=== PATIENT | female | born 1945 | race Caucasian/White ===

== ENCOUNTER 2020-02-29 07:57 | Outpatient (CLI) | payer MEDICARE, MEDICAID, SELFPAY ==
--- NOTE | 2020-02-29 08:13 | US_ITS ---
NOTE: Report was unsigned for reason: Ordering provider was edited. Original Signature date and time was: 02/29/20 @ 0929 WS: [id number] ULTRASOUND ABDOMEN CLINICAL INFORMATION: pain COMPARISON: None. FINDINGS: Liver Size: Normal. Craniocaudal length: 14.3 cm. Echogenicity: Normal. Surface nodularity: None. Mass (size and location): None. Bile ducts Intrahepatic ducts: Normal. Common bile duct diameter: 0.8 cm. Gallbladder Gallstones Gallstones: Present Gallbladder sludge: Sludge balls Gallbladder wall thickening: None. Pericholecystic fluid: None. Sonographic Wong sign: Absent. Pancreas Normal as visualized. Spleen Splenomegaly: None. Craniocaudal length: 11.4 cm. Right kidney: Atrophic and hyperechoic Hydronephrosis: None. Size: 6.5 cm x 3.1 cm x 2.9 cm Left kidney: Normal. Hydronephrosis: None. Size: 12.1 cm x 5.1 cm x 5.5 cm. Abdominal aortic aneurysm measuring 4.4 x 4.0 cm AP by transverse. Peripheral mural thrombus and chronic calcified dissection flap. Ascites: None. [facility] US/US abdomen complete* 80802 IMPRESSION: 1. Normal liver. 2. Cholelithiasis and sludge balls. Fluid Distended gallbladder. No pericholec ystic fluid or gallbladder wall thickening. No evidence of acute cholecystitis. 3. Dilated common bile duct measuring 9.3 mm extending into the pancreatic hea d. This can be further evaluated with MRCP. 4. Atrophic right kidney. Normal left kidney. 5. Abdominal aortic aneurysm measuring 4.4 x 4.0 cm with peripheral mural thro mbus and chronic calcified dissection flap. This appears slightly increased in size since 2016. This could be followed up with CTA.
== END 2020-02-29 07:58 | disposition home or self-care (01) ==
PROVIDERS: Family Provider Nurse Practitioner Family; PCP Nurse Practitioner Family; Visit Provider Nurse Practitioner Family
DX: R10.9 Unspecified abdominal pain (principal); K80.20 Calculus of gallbladder without cholecystitis without obstruction; N26.1 Atrophy of kidney (terminal); I71.4 Abdominal aortic aneurysm, without rupture
CPT/HCPCS: 76700

== ENCOUNTER 2020-03-13 08:10 | Day surgery (SDC) | payer MEDICARE, MEDICAID, SELFPAY ==
[2020-03-10 15:25] VITALS: BMI 17.8
[2020-03-13 08:33] VITALS: BP 146/101; PULSE 116; RESP 20; TEMP 37; O2SAT 94
[2020-03-13] MEDS: sodium chloride 0.9% 1,000 ML 30 ML IV (08:47)
--- NOTE | 2020-03-13 08:52 | ANES.PREANE2 ---
Pre-Anesthetic Assessment Pre-Anesthetic Assessment: Height/Weight: Height 1.7 m Weight 51.71 kg Temp Pulse Resp BP Pulse Ox 98.6 F 116 H 20 H 146/101 94 03/13/20 08:33 03/13/20 08:33 03/13/20 08:33 03/13/20 08:33 03/13/20 08:33 Preop Diagnosis: e Proposed Procedure: Operation Date: 03/13/20 09:35 Proposed Procedures p EGD 27951 R10.11(Not Applicable) - Isidro Tellez MD s Colonoscopy G0121 Z12.11(Not Applicable) - Isidro Tellez MD Familial anesthetic complications: None Was Beta Roseanna taken within 24 hours: Yes Last intake: Intake Last Liquid Date 03/12/20 Last Liquid Time 22:00 Last Solid Date 04/08/20 Last Solid Time 18:00 Social: Social History: Tobacco and No alcohol Packs per day: 1 ppd Exam: Pre-Anes Outpt Exam: alert, oriented x 3, clear to auscultation bilaterally and regular rate & rhythm Airway: Cervical ROM: WNL MP: 4 Dentition: False Pulmonary: Pulmonary: COPD (2 L NC at night a couple times a week depending on humidity) CV/HEM: CV/HEM: CAD (stents 5 years ago), HTN and PVD Comments: s/p AAA repair? : : None reported Hepatic: Hepatic: None reported GI: GI: None reported Metabolic: Metabolic: None reported Musc/skel: Musc/skel: Lower Back Pain Neuropsych: Neuropsych: None reported Anesthetic Plan: ASA status: 3 Anesthesia: MAC Risk of > 500 ml blood loss (7ml/kg in children): No Meds/Allergies Current Medications: Current Medications Generic Name Dose Route Start Last Admin Trade Name Freq PRN Reason Stop Dose Admin Sodium Chloride 1,000 mls @ 30 ml s/hr 03/13/20 08:30 03/13/20 08:47 Sodium Chloride 0.9% IV 30 mls/hr .Q24H SATNAM Administration Data Anesthesia Cardiac Studies: No Data to Display
--- NOTE | 2020-03-13 08:54 | W.PM.OPSUD ---
Surgery/Procedure H&P Update DATE OF PROCEDURE: March 13, 2020 DATE H&P PERFORMED: 03/06/20 PREOP DIAGNOSIS: e PLANNED PROCEDURE: Operation Date: 03/13/20 09:35 Proposed Procedures p EGD 82704 R10.11(Not Applicable) - Isidro Tellez MD s Colonoscopy G0121 Z12.11(Not Applicable) - Isidro Tellez MD
--- NOTE | 2020-03-13 09:41 | ANE.PACU2 ---
 Inpatient post-anesthesia follow up: Airway intact: Yes Vital signs: Temperature 98.6 F Pulse Rate 116 Respiratory Rate 20 Blood Pressure 146/101 Pulse Oximetry 94 Oxygen Delivery Me thod Room Air Oxygen Flow Rate Fraction of Inspir ed Oxygen Hydration adequate: Yes Nausea and vomiting: No Pain level: 1 Mental status: Baseline
[2020-03-13 10:17] VITALS: PULSE 79; RESP 16; TEMP 36.3; O2SAT 94
--- NOTE | 2020-03-13 10:22 | ANE.PACU2 ---
 Inpatient post-anesthesia follow up: Airway intact: Yes Vital signs: Temperature 97.3 F Pulse Rate 79 Respiratory Rate 16 Blood Pressure 146/101 Pulse Oximetry 94 Oxygen Delivery Me thod Nasal Cannula Oxygen Flow Rate 2 Fraction of Inspir ed Oxygen Hydration adequate: Yes Nausea and vomiting: No Pain level: 1 Mental status: Baseline
[2020-03-13 10:29] VITALS: BP 163/103; PULSE 75; RESP 18; O2SAT 98
--- NOTE | 2020-03-13 10:52 | PC.NURSE ---
This nurse called Dr. Smallwood's office to set up an appointment on Friday03/17/20 at 1315 for a gall bladder removal consultation. This nurse notified the patient as well.
== END 2020-03-13 10:44 | disposition home or self-care (01) ==
PROVIDERS: Family Provider Nurse Practitioner Family; PCP Nurse Practitioner Family; Visit Provider Internal Medicine
PROC: 0DJ08ZZ Inspection of Upper Intestinal Tract, Via Natural or Artificial Opening Endoscopic (ICD-10-PCS; CPT 43235; principal; 2020-03-13 09:30)
PROC: 0DJD8ZZ Inspection of Lower Intestinal Tract, Via Natural or Artificial Opening Endoscopic (ICD-10-PCS; CPT 45378; 2020-03-13 09:30)
DX: Z12.11 Encounter for screening for malignant neoplasm of colon (principal); J44.9 Chronic obstructive pulmonary disease, unspecified; Z95.5 Presence of coronary angioplasty implant and graft; I10 Essential (primary) hypertension; I25.10 Atherosclerotic heart disease of native coronary artery without angina pectoris; Z82.49 Family history of ischemic heart disease and other diseases of the circulatory system
CPT/HCPCS: 12345; 43235; 45378; G0121; J7030

== ENCOUNTER 2020-03-28 08:47 | Outpatient (CLI) | payer MEDICARE, MEDICAID, SELFPAY ==
--- NOTE | 2020-03-28 08:45 | MR_ITS ---
WS: [id number] MRI/MRCP OF THE ABDOMEN WITHOUT GADOLINIUM ENHANCEMENT TECHNIQUE: Thin and thick slab MRCP, Axial T2, Coronal MRCP, Axial Dual Echo, and Axial 2-D Fiesta imaging was obtained. Coronal 2-D Fiesta imaging. CLINICAL INFORMATION: DILATED COMMON BILE DUCT COMPARISON: Ultrasound February 28, 2011 CT 8 ,016 FINDINGS: Liver is normal in appearance. Normal portal vein and splenic vein. Cholelithiasis better seen on the recent ultrasound. Fluid distended gallbladder. No pericholecystic fluid or significant gallbladder wall thickening. Again seen is dilatation common bile duct measuring 10 mm extending to the pancreati c head. No visualized choledocholithiasis. No pancreatic head mass. No intrahepatic biliary duct dila tation. No pancreatic ductal dilatation. Atrophic right kidney. No hydronephrosis in either kidney. Normal left kidney. Stable abdominal aorti c aneurysm measuring 4.4 x 4.0 cm with moderate atheromatous disease and peripheral mural thrombus. C hronic dissection flap. MR/MR MRCP 24155 Impression: 1. Dilatation of the common bile duct measuring up to 10 mm. No obstructing ca lculi or pancreatic head mass. No visualized choledocholithiasis. 2. Fluid distended gallbladder with cholelithiasis. No intrahepatic biliary du ctal dilatation. No pericholecystic fluid. 3. Pancreatic head is normal in appearance. No visualized pancreatic head mass . 4. Atrophic right kidney. No hydronephrosis in the left kidney. Tiny left tereza l cyst. 5. Stable abdominal aortic aneurysm with dissection flap and mural thrombus. A neurysm measures approximately 4.0 x 4.4 cm AP by transverse.
== END 2020-03-28 08:48 | disposition home or self-care (01) ==
LOC: RADSHAW 08:50
PROVIDERS: PCP Nurse Practitioner Family; Visit Provider Surgery
DX: Q44.5 Other congenital malformations of bile ducts (principal); K82.8 Other specified diseases of gallbladder; K80.20 Calculus of gallbladder without cholecystitis without obstruction; N26.1 Atrophy of kidney (terminal); N28.1 Cyst of kidney, acquired; I71.4 Abdominal aortic aneurysm, without rupture
CPT/HCPCS: 74181

== ENCOUNTER 2020-04-05 06:27 | Day surgery (SDC) | payer MEDICARE, MEDICAID, SELFPAY ==
[2020-04-04 11:21] VITALS: BMI 18.0
[2020-04-05] VITALS (16 sets, daily range): BP systolic 134–166; BP diastolic 78–98; PULSE 65–87; RESP 16–18; TEMP 36.2–37.3; O2SAT 90–97
--- NOTE | 2020-04-05 | SCC_ITS ---
Procedure Done: Laparoscopic cholecystectomy with intraoperative cholangiogram 7.7 seconds of fluoroscopic guidance, for a cumulative dose of 24.48 mGy, was provided to Dr. Smallwood by the radiology department. C-arm images of the abdomen were saved for the patient's permanent record. [facility]
--- NOTE | 2020-04-05 | XR_ITS ---
WS: [id number] C-ARM RADIOGRAPHS ABDOMEN; 11 IMAGES HISTORY: OR IMAGES COMPARISON: None available. Intraoperative imaging during laparoscopic cholecystectomy. Intraoperative cholangiogram is performed . There is a mild stricture the distal common bile duct. No filling defects. XR/XR KUB 10582 IMPRESSION: Stricture of the distal common bile duct. No filling defects.
[2020-04-05] MEDS: sodium chloride 0.9% 1,000 ML 30 ML IV (07:03)
--- NOTE | 2020-04-05 07:05 | W.PM.OPSUD ---
Surgery/Procedure H&P Update DATE OF PROCEDURE: April 05, 2020 DATE H&P PERFORMED: 03/17/20 H&P UPDATE INFORMATION: I have reviewed H&P completed within last 30 days, I have examined patient prior to procedure and No changes to prior documentation PREOP DIAGNOSIS: cholelithiasis PLANNED PROCEDURE: Operation Date: 04/05/20 08:00 Proposed Procedures p Laparoscopic Cholecystectomy 92881 R10.11(Not Applicable) - Con Smallwood MD
--- NOTE | 2020-04-05 07:26 | ANES.PREANE2 ---
Pre-Anesthetic Assessment Pre-Anesthetic Assessment: Height/Weight: Height 1.7 m Weight 52.163 kg Temp Pulse Resp BP Pulse Ox 99.2 F 87 18 134/80 94 04/05/20 06:49 04/05/20 06:49 04/05/20 06:49 04/05/20 06:49 04/05/20 06:49 Preop Diagnosis: cholelithiasis Proposed Procedure: Operation Date: 04/05/20 08:00 Proposed Procedures p Laparoscopic Cholecystectomy 36046 R10.11(Not Applicable) - Con Smallwood MD Last intake: Intake Last Liquid Date 04/04/20 Last Liquid Time 23:30 Last Solid Date 04/04/20 Last Solid Time 15:00 Social: Social History: Alcohol and Tobacco Exam: Pre-Anes Outpt Exam: alert, oriented x 3, clear to auscultation bilaterally and regular rate & rhythm Airway: Submandibular: WNL Cervical ROM: WNL MP: 1 Dentition: False (upper and lower) History/ROS: No significant history except as noted Pulmonary: Pulmonary: COPD and SORTO CV/HEM: CV/HEM: CAD and HTN Comments: AAA repair 2016 CAD stent : : None reported Hepatic: Hepatic: None reported GI: GI: GERD Metabolic: Metabolic: Hyperlipidemia Musc/skel: Musc/skel: Lower Back Pain and OA/DJD Neuropsych: Neuropsych: None reported Anesthetic Plan: ASA status: 3 Anesthesia: Anesthesia Evaluation and General Risk of > 500 ml blood loss (7ml/kg in children): No Meds/Allergies Current Medications: Current Medications Generic Name Dose Route Start Last Admin Trade Name Freq PRN Reason Stop Dose Admin Sodium Chloride 1,000 mls @ 30 ml s/hr 04/05/20 06:00 04/05/20 07:03 Sodium Chloride 0.9% IV 04/06/20 05:59 30 mls/hr .Q24H SATNAM Administration PFSH Anesthesia PFSH: Medical History Adjustment disorder with depressed mood CHF (congestive heart failure) Chronic pain disorder COPD (chronic obstructive pulmonary disease) Dissection of aorta HTN (hypertension), benign Idiopathic osteoarthritis Idiopathic scoliosis Opioid dependence Surgical History H/O esophagogastroduodenoscopy History of aortic aneurysm repair History of back surgery History of eye surgery History of hysterectomy Status post colonoscopy Family History Mother Hypertension Denies family history of Anesthesia complication Bleeding disorder Social History Smoking and tobacco status: current every day smoker Second hand smoke exposure: No Alcohol intake: never Adopted: No Caregiver/support person: Yes Lives independently: Yes Household members: none Housing: House Sexually active: No Current gender identity: Female Data Anesthesia Cardiac Studies: No Data to Display
[2020-04-05] MEDS: fentaNYL 50 mcg/mL INJ 2mL IVP ×2 (10:03→10:08)
[2020-04-05] MEDS: morphine 4 mg/mL SDV 1 mL 2 MG IVP ×2 (10:12→10:16)
--- NOTE | 2020-04-05 10:16 | P.OP_ITS ---
Operative Report Date of procedure: April 05, 2020 Pre-op Diagnosis: cholelithiasis, dilated CBD measuring 10 mm Post-op Diagnosis: Cholelithiasis CBD measuring 10 mm 2 cm distal CBD stricture, slightly dilated with glucagon, with drainage of contrast into duodenum - will refer to GI for possible ERCP as outpatient Procedure Done: Laparoscopic cholecystectomy with intraoperative cholangiogram Specimens removed/disposition: Gallbladder Surgeon: Con Smallwood Anesthesia: General Estimated blood loss (mL): 20 Condition: stable Disposition: PACU Brief History: This is 75-year-old female who is previously undergone a open as well as endovascular aortic aneurysm repair and has been dealing with right upper quadrant pain worse with eating. She had an ultrasound which showed 9 mm duct and cholelithiasis and a subsequent MRCP showed dilated duct but no choledocholithiasis or obstructing mass was identified. Procedure: The patient was taken to the operating room and was intubated under general anesthesia. After the antibiotic had been administered, the abdomen was prepped and draped in a sterile manner. Using a #15 blade, a 1 centimeter incision was made in the midclavicular line in the right upper quadrant 2 fingerbreadths below the costal margin and using an open Chyna technique the peritoneal cavity was entered. A 10 millimeter port was placed and 15 millimeters of pneumoperitoneum was created. A 10 millimeter, 30 degrees scope was then introduced. Three 5 millimeter ports were placed in the epigastric, and the anterior axillary line two fingerbreadths below the costal margin on the right side under the direct visualization. Another 5 mm port was placed in the midclavicular line on the right side at the level of the umbilicus. Ratcheted forceps were introduced into the lateral most port and was used to retract the fundus of the gallbladder cephalad and using forceps the infundibulum of the gallbladder was retracted laterally. Using L-hook cautery the peritoneum overlying the Calot's triangle was opened medially and laterally until the cystic duct and the cystic artery were skeletonized critical view of safety ob tained.. The cystic duct and cystic artery was isolated and Arrow cholangiogram catheter was introduced through sheath placed in the right upper quadrant under direct visualization. Using scissors a small opening was made in the cystic duct after a 5 mm clip was placed at the infundibulum of the gallbladder. The cystic duct was milked proximally and Arrow catheter was introduced through the sheath placed in the right upper quadrant and the balloon inflated with 1 cc of saline. 50: 50 Omnipaque mixed with saline was injected under fluoroscopic visualization, the cystic duct and the dilated common bile duct was identified. There was a 2 cm stricture noted in the distal CBD with drainage of contrast into the duodenum. The right and the left hepatic ducts were identified. 1 mg of glucagon was given and a repeat study showed slight dilation of the stricture with drainage of contrast into the duodenum. The balloon on the cholangiogram catheter was deflated and removed and 10mm clips were applied distal to the opening in the cystic duct. The rest of the gallbladder was dissected off the liver using L-hook cautery. There was no bleeding or bile leakage noted from the gallbladder fossa and the clips appeared to be in place. An EndoCatch bag was introduced to remove the gallbladder. All the ports were removed under direct visualization and there was no bleeding noted from the port sites. The fascia of the 10 mm port was closed using [id number] Vicryl sutures and the subcutaneous tissue was approximated using 3-0 Vicryl sutures. The skin at all four ports were closed using 4-0 Monocryl and Dermabond. A total of 10 millimeters of 0.5% Marcaine was infiltrated around the port sites. The patient was stable throughout the procedure.
[2020-04-05] MEDS: meperidine 50 mg/mL INJ 12.5 MG IVP (10:20)
[2020-04-05] MEDS: sodium chloride 0.9% 1,000 ML 100 ML IV (10:20)
--- NOTE | 2020-04-05 10:52 | SUR.PHASEI ---
1040 PT AWAKES TO VOICE EASILY PT REMAINS ON 3LNC SATS 100% PT STATES PAIN IS BETTER BUT STILL 10 FACE SCALE 2 PT BACK TO SLEEP ABD SOFT PT TO OPS PER CART PT AWAKES AND REQUESTS APPLE JUICE TO DRINK.
[2020-04-05] MEDS: HYDROcodone-acetaminophen 5-325 mg Tablet 1 TAB PO (11:15)
== END 2020-04-05 12:04 | disposition home or self-care (01) ==
PROVIDERS: PCP Nurse Practitioner Family; Visit Provider Surgery
PROC: 0FT44ZZ Resection of Gallbladder, Percutaneous Endoscopic Approach (ICD-10-PCS; CPT 47562; principal; 2020-04-05 08:00)
DX: K81.1 Chronic cholecystitis (principal); J44.9 Chronic obstructive pulmonary disease, unspecified; I25.10 Atherosclerotic heart disease of native coronary artery without angina pectoris; K21.9 Gastro-esophageal reflux disease without esophagitis; E78.5 Hyperlipidemia, unspecified; M19.90 Unspecified osteoarthritis, unspecified site; I11.0 Hypertensive heart disease with heart failure; I50.9 Heart failure, unspecified; F17.210 Nicotine dependence, cigarettes, uncomplicated
CPT/HCPCS: 47562; 12345; 74018; 76000; 88304; J0690; J1610; J2175; J2270; J2405; J2704; J2710; J3010; J3490; J7030

== ENCOUNTER 2020-08-18 08:46 | Outpatient (CLI) | payer MEDICARE, MEDICAID, SELFPAY ==
--- NOTE | 2020-08-18 08:57 | US_ITS ---
WS: [id number] Gallbladder and right upper quadrant ultrasound, 08/18/2020 Clinical Data: OBSTRUCTION OF BILE DUCT Comparison: Right upper quadrant ultrasound, 02/29/2020. Findings: The gallbladder is absent. The common bile duct is 1.3 cm and there are no intrahepatic ductal abnormalities. Liver shows no cysts, masses or dilated intrahepatic ducts. The pancreas is not obscured by overlying bowel gas and no cyst, pseudocyst, or evidence of pancreati tis is noted. Right kidney is atrophic and measures 6.1 cm. No cyst, masses or hydronephrosis can be seen. The roderick ex is 0.46 cm. There is an aortic stent graft present. The aortic graft measures 0.9 cm in greatest AP diameter. Adj acent to it is the [place] aorta which has thrombus throughout. US/US abdomen limited [id number] Impression: 1. Dilated common bile duct but no intraluminal filling defect is seen. 2. Aortic stent graft unchanged. 3. Cholecystectomy and atrophic right kidney.
== END 2020-08-18 08:47 | disposition home or self-care (01) ==
LOC: RAD 08:49
PROVIDERS: PCP Nurse Practitioner Family; Visit Provider Nurse Practitioner Family
DX: K83.1 Obstruction of bile duct (principal); N26.1 Atrophy of kidney (terminal); Z90.5 Acquired absence of kidney
CPT/HCPCS: 76705

== ENCOUNTER 2022-01-22 17:18 | Emergency (ER) | payer MEDICARE, MEDICAID, SELFPAY ==
[2022-01-22 17:20] VITALS: BP 145/114; PULSE 131; RESP 18; O2SAT 96; BMI 22.8
--- NOTE | 2022-01-22 17:25 | XRR_ITS ---
PROCEDURE INFORMATION: Exam: XR Chest Exam date and time: 01/22/2022 5:25 PM Age: 76 years old Clinical indication: Other: Upper abd pain starting today; Prior surgery; Surgery date: 6+ months; Surgery type: Aortic stent; Additional info: Upper L abd pain TECHNIQUE: Imaging protocol: XR of the chest. Views: 1 view. COMPARISON: CR Chest 1 [place] [id number] 07/05/2017 8:28 PM FINDINGS: Lungs: Hyperinflated lungs. No consolidation. Pleural spaces: Small volume left pleural effusion. No pneumothorax. Heart/Mediastinum: Aortic stent noted in the distal aortic arch and descending thoracic aorta. No cardiomegaly. Bones/joints: Visualized osseous structures are intact. XR/XR chest 1V portable [id number] IMPRESSION: Small volume left pleural effusion.
--- NOTE | 2022-01-22 17:25 | ECG_ITS ---
[facility] Test Date: 2022-01-22 Pat Name: Rylee Martinez Department: Room: Gender: Female Sleep Scientist: : 1945 Requested By: Jessica Alvarez Order Number: [id number] Allen MD: Scooter Galeas M.D. Measurements Intervals [place] Rate: 134 P: DE: QRS: -5 QRSD: 93 T: 94 QT: 219 QTc: 328 Interpretive Statements ATRIAL FIBRILLATION WITH RAPID VENTRICULAR RESPONSE NONSPECIFIC ST & T-WAVE ABNORMALITY Compared to ECG 07/05/2017 20:13:37 T-wave abnormality now present Sinus rhythm no longer present Myocardial infarct finding no longer present Electronically Signed On 01-22-2022 22:22:41 CDT by Scooter Galeas M.D. [id number]
--- NOTE | 2022-01-22 17:31 | ED_ITS ---
HPI - General Adult General: Chief complaint: Abdominal Pain Stated complaint: LEFT UPPER QUAD ABD PAIN Time Seen by Provider: 01/22/22 17:20 History of Present Illness: Patient is a 76-year-old female with history of thoracic dissection s/p aortic repair, atrial fibrillation on eliquis, CHF, COPD, hypertension who presents the emergency room for evaluation of left upper quadrant abdominal pain, nausea vomiting and diarrhea. Patient says that the symptoms started for the last 3 weeks and has been getting worse. Patient has had decreased p.o. intake due to the nausea and vomiting. Patient denies any melena hematochezia, or any prior abdominal surgery. Patient reports his dull achy pain that radiates from left upper abdomen to the chest. Patient denies any cough, runny nose, sore throat, chest pain or shortness of breath. Denies any exertional/pleuritic chest recurrence of chest pains rating towards back. On arrival, patient was noted to be in atrial fibrillation with RVR to the 140s. Onset:3 weeks ago Duration:ongoing Location:home Severity:moderate/severe Associated symptoms: Reports nausea and vomiting; Deny chest pain, dyspnea, rash or palpitations Review of Systems Const: Denies: fever(s) or chills Eyes: Denies: change in vision ENMT: Denies: mouth pain Card: Denies: chest pain or palpitations Resp: Denies: dyspnea or non-productive cough GI: Reports: abdominal pain, nausea, vomiting and diarrhea : Denies: dysuria Musc: Denies: extremity pain Skin/Breast: Denies: rash or new lesions Neuro: Denies: weakness in extremities Psych: Reports: other (Normal mood) Chris/Lymph: Denies: easy bruising PFSH ED PFSH: Medical History Adjustment disorder with depressed mood CHF (congestive heart failure) Chronic pain disorder COPD (chronic obstructive pulmonary disease) Dissection of aorta HTN (hypertension), benign Idiopathic osteoarthritis Idiopathic scoliosis Opioid dependence Surgical History H/O esophagogastroduodenoscopy History of aortic aneurysm repair History of back surgery History of eye surgery History of hysterectomy Status post colonoscopy Status post laparoscopic cholecystectomy (04/05/20) Family History Mother Hypertension Denies family history of Anesthesia complication Bleeding disorder Social History Smoking and tobacco status: current every day smoker Second hand smoke exposure: No Alcohol intake: never Adopted: No Caregiver/support person: Yes Lives independently: Yes Household members: none Housing: House Sexually active: No Current gender identity: Female Physical Exam Const: COMMON NORMALS: alert HENMT: COMMON NORMALS: atraumatic HEAD & SCALP: atraumatic MOUTH: moist mucous membranes abnormal Eye: COMMON NORMALS: EOMs intact bilaterally and conjunctivae normal CONJUNCTIVA: Yes conjunctivae normal Neck/C-Spine: COMMON NORMALS: full ROM and supple Resp: COMMON NORMALS: normal respiratory effort and clear to auscultation bilaterally AUSCULTATION: clear to auscultation bilaterally Cardio: RATE: tachycardic OTHER: +irregular irregular tachycardia GI: COMMON NORMALS: Soft to palpation PALPATION: Yes Soft to palpation OTHER: +moderate focal LUQ TTP. NO guarding rebound, guarding, rigidity. No CVA tenderness to percussion. Neg Wong/Neg McBurney's point tenderness, no suprabupic tenderness to palpation. Extremity: COMMON NORMALS: full ROM Neuro: SENSORIUM/ORIENTATION: Yes alert MOTOR EXAM: No Abnormal motor strength present and Other motor observations present (no focal motor deficits) Psych: COMMON NORMALS: speech normal SPEECH: Yes normal speech MOOD & AF FECT: Yes euthymic mood Course Vital Signs: Vital signs: Vital Signs Pulse Rate 96 01/22/22 21:37 Respiratory Rate 18 01/22/22 21:37 Blood Pressure 125/101 01/22/22 21:37 Pulse Oximetry 95 01/22/22 21:37 [facility] - General Adult Medical Decision Making 76-year-old female with a history of A. fib on Eliquis, prior aortic dissection status post hemiarch repair, hypertension with CHF, COPD who presents the emergency room in A. fib with RVR with concerns of left upper quadrant abdominal pain, nausea/vomiting, diarrhea and generalized weakness. On exam, patient is noted to have irregularly irregular tachycardia. Left upper quadrant moderate tenderness to palpation. No guarding or rebound tenderness. Patient received 5 mg metoprolol, 50 mg p.o. metoprolol, 1 mg Ativan, and 500cc of IVF with improvement heart rate to the low 90s. Patient on CT scan is noted to have a 4.6 cm abdominal aortic aneurysm in greatest diameter. This appears to be enlarged from the 4.4 cm maximal dimension from 02/2020. I discussed this finding with patient. The dissection flap flap appears to be chronic similar to before. Patient has had good 2+ DP pulses bilaterally. Do not suspect the dissection is worsening. At the present time, patient is given close follow-up with Dr. Zeng as well as her primary care provider for close evaluation of the aorta. CT abdomen pelvis did not show any other acute pathology at this time. I have given patient follow up with our dependency case manager to be seen by our PCP and Dr. Zeng for enlarging abdominal aortic aneurym. Patient aware of a call from our dependency case manager to schedule for appointment(s) and verbalizes understanding of the importance of following up. Patient has a copy of the CT report. Patient has troponin x2 within normal limit. EKG is nonischemic. Do not suspect ACS as a cause of the symptom given the fact the patient has diarrhea, abdominal complaints and no chest pain. Patient tolerated p.o. without any difficulty in the emergency room. I have given patient close follow-up with primary care provider for further evaluation of the symptoms today. Patient is given strict return precaution any worsening pain, uncontrolled heart rate, or any new concerning complaints. Patient to followup with cardiology for management of afib. Rx tylenol PRN abd pain, maalox/pepcid PRN dyspepsia, and zofran PRN nausea/vomiting Disposition: Discharge. Patient counseled regarding diagnostic impression, treatment plan. Patient given ED strict return precautions to return for continuation, worsening, or development of new symptoms. Instructed to f/u w/ PCP regarding symptoms today. Patient verbalized understanding. Lab Data : 01/22/22 17:30 01/22/22 17:30 Radiology Impressions Chest X-Ray 01/22/22 17:25 IMPRESSION: Small volume left pleural effusion. Chest/Abdomen/Pelvis CT 01/22/22 18:16 IMPRESSION: 1. No evidence of pulmonary embolism. 2. Thoracic aortic aneurysm status post stent graft repair. Please compare with prior studies. IMPRESSION: 1. Abdominal aortic aneurysm and dissection. The aneurysm is larger than on the prior noncontrast examination from 2016. There is no evidence of leakage or extravasation or rupture. 2. Cholecystectomy and hysterectomy. 3. No acute intra-abdominal finding 4. Moderate hiatus hernia COMMENTS: THIS REPORT CONTAINS FINDINGS THAT MAY BE CRITICAL TO PATIENT CARE. The findings were verbally communicated via telephone conference with JESSICA ALVAREZ at 7:48 PM CDT on 01/22/2022. The findings were acknowledged and understood. Laboratory Results WBC 4.8 10^3/uL (4.0-10.0) 01/22/22 17:30 RBC 5.02 10^6/uL (4.1-5.3) 01/22/22 17: Hgb 12.8 g/dL (11.5-15.3) 01/22/22 17: Hct 42.0 % (37.0-47.0) 01/22/22 17:30 MCV 83.7 fl (81-99) 01/22/22 17: MCH 25.5 pg (28.0-34.0) L 01/22/22 17: MCHC 30.5 g/dL (30.0-36.0) 01/22/22 17: RDW 17.7 % (12.1-15.1) H 01/22/22 17: Plt Count 236 10^3/cmm (130-400) 01/22/22 17:30 MPV 10.0 fL (7.4-10.4) 01/22/22 17:30 Neut % (Auto) 63.3 % 01/22/22 17:30 Lymph % (Auto) 24.3 % 01/22/22 17:30 [place] % (Auto) 10.8 % 01/22/22 17:30 Eos % (Auto) 1.0 % 01/22/22 17: Baso % (Auto) 0.4 % 01/22/22 17:30 Neut # (Auto) 3.05 10^3/uL (1.8-7.7) 01/22/22 17:30 Lymph # (Auto) 1.2 10^3/uL (0.8-4.8) 01/22/22 17:30 [place] # (Auto) 0.5 10^3/uL (0.2-0.9) 01/22/22 17:30 Eos # (Auto) 0.1 10^3/uL (0.0-0.8) 01/22/22 17:30 Baso # (Auto) 0.0 10^3/uL (0.0-0.1) 01/22/22 17:30 Nucleated RBC % (auto) 0 % 01/22/22 17:30 Nucleated RBCs # 0.0 /100WBC 01/22/22 17:30 D-Dimer 1.94 ug/mIFEU (0-0.59) H 01/22/22 17:30 Sodium 139 mmol/L (136-145) 01/22/22 17:30 Potassium 3.5 mmol/L (3.5-5.1) 01/22/22 17:30 Chloride 103 mmol/L (98-107) 01/22/22 17:30 Carbon Dioxide 20 mmol/L (22-29) L 01/22/22 17:30 Anion Gap 19.5 (5-19) H 01/22/22 17:30 BUN 15 mg/dL (8-23) 01/22/22 17:30 Creatinine 0.5 mg/dL (0.5-0.9) 01/22/22 17:30 GFR Calculation Not Reportable 01/22/22 17:30 Glucose 120 mg/dL (65-115) H 01/22/22 17:30 Calculated Osmolality 290 mOsm/kg (285-295) 01/22/22 17:30 Lactate 0.9 mmol/L (0.5-2.2) 01/22/22 17:48 Calcium 9.9 mg/dL (8.5-10.5) 01/22/22 17:30 Total Bilirubin 0.2 mg/dL (0.15-1.2) 01/22/22 17:30 AST 18 U/L (0-32) 01/22/22 17:30 ALT 8 U/L (0-33) 01/22/22 17:30 Alkaline Phosphatase 179 IU/L (35-105) H 01/22/22 17:30 Troponin T Baseline 12 ng/L (0-10) H 01/22/22 17:30 Troponin T 120 Minute 10.68 ng/L (0-10) H 01/22/22 19:43 Delta Troponin T -1.32 ABS# (0-10) L 01/22/22 19:43 Total Protein 7.2 g/dL (6.6-8.7) 01/22/22 17:30 Albumin 4.3 g/dL (3.5-5.2) 01/22/22 17:30 Globulin 2.9 g/dL (1.3-4.6) 01/22/22 17:30 Lipase 23 U/L (13-60) 01/22/22 17:30 Urine Color Yellow (Yellow) 01/22/22 18:40 Urine Appearance Clear (CLEAR) 01/22/22 18:40 Urine pH 5 (5-7) 01/22/22 18:40 Ur Specific [place] 1.010 (1.005-1.030) 01/22/22 18:40 Urine Protein Neg (Negative) 01/22/22 18:40 Urine Glucose (UA) Norm (Normal) 01/22/22 18:40 Urine Ketones Negative (Negative) 01/22/22 18:40 Urine Blood Neg (Negative) 01/22/22 18:40 Urine Nitrate Positive (Negative) H 01/22/22 18:40 Urine Bilirubin Neg (Negative) 01/22/22 18:40 Urine Urobilinogen Neg mg/dL (Negative) 01/22/22 18:40 Ur Leukocyte Esterase Negative (Negative) 01/22/22 18:40 Urine RBC Rare /hpf (0-2) 01/22/22 18:40 Urine WBC Rare /hpf (0-5) 01/22/22 18:40 Ur Squamous Epith Cells Rare /hpf (0-5) 01/22/22 18:40 Amorphous Sediment Not Reportable 01/22/22 18:40 Urine Bacteria 3+ /hpf (NONE) H 01/22/22 18:40 Imaging Data Other Imaging: Radiologist's impression: [address] [address] [address] Scan Report Signed Patient: Rylee Martinez Unit #: [id number] : 1945 Age/Sex: 76 / F ADM Date: 01/22/22 Loc: ER Room/Bed: Attending Dr: Ordering Provider/Ordering MD: Jessica Alvarez MD Date of Service: 01/22/22 Procedure(s): CT angio chest w abd pel w con Accession Number(s): [id number] Report Number: [id number] PROCEDURE INFORMATION: Exam: CTA Chest With Contrast Exam date and time: 01/22/2022 6:16 PM Age: 76 years old Clinical indication: Abdominal pain; Epigastric; Other: Luq pain; Prior surgery; Surgery date: 6+ months; Surgery type: Aortic; Additional info: Eval for pe TECHNIQUE: Imaging protocol: Computed tomographic angiography of the chest with contrast. 3D rendering (Not supervised by radiologist): MIP and/or 3D reconstructed images were created by the technologist. Radiation optimization: All CT scans at this facility use at least one of these dose optimization techniques: automated exposure control; mA and/or kV adjustment per patient size (includes targeted exams where dose is matched to clinical indication); or iterative reconstruction. Contrast material: OMNI 350; Contrast volume: 95 ml; Contrast route: INTRAVENOUS (IV);? COMPARISON: CR XR chest 1V portable [id number] 01/22/2022 4:31 PM RADIATION DOSE METRICS: Total DLP (mGy-cm): 1028.49 FINDINGS: Pulmonary arteries: There is no evidence of filling defects within the pulmonary arterial circulation to suggest pulmonary embolism. Aorta: There is aneurysm of the descending thoracic aorta post stent graft repair with maximum diameter of 3.8 cm. Comparison with prior exams suggested if available. There is mild ectasia of the ascending thoracic aorta which measures 4 cm in diameter. Lungs: There is severe centrilobular emphysema throughout both lungs. Pleural spaces: Unremarkable. No pneumothorax. No pleural effusion. Heart: Unremarkable. No cardiomegaly. No pericardial effusion. Lymph nodes: There is no evidence of lymphadenopathy. Diaphragm: A large hiatal hernia is present. Bones/joints: Unremarkable. No acute fracture. Soft tissues: Unremarkable. PROCEDURE INFORMATION: Exam: CT Abdomen And Pelvis With Contrast Exam date and time: 01/22/2022 6:16 PM Age: 76 years old Clinical indication: Abdominal pain; Epigastric; Other: Luq pain; Prior surgery; Surgery date: 6+ months; Surgery type: Aortic; Additional info: Eval for pe TECHNIQUE: Imaging protocol: Computed tomography of the abdomen and pelvis with contrast. Radiation optimization: All CT scans at this facility use at least one of these dose optimization techniques: automated exposure control; mA and/or kV adjustment per patient size (includes targeted exams where dose is matched to clinical indication); or iterative reconstruction. Contrast material: OMNI 350; Contrast volume: 95 ml; Contrast route: INTRAVENOUS (IV);? COMPARISON: 1. CR XR chest 1V portable [id number] 01/22/2022 4:[address] abdomen pelvis wo con [id number] 07/05/2016 9:19 PM RADIATION DOSE METRICS: Total DLP (mGy-cm): 1028.49 FINDINGS: Diaphragm: A moderate hiatal hernia is present. Liver: There is a diffuse decrease in hepatic parenchymal density, consistent with moderate fatty infiltration. Gallbladder and bile ducts: There has been a cholecystectomy. There is mild intrahepatic biliary tract dilatation. Common bile duct measures approximately 9 mm. Pancreas: The pancreas is normal. Spleen: The spleen is normal. Adrenal glands: The adrenal glands are normal. Kidneys and ureters: There is severe atrophy of the right kidney. The left kidney is normal. There is no evidence of hydronephrosis. There is no evidence of renal or ureteral calcifications. Stomach and bowel: There is no evidence of colitis/diverticulitis. Appendix: Not identified Intraperitoneal space: There is no evidence of free intraperitoneal fluid. Vasculature: There is dissecting aneurysm of the abdominal aorta beginning just below the diaphragmatic hiatus and extending into the iliac arteries more on the left than on the right. Aortic diameter is larger than on 07/05/2016. Maximum transverse diameter in the mid abdominal aorta is approximately 4.7 cm compared with 3.5 previously. Dissection extends into the left common iliac and external iliac arteries but not into the femoral artery. Celiac and SMA arteries are grossly patent. There is no evidence of leakage or extravasation. Lymph nodes: There is no evidence of lymphadenopathy. Urinary bladder: Unremarkable as visualized. Reproductive: There has been a hysterectomy. Bones/joints: The lumbar spine demonstrates marked degenerative changes at multiple levels. Soft tissues: Unremarkable. CT/CT angio chest w abd pel w con IMPRESSION: 1. No evidence of pulmonary embolism. 2. Thoracic aortic aneurysm status post stent graft repair. Please compare with prior studies. ? ? IMPRESSION: 1. Abdominal aortic aneurysm and dissection. The aneurysm is larger than on the prior noncontrast examination from 2016. There is no evidence of leakage or extravasation or rupture. 2. Cholecystectomy and hysterectomy. 3. No acute intra-abdominal finding 4. Moderate hiatus hernia ? COMMENTS: THIS REPORT CONTAINS FINDINGS THAT MAY BE CRITICAL TO PATIENT CARE. The findings were verbally communicated via telephone conference with JESSICA ALVAREZ at 7:48 PM CDT on 01/22/2022. The findings were acknowledged and understood. ? Dictated By: Eric Uriostegui Signed By: Eric Uriostegui Signed Date/Time: 01/22/221954 DD/ 15 Discharge Plan Discharge Patient Disposition: Home Clinical Impression: Nausea & vomiting, Diarrhea, Atrial fibrillation, Abdominal pain Condition: Stable Prescriptions: New Zofran 4 mg tablet 4 mg PO TID PRN (Reason: nausea and vomiting) 4 Days Qty: 12 0RF acetaminophen 500 mg tablet 500 mg PO Q6H PRN (Reason: pain) 5 Days Qty: 20 0RF Maalox Advanced 1,000-60 mg tablet,chewable 1 tab PO TID PRN (Reason: abdominal pain) 7 Days Qty: 21 0RF No Action amlodipine 10 mg tablet 10 mg PO DAILY 0RF CalMag Thins 200 mg calcium- 50 mg tablet 1 tab PO DAILY 0RF Combivent Respimat 20-100 mcg/actuation mist 1 puff INHALATION QID 0RF Flovent HFA 110 mcg/actuation HFA aerosol inhaler 1 puff INHALATION Q12H 0RF lisinopril-hydrochlorothiazide 20-12.5 mg tablet 1 tab PO DAILY 0RF sertraline 50 mg tablet 50 mg PO DAILY 0RF omeprazole 20 mg tablet,delayed release (DR/EC) 40 mg PO DAILY 0RF furosemide 20 mg tablet 20 mg PO DAILY 0RF mirtazapine 7.5 mg tablet 7.5 mg PO DAILY 0RF potassium chloride 10 mEq capsule, extended release 10 meq PO DAILY 0RF metoprolol tartrate 50 mg tablet 50 mg PO BID Qty: 180 3RF meloxicam 15 mg Tablet 15 mg PO DAILY PRN (Reason: Pain) 0RF Vitamin B-12 50 mcg Lozenge 50 mcg PO DAILY 0RF Echinacea and Goldenseal 450 mg Capsule 900 mg PO DAILY 0RF Eliquis 5 mg tablet 5 mg PO BID 0RF Discharge Orders: Discharge ED (Routine); Ordered 01/22/22 Ordered By: Jessica Alvarez Referrals: Kimberley Dumont FNP [Primary Care Provider] - Discharge Diet: Advance as tolerated Discharge Activity: Increase activity as tolerated Activity Restrictions/Additional Instructions: Please come back if you have any worsening abdominal pain, fever or chills, nausea or vomiting, diarrhea, blood in the stool, inability hold down liquid or solids, or any new concerning complaints. Our dependency case manager will have you follow-up with a primary care provider and Dr. Zeng in the next few days for your abdominal aortic aneurym that is enlarging. You would be expected to have a phone call with our dependency case manager who will put you on the schedule. You can expect a call from us in the next 2-3 days. If you don't hear from us, call us back in the emergency room at [phone]. Here's your CT report: [facility] [address] [address] Scan Report Signed Patient: Rylee Martinez Unit #: [id number] : 1945 Age/Sex: 76 / F ADM Date: 01/22/22 Loc: ER Room/Bed: Attending Dr: Ordering Provider/Ordering MD: Jessica Alvarez MD Date of Service: 01/22/22 Procedure(s): CT angio chest w abd pel w con Accession Number(s): [id number] Report Number: [id number] PROCEDURE INFORMATION: Exam: CTA Chest With Contrast Exam date and time: 01/22/2022 6:16 PM Age: 76 years old Clinical indication: Abdominal pain; Epigastric; Other: Luq pain; Prior surgery; Surgery date: 6+ months; Surgery type: Aortic; Additional info: Eval for pe TECHNIQUE: Imaging protocol: Computed tomographic angiography of the chest with contrast. 3D rendering (Not supervised by radiologist): MIP and/or 3D reconstructed images were created by the technologist. Radiation optimization: All CT scans at this facility use at least one of these dose optimization techniques: automated exposure control; mA and/or kV adjustment per patient size (includes targeted exams where dose is matched to clinical indication); or iterative reconstruction. Contrast material: OMNI 350; Contrast volume: 95 ml; Contrast route: INTRAVENOUS (IV);? COMPARISON: CR XR chest 1V portable [id number] 01/22/2022 4:31 PM RADIATION DOSE METRICS: Total DLP (mGy-cm): 1028.49 FINDINGS: Pulmonary arteries: There is no evidence of filling defects within the pulmonary arterial circulation to suggest pulmonary embolism. Aorta: There is aneurysm of the descending thoracic aorta post stent graft repair with maximum diameter of 3.8 cm. Comparison with prior exams suggested if available. There is mild ectasia of the ascending thoracic aorta which measures 4 cm in diameter. Lungs: There is severe centrilobular emphysema throughout both lungs. Pleural spaces: Unremarkable. No pneumothorax. No pleural effusion. Heart: Unremarkable. No cardiomegaly. No pericardial effusion. Lymph nodes: There is no evidence of lymphadenopathy. Diaphragm: A large hiatal hernia is present. Bones/joints: Unremarkable. No acute fracture. Soft tissues: Unremarkable. PROCEDURE INFORMATION: Exam: CT Abdomen And Pelvis With Contrast Exam date and time: 01/22/2022 6:16 PM Age: 76 years old Clinical indication: Abdominal pain; Epigastric; Other: Luq pain; Prior surgery; Surgery date: 6+ months; Surgery type: Aortic; Additional info: Eval for pe TECHNIQUE: Imaging protocol: Computed tomography of the abdomen and pelvis with contrast. Radiation optimization: All CT scans at this facility use at least one of these dose optimization techniques: automated exposure control; mA and/or kV adjustment per patient size (includes targeted exams where dose is matched to clinical indication); or iterative reconstruction. Contrast material: OMNI 350; Contrast volume: 95 ml; Contrast route: INTRAVENOUS (IV);? COMPARISON: 1. CR XR chest 1V portable [id number] 01/22/2022 4:[address] abdomen pelvis con [id number] 07/05/2016 9:19 PM RADIATION DOSE METRICS: Total DLP (mGy-cm): 1028.49 FINDINGS: Diaphragm: A moderate hiatal hernia is present. Liver: There is a diffuse decrease in hepatic parenchymal density, consistent with moderate fatty infiltration. Gallbladder and bile ducts: There has been a cholecystectomy. There is mild intrahepatic biliary tract dilatation. Common bile duct measures approximately 9 mm. Pancreas: The pancreas is normal. Spleen: The spleen is normal. Adrenal glands: The adrenal glands are normal. Kidneys and ureters: There is severe atrophy of the right kidney. The left kidney is normal. There is no evidence of hydronephrosis. There is no evidence of renal or ureteral calcifications. Stomach and bowel: There is no evidence of colitis/diverticulitis. Appendix: Not identified Intraperitoneal space: There is no evidence of free intraperitoneal fluid. Vasculature: There is dissecting aneurysm of the abdominal aorta beginning just below the diaphragmatic hiatus and extending into the iliac arteries more on the left than on the right. Aortic diameter is larger than on 07/05/2016. Maximum transverse diameter in the mid abdominal aorta is approximately 4.7 cm compared with 3.5 previously. Dissection extends into the left common iliac and external iliac arteries but not into the femoral artery. Celiac and SMA arteries are grossly patent. There is no evidence of leakage or extravasation. Lymph nodes: There is no evidence of lymphadenopathy. Urinary bladder: Unremarkable as visualized. Reproductive: There has been a hysterectomy. Bones/joints: The lumbar spine demonstrates marked degenerative changes at multiple levels. Soft tissues: Unremarkable. CT/CT angio chest w abd pel w con IMPRESSION: 1. No evidence of pulmonary embolism. 2. Thoracic aortic aneurysm status post stent graft repair. Please compare with prior studies. ? ? IMPRESSION: 1. Abdominal aortic aneurysm and dissection. The aneurysm is larger than on the prior noncontrast examination from 2015. There is no evidence of leakage or extravasation or rupture. 2. Cholecystectomy and hysterectomy. 3. No acute intra-abdominal finding 4. Moderate hiatus hernia ? COMMENTS: THIS REPORT CONTAINS FINDINGS THAT MAY BE CRITICAL TO PATIENT CARE. The findings were verbally communicated via telephone conference with JESSICA ALVAREZ at 7:48 PM CDT on 01/22/2022. The findings were acknowledged and understood. ? Dictated By: Eric Uriostegui Signed By: Eric Uriostegui Signed Date/Time: 01/22/221954 DD/ 15 Coding Level of Care Code ED Nuclear Spectroscopist for g Fwd Exam Comprehensive
[2022-01-22 17:41] VITALS: BP 152/120; PULSE 144; RESP 14; O2SAT 95
[2022-01-22 17:49] LABS: Basophils % 0.4 %; Eosinophils # 0.1 10^3/uL (0.0-0.8); Hemoglobin 12.8 g/dL (11.5-15.3); Lymphocytes # 1.2 10^3/uL (0.8-4.8); Lymphocytes % 24.3 %; Mean Corpuscular HGB Conc 30.5 g/dL (30.0-36.0); Mean Corpuscular Hemoglobin 25.5 pg (28.0-34.0); Mean Corpuscular Volume 83.7 fl (81-99); Monocytes # 0.5 10^3/uL (0.2-0.9); Monocytes % 10.8 %; Neutrophils # 3.05 10^3/uL (1.8-7.7); Neutrophils % 63.3 %; Nucleated Red Blood Cells % 0 %; Platelet Count 236 10^3/cmm (130-400); Red Blood Count 5.02 10^6/uL (4.1-5.3); Red Cell Distribution Width 17.7 % (12.1-15.1); White Blood Count 4.8 10^3/uL (4.0-10.0)
[2022-01-22 18:05] LABS: D Dimer 1.94 ug/mIFEU (0-0.59)
--- NOTE | 2022-01-22 18:15 | PC.NURSE ---
Nurse was unable to pull patient up on Pyxis, Pharmacy was called several times and they said they called Pyxis hotline and was waiting on a call back. Pharmacy was called again and told these med. was urgent, Pharmacy stated they would walk the medication to the ER.
--- NOTE | 2022-01-22 18:16 | CTR_ITS ---
PROCEDURE INFORMATION: Exam: CTA Chest With Contrast Exam date and time: 01/22/2022 6:16 PM Age: 76 years old Clinical indication: Abdominal pain; Epigastric; Other: Luq pain; Prior surgery; Surgery date: 6+ months; Surgery type: Aortic; Additional info: Eval for pe TECHNIQUE: Imaging protocol: Computed tomographic angiography of the chest with contrast. 3D rendering (Not supervised by radiologist): MIP and/or 3D reconstructed images were created by the technologist. Radiation optimization: All CT scans at this facility use at least one of these dose optimization techniques: automated exposure control; mA and/or kV adjustment per patient size (includes targeted exams where dose is matched to clinical indication); or iterative reconstruction. Contrast material: OMNI 350; Contrast volume: 95 ml; Contrast route: INTRAVENOUS (IV); COMPARISON: CR XR chest 1V portable [id number] 01/22/2022 4:31 PM RADIATION DOSE METRICS: Total DLP (mGy-cm): 1028.49 FINDINGS: Pulmonary arteries: There is no evidence of filling defects within the pulmonary arterial circulation to suggest pulmonary embolism. Aorta: There is aneurysm of the descending thoracic aorta post stent graft repair with maximum diameter of 3.8 cm. Comparison with prior exams suggested if available. There is mild ectasia of the ascending thoracic aorta which measures 4 cm in diameter. Lungs: There is severe centrilobular emphysema throughout both lungs. Pleural spaces: Unremarkable. No pneumothorax. No pleural effusion. Heart: Unremarkable. No cardiomegaly. No pericardial effusion. Lymph nodes: There is no evidence of lymphadenopathy. Diaphragm: A large hiatal hernia is present. Bones/joints: Unremarkable. No acute fracture. Soft tissues: Unremarkable. PROCEDURE INFORMATION: Exam: CT Abdomen And Pelvis With Contrast Exam date and time: 01/22/2022 6:16 PM Age: 76 years old Clinical indication: Abdominal pain; Epigastric; Other: Luq pain; Prior surgery; Surgery date: 6+ months; Surgery type: Aortic; Additional info: Eval for pe TECHNIQUE: Imaging protocol: Computed tomography of the abdomen and pelvis with contrast. Radiation optimization: All CT scans at this facility use at least one of these dose optimization techniques: automated exposure control; mA and/or kV adjustment per patient size (includes targeted exams where dose is matched to clinical indication); or iterative reconstruction. Contrast material: OMNI 350; Contrast volume: 95 ml; Contrast route: INTRAVENOUS (IV); COMPARISON: 1. CR XR chest 1V portable [id number] 01/22/2022 4:[address] abdomen pelvis wo con [id number] 07/05/2016 9:19 PM RADIATION DOSE METRICS: Total DLP (mGy-cm): 1028.49 FINDINGS: Diaphragm: A moderate hiatal hernia is present. Liver: There is a diffuse decrease in hepatic parenchymal density, consistent with moderate fatty infiltration. Gallbladder and bile ducts: There has been a cholecystectomy. There is mild intrahepatic biliary tract dilatation. Common bile duct measures approximately 9 mm. Pancreas: The pancreas is normal. Spleen: The spleen is normal. Adrenal glands: The adrenal glands are normal. Kidneys and ureters: There is severe atrophy of the right kidney. The left kidney is normal. There is no evidence of hydronephrosis. There is no evidence of renal or ureteral calcifications. Stomach and bowel: There is no evidence of colitis/diverticulitis. Appendix: Not identified Intraperitoneal space: There is no evidence of free intraperitoneal fluid. Vasculature: There is dissecting aneurysm of the abdominal aorta beginning just below the diaphragmatic hiatus and extending into the iliac arteries more on the left than on the right. Aortic diameter is larger than on 07/05/2016. Maximum transverse diameter in the mid abdominal aorta is approximately 4.7 cm compared with 3.5 previously. Dissection extends into the left common iliac and external iliac arteries but not into the femoral artery. Celiac and SMA arteries are grossly patent. There is no evidence of leakage or extravasation. Lymph nodes: There is no evidence of lymphadenopathy. Urinary bladder: Unremarkable as visualized. Reproductive: There has been a hysterectomy. Bones/joints: The lumbar spine demonstrates marked degenerative changes at multiple levels. Soft tissues: Unremarkable. CT/CT angio chest w abd pel w con IMPRESSION: 1. No evidence of pulmonary embolism. 2. Thoracic aortic aneurysm status post stent graft repair. Please compare with prior studies. IMPRESSION: 1. Abdominal aortic aneurysm and dissection. The aneurysm is larger than on the prior noncontrast examination from 2016. There is no evidence of leakage or extravasation or rupture. 2. Cholecystectomy and hysterectomy. 3. No acute intra-abdominal finding 4. Moderate hiatus hernia COMMENTS: THIS REPORT CONTAINS FINDINGS THAT MAY BE CRITICAL TO PATIENT CARE. The findings were verbally communicated via telephone conference with WINSTON ALEXANDER at 7:48 PM CDT on 01/22/2022. The findings were acknowledged and understood.
[2022-01-22] MEDS: metoprolol succinate ER (24 HR) 50 mg Tablet PO (18:21)
[2022-01-22] MEDS: metoprolol tartrate 1 mg/1 mL SDV 5 mL 5 MG IVP (18:21)
[2022-01-22] MEDS: LORazepam 1 mg Tablet PO (18:21)
[2022-01-22] MEDS: sodium chloride 0.9% 500 ML IV (18:22)
[2022-01-22 18:30] LABS: Alanine Aminotransferase 8 U/L (0-33); Albumin Level 4.3 g/dL (3.5-5.2); Alkaline Phosphatase 179 IU/L (35-105); Aspartate Amino Transferase 18 U/L (0-32); Blood Urea Nitrogen 15 mg/dL (8-23); Calcium 9.9 mg/dL (8.5-10.5); Carbon Dioxide 20 mmol/L (22-29); Chloride 103 mmol/L (98-107); Globulin 2.9 g/dL (1.3-4.6); Glucose 120 mg/dL (65-115); Lipase 23 U/L (13-60); Osmolality Calculated 290 mOsm/kg (285-295); Sodium 139 mmol/L (136-145); Total Bilirubin 0.2 mg/dL (0.15-1.2); Total Protein 7.2 g/dL (6.6-8.7)
[2022-01-22 18:31] LABS: Lactate (Lactic Acid level) 0.9 mmol/L (0.5-2.2)
[2022-01-22 18:33] LABS: Anion Gap 19.5 (5-19); Potassium 3.5 mmol/L (3.5-5.1)
[2022-01-22 18:37] LABS: Troponin(5th) Baseline 12 ng/L (0-10)
[2022-01-22] MEDS: iohexol 350 mg/mL 100 mL Btl IV (18:47)
[2022-01-22 19:12] VITALS: BP 142/107; PULSE 92; RESP 20; O2SAT 96
[2022-01-22 19:33] LABS: Add Urine Culture? Yes; Add Urine Microscopic? YES; Bacteria Urine 3+ /hpf; Bilirubin Urine Neg (Negative); Blood Urine Neg (Negative); Glucose Urine UA Norm (Normal); Ketones Urine Negative (Negative); Leukocyte Esterase Urine Negative (Negative); Nitrate Urine Positive (Negative); Protein Urine Neg (Negative); RBC Urine RARE /hpf (0-2); Squamous Epithelial Cell Urine RARE /hpf (0-5); Urine Appearance Clear (CLEAR); Urine Color Yellow (Yellow); Urobilinogen Urine Neg (Negative); WBC Urine RARE /hpf (0-5); pH Urine 5 (5-7)
[2022-01-22 20:14] LABS: Troponin 5 2HR 10.68 ng/L (0-10)
[2022-01-22 20:25] VITALS: BP 122/83; PULSE 82; RESP 19; O2SAT 97
[2022-01-22 20:31] LABS: Troponin 5 2HR Delta -1.32 ABS# (0-10)
[2022-01-22] MEDS: metoprolol tartrate 50 mg Tablet PO (20:56)
[2022-01-22 21:37] VITALS: BP 125/101; PULSE 96; RESP 18; O2SAT 95
--- NOTE | 2022-01-24 17:16 | DCPLANNER ---
Addendum entered by Violet Orozco 03/13/22 21:38: Patient had a follow up appointment scheduled with [facility] - patient did not attend appointment. Addendum entered by Violet Orozco 01/28/22 08:12: Patient has a follow up appointment scheduled for Friday, March 06, 2022 at 3:[address] Phan. market manager called patient and gave patient the appointment information. Original Note: market manager had message to schedule a follow up appointment for patient with heart care. market manager emailed patients information to both Kasey Lopez and Kasey Pierre at [facility]. Patients information will be printed and reviewed. Clinic will call patient with appointment information.
== END 2022-01-22 22:33 | disposition home or self-care (01) ==
PROVIDERS: Emergency Provider Emergency Medicine; PCP Nurse Practitioner Family
DX: R10.9 Unspecified abdominal pain (principal); R11.2 Nausea with vomiting, unspecified; R19.7 Diarrhea, unspecified; I48.91 Unspecified atrial fibrillation; Z79.01 Long term (current) use of anticoagulants; I11.0 Hypertensive heart disease with heart failure; I50.9 Heart failure, unspecified; J44.9 Chronic obstructive pulmonary disease, unspecified; F17.210 Nicotine dependence, cigarettes, uncomplicated
CPT/HCPCS: 71045; 71275; 74177; 80053; 81001; 83605; 83690; 84484; 85025; 85378; 87077; 87086; 87186; 93005; 96361; 96374; 99284; J3490; J7040; Q9967

== ENCOUNTER 2022-06-07 10:26 | Inpatient (IN) | payer MEDICARE, MEDICAID, SELFPAY ==
[2022-06-07] VITALS (18 sets, daily range): BP systolic 84–124; BP diastolic 50–76; PULSE 67–142; RESP 12–20; TEMP 36.6–36.8; O2SAT 92–98; BMI 21.2
--- NOTE | 2022-06-07 10:30 | XR_ITS ---
WS: [id number] Exam: XR chest 1V portable [id number] Date/Time of Exam: 06/07/2022 10:32 AM Reason For Exam: cp Comparison 01/22/2022. Diffuse bilateral interstitial infiltrates are noted most prominent on the left. Trace left basal ple ural effusion noted. Superimposed emphysematous changes and honeycombing throughout both lungs. Heart size is normal. A stent is noted in the descending thoracic aorta. The mediastinum is normal in cont our. Signs of left-sided thoracotomy. Bony structures are otherwise intact. XR/XR chest 1V portable [id number] IMPRESSION: 1. Diffuse bilateral pulmonary interstitial infiltrates most marked in the left basal region. This would suggest interstitial pneumonia or pulmonary edema. Th ere are superimposed changes of emphysema and honeycombing throughout both lung s. 2. Trace left basal pleural effusion. 3. A stent is noted in the descending thoracic aorta.
--- NOTE | 2022-06-07 10:33 | ECG_ITS ---
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 Measurements Intervals [place] Rate: 76 P: 21 WI: 169 QRS: -14 QRSD: 104 T: 21 QT: 296 QTc: 333 Interpretive Statements SINUS RHYTHM WITH OCCASIONAL SUPRAVENTRICULAR PREMATURE COMPLEXES POSSIBLE LEFT ATRIAL ENLARGEMENT [-0.1mV P WAVE IN V1/V2] NONSPECIFIC ST & T-WAVE ABNORMALITY Compared to ECG 01/22/2022 17:42:58 Atrial fibrillation no longer present T-wave abnormality still present Electronically Signed On 06-07-2022 10:37:59 CDT by Marian Lemus M.D. [id number]
--- NOTE | 2022-06-07 10:36 | ED_ITS ---
HPI - Chest Pain General: Chief Complaint: Shortness of Breath/Dyspnea Stated Complaint: MID BACK PRESSURE, HYPOTENSION, SOB Time Seen by Provider: 06/07/22 10:31 History of Present Illness: Ms. Martinez is a 77-year-old lady with complex past medical history including hypertension, hyperlipidemia, heart failure, history of known AAA (not repaired) and TAA (s/p repair) who presents to the emergency department due to back pain, low blood pressure, generalized illness. She reports first noticing shortness of breath approximately 4 days ago. She has not had associated cough but feels generally unwell. This is progressed despite attempted home treatments and subsequently she developed back pain in middle of her back which is similar to prior issues with her aneurysm. She pre sented to the heart center and was found to be hypotensive with EKG changes as well as new oxygen requirement and subsequently brought to the emergency department. Patient does not have a history of lung disease and is now requiring supplemental oxygen which is new for her. Intensity symptoms is m oderate to severe. Course has persisted. No other specific changes in health, exacerbating, or alleviating factors identified. Onset (ago): day(s) Timing of current episode: constant Pain radiation: back Severity: moderate Associated symptoms: Reports dyspnea Review of Systems General: Reports: 10 or more systems reviewed and unremarkable except in HPI and below Resp: Reports: dyspnea PFSH ED PFSH: Medical History (Updated 06/13/22 @ 00:01 by ) Acute exacerbation of chronic obstructive airways disease Acute respiratory failure with hypoxia Acute UTI Adjustment disorder with depressed mood Atrial fibrillation CHF (congestive heart failure) Chronic pain disorder COPD (chronic obstructive pulmonary disease) Dissection of aorta HTN (hypertension), benign Idiopathic osteoarthritis Idiopathic scoliosis Opioid dependence Surgical History H/O esophagogastroduodenoscopy History of aortic aneurysm repair History of back surgery History of eye surgery History of hysterectomy Status post colonoscopy Status post laparoscopic cholecystectomy (04/05/20) Family History Mother Hypertension Denies family history of Anesthesia complication Bleeding disorder Social History Smoking and tobacco status: current every day smoker Second hand smoke exposure: No Alcohol intake: never Adopted: No Caregiver/support person: Yes Lives independently: Yes Household members: none Housing: House Sexually active: No Current gender identity: Female Physical Exam Const: COMMON NORMALS: alert GENERAL APPEARANCE: cooperative, well developed and ill appearing HENMT: COMMON NORMALS: normocephalic and atraumatic HEAD & SCALP: normocephalic and atraumatic Eye: COMMON NORMALS: conjunctivae normal CONJUNCTIVA: Yes conjunctivae normal SCLERA: sclerae normal Neck/C-Spine: COMMON NORMALS: supple GENERAL: Yes trachea midline Resp: EFFORT & INSPECTION: Yes able to speak in complete sentences AUSCULTATION: rhonchi right lower Cardio: COMMON NORMALS: regular rate and regular rhythm RATE: regular rate RHYTHM: regular rhythm GI: COMMON NORMALS: Soft to palpation PALPATION: Yes Soft to palpation and No Tenderness to palpation present (GI) PERCUSSION: normal to percussion Extremity: GENERAL: Yes normal exam except as noted and Yes edema (1+ bilaterally) Neuro: COMMON NORMALS: moves all extremities SENSORIUM/ORIENTATION: Yes alert and No Orientation impaired Psych: COMMON NORMALS: mental status grossly normal and Normal thought process present THOUGHT PROCESS: Normal thought process present Course ED course: - Patient was seen and evaluated by me at bedside - Patient placed on cardiac monitors, IV access obtained - Initial evaluation notable for exam as above. - Labs and xrays personally interpreted by me. EKG notable for sinus rhythm, occasional PVC, no STEMI. - RT treatment, steroids, fluids ordered. Doxycycline ordered. Rocephin subsequently added for UTI coverage - Labs notable for no leukocytosis, normocytic anemia. Metabolic panel with mild hypokalemia, replenishment ordered. ABG with hypoxemia. Delta troponin is elevated at 2 hours. CRP elevated. Urinalysis concerning for urinary tract infection. PCR viral panel pending. - Imaging notable for bilateral pulmonary infiltrates, no pneumothorax. Given severity of multifactorial symptoms CT imaging felt to be warranted. No pulmonary embolism, patient has severe emphysema. Stable abdominal aortic dissection which has not changed. - Upon serial reexamination after treatment the patient was mildly improved though still requiring supplemental oxygen - Based on patient history, evaluation, and testing as interpreted the most likely cause of the patient's condition is COPD exacerbation with acute hypoxe yuki. - The results of ED evaluation were discussed with the patient including plan for admission due to requirement for level of care not available if discharged to prevent significant worsening/deterioration. - Admitting service was contacted and Dr Mathis with the hospitalist service agreed to admit the patient - Patient was admitted without further deterioration or significant events. Note: Click bubbles or prepopulated adame in note writing are used for assistance with data collection and billing and are inherently more limited than narrative and other text portions of this note. Please use narrative for additional clinical history and defer to narrative/free test for any case of contradictory information. If information appears in only free text or click bubble it should be considered present or absent as reported. Please contact note engineering technical writer for clarifications of clinical information or contradictory information. MDM is a brief summary, contradictory or erroneous seeming information should be clarified and full note should be reviewed. Vital Signs: Vital signs: Vital Signs Temperature 97.9 F 06/12/22 12:00 Pulse Rate 63 06/12/22 18:43 Respiratory Rate 16 06/12/22 12:00 Blood Pressure 143/89 06/12/22 18:43 Pulse Oximetry 93 06/12/22 12:24 Oxygen Delivery Me thod 06/12/22 08:52 Oxygen Flow Rate 2 06/12/22 02:31 Fraction of Inspir ed Oxygen 40 06/08/22 20:00 MDM - Chest Pain Medical Decision Making 77-year-old lady presenting with respiratory symptoms. Patient likely has acute exacerbation of COPD which despite treatment in the emergency department persists including oxygen requirement. Patient admitted for further management. Medical Records I reviewed the patient's medical records. Lab Data I reviewed the patient's lab results. : 06/12/22 06:30 06/12/22 06:30 Radiology Impressions Chest X-Ray 06/07/22 10:30 IMPRESSION: 1. Diffuse bilateral pulmonary interstitial infiltrates most marked in the left basal region. This would suggest interstitial pneumonia or pulmonary edema. There are superimposed changes of emphysema and honeycombing throughout both lungs. 2. Trace left basal pleural effusion. 3. A stent is noted in the descending thoracic aorta. Chest/Abdomen/Pelvis CT 06/07/22 10:58 IMPRESSION: 1. No pulmonary embolism is identified. 2. Severe centrilobular emphysema. Similar to the prior studies. 3. Stable diameter thoracic aorta stent graft since 01/22/2022. No enlargement or periaortic hematoma 4. Patient has a known stable abdominal aortic dissection which begins just below the level of the SMA and extends into the LEFT common and external iliac artery. No increase in size of the dissection. 5. Chronic atrophy RIGHT kidney. 6. No free fluid or mesenteric hematoma. Laboratory Results WBC 8.1 10^3/uL (4.0-10.0) 06/07/22 10:43 RBC 4.36 10^6/uL (4.1-5.3) 06/07/22 10:43 Hgb 11.3 g/dL (11.5-15.3) L 06/07/22 10:43 Hct 36.6 % (37.0-47.0) L 06/07/22 10:43 MCV 83.9 fl (81-99) 06/07/22 10:43 MCH 25.9 pg (28.0-34.0) L 06/07/22 10:43 MCHC 30.9 g/dL (30.0-36.0) 06/07/22 10:43 RDW 15.8 % (12.1-15.1) H 06/07/22 10:43 Plt Count 275 10^3/cmm (130-400) 06/07/22 10:43 MPV 10.1 fL (7.4-10.4) 06/07/22 10:43 Neut % (Auto) 67.0 % 06/07/22 10:43 Lymph % (Auto) 15.6 % 06/07/22 10:43 Maury % (Auto) 11.8 % 06/07/22 10:43 Eos % (Auto) 4.5 % 06/07/22 10:43 Baso % (Auto) 0.5 % 06/07/22 10:43 Neut # (Auto) 5.45 10^3/uL (1.8-7.7) 06/07/22 10:43 Lymph # (Auto) 1.3 10^3/uL (0.8-4.8) 06/07/22 10:43 Maury # (Auto) 1.0 10^3/uL (0.2-0.9) H 06/07/22 10:43 Eos # (Auto) 0.4 10^3/uL (0.0-0.8) 06/07/22 10:43 Baso # (Auto) 0.0 10^3/uL (0.0-0.1) 06/07/22 10:43 Nucleated RBC % (auto) 0 % 06/07/22 10:43 Nucleated RBCs # 0.0 /100WBC 06/07/22 10:43 PT 19.70 SECONDS (12.1-14.9) H 06/07/22 10:43 INR 1.63 (0.8-1.2) H 06/07/22 10:43 APTT 33.1 SECONDS (23.9-36.7) 06/07/22 10:43 Specimen Type Arterial 06/07/22 11:18 Sample Site Radial, left 06/07/22 11:18 ABG pH 7.38 (7.35-7.45) 06/07/22 11:18 ABG pCO2 37.0 mmHg (35-45) 06/07/22 11:18 ABG pO2 65.3 mmHg (80.0-100.0) L 06/07/22 11:18 ABG HCO3 21.7 mmol/L (22-26) L 06/07/22 11:18 ABG Base Excess -3.1 mmol/L (-2.0-2.0) L 06/07/22 11:18 Hung Test Pos 06/07/22 11:18 Hematocrit 33.3 % (37-47) L 06/07/22 11:18 O2 Delivery Device Nc 06/07/22 11:18 O2 Liters/Min 6.0 % 06/07/22 11:18 FiO2 44.0 % 06/07/22 11:18 Program Evaluator ID Ed 06/07/22 11:18 Sodium 142 mmol/L (136-145) 06/07/22 10:43 Potassium 3.2 mmol/L (3.5-5.1) L 06/07/22 10:43 Chloride 105 mmol/L (98-107) 06/07/22 10:43 Carbon Dioxide 24 mmol/L (22-29) 06/07/22 10:43 Anion Gap 16.2 (5-19) 06/07/22 10:43 BUN 25 mg/dL (8-23) H 06/07/22 10:43 Creatinine 1.0 mg/dL (0.5-0.9) H 06/07/22 10:43 GFR Calculation Not Reportable 06/07/22 10:43 Glucose 115 mg/dL (65-115) 06/07/22 10:43 Calculated Osmolality 299 mOsm/kg (285-295) H 06/07/22 10:43 Calcium 9.3 mg/dL (8.5-10.5) 06/07/22 10:43 Magnesium 1.6 mg/dL (1.7-2.3) L 06/07/22 10:43 Iron 14 ug/dL (37-145) L 06/07/22 10:43 TIBC 341 mcg/dl 06/07/22 10:43 % Saturation 4.1 % (20-50) L 06/07/22 10:43 Unsat Iron Binding 327 ug/dL (112-347) 06/07/22 10:43 Total Bilirubin 0.2 mg/dL (0.15-1.2) 06/07/22 10:43 AST 15 U/L (0-32) 06/07/22 10:43 ALT 7 U/L (0-33) 06/07/22 10:43 Alkaline Phosphatase 157 IU/L (35-105) H 06/07/22 10:43 Troponin T Baseline 15 ng/L (0-10) H 06/07/22 10:43 Troponin T 120 Minute 12.00 ng/L (0-10) H 06/07/22 13:32 Delta Troponin T -3.00 ABS# (0-10) L 06/07/22 13:32 C-Reactive Protein 67.0 mg/L (0.0-4.9) H 06/07/22 13:32 NT-Pro-B Natriuret Pep 934 pg/mL (0-450) H 06/07/22 10:43 NT-Pro-B Natriuret Pep 946 pg/mL (0-450) H 06/07/22 10:43 Total Protein 6.1 g/dL (6.6-8.7) L 06/07/22 10:43 Albumin 3.3 g/dL (3.5-5.2) L 06/07/22 10:43 Globulin 2.8 g/dL (1.3-4.6) 06/07/22 10:43 Vitamin B12 697 pg/mL (232-1245) 06/07/22 10:43 Folate 14.1 ng/mL (4.8-37.3) 06/07/22 10:43 Procalcitonin 0.15 ng/mL (0-0.5) 06/07/22 10:43 TSH 1.10 uIU/mL (0.27-4.20) 06/07/22 10:43 Urine Color Yellow (Yellow) 06/07/22 10:43 Urine Appearance Cloudy (CLEAR) A 06/07/22 10:43 Urine pH 5 (5-7) 06/07/22 10:43 Ur Specific [place] 1.015 (1.005-1.030) 06/07/22 10:43 Urine Protein Neg (Negative) 06/07/22 10:43 Urine Glucose (UA) Norm (Normal) 06/07/22 10:43 Urine Ketones Negative (Negative) 06/07/22 10:43 Urine Blood Trace (Negative) H 06/07/22 10:43 Urine Nitrate Positive (Negative) H 06/07/22 10:43 Urine Bilirubin Neg (Negative) 06/07/22 10:43 Urine Urobilinogen Norm mg/dL (Negative) 06/07/22 10:43 Ur Leukocyte Esterase 2+ (Negative) H 06/07/22 10:43 Urine RBC 5-10 /hpf (0-2) H 06/07/22 10:43 Urine WBC Too numerous to cnt /hpf (0-5) H 06/07/22 10:43 Ur Squamous Epith Cells 0-4 /hpf (0-5) H 06/07/22 10:43 Amorphous Sediment Not Reportable 06/07/22 10:43 Urine Bacteria 3+ /hpf (NONE) H 06/07/22 10:43 Influenza Type A Ag Negative (Negative) 06/07/22 10:43 Influenza Type B Ag Negative (Negative) 06/07/22 10:43 SARS-CoV-2 Ag (Rapid) Negative (Negative) 06/07/22 10:43 Discharge Plan Discharge Patient Disposition: Admitted As Inpatient Admit Provider: Andre Mathis Clinical Impression: Acute exacerbation of chronic obstructive airways disease, Acute respiratory failure with hypoxia, Acute UTI Condition: Stable Discharge Diet: Cardiac Discharge Activity: Resume usual activity Coding Level of Care Code 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
[2022-06-07 10:50] LABS: Basophils % 0.5 %; Eosinophils # 0.4 10^3/uL (0.0-0.8); Eosinophils % 4.5 %; Hematocrit 36.6 % (37.0-47.0); Hemoglobin 11.3 g/dL (11.5-15.3); Lymphocytes # 1.3 10^3/uL (0.8-4.8); Lymphocytes % 15.6 %; Mean Corpuscular HGB Conc 30.9 g/dL (30.0-36.0); Mean Corpuscular Hemoglobin 25.9 pg (28.0-34.0); Mean Corpuscular Volume 83.9 fl (81-99); Mean Platelet Volume 10.1 fL (7.4-10.4); Monocytes % 11.8 %; Neutrophils # 5.45 10^3/uL (1.8-7.7); Nucleated Red Blood Cells % 0 %; Platelet Count 275 10^3/cmm (130-400); Red Blood Count 4.36 10^6/uL (4.1-5.3); Red Cell Distribution Width 15.8 % (12.1-15.1); White Blood Count 8.1 10^3/uL (4.0-10.0)
--- NOTE | 2022-06-07 10:58 | CT_ITS ---
WS: [id number] CTA CHEST WITH CT ABDOMEN AND PELVIS. HISTORY: Mid back pressure. Hypertension. Short of breath. Technologist confirm this study is for pul monary embolism. TECHNIQUE: CT angiogram is performed through the chest for pulmonary embolism. Additional imaging is performed through the abdomen and pelvis with IV contrast. Sagittal and coronal reformats have been s ubmitted. MIP imaging also reviewed. All CT scans at [facility] use at least one of these dos e optimization techniques: automated exposure control; mA and/or kV adjustment per patient size (incl udes targeted exams where dose is matched to clinical indication); or iterative reconstruction. Contrast: Omnipaque 350; 95 cc IV. DLP: 596.16 mGy.cm COMPARISON: 01/22/2022 Chest CTA: No filling defects within the central pulmonary emboli. There is no complete occlusion thr ough the lobar and proximal segmental branches. Patient is status post long stem through the thoracic aorta. This study was protocoled to evaluate the pulmonary total system and not the thoracic aorta. There is no adjacent hematoma associated with the thoracic aortic stent. Severe pulmonary fibrotic ch anges. Focal areas of conglomeration, centrilobular emphysema with bronchiectasis and groundglass att enuation bilaterally. Mildly prominent mediastinal and hilar lymph nodes similar to the prior study p robably reactive adenopathy. Heart is moderately enlarged. Large hiatal hernia. Maximum diameter ascending aorta is 3.8 cm. Descending thoracic aorta is 3.8 cm also with no adjacent hematoma. No expansion of the aorta. Abdomen CT: Large hiatal hernia. Mild intrahepatic duct dilatation similar to the prior study. Status post cholecystectomy. Common bile duct at the pancreatic head measures 7 mm. Atrophy of the pancreas . Normal size spleen. No adrenal mass. Severe atrophy RIGHT kidney. There are a few small hypodensiti es scattered throughout the LEFT kidney. No obstruction or solid mass. Patient has a known dissection involving the aorta. Aortic dissection begins just below the level of the SMA and extends into the LEFT common iliac artery into the external iliac artery. LEFT iliac edwar hayley dilated but stable. There may be very slight involvement of the proximal RIGHT common iliac edwar ry. Both the false and true lumens are patent. There is a small amount of calcification within the th rombus. This is similar to the prior study. No increase in size of the dissection or extent of the di ssection. No adenopathy or free fluid. No GI tract obstruction. Pelvic CT: No free fluid in the pelvis. There are a few scattered diverticula. No ischemic changes in the GI tract. CT/CT angio chest w abd pel w con IMPRESSION: 1. No pulmonary embolism is identified. 2. Severe centrilobular emphysema. Similar to the prior studies. 3. Stable diameter thoracic aorta stent graft since 01/22/2022. No enlargement or periaortic hematoma 4. Patient has a known stable abdominal aortic dissection which begins just be low the level of the SMA and extends into the LEFT common and external iliac ar mini. No increase in size of the dissection. 5. Chronic atrophy RIGHT kidney. 6. No free fluid or mesenteric hematoma.
[2022-06-07 11:16] LABS: Troponin(5th) Baseline 15 ng/L (0-10)
[2022-06-07 11:24] LABS: INR 1.63 (0.8-1.2)
[2022-06-07 11:25] LABS: Alanine Aminotransferase 7 U/L (0-33); Albumin Level 3.3 g/dL (3.5-5.2); Alkaline Phosphatase 157 IU/L (35-105); Anion Gap 16.2 (5-19); Aspartate Amino Transferase 15 U/L (0-32); Blood Urea Nitrogen 25 mg/dL (8-23); Calcium 9.3 mg/dL (8.5-10.5); Carbon Dioxide 24 mmol/L (22-29); Chloride 105 mmol/L (98-107); Globulin 2.8 g/dL (1.3-4.6); Glucose 115 mg/dL (65-115); Magnesium 1.6 mg/dL (1.7-2.3); NT Pro B Type Natriuretic Pept 934 pg/mL (0-450); Osmolality Calculated 299 mOsm/kg (285-295); Potassium 3.2 mmol/L (3.5-5.1); Sodium 142 mmol/L (136-145); Total Bilirubin 0.2 mg/dL (0.15-1.2); Total Protein 6.1 g/dL (6.6-8.7)
[2022-06-07 11:26] LABS: Partial Thromboplastin Time 33.1 SECONDS (23.9-36.7)
[2022-06-07 11:28] LABS: ABG PH Result 7.38 (7.35-7.45); Arterial Blood Gas Hematocrit 33.3 % (37-47); Base Excess ABG -3.1 mmol/L (-2.0-2.0); Blood Gas Allen Test Pos; Blood Gas Sample Type Arterial; HCO3 ABG 21.7 mmol/L (22-26); PO2 ABG 65.3 mmHg (80.0-100.0)
[2022-06-07 11:29] LABS: Blood Gas Operator Identificat ED; Blood Gas Sample Site Radial, left; Oxygen Device NC
[2022-06-07 11:34] LABS: Blood Urine Trace (Negative); Glucose Urine UA Norm (Normal); Ketones Urine Negative (Negative); Protein Urine Neg (Negative); Specific Gravity, Urine 1.015 (1.005-1.030); Urine Appearance Cloudy (CLEAR); Urine Color Yellow (Yellow); pH Urine 5 (5-7)
[2022-06-07 11:35] LABS: Add Urine Culture? Yes; Add Urine Microscopic? YES; Bacteria Urine 3+ /hpf; Bilirubin Urine Neg (Negative); Leukocyte Esterase Urine 2+ (Negative); Nitrate Urine Positive (Negative); Squamous Epithelial Cell Urine 0-4 /hpf (0-5); Urobilinogen Urine Norm (Negative); WBC Urine TOO NUMEROUS TO CNT /hpf (0-5)
[2022-06-07 11:38] LABS: Influenza A by IFA Negative (Negative); Influenza B by IFA Negative (Negative); SARS Covid-2 Antigen Negative (Negative)
[2022-06-07] MEDS: doxycycline 100 MG in sodium chloride 0.9% (plus) 100 ML IV (12:06)
[2022-06-07] MEDS: cefTRIAXone 1,000 MG in sodium chloride 0.9% (plus) 50 ML 100 MG IV ×2 (12:06→16:26)
[2022-06-07] MEDS: potassium chloride ER 20 mEq Tablet 40 MEQ PO ×3 (12:07→18:21)
[2022-06-07] MEDS: iohexol 350 mg/mL 100 mL Btl IV (12:13)
[2022-06-07] MEDS: magnesium sulfate premix 2 GM/50 ML PIGGYBACK IV (12:59)
--- NOTE | 2022-06-07 13:04 | ECG_ITS ---
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 Measurements Intervals [place] Rate: 79 P: 43 MA: 176 QRS: -19 QRSD: 95 T: -1 QT: 291 QTc: 335 Interpretive Statements SINUS RHYTHM WITH OCCASIONAL SUPRAVENTRICULAR PREMATURE COMPLEXES POSSIBLE ANTERIOR MYOCARDIAL INFARCTION , PROBABLY OLD [30 ms Q WAVE IN V3/V4, OR R < 0.2 mV IN V4] Compared to ECG 06/07/2022 10:33:45 Myocardial infarct finding now present T-wave abnormality no longer present Electronically Signed On 06-07-2022 17:47:58 CDT by Marian Lemus M.D. [id number]
--- NOTE | 2022-06-07 15:39 | USCV_ITS ---
Rylee Martinez Age: 77 Gender: F : 1945 Exam Date: 06/07/2022 17:00 Ordering Phys: Andre Mathis MD Technologist: Mami Kraus Exam Location: [facility] [place] Indication: afib hf BP: 118 / 76 HR: 112 Rhythm: Atrial fibrillation Technical Quality: Suboptimal MEASUREMENTS (Male / Female) Normal Values 2D ECHO LV Diastolic Diameter PLAX 3.6 cm 4.2 - 5.9 / 3.9 - 5.3 cm LV Systolic Diameter PLAX 2.1 cm LV Chamber Size 2.0 cm IVS Diastolic Thickness 1.0 cm 0.6 - 1.0 / 0.6 - 0.9 cm IVS Systolic Thickness 0.9 cm LVPW Diastolic Thickness 1.3 cm 0.6 - 1.0 / 0.6 - 0.9 cm LVPW Systolic Thickness 2.2 cm RV Chamber Size 4.2 cm LVOT Diameter 2.0 cm LV Ejection Fraction 2D Teich 59.6 % LV Ejection Fraction MOD 2C 7.8 % LV Ejection Fraction 2C AL 8.5 % LA Diameter 3.0 cm LA Width 2.5 cm LA Height 3.3 cm RA Width 3.8 cm RA Height 2.4 cm Aorta at Sinotubular Diameter 3.0 cm IVC Diameter 1.2 cm M-MODE Aortic Annulus Diameter 3.8 cm LA Ao Ratio MM 0.9 MV E Point Septal Separation 0.6 cm DOPPLER AV Peak Velocity 247.0 cm/s LVOT Peak Velocity 122.0 cm/s AV Area Cont Eq vti 2.3 cm squared AV Area Cont Eq pk 1.6 cm squared MV Area PHT 3.6 cm squared MV E' Velocity 65.5 cm/s Mitral E to MV E' Ratio 6.0 Mitral E to LV E' Lateral Ratio 6.7 Mitral E to LV E' Septal Ratio 5.5 TR Peak Velocity 280.9 cm/s TR Peak Gradient 31.6 mmHg TR Mean Velocity 199.6 cm/s TR Mean Gradient 18.6 mmHg TR Velocity Time Integral 56.8 cm TV Peak E Velocity 74.0 cm/s Right Atrial Pressure 3.0 mmHg Pulmonary Artery Systolic Pressu 34.6 mmHg PV Peak Velocity 80.0 cm/s RV Acceleration Time 0.1 s RV Ejection Time 0.2 s RV AcT/ET 0.5 FINDINGS Left Ventricle The rhythm is rapid atrial fibrillation which decreases the sensitivity of the examination. Normal left ventricular size, systolic function and wall thickness, with no regional wall motion abnormalities. Rhythm precludes evaluation of diastolic function. Left ventricular ejection fraction is estimated at 65 %. Right Ventricle Normal right ventricular size and systolic function. Normal right ventricular systolic pressure. Right Atrium The right atrium is normal in size. Left Atrium The left atrium is normal in size. Mitral Valve Structurally normal mitral valve. Trace mitral valve regurgitation. Aortic Valve Structurally normal aortic valve without significant sclerosis or stenosis. There is no aortic regurgitation. Tricuspid Valve Structurally normal tricuspid valve. Trace tricuspid valve regurgitation. Pulmonic Valve Pulmonic valve not well visualized. Pericardium Normal pericardium without effusion. Aorta Normal ascending aorta dimension. IVC Inferior vena cava not visualized. CONCLUSIONS The rhythm is rapid atrial fibrillation which decreases the sensitivity of the examination. Normal left ventricular size, systolic function and wall thickness, with no regional wall motion abnormalities. Rhythm precludes evaluation of diastolic function. Left ventricular ejection fraction is estimated at 65 %. Structurally normal mitral valve. Trace mitral valve regurgitation. Dr. Neil Arriaza MD (Electronically Signed) Final Date: 08 June 2022 09:05 S
[2022-06-07] MEDS: ipratropium-albuterol 3 mL Neb INHALATION (15:44)
[2022-06-07 16:03] LABS: Lactic Sepsis W/Reflex 0.8 mmol/L (0.5-2.2)
--- NOTE | 2022-06-07 16:18 | PM.HP ---
Providers/Chief Complaint Primary Care Provider: Joy Nieto-C Chief Complaint: MID BACK PRESSURE, HYPOTENSION, SOB History of Present Illness Rylee Martinez is a 77 year old female with past medical history of hypertension, congestive heart failure, atrial fibrillation on anticoagulation with Eliquis, thoracic aortic aneurysm repair who presents to the ER today with her caregiver. As per the patient she has been having more attacks of atrial fibrillation for last 2 weeks more so since Friday. Today is Friday. As per her she takes metoprolol for atrial fibrillation and does not seem to be helping her currently. Since Friday she started complaining of difficulty in breathing getting exacerbated on minimal ambulation. Today she started having back pain which is similar to the pain she had when she had thoracic aortic aneurysm so she got worried and presented to the heart services office. From there she was sent to the ER. In the ER she was found to be hypoxic down to low 70s hence he was placed on heated high flow. Currently she is on 40 L 60% saturating 94%. Patient denies any nausea, vomiting, diarrhea. Denies any sick contact, fever. Does complain of cough without expectoration. Has not been vaccinated for COVID-19. Review of Systems General: Reports: 10 or more systems reviewed and unremarkable except in HPI and below Const: Denies: fever(s), chills, body aches, change in appetite, change in weight, malaise, night sweats, diaphoresis, change in sleep pattern, daytime sleepiness or snoring Eyes: Denies: change in vision, blurry vision, photophobia, eye discomfort or eye discharge ENMT: Denies: throat pain, enlarged tonsils, hoarseness, mouth pain, oral sores, dry mouth, tinnitus, nasal congestion or post nasal drip Card: Denies: chest pain, palpitations, irregular heart rhythm, edema, swelling of feet/ankles, lightheadedness, syncope, pre-syncope, dyspnea on exertion, orthopnea, leg pain with exertion or acrocyanosis Resp: Denies: dyspnea, productive cough, non-productive cough, wheezing, stridor, pain on inspiration, change in phlegm color, hemoptysis or chest congestion GI: Denies: abdominal pain, nausea, vomiting, hematemesis, coffee ground emesis, dysphagia, heartburn, diarrhea, constipation, bloating, GI cramping, change in bowel habits, pain on defecation, hematochezia or melena : Denies: flank pain, dysuria, urinary frequency, urinary urgency, urinary hesitancy, nocturia or hematuria Musc: Denies: neck pain, back pain, extremity pain, joint pain, joint swelling, joint redness, joint stiffness or limited range of motion Neuro: Denies: headache(s), numbness in extremities, weakness in extremities, sensory changes, lack of coordination, difficulty walking, frequent falls, dizziness, vertigo, confusion, Slurred speech present, difficulty communicating thoughts or seizure-like activity Psych: Denies: anxiety, depression, mood swings, panic attacks, hopelessness or irritability Endo: Denies: polyuria, polydipsia, tired all the time, cold intolerance, excessive sweating, flushing or heat intolerance Chris/Lymph: Denies: easy bruising or easy bleeding All/Imm: Denies: tongue swelling, facial swelling or acute wheezing Medications/Allergies Home Medications Medication Instructions Recorded Confirmed Last Taken Type amlodipine 10 mg tablet 10 mg PO DAILY 03/02/20 06/07/22 06/07/22 History calcium 1 tab PO DAILY 03/02/20 06/07/22 06/07/22 History carbonate,citrate-magnesium oxide 200 mg calcium-50 mg tablet (CalMag Thins) fluticasone propionate 110 1 puff inhalation Q12H 03/02/20 06/07/22 06/07/22 History mcg/actuation HFA aerosol inhaler (Flovent HFA) lisinopril 20 1 tab PO DAILY 03/02/20 06/07/22 06/07/22 History mg-hydrochlorothiazide 12.5 mg tablet sertraline 50 mg tablet 50 mg PO DAILY 03/02/20 06/07/22 06/07/22 History furosemide 20 mg tablet 20 mg PO DAILY 06/04/21 06/07/22 06/07/22 History metoprolol tartrate 50 mg tablet 50 mg PO BID #180 tabs 06/04/21 06/07/22 06/07/22 Rx mirtazapine 7.5 mg tablet 7.5 mg PO DAILY 06/04/21 06/07/22 06/07/22 History potassium chloride 10 mEq 10 meq PO DAILY 06/04/21 06/07/22 06/07/22 History capsule,extended release apixaban 5 mg tablet (Eliquis) 5 mg PO BID 01/22/22 06/07/22 06/07/22 History cyanocobalamin (vitamin B-12) 50 50 mcg PO DAILY 01/22/22 06/07/22 06/07/22 History mcg lozenges (Vitamin B-12) albuterol sulfate 90 mcg/actuation 2 puff inhalation QID PRN 06/07/22 06/07/22 06/07/22 History aerosol inhaler Shortness Of Breath aspirin 81 mg tablet,delayed 81 mg PO DAILY 06/07/22 06/07/22 06/07/22 History release atorvastatin 20 mg tablet 20 mg PO DAILY 06/07/22 06/07/22 06/07/22 History buprenorphine 2 mg-naloxone 0.5 mg 1 film buccal BID 06/07/22 06/07/22 06/07/22 History sublingual film (Suboxone) herbal complex no.174 450 mg 450 mg PO DAILY 06/07/22 06/07/22 06/07/22 History capsule omeprazole 40 mg capsule,delayed 40 mg PO DAILY 06/07/22 06/07/22 06/07/22 History release sertraline 25 mg tablet 25 mg PO DAILY 06/07/22 06/07/22 06/07/22 History Allergies Allergy/AdvReac Type Severity Reaction Status Date / Time No Known Allergies Allergy Verified 06/07/22 08:32 PFSH Acute PFSH: Medical History (Updated 06/07/22 @ 16:22 by Andre Mathis MD) Adjustment disorder with depressed mood Atrial fibrillation CHF (congestive heart failure) Chronic pain disorder COPD (chronic obstructive pulmonary disease) Dissection of aorta HTN (hypertension), benign Idiopathic osteoarthritis Idiopathic scoliosis Opioid dependence Surgical History H/O esophagogastroduodenoscopy History of aortic aneurysm repair History of back surgery History of eye surgery History of hysterectomy Status post colonoscopy Status post laparoscopic cholecystectomy (04/05/20) Family History Mother Hypertension Denies family history of Anesthesia complication Bleeding disorder Social History Smoking and tobacco status: current every day smoker Second hand smoke exposure: No Alcohol intake: never Adopted: No Caregiver/support person: Yes Lives independently: Yes Household members: none Housing: House Sexually active: No Current gender identity: Female Vitals/I&O/Wt Last Vital Signs Temp 97.8 F 06/07/22 10:42 Pulse 91 06/07/22 15:47 Resp 16 06/07/22 15:47 BP 124/73 06/07/22 15:45 Pulse Ox 94 06/07/22 15:47 O2 Del Method 06/07/22 15:45 O2 Flow Rate 30 06/07/22 15:47 FiO2 60 06/07/22 15:47 Weight last 48 hrs Weight 61.689 kg Physical Exam Narrative: EXAM NARRATIVE: General: No acute distress, AO x3, on heated high flow, chronically sick appearing, bitemporal wasting HEENT: PERRLA, pupils bilaterally equal and reactive Chest:Bronchial breath sounds b/l , bilateral rhonchi present all over the lung adame, equal good air entry bilaterally, no more fine basal crackles CVS: S1-S2 irregularly irregular, no murmurs, no tachycardia, no gallops, no rubs Abdomen: Soft, nontender, no organomegaly, bowel sounds present, morbidly obese Neuro: No focal deficits, no facial deformity, AO x3, power 5/5 in all limbs Data : 06/07/22 10:43 06/07/22 10:43 Other Labs: Radiology Impressions Chest X-Ray 06/07/22 10:30 IMPRESSION: 1. Diffuse bilateral pulmonary interstitial infiltrates most marked in the left basal region. This would suggest interstitial pneumonia or pulmonary edema. There are superimposed changes of emphysema and honeycombing throughout both lungs. 2. Trace left basal pleural effusion. 3. A stent is noted in the descending thoracic aorta. Chest/Abdomen/Pelvis CT 06/07/22 10:58 IMPRESSION: 1. No pulmonary embolism is identified. 2. Severe centrilobular emphysema. Similar to the prior studies. 3. Stable diameter thoracic aorta stent graft since 01/22/2022. No enlargement or periaortic hematoma 4. Patient has a known stable abdominal aortic dissection which begins just below the level of the SMA and extends into the LEFT common and external iliac artery. No increase in size of the dissection. 5. Chronic atrophy RIGHT kidney. 6. No free fluid or mesenteric hematoma. Laboratory Results WBC 8.1 10^3/uL (4.0-10.0) 06/07/22 10:43 RBC 4.36 10^6/uL (4.1-5.3) 06/07/22 10:43 Hgb 11.3 g/dL (11.5-15.3) L 06/07/22 10:43 Hct 36.6 % (37.0-47.0) L 06/07/22 10:43 MCV 83.9 fl (81-99) 06/07/22 10:43 MCH 25.9 pg (28.0-34.0) L 06/07/22 10:43 MCHC 30.9 g/dL (30.0-36.0) 06/07/22 10:43 RDW 15.8 % (12.1-15.1) H 06/07/22 10:43 Plt Count 275 10^3/cmm (130-400) 06/07/22 10:43 MPV 10.1 fL (7.4-10.4) 06/07/22 10:43 Neut % (Auto) 67.0 % 06/07/22 10:43 Lymph % (Auto) 15.6 % 06/07/22 10:43 Hanson % (Auto) 11.8 % 06/07/22 10:43 Eos % (Auto) 4.5 % 06/07/22 10:43 Baso % (Auto) 0.5 % 06/07/22 10:43 Neut # (Auto) 5.45 10^3/uL (1.8-7.7) 06/07/22 10:43 Lymph # (Auto) 1.3 10^3/uL (0.8-4.8) 06/07/22 10:43 Hanson # (Auto) 1.0 10^3/uL (0.2-0.9) H 06/07/22 10:43 Eos # (Auto) 0.4 10^3/uL (0.0-0.8) 06/07/22 10:43 Baso # (Auto) 0.0 10^3/uL (0.0-0.1) 06/07/22 10:43 Nucleated RBC % (auto) 0 % 06/07/22 10:43 Nucleated RBCs # 0.0 /100WBC 06/07/22 10:43 PT 19.70 SECONDS (12.1-14.9) H 06/07/22 10:43 INR 1.63 (0.8-1.2) H 06/07/22 10:43 APTT 33.1 SECONDS (23.9-36.7) 06/07/22 10:43 Specimen Type Arterial 06/07/22 11:18 Sample Site Radial, left 06/07/22 11:18 ABG pH 7.38 (7.35-7.45) 06/07/22 11:18 ABG pCO2 37.0 mmHg (35-45) 06/07/22 11:18 ABG pO2 65.3 mmHg (80.0-100.0) L 06/07/22 11:18 ABG HCO3 21.7 mmol/L (22-26) L 06/07/22 11:18 ABG Base Excess -3.1 mmol/L (-2.0-2.0) L 06/07/22 11:18 Hung Test Pos 06/07/22 11:18 Hematocrit 33.3 % (37-47) L 06/07/22 11:18 O2 Delivery Device Nc 06/07/22 11:18 O2 Liters/Min 6.0 % 06/07/22 11:18 FiO2 44.0 % 06/07/22 11:18 Inside Sales Supervisor ID Ed 06/07/22 11:18 Sodium 142 mmol/L (136-145) 06/07/22 10:43 Potassium 3.2 mmol/L (3.5-5.1) L 06/07/22 10:43 Chloride 105 mmol/L (98-107) 06/07/22 10:43 Carbon Dioxide 24 mmol/L (22-29) 06/07/22 10:43 Anion Gap 16.2 (5-19) 06/07/22 10:43 BUN 25 mg/dL (8-23) H 06/07/22 10:43 Creatinine 1.0 mg/dL (0.5-0.9) H 06/07/22 10:43 GFR Calculation Not Reportable 06/07/22 10:43 Glucose 115 mg/dL (65-115) 06/07/22 10:43 Calculated Osmolality 299 mOsm/kg (285-295) H 06/07/22 10:43 Lactic Acid 0.8 mmol/L (0.5-2.2) 06/07/22 15:15 Calcium 9.3 mg/dL (8.5-10.5) 06/07/22 10:43 Magnesium 1.6 mg/dL (1.7-2.3) L 06/07/22 10:43 Total Bilirubin 0.2 mg/dL (0.15-1.2) 06/07/22 10:43 AST 15 U/L (0-32) 06/07/22 10:43 ALT 7 U/L (0-33) 06/07/22 10:43 Alkaline Phosphatase 157 IU/L (35-105) H 06/07/22 10:43 Troponin T Baseline 15 ng/L (0-10) H 06/07/22 10:43 Troponin T 120 Minute 12.00 ng/L (0-10) H 06/07/22 13:32 Delta Troponin T -3.00 ABS# (0-10) L 06/07/22 13:32 C-Reactive Protein 67.0 mg/L (0.0-4.9) H 06/07/22 13:32 NT-Pro-B Natriuret Pep 934 pg/mL (0-450) H 06/07/22 10:43 Total Protein 6.1 g/dL (6.6-8.7) L 06/07/22 10:43 Albumin 3.3 g/dL (3.5-5.2) L 06/07/22 10:43 Globulin 2.8 g/dL (1.3-4.6) 06/07/22 10:43 TSH 1.10 uIU/mL (0.27-4.20) 06/07/22 10:43 Urine Color Yellow (Yellow) 06/07/22 10:43 Urine Appearance Cloudy (CLEAR) A 06/07/22 10:43 Urine pH 5 (5-7) 06/07/22 10:43 Ur Specific [place] 1.015 (1.005-1.030) 06/07/22 10:43 Urine Protein Neg (Negative) 06/07/22 10:43 Urine Glucose (UA) Norm (Normal) 06/07/22 10:43 Urine Ketones Negative (Negative) 06/07/22 10:43 Urine Blood Trace (Negative) H 06/07/22 10:43 Urine Nitrate Positive (Negative) H 06/07/22 10:43 Urine Bilirubin Neg (Negative) 06/07/22 10:43 Urine Urobilinogen Norm mg/dL (Negative) 06/07/22 10:43 Ur Leukocyte Esterase 2+ (Negative) H 06/07/22 10:43 Urine RBC 5-10 /hpf (0-2) H 06/07/22 10:43 Urine WBC Too numerous to cnt /hpf (0-5) H 06/07/22 10:43 Ur Squamous Epith Cells 0-4 /hpf (0-5) H 06/07/22 10:43 Amorphous Sediment Not Reportable 06/07/22 10:43 Urine Bacteria 3+ /hpf (NONE) H 06/07/22 10:43 Influenza Type A Ag Negative (Negative) 06/07/22 10:43 Influenza Type B Ag Negative (Negative) 06/07/22 10:43 SARS-CoV-2 Ag (Rapid) Negative (Negative) 06/07/22 10:43 Micro: Microbiology 06/07/22 15:20 Blood Culture - Preliminary Blood SPECIMEN COLLECTED 06/07/22 15:15 Blood Culture - Preliminary Blood SPECIMEN COLLECTED A&P Assessment and plan (1) Acute respiratory failure with hypoxia: Status: Acute (2) Acute exacerbation of chronic obstructive airways disease: Status: Acute (3) Acute UTI: Status: Acute (4) CHF (congestive heart failure): Status: Acute (5) HTN (hypertension), benign: Status: Acute (6) Atrial fibrillation: Status: Acute Plan Acute hypoxic respiratory failure: Most likely secondary to a combination of COPD exacerbation from viral bronchitis along with congestive heart failure secondary to atrial fibrillation with rapid ventricular response. Wean off oxygen supplementation keeping saturation over 88%. CTA results appreciated. Consistent with emphysema. Negative for consolidation. Ipratropium, Xopenex every 6 hour, budesonide twice daily. Solu-Medrol 40 mg every 6 hourly. Check COVID-19 PCR, CRP, procalcitonin, sputum culture, proBNP, urine Legionella, bacterial antigen. As patient is critically sick for now start patient on IV ceftriaxone and azithromycin though concern for pneumonia low currently. Fluid restriction up to 1500 cc. Echocardiogram. For Esquivel catheterization. IV Lasix 40 mg once. Acute UTI: Patient not complaining of any dysuria. UA concerning for UTI. Follow-up urine culture. Ceftriaxone will cover for UTI as well. Atrial fibrillation with rapid ventricular response: Currently rate controlled. Patient gives history at home of feeling palpitations. For now continue with home dose of metoprolol 50 mg twice daily. Continue home dose of Eliquis. Hypertension: Goal blood pressure less than 140/90 mmHg. Continue with home dose of metoprolol, amlodipine. Hold off on starting lisinopril and hydrochlorothiazide for now. Will monitor and add if needed. Continue other chronic home medications including aspirin, statin, Suboxone, mirtazapine, sertraline. Analgesia: Tylenol as needed every 6 hour, home dose of Suboxone Glycemic control: Not needed Nutrition: Regular diet CODE STATUS: Discussed in detail with patient. Full code. PUD prophylaxis: Protonix DVT prophylaxis: Eliquis will suffice for DVT prophylaxis Discharge planning: Plan to discharge to home with caregiver once medically stable Admit to CSU. 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
[2022-06-07] MEDS: azithromycin 250 mg Tablet 500 MG PO (16:27)
[2022-06-07] MEDS: sodium chloride 0.9% 1,000 ML 999 ML IV (16:27)
[2022-06-07] MEDS: FUROsemide 10 mg/mL SDV 4mL 40 MG IVP (16:28)
--- NOTE | 2022-06-07 16:30 | ECG_ITS ---
[facility] Test Date: 2022-06-07 Pat Name: Rylee Martinez Department: Room: 277 Gender: Female Filenet Developer: : 1945 Requested By: Aren Barron Order Number: [id number] Allen MD: Marian Lemus M.D. Measurements Intervals Maxwell Rate: 140 P: [place]: QRS: -9 QRSD: 97 T: 0 QT: 230 QTc: 351 Interpretive Statements ATRIAL FIBRILLATION WITH RAPID VENTRICULAR RESPONSE NONSPECIFIC ST & T-WAVE ABNORMALITY ABNORMAL RHYTHM ECG Compared to ECG 06/07/2022 13:04:03 T-wave abnormality now present Sinus rhythm no longer present Myocardial infarct finding no longer present Electronically Signed On 06-07-2022 17:38:26 CDT by Marian Lemus M.D. [id number]
[2022-06-07 16:34] LABS: NT Pro B Type Natriuretic Pept 946 pg/mL (0-450); Procalcitonin 0.15 ng/mL (0-0.5); Vitamin B12 697 pg/mL (232-1245)
[2022-06-07 16:35] LABS: Folate Level 14.1 ng/mL (4.8-37.3)
[2022-06-07 16:52] LABS: Iron 14 ug/dL (37-145); Percent Saturation 4.1 % (20-50); Total Iron Binding Capacity 341 mcg/dl; Unsaturated Iron Binding 327 ug/dL (112-347)
[2022-06-07] MEDS: dilTIAZem 5 mg/mL SDV 5 mL 10 MG IVP (17:33)
[2022-06-07 17:55] LABS: Troponin 5 6HR 12.43 ng/L (0-10)
[2022-06-07 18:03] LABS: Troponin 5 6HR Delta -2.57 ng/L (0-12)
[2022-06-07 18:19] LABS: Adenovirus Not Detected (NOT DETECT); Chlamydia Pneumoniae Not Detected (NOT DETECT); Coronavirus 229E,HKU1,NL63,OC4 Not Detected (NOT DETECT); Human Metapneumovirus Not Detected (NOT DETECT); Human Rhinovirus/Enterovirus Not Detected (NOT DETECT); Influenza A Not Detected (NOT DETECT); Influenza A H1 Not Detected (NOT DETECT); Influenza A H1-2009 Not Detected (NOT DETECT); Influenza A H3 Not Detected (NOT DETECT); Influenza B Not Detected (NOT DETECT); Mycoplasma Pneumoniae Not Detected (NOT DETECT); Parainfluenza Virus Type 1 Not Detected (NOT DETECT); Parainfluenza Virus Type 2 Not Detected (NOT DETECT); Parainfluenza Virus Type 3 Not Detected (NOT DETECT); Parainfluenza Virus Type 4 Not Detected (NOT DETECT); Respiratory Syncytial Virus A Not Detected (NOT DETECT); Respiratory Syncytial Virus B Not Detected (NOT DETECT); SARS-COV-2 Not Detected (NOT DETECT)
[2022-06-07] MEDS: metoprolol tartrate 50 mg Tablet PO (18:21)
[2022-06-07] MEDS: ferrous gluconate 324 mg Tablet PO (18:21)
[2022-06-07] MEDS: apixaban 5 mg Tablet PO (18:22)
[2022-06-07] MEDS: dilTIAZem 30 mg Tablet PO ×2 (18:45→23:57)
--- NOTE | 2022-06-07 18:50 | PC.NURSE ---
Call placed to Dr. Mathis about heart rate. He ordered to stay the course and add PO Cardizem 30 mg q 6 hr.
[2022-06-07] MEDS: docusate sodium 100 mg Capsule PO (21:45)
[2022-06-07] MEDS: ipratropium 0.5 mg/2.5 mL Neb INHALATION (21:57)
[2022-06-07] MEDS: levalbuterol 0.63 mg/3 mL Neb INHALATION (21:58)
[2022-06-07] MEDS: budesonide 0.5 mg/2 mL Neb INHALATION (21:58)
[2022-06-08] VITALS (22 sets, daily range): BP systolic 85–123; BP diastolic 48–75; PULSE 66–88; RESP 14–20; TEMP 36.7–37.2; O2SAT 87–96
[2022-06-08 01:33] LABS: Basophils % 0.2 %; Hematocrit 34.2 % (37.0-47.0); Hemoglobin 10.2 g/dL (11.5-15.3); Lymphocytes # 0.5 10^3/uL (0.8-4.8); Lymphocytes % 10.6 %; Mean Corpuscular HGB Conc 29.8 g/dL (30.0-36.0); Mean Corpuscular Hemoglobin 25.6 pg (28.0-34.0); Mean Corpuscular Volume 85.7 fl (81-99); Monocytes # 0.1 10^3/uL (0.2-0.9); Monocytes % 1.6 %; Neutrophils # 3.86 10^3/uL (1.8-7.7); Neutrophils % 86.9 %; Nucleated Red Blood Cells % 0 %; Platelet Count 238 10^3/cmm (130-400); Red Blood Count 3.99 10^6/uL (4.1-5.3); Red Cell Distribution Width 15.9 % (12.1-15.1); White Blood Count 4.4 10^3/uL (4.0-10.0)
[2022-06-08 01:54] LABS: Alanine Aminotransferase 6 U/L (0-33); Alkaline Phosphatase 133 IU/L (35-105); Anion Gap 15.2 (5-19); Aspartate Amino Transferase 13 U/L (0-32); Blood Urea Nitrogen 19 mg/dL (8-23); Calcium 9.2 mg/dL (8.5-10.5); Carbon Dioxide 23 mmol/L (22-29); Chloride 108 mmol/L (98-107); Chol HDL Ratio 2.27 mg/dL (0.0-4.40); Cholesterol 84 mg/dL (0-200); Glucose 208 mg/dL (65-115); HDL Cholesterol 37 mg/dL (60-100); LDL Cholesterol Calculated 37 mg/dL (50-129); Osmolality Calculated 302 mOsm/kg (285-295); Phosphorus 2.5 mg/dL (2.5-4.5); Potassium 4.2 mmol/L (3.5-5.1); Sodium 142 mmol/L (136-145); Total Bilirubin 0.2 mg/dL (0.15-1.2); Triglycerides 52 mg/dL (0-150); VLDL Cholestrol Calculation 10 mg/dL (0-30)
[2022-06-08 02:01] LABS: Estmated Average Glucose 114; Hemoglobin A1C 5.6 % (4.0-6.0)
[2022-06-08] MEDS: ipratropium 0.5 mg/2.5 mL Neb INHALATION ×4 (03:59→22:29)
[2022-06-08] MEDS: levalbuterol 0.63 mg/3 mL Neb INHALATION ×4 (03:59→22:29)
[2022-06-08] MEDS: dilTIAZem 30 mg Tablet PO ×2 (05:54→13:48)
[2022-06-08] MEDS: acetaminophen 325 mg Tablet 650 MG PO (05:59)
[2022-06-08] MEDS: budesonide 0.5 mg/2 mL Neb INHALATION ×2 (08:40→22:29)
[2022-06-08] MEDS: atorvastatin 40 mg Tablet 20 MG PO (09:58)
[2022-06-08] MEDS: mirtazapine 15 mg Tablet 7.5 MG PO (09:59)
[2022-06-08] MEDS: pantoprazole DR 40 mg Tablet PO (10:00)
[2022-06-08] MEDS: aspirin 81 mg EC Tablet PO (10:00)
[2022-06-08] MEDS: ferrous gluconate 324 mg Tablet PO ×2 (10:00→17:24)
[2022-06-08] MEDS: docusate sodium 100 mg Capsule PO ×2 (10:00→17:24)
[2022-06-08] MEDS: metoprolol tartrate 50 mg Tablet PO ×2 (10:00→22:13)
[2022-06-08] MEDS: sertraline 50 mg Tablet PO (10:00)
[2022-06-08] MEDS: potassium chloride ER 10 mEq Tablet PO (10:00)
[2022-06-08] MEDS: apixaban 5 mg Tablet PO ×2 (10:07→17:24)
[2022-06-08] MEDS: azithromycin 250 mg Tablet 500 MG PO (10:07)
--- NOTE | 2022-06-08 15:13 | P.PN_ITS ---
Subjective Subjective: After admission early in the evening yesterday patient went into A. fib with RVR. She was started on Cardizem drip which was later weaned off in the evening. Currently remains in normal sinus rhythm. Blood pressure well controlled. Have been transition from heated high flow to high flow nasal cannula 5 L. Vitals/I&O/Wt Last Vital Signs Temp 98.9 F 06/08/22 12:00 Pulse 71 06/08/22 15:03 Resp 14 06/08/22 15:03 BP 123/75 06/08/22 12:00 Pulse Ox 91 06/08/22 15:03 O2 Del Method 06/08/22 15:03 O2 Flow Rate 5 06/08/22 15:03 FiO2 45 06/08/22 10:57 06/08/22 06/08/22 06/08/22 06:59 14:59 22:59 Intake Total 720 / 720 Output Total 175 / 825 Balance -175 / 475.000 720 / 720 Weight last 48 hrs Weight 61.915 kg Weight 61.689 kg Physical Exam Narrative: EXAM NARRATIVE: General: No acute distress, AO x3, on high flow, chronically sick appearing, bitemporal wasting HEENT: PERRLA, pupils bilaterally equal and reactive Chest:Bronchial breath sounds b/l , bilateral rhonchi present all over the lung adame, equal good air entry bilaterally, no more fine basal crackles CVS: S1-S2 regular, no murmurs, no tachycardia, no gallops, no rubs Abdomen: Soft, nontender, no organomegaly, bowel sounds present, morbidly obese Neuro: No focal deficits, no facial deformity, AO x3, power 5/5 in all limbs Urinary Catheter Management: Esquivel: Cath Placed During This Visit: yes Reason for Continuing Indwelling Catheter: Accurate Measurement of Urinary Output in Critically Ill Patients Urinary Catheter Date of Insertion: 06/07/22 Data : 06/08/22 01:25 06/08/22 01:25 Micro: Microbiology 06/07/22 12:00 Bacterial Antigens - Final Urine Kidney 06/07/22 10:43 Urine Culture - Preliminary Urine,Clean Catch Gram Negative Rods 06/07/22 12:00 Legionella Urinary Antigen - Final Unknown Source 06/07/22 15:20 Blood Culture - Preliminary Blood SPECIMEN COLLECTED 06/07/22 15:15 Blood Culture - Preliminary Blood SPECIMEN COLLECTED A&P Assessment and plan (1) Acute respiratory failure with hypoxia: Status: Acute (2) Acute exacerbation of chronic obstructive airways disease: Status: Acute (3) Acute UTI: Status: Acute (4) CHF (congestive heart failure): Status: Acute (5) HTN (hypertension), benign: Status: Acute (6) Atrial fibrillation: Status: Acute Plan Acute hypoxic respiratory failure: Most likely secondary to a combination of COPD exacerbation from viral bronchitis along with congestive heart failure secondary to atrial fibrillation with rapid ventricular response. Wean off oxygen supplementation keeping saturation over 88%. CTA results appreciated. Consistent with emphysema. Negative for consolidation. Ipratropium, Xopenex every 6 hour, budesonide twice daily. Wean Solu-Medrol 40 mg every 12 hourly. COVID PCR, procalcitonin, urine Legionella, bacterial antigen negative. proBNP elevated. Sputum culture awaited. For now continue with IV ceftriaxone and azithromycin though concern for pneumonia low currently. We will continue antibiotics for now given acute UTI Fluid restriction up to 1500 cc. Echocardiogram results appreciated. Poor quality study. EF 60%. Diastolic could not be determined. For Esquivel catheterization. Oral Lasix 40 mg 1 time. Strict input output charting. Acute UTI: Patient not complaining of any dysuria. Follow-up urine culture. Ceftriaxone will cover for UTI as well. Atrial fibrillation with rapid ventricular response: Back in normal sinus rhythm. Went into RVR yesterday evening. Started on Cardizem drip which is being henceforth weaned off. Stop oral Cardizem. Increase oral home dose of metoprolol to 75 mg twice daily. Continue home dose of Eliquis. Hypertension: Goal blood pressure less than 140/90 mmHg. Hold off on amlodipine. Increase metoprolol to 75 mg twice daily. Hold off on starting lisinopril and hydrochlorothiazide for now. Will monitor and add if needed. Continue other chronic home medications including aspirin, statin, Suboxone, mirtazapine, sertraline. Analgesia: Tylenol as needed every 6 hour, home dose of Suboxone Glycemic control: Not needed Nutrition: Regular diet CODE STATUS: Discussed in detail with patient. Full code. PUD prophylaxis: Protonix DVT prophylaxis: Eliquis will suffice for DVT prophylaxis Discharge planning: Plan to discharge to home with caregiver once medically stable Continue care at [facility] Attestations Medical Necessity Statement*: Requires further hospitalization for management of acute hypoxic respiratory failure secondary to COPD exacerbation, congestive heart failure in setting of paroxysmal atrial fibrillation with rapid ventricular response Time Spent in Patient Care: Greater than 35 minutes Coding Level of Care Code Acute [employer] Records Analyst for [facility] Fwd Diagnoses Acute respiratory failure with hypoxia J96.01 Acute exacerbation of chronic obstructive airways disease J44.1 Acute UTI N39.0 CHF (congestive heart failure) I50.9 HTN (hypertension), benign I10 Atrial fibrillation I48.91
[2022-06-08] MEDS: cefTRIAXone 1,000 MG in sodium chloride 0.9% (plus) 50 ML 100 MG IV (16:40)
[2022-06-09] VITALS (14 sets, daily range): BP systolic 97–123; BP diastolic 57–85; PULSE 68–84; RESP 15–20; TEMP 36.4–37; O2SAT 90–97
--- NOTE | 2022-06-09 02:31 | PC.NURSE ---
late entry, notified Dr Murary of soft bp, order to give 50 mg of metoprolol instead of 75 mg
[2022-06-09] MEDS: ipratropium 0.5 mg/2.5 mL Neb INHALATION ×4 (03:34→21:08)
[2022-06-09] MEDS: levalbuterol 0.63 mg/3 mL Neb INHALATION ×4 (03:34→21:08)
[2022-06-09 04:56] LABS: Hematocrit 31.6 % (37.0-47.0); Lymphocytes # 0.7 10^3/uL (0.8-4.8); Mean Corpuscular HGB Conc 31.6 g/dL (30.0-36.0); Mean Corpuscular Hemoglobin 25.5 pg (28.0-34.0); Mean Corpuscular Volume 80.6 fl (81-99); Mean Platelet Volume 9.8 fL (7.4-10.4); Monocytes # 0.6 10^3/uL (0.2-0.9); Monocytes % 4.6 %; Neutrophils # 10.97 10^3/uL (1.8-7.7); Neutrophils % 88.8 %; Nucleated Red Blood Cells % 0 %; Platelet Count 281 10^3/cmm (130-400); Red Blood Count 3.92 10^6/uL (4.1-5.3); Red Cell Distribution Width 15.9 % (12.1-15.1); White Blood Count 12.4 10^3/uL (4.0-10.0)
[2022-06-09 05:23] LABS: Alanine Aminotransferase 7 U/L (0-33); Alkaline Phosphatase 115 IU/L (35-105); Anion Gap 11.6 (5-19); Aspartate Amino Transferase 13 U/L (0-32); Blood Urea Nitrogen 23 mg/dL (8-23); Calcium 9.6 mg/dL (8.5-10.5); Carbon Dioxide 26 mmol/L (22-29); Chloride 110 mmol/L (98-107); Globulin 2.8 g/dL (1.3-4.6); Glucose 171 mg/dL (65-115); Osmolality Calculated 304 mOsm/kg (285-295); Potassium 4.6 mmol/L (3.5-5.1); Sodium 143 mmol/L (136-145); Total Bilirubin 0.2 mg/dL (0.15-1.2); Total Protein 5.8 g/dL (6.6-8.7)
[2022-06-09] MEDS: acetaminophen 325 mg Tablet 650 MG PO ×2 (06:10→17:16)
[2022-06-09] MEDS: sertraline 50 mg Tablet PO (08:41)
[2022-06-09] MEDS: mirtazapine 15 mg Tablet 7.5 MG PO (08:41)
[2022-06-09] MEDS: atorvastatin 40 mg Tablet 20 MG PO (08:42)
[2022-06-09] MEDS: pantoprazole DR 40 mg Tablet PO (08:43)
[2022-06-09] MEDS: aspirin 81 mg EC Tablet PO (08:43)
[2022-06-09] MEDS: apixaban 5 mg Tablet PO ×2 (08:43→17:13)
[2022-06-09] MEDS: potassium chloride ER 10 mEq Tablet PO (08:43)
[2022-06-09] MEDS: ferrous gluconate 324 mg Tablet PO ×2 (08:43→17:13)
[2022-06-09] MEDS: metoprolol tartrate 50 mg Tablet 75 MG PO (08:44)
[2022-06-09] MEDS: azithromycin 250 mg Tablet 500 MG PO (08:46)
[2022-06-09] MEDS: docusate sodium 100 mg Capsule PO (08:48)
[2022-06-09] MEDS: budesonide 0.5 mg/2 mL Neb INHALATION ×2 (09:46→21:08)
--- NOTE | 2022-06-09 13:42 | PM.PN ---
Subjective Subjective: No acute events overnight. Patient denies any nausea, vomiting, headache. Remains in normal sinus rhythm with heart rate running in 70s. Today morning turned down to 3 L nasal cannula saturating 90%. States feeling little better. Vitals/I&O/Wt Last Vital Signs Temp 97.9 F 06/09/22 08:00 Pulse 78 06/09/22 09:45 Resp 16 06/09/22 09:45 BP 115/72 06/09/22 08:00 Pulse Ox 90 06/09/22 09:45 O2 Del Method 06/09/22 09:45 O2 Flow Rate 3 06/09/22 09:45 FiO2 40 06/08/22 20:00 06/08/22 06/09/22 06/09/22 22:59 06:59 14:59 Intake Total 650 / 1370 240 / 240 Output Total 450 / 450 425 / 875 Balance 200 / 920 -425 / 495 240 / 240 Weight last 48 hrs Weight 65.635 kg Weight 61.915 kg Physical Exam Narrative: EXAM NARRATIVE: General: No acute distress, AO x3, on high flow, chronically sick appearing, bitemporal wasting HEENT: PERRLA, pupils bilaterally equal and reactive Chest:Bronchial breath sounds b/l , bilateral rhonchi present all over the lung adame, equal good air entry bilaterally, no more fine basal crackles CVS: S1-S2 regular, no murmurs, no tachycardia, no gallops, no rubs Abdomen: Soft, nontender, no organomegaly, bowel sounds present, morbidly obese Neuro: No focal deficits, no facial deformity, AO x3, power 5/5 in all limbs Urinary Catheter Management: Esquivel: Cath Placed During This Visit: yes Reason for Continuing Indwelling Catheter: Other Urinary Catheter Date of Insertion: 06/07/22 Data : 06/09/22 04:40 06/09/22 04:40 Micro: Microbiology 06/07/22 10:43 Urine Culture - Final Urine,Clean Catch Klebsiella pneumoniae 06/07/22 15:56 MRSA Culture - Final Nose 06/07/22 15:20 Blood Culture - Preliminary Blood NEGATIVE TO DATE 06/07/22 15:15 Blood Culture - Preliminary Blood NEGATIVE TO DATE 06/07/22 12:00 Bacterial Antigens - Final Urine Kidney A&P Assessment and plan (1) Acute respiratory failure with hypoxia: Status: Acute (2) Acute exacerbation of chronic obstructive airways disease: Status: Acute (3) Acute UTI: Status: Acute (4) CHF (congestive heart failure): Status: Acute (5) HTN (hypertension), benign: Status: Acute (6) Atrial fibrillation: Status: Acute Plan Acute hypoxic respiratory failure: Most likely secondary to a combination of COPD exacerbation from viral bronchitis along with congestive heart failure secondary to paroxysmal atrial fibrillation with rapid ventricular response. Wean off oxygen supplementation keeping saturation over 88%. CTA results appreciated. Consistent with emphysema. Negative for consolidation. Ipratropium, Xopenex every 6 hour, budesonide twice daily. Wean Solu-Medrol 40 mg daily. COVID PCR, procalcitonin, urine Legionella, bacterial antigen negative. proBNP elevated. Sputum culture awaited. Stop azithromycin. Continue with ceftriaxone which will cover both for possible pneumonia and a UTI. Fluid restriction up to 1500 cc. Echocardiogram results appreciated. Poor quality study. EF 60%. Diastolic could not be determined. For Esquivel catheterization. Hold off any further Lasix or IV fluids. Strict input output charting. Acute UTI: Patient not complaining of any dysuria. Urine cultures consistent with Klebsiella. Sensitivities appreciated. Continue with ceftriaxone. Atrial fibrillation with rapid ventricular response: Back in normal sinus rhythm. Borderline blood pressures. Continue with metoprolol 50 mg twice daily. Will start on 25 mg metoprolol daily as needed basis for heart rate of more than 100 to be withheld if systolic blood pressure less than 90 mmHg. Continue home dose of Eliquis. Hypertension: Goal blood pressure less than 140/90 mmHg. Hold off on amlodipine, home dose of lisinopril and hydrochlorothiazide. Continue with metoprolol as above. Continue other chronic home medications including aspirin, statin, Suboxone, mirtazapine, sertraline. Analgesia: Tylenol as needed every 6 hour, home dose of Suboxone Glycemic control: Not needed Nutrition: Regular diet CODE STATUS: Discussed in detail with patient. Full code. PUD prophylaxis: Protonix DVT prophylaxis: Eliquis will suffice for DVT prophylaxis Discharge planning: Plan to discharge to home with caregiver once medically stable Continue care at [facility] Attestations Medical Necessity Statement*: Requires further hospitalization for management of hypoxia secondary to COPD exacerbation, acute UTI, congestive heart failure in setting of paroxysmal A. fib Time Spent in Patient Care: Greater than 35 minutes Coding Level of Care Code Acute Product Safety Technician for Chg Fwd Diagnoses Acute respiratory failure with hypoxia J96.01 Acute exacerbation of chronic obstructive airways disease J44.1 Acute UTI N39.0 CHF (congestive heart failure) I50.9 HTN (hypertension), benign I10 Atrial fibrillation I48.91
[2022-06-09] MEDS: cefTRIAXone 1,000 MG in sodium chloride 0.9% (plus) 50 ML 100 MG IV (15:42)
[2022-06-09] MEDS: metoprolol tartrate 50 mg Tablet PO (17:13)
[2022-06-09] MEDS: ketorolac 30 mg/mL INJ 15 MG IVP (23:01)
[2022-06-10] VITALS (17 sets, daily range): BP systolic 115–153; BP diastolic 67–98; PULSE 52–109; RESP 13–26; TEMP 36.4–36.7; O2SAT 83–97
[2022-06-10 04:47] LABS: Hematocrit 35.9 % (37.0-47.0); Hemoglobin 10.7 g/dL (11.5-15.3); Lymphocytes # 1.4 10^3/uL (0.8-4.8); Lymphocytes % 12.2 %; Mean Corpuscular HGB Conc 29.8 g/dL (30.0-36.0); Mean Corpuscular Hemoglobin 25.1 pg (28.0-34.0); Mean Corpuscular Volume 84.3 fl (81-99); Mean Platelet Volume 9.7 fL (7.4-10.4); Monocytes # 0.7 10^3/uL (0.2-0.9); Monocytes % 6.5 %; Neutrophils # 9.13 10^3/uL (1.8-7.7); Neutrophils % 80.5 %; Nucleated Red Blood Cells % 0 %; Platelet Count 286 10^3/cmm (130-400); Red Blood Count 4.26 10^6/uL (4.1-5.3); Red Cell Distribution Width 15.9 % (12.1-15.1); White Blood Count 11.4 10^3/uL (4.0-10.0)
[2022-06-10 05:10] LABS: Alanine Aminotransferase 6 U/L (0-33); Alkaline Phosphatase 116 IU/L (35-105); Anion Gap 12.1 (5-19); Aspartate Amino Transferase 12 U/L (0-32); Blood Urea Nitrogen 26 mg/dL (8-23); Calcium 9.6 mg/dL (8.5-10.5); Carbon Dioxide 27 mmol/L (22-29); Chloride 108 mmol/L (98-107); Globulin 2.6 g/dL (1.3-4.6); Glucose 101 mg/dL (65-115); Osmolality Calculated 301 mOsm/kg (285-295); Potassium 4.1 mmol/L (3.5-5.1); Sodium 143 mmol/L (136-145); Total Bilirubin 0.2 mg/dL (0.15-1.2); Total Protein 5.6 g/dL (6.6-8.7)
[2022-06-10] MEDS: sertraline 50 mg Tablet PO (08:45)
[2022-06-10] MEDS: mirtazapine 15 mg Tablet 7.5 MG PO (08:45)
[2022-06-10] MEDS: ferrous gluconate 324 mg Tablet PO ×2 (08:45→17:29)
[2022-06-10] MEDS: atorvastatin 40 mg Tablet 20 MG PO (08:45)
[2022-06-10] MEDS: apixaban 5 mg Tablet PO ×2 (08:45→17:29)
[2022-06-10] MEDS: pantoprazole DR 40 mg Tablet PO (08:45)
[2022-06-10] MEDS: potassium chloride ER 10 mEq Tablet PO (08:45)
[2022-06-10] MEDS: metoprolol tartrate 50 mg Tablet PO ×2 (08:46→17:29)
[2022-06-10] MEDS: aspirin 81 mg EC Tablet PO (08:46)
[2022-06-10] MEDS: budesonide 0.5 mg/2 mL Neb INHALATION ×2 (08:55→20:03)
[2022-06-10] MEDS: levalbuterol 0.63 mg/3 mL Neb INHALATION ×3 (08:55→20:03)
[2022-06-10] MEDS: ipratropium 0.5 mg/2.5 mL Neb INHALATION ×3 (08:55→20:03)
--- NOTE | 2022-06-10 09:38 | PC.SOCIAL ---
IMM update IMM updated with patient. Verbalized an understanding. Copy Pg 2 provided. Initialled, dated, timed, and placed in chart.
[2022-06-10] MEDS: cefTRIAXone 1,000 MG in sodium chloride 0.9% (plus) 50 ML 100 MG IV (16:19)
--- NOTE | 2022-06-10 16:39 | P.PN_ITS ---
Subjective Subjective: Patient was seen and examined this morning continued to be extremely short of breath with ambulation Requiring close to 8 L of oxygen with exertion. Medications: Medication Review Details: Generic Name Dose Route Start Last Admin Trade Name Adrian PRN Reason Stop Dose Admin Acetaminophen 650 mg 06/07/22 20:26 06/09/22 17:16 Acetaminophen 32 5 Mg Tablet PO 650 mg Q6H PRN Administration Mild/Mod Pain Or Temp >/= 101 Apixaban 5 mg 06/07/22 18:00 06/10/22 08:45 Apixaban 5 Mg Ta blet PO 5 mg BID SATNAM Administration Aspirin 81 mg 06/08/22 09:00 06/10/22 08:46 Aspirin 81 Mg Ec Tablet PO 81 mg DAILY SATNAM Administration Atorvastatin Calci um 20 mg 06/08/22 09:00 06/10/22 08:45 Atorvastatin 40 Mg Tablet PO 20 mg DAILY SATNAM Administration Budesonide 0.5 mg 06/07/22 18:00 06/10/22 08:55 Budesonide 0.5 M g/2 Ml Neb INHALATION 0.5 mg BID.RESPIRATORY S CH Administration Ferrous Gluconate 324 mg 06/07/22 18:00 06/10/22 08:45 Ferrous Gluconat e 324 Mg Tablet PO 324 mg BIDWM SATNAM Administration Ceftriaxone Sodium 1,000 mg/ 50 mls @ 100 mls/ hr 06/07/22 15:45 06/10/22 16:19 Sodium Chloride IV 100 mls/hr Q24H SATNAM Administration Protocol Ipratropium Bromid e 0.5 mg 06/07/22 15:45 06/10/22 15:22 Ipratropium 0.5 Mg/2.5 Ml Neb INHALATION 0.5 mg Q6H.RESP SATNAM Administration Levalbuterol HCl 0.63 mg 06/07/22 20:00 06/10/22 15:22 Levalbuterol 0.6 3 Mg/3 Ml Neb INHALATION 0.63 mg Q6H.RESP SATNAM Administration Methylprednisolone Sodium Succinate 40 mg 06/10/22 09:00 06/10/22 08:01 Methylprednisolo ne Sod Succ 40 Mg/ Ml Inj IVP 40 mg DAILY SATNAM Administration Metoprolol Tartrat e 50 mg 06/09/22 18:00 06/10/22 08:46 Metoprolol Tartr ate 50 Mg Tablet PO 50 mg BID SATNAM Administration Mirtazapine 7.5 mg 06/08/22 09:00 06/10/22 08:45 Mirtazapine 15 M g Tablet PO 7.5 mg DAILY SATNAM Administration Non-Formulary 1 each 06/08/22 06:00 06/10/22 12:12 Medication SUBLINGUAL 1 each Suboxone 8-2 Mg 0600,1200 SATNAM Administration Non-Formulary 0.5 each 06/08/22 21:00 06/09/22 22:05 Medication SUBLINGUAL Not Given Suboxone 8-2 Mg BEDTIME SATNAM Pantoprazole Sodiu m 40 mg 06/08/22 09:00 06/10/22 08:[address] 40 Mg Tablet PO 40 mg DAILY SATNAM Administration Potassium Chloride 10 meq 06/08/22 09:00 06/10/22 08:45 Potassium Chlori de Er 10 Meq Table t PO 10 meq DAILY SATNAM Administration Sertraline HCl 50 mg 06/08/22 09:00 06/10/22 08:45 Sertraline 50 Mg Tablet PO 50 mg DAILY SATNAM Administration Vitals/I&O/Wt Last Vital Signs Temp 97.6 F 06/10/22 08:00 Pulse 57 L 06/10/22 15:30 Resp 17 06/10/22 15:22 BP 115/69 06/10/22 12:00 Pulse Ox 92 06/10/22 15:22 O2 Del Method 06/10/22 15:22 O2 Flow Rate 4 06/10/22 15:22 FiO2 40 06/08/22 20:00 06/10/22 06/10/22 06/10/22 06:59 14:59 22:59 Output Total 300 / 800 Balance -300 / 90 Weight last 48 hrs Weight 64.592 kg Weight 65.635 kg Physical Exam Const: COMMON NORMALS: patient oriented x3 HENMT: COMMON NORMALS: normocephalic and atraumatic HEAD & SCALP: normocephalic and atraumatic Resp: OTHER: Clear to auscultation bilaterally, Cardio: COMMON NORMALS: regular rate, regular rhythm, S1 normal heart sound present, S2 normal heart sound present, No gallops present (Cardio), No murmurs present (Cardio), No rub (Cardio) and Peripheral pulses 2+ throughout RATE: regular rate RHYTHM: regular rhythm HEART SOUNDS: S1 normal heart sound present and S2 normal heart sound present PERIPHERAL PULSES: Peripheral pulses 2+ throughout GI: COMMON NORMALS: Normal to inspection, nondistended, normoactive bowel sounds present, Soft to palpation, non-tender, No hepatosplenomegaly present and no masses AUSCULTATION: Yes normoactive bowel sounds PALPATION: Yes Soft to palpation and Yes No hepatosplenomegaly present RECTAL EXAM: deferred Extremity: COMMON NORMALS: no clubbing, cyanosis or edema and no pedal edema Neuro: COMMON NORMALS: patient oriented x3 Urinary Catheter Management: Esquivel: Cath Placed During This Visit: yes Reason for Continuing Indwelling Catheter: Other Urinary Catheter Date of Insertion: 06/07/22 Data : 06/10/22 04:15 06/10/22 04:15 A&P Assessment and plan (1) Acute respiratory failure with hypoxia: Status: Acute (2) Acute exacerbation of chronic obstructive airways disease: Status: Acute (3) Acute UTI: Status: Acute (4) CHF (congestive heart failure): Status: Acute (5) HTN (hypertension), benign: Status: Acute (6) Atrial fibrillation: Status: Acute Plan Acute hypoxic respiratory failure: Most likely secondary to a combination of COPD exacerbation from viral bronchitis along with congestive heart failure seco ndary to paroxysmal atrial fibrillation with rapid ventricular response. Wean off oxygen supplementation keeping saturation over 88%. CTA results appreciated. Consistent with emphysema. Negative for consolidation. Ipratropium, Xopenex every 6 hour, budesonide twice daily. Continue Solu-Medrol 40 IV twice daily COVID PCR, procalcitonin, urine Legionella, bacterial antigen negative. proBNP elevated. Sputum culture awaited. Stop azithromycin. Continue with ceftriaxone which will cover both for possible pneumonia and a UTI. Fluid restriction up to 1500 cc. Echocardiogram results appreciated. Poor quality study. EF 60%. Diastolic could not be determined. For Esquivel catheterization. Continue Lasix 20 IV daily Acute UTI: Patient not complaining of any dysuria. Urine cultures consistent with Klebsiella. Sensitivities appreciated. Continue with ceftriaxone. Atrial fibrillation with rapid ventricular response: Back in normal sinus rhythm. Borderline blood pressures. Continue with metoprolol 50 mg twice daily. Will start on 25 mg metoprolol daily as needed basis for heart rate of more than 100 to be withheld if systolic blood pressure less than 90 mmHg. Continue home dose of Eliquis. Hypertension: Goal blood pressure less than 140/90 mmHg. Hold off on amlodipine, home dose of lisinopril and hydrochlorothiazide. Continue with metoprolol as above. Continue other chronic home medications including aspirin, statin, Suboxone, mirtazapine, sertraline. Analgesia: Tylenol as needed every 6 hour, home dose of Suboxone Glycemic control: Not needed Nutrition: Regular diet CODE STATUS: Discussed in detail with patient. Full code. PUD prophylaxis: Protonix DVT prophylaxis: Eliquis will suffice for DVT prophylaxis Discharge planning: Plan to discharge to home with caregiver once medically stable Continue care at [facility] Attestations Medical Necessity Statement*: In hospital for management of respiratory failure. Coding Level of Care Code Acute Production Assembler for Lara Martin Diagnoses Acute respiratory failure with hypoxia J96.01 Acute exacerbation of chronic obstructive airways disease J44.1 Acute UTI N39.0 CHF (congestive heart failure) I50.9 HTN (hypertension), benign I10 Atrial fibrillation I48.91
[2022-06-10] MEDS: FUROsemide 10 mg/mL SDV 2mL 20 MG IVP (17:28)
[2022-06-10] MEDS: acetaminophen 325 mg Tablet 650 MG PO (20:49)
[2022-06-11] VITALS (18 sets, daily range): BP systolic 109–130; BP diastolic 66–80; PULSE 59–85; RESP 16–21; TEMP 36.4–36.9; O2SAT 92–100
[2022-06-11] MEDS: ketorolac 30 mg/mL INJ 15 MG IVP ×2 (01:34→21:59)
[2022-06-11] MEDS: levalbuterol 0.63 mg/3 mL Neb INHALATION ×3 (03:06→15:00)
[2022-06-11] MEDS: ipratropium 0.5 mg/2.5 mL Neb INHALATION ×4 (03:06→21:07)
[2022-06-11] MEDS: budesonide 0.5 mg/2 mL Neb INHALATION ×2 (08:50→21:07)
[2022-06-11] MEDS: mirtazapine 15 mg Tablet 7.5 MG PO (09:39)
[2022-06-11] MEDS: ferrous gluconate 324 mg Tablet PO ×2 (09:39→17:27)
[2022-06-11] MEDS: aspirin 81 mg EC Tablet PO (09:40)
[2022-06-11] MEDS: apixaban 5 mg Tablet PO ×2 (09:40→17:28)
[2022-06-11] MEDS: potassium chloride ER 10 mEq Tablet PO (09:40)
[2022-06-11] MEDS: sertraline 50 mg Tablet PO (09:40)
[2022-06-11] MEDS: metoprolol tartrate 50 mg Tablet PO ×2 (09:40→17:27)
[2022-06-11] MEDS: atorvastatin 40 mg Tablet 20 MG PO (09:40)
[2022-06-11] MEDS: pantoprazole DR 40 mg Tablet PO (09:41)
[2022-06-11] MEDS: FUROsemide 10 mg/mL SDV 2mL 20 MG IVP (11:13)
[2022-06-11] MEDS: cefTRIAXone 1,000 MG in sodium chloride 0.9% (plus) 50 ML 100 MG IV (15:45)
--- NOTE | 2022-06-11 16:18 | PM.PN ---
Subjective Subjective: Patient was seen and examined this morning shortness of breath is slightly improved, currently she is requiring 6 L of oxygen through nasal cannula with ambulation, at home she was not using oxygen regularly. Robust urine output with Lasix. Currently in sinus rhythm Medications: Medication Review Details: Generic Name Dose Route Start Last Admin Trade Name Freq PRN Reason Stop Dose Admin Acetaminophen 650 mg 06/07/22 20:26 06/09/22 17:16 Acetaminophen 32 5 Mg Tablet PO 650 mg Q6H PRN Administration Mild/Mod Pain Or Temp >/= 101 Apixaban 5 mg 06/07/22 18:00 06/10/22 08:45 Apixaban 5 Mg Ta blet PO 5 mg BID SATNAM Administration Aspirin 81 mg 06/08/22 09:00 06/10/22 08:46 Aspirin 81 Mg Ec Tablet PO 81 mg DAILY SATNAM Administration Atorvastatin Calci um 20 mg 06/08/22 09:00 06/10/22 08:45 Atorvastatin 40 Mg Tablet PO 20 mg DAILY SATNAM Administration Budesonide 0.5 mg 06/07/22 18:00 06/10/22 08:55 Budesonide 0.5 M g/2 Ml Neb INHALATION 0.5 mg BID.RESPIRATORY S CH Administration Ferrous Gluconate 324 mg 06/07/22 18:00 06/10/22 08:45 Ferrous Gluconat e 324 Mg Tablet PO 324 mg BIDWM SATNAM Administration Ceftriaxone Sodium 1,000 mg/ 50 mls @ 100 mls/ hr 06/07/22 15:45 06/10/22 16:19 Sodium Chloride IV 100 mls/hr Q24H SATNAM Administration Protocol Ipratropium Bromid e 0.5 mg 06/07/22 15:45 06/10/22 15:22 Ipratropium 0.5 Mg/2.5 Ml Neb INHALATION 0.5 mg Q6H.RESP SATNAM Administration Levalbuterol HCl 0.63 mg 06/07/22 20:00 06/10/22 15:22 Levalbuterol 0.6 3 Mg/3 Ml Neb INHALATION 0.63 mg Q6H.RESP SATNAM Administration Methylprednisolone Sodium Succinate 40 mg 06/10/22 09:00 06/10/22 08:01 Methylprednisolo ne Sod Succ 40 Mg/ Ml Inj IVP 40 mg DAILY SATNAM Administration Metoprolol Tartrat e 50 mg 06/09/22 18:00 06/10/22 08:46 Metoprolol Tartr ate 50 Mg Tablet PO 50 mg BID SATNAM Administration Mirtazapine 7.5 mg 06/08/22 09:00 06/10/22 08:45 Mirtazapine 15 M g Tablet PO 7.5 mg DAILY SATNAM Administration Non-Formulary 1 each 06/08/22 06:00 06/10/22 12:12 Medication SUBLINGUAL 1 each Suboxone 8-2 Mg 0600,1200 SATNAM Administration Non-Formulary 0.5 each 06/08/22 21:00 06/09/22 22:05 Medication SUBLINGUAL Not Given Suboxone 8-2 Mg BEDTIME SATNAM Pantoprazole Sodiu m 40 mg 06/08/22 09:00 06/10/22 08:[address] 40 Mg Tablet PO 40 mg DAILY SATNAM Administration Potassium Chloride 10 meq 06/08/22 09:00 06/10/22 08:45 Potassium Chlori de Er 10 Meq Table t PO 10 meq DAILY SATNAM Administration Sertraline HCl 50 mg 06/08/22 09:00 06/10/22 08:45 Sertraline 50 Mg Tablet PO 50 mg DAILY SATNAM Administration Vitals/I&O/Wt Last Vital Signs Temp 98.5 F 06/11/22 15:28 Pulse 64 06/11/22 15:28 Resp 20 H 06/11/22 15:28 BP 109/74 06/11/22 15:28 Pulse Ox 93 06/11/22 15:28 O2 Del Method 06/11/22 15:00 O2 Flow Rate 3 06/11/22 15:00 FiO2 40 06/08/22 20:00 06/11/22 06/11/22 06/11/22 06:59 14:59 22:59 Intake Total 120 / 528 600 / 600 Output Total 525 / 1925 Balance -405 / -1397 600 / 600 Weight last 48 hrs Weight 64.047 kg Weight 64.592 kg Physical Exam Const: COMMON NORMALS: patient oriented x3 HENMT: COMMON NORMALS: normocephalic and atraumatic HEAD & SCALP: normocephalic and atraumatic Resp: OTHER: Clear to auscultation bilaterally, Cardio: COMMON NORMALS: regular rate, regular rhythm, S1 normal heart sound present, S2 normal heart sound present, No gallops present (Cardio), No murmurs present (Cardio), No rub (Cardio) and Peripheral pulses 2+ throughout RATE: regular rate RHYTHM: regular rhythm HEART SOUNDS: S1 normal heart sound present and S2 normal heart sound present PERIPHERAL PULSES: Peripheral pulses 2+ throughout GI: COMMON NORMALS: Normal to inspection, nondistended, normoactive bowel sounds present, Soft to palpation, non-tender, No hepatosplenomegaly present and no masses AUSCULTATION: Yes normoactive bowel sounds PALPATION: Yes Soft to palpation and Yes No hepatosplenomegaly present RECTAL EXAM: deferred Extremity: COMMON NORMALS: no clubbing, cyanosis or edema and no pedal edema Neuro: COMMON NORMALS: patient oriented x3 Urinary Catheter Management: Esquivel: Cath Placed During This Visit: yes Reason for Continuing Indwelling Catheter: Other Urinary Catheter Date of Insertion: 06/07/22 Data : 06/10/22 04:15 06/10/22 04:15 A&P Assessment and plan (1) Acute respiratory failure with hypoxia: Status: Acute (2) Acute exacerbation of chronic obstructive airways disease: Status: Acute (3) Acute UTI: Status: Acute (4) CHF (congestive heart failure): Status: Acute (5) HTN (hypertension), benign: Status: Acute (6) Atrial fibrillation: Status: Acute Plan Acute hypoxic respiratory failure: Most likely secondary to a combination of COPD exacerbation from viral bronchitis along with congestive heart failure secondary to paroxysmal atrial fibrillation with rapid ventricular response. Wean off oxygen supplementation keeping saturation over 88%. CTA results appreciated. Consistent with emphysema. Negative for consolidation. Ipratropium, Xopenex every 6 hour, budesonide twice daily. Continue Solu-Medrol 40 IV twice daily COVID PCR, procalcitonin, urine Legionella, bacterial antigen negative. proBNP elevated. Sputum culture awaited. Stop azithromycin. Continue with ceftriaxone which will cover both for possible pneumonia and a UTI. Fluid restriction up to 1500 cc. Echocardiogram results appreciated. Poor quality study. EF 60%. Diastolic could not be determined. For Esquivel catheterization. Continue Lasix 20 IV daily Acute UTI: Patient not complaining of any dysuria. Urine cultures consistent with Klebsiella. Sensitivities appreciated. Continue with ceftriaxone. Atrial fibrillation with rapid ventricular response: Back in normal sinus rhythm. Borderline blood pressures. Continue with metoprolol 50 mg twice daily. Will start on 25 mg metoprolol daily as needed basis for heart rate of more than 100 to be withheld if systolic blood pressure less than 90 mmHg. Continue home dose of Eliquis. Hypertension: Goal blood pressure less than 140/90 mmHg. Hold off on amlodipine, home dose of lisinopril and hydrochlorothiazide. Continue with metoprolol as above. Continue other chronic home medications including aspirin, statin, Suboxone, mirtazapine, sertraline. Analgesia: Tylenol as needed every 6 hour, home dose of Suboxone Glycemic control: Not needed Nutrition: Regular diet CODE STATUS: Discussed in detail with patient. Full code. PUD prophylaxis: Protonix DVT prophylaxis: Eliquis will suffice for DVT prophylaxis Discharge planning: Plan to discharge to home with caregiver once medically stable Continue care at [facility] Attestations Medical Necessity Statement*: Patient is still in hospital for management of hypoxic respiratory failure, for IV diuresis. Time Spent in Patient Care: Greater than 35 minutes (>than 50% of time spent in counselling and/or direct pt care on unit). Coding Level of Care Code Acute Terminal Supervisor for Florg Fwd Diagnoses Acute respiratory failure with hypoxia J96.01 Acute exacerbation of chronic obstructive airways disease J44.1 Acute UTI N39.0 CHF (congestive heart failure) I50.9 HTN (hypertension), benign I10 Atrial fibrillation I48.91
[2022-06-11] MEDS: acetaminophen 325 mg Tablet 650 MG PO (19:08)
[2022-06-12] VITALS (11 sets, daily range): BP systolic 130–153; BP diastolic 72–98; PULSE 53–74; RESP 15–20; TEMP 36.4–36.6; O2SAT 91–96
[2022-06-12] MEDS: levalbuterol 0.63 mg/3 mL Neb INHALATION ×2 (02:31→08:51)
[2022-06-12] MEDS: ipratropium 0.5 mg/2.5 mL Neb INHALATION ×2 (02:31→08:51)
[2022-06-12 06:39] LABS: Hematocrit 39.6 % (37.0-47.0); Hemoglobin 12.2 g/dL (11.5-15.3); Lymphocytes # 1.1 10^3/uL (0.8-4.8); Lymphocytes % 11.4 %; Mean Corpuscular HGB Conc 30.8 g/dL (30.0-36.0); Mean Corpuscular Hemoglobin 25.6 pg (28.0-34.0); Mean Platelet Volume 9.6 fL (7.4-10.4); Monocytes # 0.6 10^3/uL (0.2-0.9); Neutrophils # 7.76 10^3/uL (1.8-7.7); Nucleated Red Blood Cells % 0 %; Platelet Count 336 10^3/cmm (130-400); Red Blood Count 4.77 10^6/uL (4.1-5.3); Red Cell Distribution Width 15.2 % (12.1-15.1); White Blood Count 9.5 10^3/uL (4.0-10.0)
[2022-06-12 07:05] LABS: Anion Gap 13.9 (5-19); Blood Urea Nitrogen 24 mg/dL (8-23); Calcium 9.8 mg/dL (8.5-10.5); Carbon Dioxide 30 mmol/L (22-29); Chloride 101 mmol/L (98-107); Glucose 110 mg/dL (65-115); Osmolality Calculated 295 mOsm/kg (285-295); Potassium 4.9 mmol/L (3.5-5.1); Sodium 140 mmol/L (136-145)
[2022-06-12] MEDS: mirtazapine 15 mg Tablet 7.5 MG PO (08:08)
[2022-06-12] MEDS: ferrous gluconate 324 mg Tablet PO ×2 (08:08→17:41)
[2022-06-12] MEDS: atorvastatin 40 mg Tablet 20 MG PO (08:08)
[2022-06-12] MEDS: metoprolol tartrate 50 mg Tablet PO ×2 (08:08→17:41)
[2022-06-12] MEDS: sertraline 50 mg Tablet PO (08:09)
[2022-06-12] MEDS: pantoprazole DR 40 mg Tablet PO (08:09)
[2022-06-12] MEDS: apixaban 5 mg Tablet PO ×2 (08:09→17:41)
[2022-06-12] MEDS: aspirin 81 mg EC Tablet PO (08:09)
[2022-06-12] MEDS: potassium chloride ER 10 mEq Tablet PO (08:09)
[2022-06-12] MEDS: budesonide 0.5 mg/2 mL Neb INHALATION (08:51)
--- NOTE | 2022-06-12 09:06 | PC.SOCIAL ---
IMM update IMM updated with patient. Verbalized an understanding. Copy Pg 2 provided. Initialled, dated, timed, and placed in chart.
--- NOTE | 2022-06-12 12:52 | P.DS_ITS ---
Discharge Providers Date of Admission: 06/07/22 14:57 Date of Discharge: June 12, 2022 Attending Provider at Admission: Andre Mathis MD Attending Provider at Discharge: Tito Eduardo MD Primary Care Provider: Joy Nieto-Zina Diagnoses at Discharge Discharge Diagnosis (1) Acute respiratory failure with hypoxia: Status: Inactive (2) Acute exacerbation of chronic obstructive airways disease: Status: Inactive (3) Acute UTI: Status: Inactive (4) CHF (congestive heart failure): Status: Inactive (5) HTN (hypertension), benign: Status: Inactive (6) Atrial fibrillation: Status: Inactive Reason for Visit Reason for Visit: MID BACK PRESSURE, HYPOTENSION, SOB Hospital Course Hospital Course HPI: Andre Mathis MD 77 year old female with past medical history of hypertension, congestive heart failure, atrial fibrillation on anticoagulation with Eliquis, thoracic aortic aneurysm repair who presents to the ER today with her caregiver.? As per the patient she has been having more attacks of atrial fibrillation for last 2 weeks more so since Friday.? Today is Friday.? As per her she takes metoprolol for atrial fibrillation and does not seem to be helping her currently.? Since Friday she started complaining of difficulty in breathing getting exacerbated on minimal ambulation.? Today she started having back pain which is similar to the pain she had when she had thoracic aortic aneurysm so she got worried and presented to the heart services office.? From there she was sent to the ER.? In the ER she was found to be hypoxic down to low 70s hence he was placed on heated high flow.? Currently she is on 40 L 60% saturating 94%.? Patient denies any nausea, vomiting, diarrhea.? Denies any sick contact, fever.? Does complain of cough without expectoration.? Has not been vaccinated for COVID-19. Hospital course: Patient was admitted for the management of acute hypoxic respiratory failure: Multifactorial: Secondary to COPD exacerbation, heart failure with preserved ejection fraction, atrial fibrillation with RVR, She was kept on DuoNeb steroids antibiotics, IV diuresis, supplemental oxygen as needed. For further atrial fibrillation she was was continued on metoprolol and Eliquis,she converted to normal sinus rhythm prior to discharge.She was discharged on metoprolol 50 p.o. twice daily, Eliquis was continued on discharge. she responded well to the above medical management at the time of discharge she did not qualified for home oxygen, she was discharged in stable condition to home, she will continue to follow primary care physician as an outpatient. Physical Exam Const: COMMON NORMALS: patient oriented x3 Resp: COMMON NORMALS: normal respiratory effort, No retractions, No use of accessory muscles and clear to auscultation bilaterally EFFORT & INSPECTION: Yes symmetric chest movement AUSCULTATION: clear to auscultation bilaterally Cardio: COMMON NORMALS: regular rate, regular rhythm, S1 normal heart sound present, S2 normal heart sound present, No gallops present (Cardio), No murmurs present (Cardio), No rub (Cardio) and Peripheral pulses 2+ throughout RATE: regular rate RHYTHM: regular rhythm HEART SOUNDS: S1 normal heart sound present and S2 normal heart sound present PERIPHERAL PULSES: Peripheral pulses 2+ throughout GI: COMMON NORMALS: Normal to inspection, nondistended, normoactive bowel sounds present, Soft to palpation, non-tender, No hepatosplenomegaly present and no masses AUSCULTATION: Yes normoactive bowel sounds PALPATION: Yes Soft to palpation and Yes No hepatosplenomegaly present RECTAL EXAM: deferred Extremity: COMMON NORMALS: no clubbing, cyanosis or edema and no pedal edema Neuro: COMMON NORMALS: patient oriented x3 Urinary Catheter Management: Esquivel: Cath Placed During This Visit: yes, but has since been removed by the nurse Reason for Continuing Indwelling Catheter: Decision to DC Catheter Urinary Catheter Date of Insertion: 06/07/22 Date Urinary Catheter Removed: 06/11/22 Time Urinary Catheter Discontinued: 10:00 Discharge Data Studies Completed and Pending Completed Studies During Hospitalization Category Date Time Status CTA chest CT abdomen pelvis [CT angio chest w abd pel w Cat Scan 06/07/22 10:58 Completed con] Stat XR chest 1V portable [id number] Stat Exams 06/07/22 10:30 Completed CV. echo complete* [id number] Routine Ultrasound 06/07/22 15:39 Completed Pending at discharge Category Date Time Status Blood Culture Stat Lab 06/07/22 15:20 Results Sputum Culture and Gram Stain Stat Lab 06/07/22 15:39 Uncollected Radiology Impressions Chest X-Ray 06/07/22 10:30 IMPRESSION: 1. Diffuse bilateral pulmonary interstitial infiltrates most marked in the left basal region. This would suggest interstitial pneumonia or pulmonary edema. There are superimposed changes of emphysema and honeycombing throughout both lungs. 2. Trace left basal pleural effusion. 3. A stent is noted in the descending thoracic aorta. Chest/Abdomen/Pelvis CT 06/07/22 10:58 IMPRESSION: 1. No pulmonary embolism is identified. 2. Severe centrilobular emphysema. Similar to the prior studies. 3. Stable diameter thoracic aorta stent graft since 01/22/2022. No enlargement or periaortic hematoma 4. Patient has a known stable abdominal aortic dissection which begins just below the level of the SMA and extends into the LEFT common and external iliac artery. No increase in size of the dissection. 5. Chronic atrophy RIGHT kidney. 6. No free fluid or mesenteric hematoma. Laboratory Results WBC 9.5 10^3/uL (4.0-10.0) 06/12/22 06:30 RBC 4.77 10^6/uL (4.1-5.3) 06/12/22 06:30 Hgb 12.2 g/dL (11.5-15.3) 06/12/22 06:30 Hct 39.6 % (37.0-47.0) 06/12/22 06:30 MCV 83.0 fl (81-99) 06/12/22 06:30 MCH 25.6 pg (28.0-34.0) L 06/12/22 06:30 MCHC 30.8 g/dL (30.0-36.0) 06/12/22 06:30 RDW 15.2 % (12.1-15.1) H 06/12/22 06:30 Plt Count 336 10^3/cmm (130-400) 06/12/22 06:30 MPV 9.6 fL (7.4-10.4) 06/12/22 06:30 Neut % (Auto) 82.0 % 06/12/22 06:30 Lymph % (Auto) 11.4 % 06/12/22 06:30 [place] % (Auto) 6.0 % 06/12/22 06:30 Eos % (Auto) 0.0 % 06/12/22 06:30 Baso % (Auto) 0.0 % 06/12/22 06:30 Neut # (Auto) 7.76 10^3/uL (1.8-7.7) H 06/12/22 06:30 Lymph # (Auto) 1.1 10^3/uL (0.8-4.8) 06/12/22 06:30 [place] # (Auto) 0.6 10^3/uL (0.2-0.9) 06/12/22 06:30 Eos # (Auto) 0.0 10^3/uL (0.0-0.8) 06/12/22 06:30 Baso # (Auto) 0.0 10^3/uL (0.0-0.1) 06/12/22 06:30 Nucleated RBC % (auto) 0 % 06/12/22 06:30 Nucleated RBCs # 0.0 /100WBC 06/12/22 06:30 PT 19.70 SECONDS (12.1-14.9) H 06/07/22 10:43 INR 1.63 (0.8-1.2) H 06/07/22 10:43 APTT 33.1 SECONDS (23.9-36.7) 06/07/22 10:43 Specimen Type Arterial 06/07/22 11:18 Sample Site Radial, left 06/07/22 11:18 ABG pH 7.38 (7.35-7.45) 06/07/22 11:18 ABG pCO2 37.0 mmHg (35-45) 06/07/22 11:18 ABG pO2 65.3 mmHg (80.0-100.0) L 06/07/22 11:18 ABG HCO3 21.7 mmol/L (22-26) L 06/07/22 11:18 ABG Base Excess -3.1 mmol/L (-2.0-2.0) L 06/07/22 11:18 Hung Test Pos 06/07/22 11:18 Hematocrit 33.3 % (37-47) L 06/07/22 11:18 O2 Delivery Device Nc 06/07/22 11:18 O2 Liters/Min 6.0 % 06/07/22 11:18 FiO2 44.0 % 06/07/22 11:18 Ems Instructor ID Ed 06/07/22 11:18 Sodium 140 mmol/L (136-145) 06/12/22 06:30 Potassium 4.9 mmol/L (3.5-5.1) 06/12/22 06:30 Chloride 101 mmol/L (98-107) 06/12/22 06:30 Carbon Dioxide 30 mmol/L (22-29) H 06/12/22 06:30 Anion Gap 13.9 (5-19) 06/12/22 06:30 BUN 24 mg/dL (8-23) H 06/12/22 06:30 Creatinine 0.7 mg/dL (0.5-0.9) 06/12/22 06:30 GFR Calculation Not Reportable 06/12/22 06:30 Glucose 110 mg/dL (65-115) 06/12/22 06:30 Estimat Average Glucose 114 06/08/22 01:25 Hemoglobin A1c 5.6 % (4.0-6.0) 06/08/22 01:25 Calculated Osmolality 295 mOsm/kg (285-295) 06/12/22 06:30 Lactic Acid 0.8 mmol/L (0.5-2.2) 06/07/22 15:15 Calcium 9.8 mg/dL (8.5-10.5) 06/12/22 06:30 Phosphorus 2.5 mg/dL (2.5-4.5) 06/08/22 01:25 Magnesium 2.0 mg/dL (1.7-2.3) 06/08/22 01:25 Iron 14 ug/dL (37-145) L 06/07/22 10:43 TIBC 341 mcg/dl 06/07/22 10:43 % Saturation 4.1 % (20-50) L 06/07/22 10:43 Unsat Iron Binding 327 ug/dL (112-347) 06/07/22 10:43 Total Bilirubin 0.2 mg/dL (0.15-1.2) 06/10/22 04:15 AST 12 U/L (0-32) 06/10/22 04:15 ALT 6 U/L (0-33) 06/10/22 04:15 Alkaline Phosphatase 116 IU/L (35-105) H 06/10/22 04:15 Troponin T Baseline 15 ng/L (0-10) H 06/07/22 10:43 Troponin T 120 Minute 12.00 ng/L (0-10) H 06/07/22 13:32 Delta Troponin T -3.00 ABS# (0-10) L 06/07/22 13:32 Troponin T Hi Sens 6Hr 12.43 ng/L (0-10) H 06/07/22 16:25 Troponin T Hi Sens 6Hr Delta -2.57 ng/L (0-12) L 06/07/22 16:25 C-Reactive Protein 67.0 mg/L (0.0-4.9) H 06/07/22 13:32 NT-Pro-B Natriuret Pep 934 pg/mL (0-450) H 06/07/22 10:43 NT-Pro-B Natriuret Pep 946 pg/mL (0-450) H 06/07/22 10:43 Total Protein 5.6 g/dL (6.6-8.7) L 06/10/22 04:15 Albumin 3.0 g/dL (3.5-5.2) L 06/10/22 04:15 Globulin 2.6 g/dL (1.3-4.6) 06/10/22 04:15 Triglycerides 52 mg/dL (0-150) 06/08/22 01:25 Cholesterol 84 mg/dL (0-200) 06/08/22 01:25 LDL Cholesterol, Calc 37 mg/dL (50-129) L 06/08/22 01:25 Total VLDL Cholesterol 10 mg/dL (0-30) 06/08/22 01:25 HDL Cholesterol 37 mg/dL (60-100) L 06/08/22 01:25 Cholesterol/HDL Ratio 2.27 mg/dL (0.0-4.40) 06/08/22 01:25 Vitamin B12 697 pg/mL (232-1245) 06/07/22 10:43 Folate 14.1 ng/mL (4.8-37.3) 06/07/22 10:43 Procalcitonin 0.15 ng/mL (0-0.5) 06/07/22 10:43 TSH 1.10 uIU/mL (0.27-4.20) 06/07/22 10:43 Urine Color Yellow (Yellow) 06/07/22 10:43 Urine Appearance Cloudy (CLEAR) A 06/07/22 10:43 Urine pH 5 (5-7) 06/07/22 10:43 Ur Specific [place] 1.015 (1.005-1.030) 06/07/22 10:43 Urine Protein Neg (Negative) 06/07/22 10:43 Urine Glucose (UA) Norm (Normal) 06/07/22 10:43 Urine Ketones Negative (Negative) 06/07/22 10:43 Urine Blood Trace (Negative) H 06/07/22 10:43 Urine Nitrate Positive (Negative) H 06/07/22 10:43 Urine Bilirubin Neg (Negative) 06/07/22 10:43 Urine Urobilinogen Norm mg/dL (Negative) 06/07/22 10:43 Ur Leukocyte Esterase 2+ (Negative) H 06/07/22 10:43 Urine RBC 5-10 /hpf (0-2) H 06/07/22 10:43 Urine WBC Too numerous to cnt /hpf (0-5) H 06/07/22 10:43 Ur Squamous Epith Cells 0-4 /hpf (0-5) H 06/07/22 10:43 Amorphous Sediment Not Reportable 06/07/22 10:43 Urine Bacteria 3+ /hpf (NONE) H 06/07/22 10:43 Nasal Influ A H1 2009 PCR Not detected (NOT DETECT) 06/07/22 18:18 RSV Nasal Swab Cancelled 06/07/22 18:16 RSV Nasal Swab Int Cntl Cancelled 06/07/22 18:16 Adenovirus (PCR) Not detected (NOT DETECT) 06/07/22 18:18 C. pneumoniae DNA (PCR) Not detected (NOT DETECT) 06/07/22 18:18 Coronavirus 229E (PCR) Not detected (NOT DETECT) 06/07/22 18:18 Human Metapneumovir PCR Not detected (NOT DETECT) 06/07/22 18:18 Influenza A (RT-PCR) Cancelled 06/07/22 18:16 Influenza A (H1) PCR Not detected (NOT DETECT) 06/07/22 18:18 Influenza A (H3) PCR Not detected (NOT DETECT) 06/07/22 18:18 Influenza Type A Ag Negative (Negative) 06/07/22 10:43 Influenza Type A (PCR) Not detected (NOT DETECT) 06/07/22 18:18 Influenza Type B Ag Negative (Negative) 06/07/22 10:43 Influenza B (RT-PCR) Cancelled 06/07/22 18:16 Influenza Type B (PCR) Not detected (NOT DETECT) 06/07/22 18:18 M. pneumoniae (PCR) Not detected (NOT DETECT) 06/07/22 18:18 Parainfluenzae Type 1 Cancelled 06/07/22 18:16 Parainfluenza 1 (PCR) Not detected (NOT DETECT) 06/07/22 18:18 Parainfluenzae Type 2 Cancelled 06/07/22 18:16 Parainfluenza 2 (PCR) Not detected (NOT DETECT) 06/07/22 18:18 Parainfluenzae Type 3 Cancelled 06/07/22 18:16 Parainfluenza 3 (PCR) Not detected (NOT DETECT) 06/07/22 18:18 Parainfluenza 4 (PCR) Not detected (NOT DETECT) 06/07/22 18:18 RSV Ab Comment Cancelled 06/07/22 18:16 RSV Type A (PCR) Not detected (NOT DETECT) 06/07/22 18:18 RSV Type B (PCR) Not detected (NOT DETECT) 06/07/22 18:18 Rhinovirus (PCR) Cancelled 06/07/22 18:16 Entero/Rhino (PCR) Not detected (NOT DETECT) 06/07/22 18:18 SARS-CoV-2 (PCR) Not detected (NOT DETECT) 06/07/22 18:18 SARS-CoV-2 Ag (Rapid) Negative (Negative) 06/07/22 10:43 Vitals Last Vital Signs Temp 97.9 F 06/12/22 12:00 Pulse 68 06/12/22 12:00 Resp 16 06/12/22 12:00 BP 130/72 06/12/22 12:00 Pulse Ox 93 06/12/22 12:24 O2 Del Method 06/12/22 08:52 O2 Flow Rate 2 06/12/22 02:31 FiO2 40 06/08/22 20:00 Discharge Plan Discharge Patient Disposition: Home Condition: Stable Prescriptions: New prednisone 20 mg tablet 20 mg PO DAILY 5 Days Qty: 5 0RF Continued amlodipine 10 mg tablet 10 mg PO DAILY CalMag Thins 200 mg calcium- 50 mg tablet 1 tab PO DAILY Flovent HFA 110 mcg/actuation HFA aerosol inhaler 1 puff INHALATION Q12H lisinopril-hydrochlorothiazide 20-12.5 mg tablet 1 tab PO DAILY sertraline 50 mg tablet 50 mg PO DAILY Rx Instructions: TAKE WITH 25MG TAB TO EQUAL 75MG DAILY furosemide 20 mg tablet 20 mg PO DAILY mirtazapine 7.5 mg tablet 7.5 mg PO DAILY potassium chloride 10 mEq capsule, extended release 10 meq PO DAILY metoprolol tartrate 50 mg tablet 50 mg PO BID Qty: 180 3RF buprenorphine-naloxone [Suboxone] 2-0.5 mg film 1 film buccal BID Rx Instructions: place 1 strip/tab under (each) side of tongue Vitamin B-12 50 mcg Lozenge 50 mcg PO DAILY Eliquis 5 mg tablet 5 mg PO BID atorvastatin 20 mg Tablet 20 mg PO DAILY omeprazole 40 mg capsule,delayed release(DR/EC) 40 mg PO DAILY sertraline 25 mg tablet 25 mg PO DAILY albuterol sulfate 90 mcg/actuation Hfa Aerosol Inhaler 2 puff INHALATION QID PRN (Reason: Shortness Of Breath) herbal complex no.174 450 mg Capsule 450 mg PO DAILY aspirin 81 mg Tablet,Delayed Release (Dr/Ec) 81 mg PO DAILY Discharge Orders: Discharge Order (Routine); Ordered 06/12/22 Ordered By: Tito Eduardo Referrals: Scooter Galeas M.D [Physician] - 07/04/22 3:45 pm Joy Nieto FNP-C [Primary Care Provider] - 06/20/22 9:45 am Discharge Diet: Cardiac Discharge Activity: Resume usual activity Patient Instructions: Prednisone (By mouth), COPD (Chronic Obstructive Pulmonary Disease) (GEN), Hypoxia (GEN), Opioid Safety Discharge Attestations Time Spent in Discharge Care*: less than 30 min Quality Metrics Clinical Quality Measures [ No reported AMI, CVA or VTE this stay] Coding Level of Care Code Acute Chg FW DC note Diagnoses Acute respiratory failure with hypoxia J96.01 Acute exacerbation of chronic obstructive airways disease J44.1 Acute UTI N39.0 CHF (congestive heart failure) I50.9 HTN (hypertension), benign I10 Atrial fibrillation I48.91
[2022-06-12] MEDS: acetaminophen 325 mg Tablet 650 MG PO (17:43)
--- NOTE | 2022-06-12 18:44 | PC.NURSE ---
Discharge Note Patient discharged to home via wheelchair accompanied by caregiver. Discharge instructions reviewed with patient and/or outbound call center representative. Mobile pharmacy medications and/or prescriptions provided. Belongings/home medications returned.
== END 2022-06-12 17:00 | disposition home or self-care (01) | DRG 189 ==
LOC: ER 14:56 → MEDSURG 16:32
PROVIDERS: Admitting Provider Student in an Organized Health Care Education/Training Program; Emergency Provider Emergency Medicine; PCP Nurse Practitioner Family; Visit Provider Internal Medicine
DX: J96.01 Acute respiratory failure with hypoxia (principal); I50.33 Acute on chronic diastolic (congestive) heart failure; N39.0 Urinary tract infection, site not specified; I11.0 Hypertensive heart disease with heart failure; I48.0 Paroxysmal atrial fibrillation; Z79.01 Long term (current) use of anticoagulants; I71.2 Thoracic aortic aneurysm, without rupture; F43.21 Adjustment disorder with depressed mood; G89.29 Other chronic pain; J43.9 Emphysema, unspecified; J20.8 Acute bronchitis due to other specified organisms; Z79.891 Long term (current) use of opiate analgesic; F17.200 Nicotine dependence, unspecified, uncomplicated; B96.1 Klebsiella pneumoniae [K. pneumoniae] as the cause of diseases classified elsewhere; Z79.82 Long term (current) use of aspirin; Z79.51 Long term (current) use of inhaled steroids; Z28.310 Unvaccinated for COVID-19
CPT/HCPCS: 36415; 36600; 51702; 71045; 71275; 74177; 80048; 80053; 80061; 81001; 82607; 82746; 82803; 83036; 83540; 83550; 83605; 83735; 83880; 84100; 84145; 84443; 84484; 85025; 85610; 85730; 86140; 86403; 87040; 87077; 87086; 87186; 87426; 87449; 87486; 87581; 87633; 87641; 87804; 93005; 93306; 94640; 94664; 94760; 96365; 96367; 96375; 97110; 97116; 97161; 97530; 99214; 99291; J0696; J1885; J1940; J2920; J2930; J3475; J3490; J7030; J7614; J7626; J7644; Q0144; Q9967

== ENCOUNTER → 2022-07-04 15:12 | Outpatient (BNVA) | payer MEDICARE, MEDICAID, SELFPAY | PROVIDERS: PCP Nurse Practitioner Family; Visit Provider Internal Medicine | DX: I48.91 Unspecified atrial fibrillation (principal); I11.0 Hypertensive heart disease with heart failure; I50.9 Heart failure, unspecified; Z87.891 Personal history of nicotine dependence | CPT/HCPCS: 93225; 99214 ==

== ENCOUNTER → 2022-09-11 09:26 | Outpatient (BNVA) | payer MEDICARE, MEDICAID, SELFPAY | PROVIDERS: PCP Nurse Practitioner Family; Visit Provider Nurse Practitioner Family | DX: I48.91 Unspecified atrial fibrillation (principal); Z79.01 Long term (current) use of anticoagulants; Z87.891 Personal history of nicotine dependence | CPT/HCPCS: 93005; 99214 ==

== ENCOUNTER 2022-09-16 11:06 | Observation (INO) | payer MEDICARE, MEDICAID, SELFPAY ==
[2022-09-16] VITALS (7 sets, daily range): BP systolic 107–160; BP diastolic 61–98; PULSE 61–73; RESP 12–18; TEMP 36.6; O2SAT 91–98
[2022-09-16 12:07] LABS: Add Urine Microscopic? NO; Charge for UA Resulting for Rev
--- NOTE | 2022-09-16 12:10 | ED_ITS ---
HPI - Abdominal Pain General: Chief Complaint: Abdominal Pain Stated Complaint: Abd pain Time Seen by Provider: 09/16/22 11:33 Source: patient Mode of arrival: ambulatory History of Present Illness: 77-year-old female presents emergency room complaining epigastric left upper quadrant pain she has had it for the last 2 weeks. She has had some nausea and vomiting with it for most of the pain left upper quadrant few weeks ago she had a stent placed in the pancreatic duct. She denies fever sweats chills dysuria urgency or frequency no medication on him times coffee-ground emesis. MD elicited complaint: abdominal pain Onset (ago): week(s) (2) Pain Consistency: constant Location: LUQ Severity: moderate Quality: cramping Radiation: none Migration to: no migration Exacerbating factors: eating Relieving factors: nothing Associated Symptoms: Reports GI cramping, nausea and poor appetite; Denies anorexia, belching, bloating, change in bowel habits, change in stool character, chills, coffee ground emesis, constipation, diarrhea, dyspepsia, dysuria, excessive flatus, fever(s), heartburn, hematochezia, hematuria, kendrick temesis, fecal incontinence, loose stools, melena, syncope and vomiting Review of Systems Const: Denies: fever(s), chills, fatigue or malaise ENMT: Denies: throat pain, ear or mastoid pain, nasal discharge or nasal congestion Card: Denies: syncope Resp: Denies: dyspnea, productive cough or non-productive cough GI: Reports: abdominal pain, nausea and GI cramping; Denies: vomiting, hematemesis, coffee ground emesis, heartburn, diarrhea, constipation, bloating, belching, excessive flatus, fecal incontinence, change in bowel habits, change in stool character, hematochezia or melena : Denies: flank pain, difficulty voiding, dysuria, urinary frequency, urinary urgency or hematuria Skin/Breast: Denies: rash or pruritus PFSH ED PFSH: Medical History (Updated 09/26/22 @ 06:03 by Heriberto Marshall DO) Acute exacerbation of chronic obstructive airways disease Acute respiratory failure with hypoxia Acute UTI Adjustment disorder with depressed mood Atrial fibrillation CHF (congestive heart failure) Chronic pain disorder COPD (chronic obstructive pulmonary disease) Dissection of aorta HTN (hypertension), benign Idiopathic osteoarthritis Idiopathic scoliosis Opioid dependence Surgical History H/O esophagogastroduodenoscopy History of aortic aneurysm repair History of back surgery History of eye surgery History of hysterectomy Status post colonoscopy Status post laparoscopic cholecystectomy (04/05/20) Family History Mother Hypertension Denies family history of Anesthesia complication Bleeding disorder Social History Smoking and tobacco status: former smoker Second hand smoke exposure: No Alcohol intake: never Adopted: No Caregiver/support person: Yes Lives independently: Yes Household members: none Housing: House Sexually active: No Current gender identity: Female Physical Exam Const: GENERAL APPEARANCE: cooperative and comfortable ORIENTATION/CONSCIOUSNESS: Yes awake, Yes oriented to person, Yes oriented to place and Yes oriented to time HENMT: COMMON NORMALS: normocephalic, atraumatic and hearing grossly normal bilaterally HEAD & SCALP: normocephalic and atraumatic Resp: COMMON NORMALS: normal respiratory effort, No retractions, No use of accessory muscles and clear to auscultation bilaterally AUSCULTATION: clear to auscultation bilaterally Cardio: COMMON NORMALS: regular rate, regular rhythm and No murmurs present (Cardio) RATE: regular rate RHYTHM: regular rhythm GI: COMMON NORMALS: No hepatosplenomegaly present AUSCULTATION: Yes n ormoactive bowel sounds PALPATION: Yes Tenderness to palpation present (GI) Details: LUQ, No Guarding due to palpation present (GI) and Yes No hepatosplenomegaly present Extremity: COMMON NORMALS: normal to inspection, capillary refill normal, no clubbing, cyanosis or edema, no calf tenderness and no pedal edema Neuro: SENSORIUM/ORIENTATION: Yes oriented to person, Yes oriented to place and Yes oriented to time Skin: COMMON NORMALS: no rashes or lesions noted GENERAL SKIN EXAM: no rashes or lesions noted Course Vital Signs: Vital signs: Vital Signs Temperature 98.5 F 09/20/22 19:30 Pulse Rate 67 09/20/22 19:30 Respiratory Rate 15 09/20/22 19:30 Blood Pressure 108/69 09/20/22 19:30 Pulse Oximetry 92 09/20/22 19:30 Oxygen Delivery Me thod 09/20/22 16:00 Oxygen Flow Rate 2 09/19/22 20:31 MDM - Abdominal Pain Medical Decision Making Patient has persistent nausea and vomiting with hypokalemia. CT shows an aortic dissection which appears to be old and stable. Discussed with hospitalist will admit orders written Medical Records I reviewed the patient's medical records. Lab Data I reviewed the patient's lab results. 09/20/22 05:25 09/20/22 05:25 Labs/Radiology: Radiology Impressions Abdomen/Pelvis CT 09/17/22 12:42 IMPRESSION: No bowel obstruction or diverticulitis. KUB X-Ray 09/18/22 08:38 Impression: 1. No change from previous KUB. 2. Negative for acute intra-abdominal abdominal or pelvic abnormalities. Laboratory Results WBC 9.0 10^3/uL (4.0-10.0) 09/16/22 11:54 RBC 4.23 10^6/uL (4.1-5.3) 09/16/22 11:54 Hgb 10.5 g/dL (11.5-15.3) L 09/16/22 11:54 Hct 36.0 % (37.0-47.0) L 09/16/22 11:54 MCV 85.1 fl (81-99) 09/16/22 11:54 MCH 24.8 pg (28.0-34.0) L 09/16/22 11:54 MCHC 29.2 g/dL (30.0-36.0) L 09/16/22 11:54 RDW 17.7 % (12.1-15.1) H 09/16/22 11:54 Plt Count 260 10^3/cmm (130-400) 09/16/22 11:54 MPV 9.7 fL (7.4-10.4) 09/16/22 11:54 Neut % (Auto) 72.0 % 09/16/22 11:54 Lymph % (Auto) 14.9 % 09/16/22 11:54 [place] % (Auto) 9.4 % 09/16/22 11:54 Eos % (Auto) 2.3 % 09/16/22 11:54 Baso % (Auto) 0.8 % 09/16/22 11:54 Neut # (Auto) 6.48 10^3/uL (1.8-7.7) 09/16/22 11:54 Lymph # (Auto) 1.3 10^3/uL (0.8-4.8) 09/16/22 11:54 [place] # (Auto) 0.9 10^3/uL (0.2-0.9) 09/16/22 11:54 Eos # (Auto) 0.2 10^3/uL (0.0-0.8) 09/16/22 11:54 Baso # (Auto) 0.1 10^3/uL (0.0-0.1) 09/16/22 11:54 Nucleated RBC % (auto) 0 % 09/16/22 11:54 Nucleated RBCs # 0.0 /100WBC 09/16/22 11:54 Sodium 138 mmol/L (136-145) 09/16/22 11:54 Potassium 2.3 mmol/L (3.5-5.1) L* 09/16/22 11:54 Potassium 2.3 mmol/L (3.5-5.1) L* 09/16/22 11:54 Chloride 104 mmol/L (98-107) 09/16/22 11:54 Carbon Dioxide 24 mmol/L (22-29) 09/16/22 11:54 Anion Gap 12.3 (5-19) 09/16/22 11:54 BUN 10 mg/dL (8-23) 09/16/22 11:54 Creatinine 0.7 mg/dL (0.5-0.9) 09/16/22 11:54 GFR Calculation Not Reportable 09/16/22 11:54 Glucose 83 mg/dL (65-115) 09/16/22 11:54 Calculated Osmolality 284 mOsm/kg (285-295) L 09/16/22 11:54 Calcium 8.6 mg/dL (8.5-10.5) 09/16/22 11:54 Magnesium 1.6 mg/dL (1.7-2.3) L 09/16/22 11:54 Total Bilirubin 0.2 mg/dL (0.15-1.2) 09/16/22 11:54 AST 11 U/L (0-32) 09/16/22 11:54 ALT 6 U/L (0-33) 09/16/22 11:54 Alkaline Phosphatase 113 U/L (35-105) H 09/16/22 11:54 Total Protein 5.6 g/dL (6.6-8.7) L 09/16/22 11:54 Albumin 2.9 g/dL (3.5-5.2) L 09/16/22 11:54 Globulin 2.7 g/dL (1.3-4.6) 09/16/22 11:54 Lipase 29 U/L (13-60) 09/16/22 11:54 Urine Color Straw (Yellow) 09/16/22 11:56 Urine Appearance Clear (CLEAR) 09/16/22 11:56 Urine pH 5 (5-7) 09/16/22 11:56 Ur Specific [place] 1.005 (1.005-1.030) 09/16/22 11:56 Urine Protein Neg (Negative) 09/16/22 11:56 Urine Glucose (UA) Norm (Normal) 09/16/22 11:56 Urine Ketones Negative (Negative) 09/16/22 11:56 Urine Blood Neg (Negative) 09/16/22 11:56 Urine Nitrate Negative (Negative) 09/16/22 11:56 Urine Bilirubin Neg (Negative) 09/16/22 11:56 Urine Urobilinogen Norm mg/dL (Negative) 09/16/22 11:56 Ur Leukocyte Esterase Negative (Negative) 09/16/22 11:56 Stool H. pylori Ag See note 09/16/22 10:10 Discharge Plan Discharge Patient Disposition: Admitted As Inpatient Admit Provider: Sury Martel Clinical Impression: Hypokalemia, Chronic pain disorder, Common bile duct (CBD) stricture, Atrial fibrillation, Abdominal pain, Anemia, Dissection of aorta, Nausea & vomiting Condition: Stable Discharge Diet: GI Soft Discharge Activity: Resume usual activity Coding Level of Care Code ED [place] Reverse Winder for [place] Fwd Exam Detailed
[2022-09-16 12:12] LABS: Basophils # 0.1 10^3/uL (0.0-0.1); Basophils % 0.8 %; Eosinophils # 0.2 10^3/uL (0.0-0.8); Eosinophils % 2.3 %; Hemoglobin 10.5 g/dL (11.5-15.3); Lymphocytes # 1.3 10^3/uL (0.8-4.8); Lymphocytes % 14.9 %; Mean Corpuscular HGB Conc 29.2 g/dL (30.0-36.0); Mean Corpuscular Hemoglobin 24.8 pg (28.0-34.0); Mean Corpuscular Volume 85.1 fl (81-99); Mean Platelet Volume 9.7 fL (7.4-10.4); Monocytes # 0.9 10^3/uL (0.2-0.9); Monocytes % 9.4 %; Neutrophils # 6.48 10^3/uL (1.8-7.7); Nucleated Red Blood Cells % 0 %; Platelet Count 260 10^3/cmm (130-400); Red Blood Count 4.23 10^6/uL (4.1-5.3); Red Cell Distribution Width 17.7 % (12.1-15.1)
--- NOTE | 2022-09-16 12:19 | CTR_ITS ---
PROCEDURE INFORMATION: Exam: CT Abdomen And Pelvis With Contrast Exam date and time: 09/16/2022 1:31 PM Age: 77 years old Clinical indication: Abdominal pain; Generalized; Prior surgery; Surgery date: 6+ months; Surgery type: Gallbladder, appy, thoracic aortic graft, pancreatic stent; Additional info: Abd pain TECHNIQUE: Imaging protocol: Computed tomography of the abdomen and pelvis with contrast. Radiation optimization: All CT scans at this facility use at least one of these dose optimization techniques: automated exposure control; mA and/or kV adjustment per patient size (includes targeted exams where dose is matched to clinical indication); or iterative reconstruction. Contrast material: OMNI 350; Contrast volume: 90 ml; Contrast route: INTRAVENOUS (IV); COMPARISON: CT angio chest w abd pel w con 06/07/2022 12:19 PM RADIATION DOSE METRICS: Total DLP (mGy-cm): 363.37 FINDINGS: Lungs: Mild chronic appearing changes have improved in both lung bases. Liver: Moderately fatty nonenlarged liver. Gallbladder and bile ducts: There is now diffuse biliary air. The patient is status post cholecystectomy with a biliary suspected stent with its tip in the duodenum. Cholecystectomy is stable the stent is new. Pancreas: Normal. No ductal dilation. Spleen: Normal. No splenomegaly. Adrenal glands: Normal. No mass. Kidneys and ureters: There is a very atrophic stable right kidney. The left kidney is unremarkable respect with size. Possible peripelvic left cysts. The the the Stomach and bowel: Stable paraesophageal hernia. There is suspected bowel wall thickening noted involving the cecum specifically on images 3/53 through 59 which could be a mild focal colitis. There are 2 metal densities questionably within the inferior aspect of the cecum image 3/62. This could be ingested and were not present on the previous study. Appendix: No evidence of appendicitis. Intraperitoneal space: Unremarkable. No free air. No significant fluid collection. Retroperitoneal space: Numerous retroperitoneal surgical clips. Vasculature: Descending aortic stent graft, stable. Ends above the aortic hiatus. The descending aorta is aneurysmal measuring at least 35 mm but is incompletely visualized. There is a stable abdominal aortic dissection in an aneurysmal aorta at 46 x 42 mm. This finding is stable. The aortic aneurysm extends into the left common iliac artery which is stable as well as the dissection does. Left common iliac artery measures 31 x 31 mm. The dissection extends into the left external iliac artery. Lymph nodes: Unremarkable. No enlarged lymph nodes. Urinary bladder: Unremarkable as visualized. Reproductive: Unremarkable as visualized. Bones/joints: Diffuse arthritic changes and extensive scoliosis as well as listhesis throughout the spine all stable. Soft tissues: Unremarkable. CT/CT abdomen pelvis w con* [id number] IMPRESSION: 1. Improving lung bases. 2. New biliary air with a biliary stent. 3. Stable abdominal aortic aneurysm with aortic dissection extending into the left side/iliac system. 4. Questionable colitis of the cecum with 2 metal densities possibly ingested within the inferior aspect of the cecum itself.
[2022-09-16 12:20] LABS: Bilirubin Urine Neg (Negative); Blood Urine Neg (Negative); Glucose Urine UA Norm (Normal); Ketones Urine Negative (Negative); Leukocyte Esterase Urine Negative (Negative); Nitrate Urine Negative (Negative); Protein Urine Neg (Negative); Specific Gravity, Urine 1.005 (1.005-1.030); Urine Appearance Clear (CLEAR); Urine Color Straw (Yellow); Urobilinogen Urine Norm (Negative); pH Urine 5 (5-7)
[2022-09-16 12:38] LABS: Alanine Aminotransferase 6 U/L (0-33); Albumin Level 2.9 g/dL (3.5-5.2); Alkaline Phosphatase 113 U/L (35-105); Anion Gap 12.3 (5-19); Aspartate Amino Transferase 11 U/L (0-32); Blood Urea Nitrogen 10 mg/dL (8-23); Calcium 8.6 mg/dL (8.5-10.5); Carbon Dioxide 24 mmol/L (22-29); Chloride 104 mmol/L (98-107); Creatinine Clr Calc Pharmacy 56.3362; Globulin 2.7 g/dL (1.3-4.6); Glucose 83 mg/dL (65-115); Lipase 29 U/L (13-60); Osmolality Calculated 284 mOsm/kg (285-295); Sodium 138 mmol/L (136-145); Total Bilirubin 0.2 mg/dL (0.15-1.2); Total Protein 5.6 g/dL (6.6-8.7)
[2022-09-16] MEDS: sodium chloride 0.9% 1,000 ML 999 ML IV (12:44)
[2022-09-16 12:49] LABS: Potassium 2.3 mmol/L (3.5-5.1)
[2022-09-16] MEDS: potassium chloride oral liq 20 mEq/15 mL UDC 40 MEQ PO ×2 (13:26→15:02)
[2022-09-16] MEDS: iohexol 350 mg/mL 500 mL Btl (per mL) 90 ML IV (13:39)
[2022-09-16 16:28] LABS: Potassium 2.3 mmol/L (3.5-5.1)
[2022-09-16 16:50] LABS: Magnesium 1.6 mg/dL (1.7-2.3)
--- NOTE | 2022-09-16 17:47 | PM.HP ---
Providers/Chief Complaint Primary Care Provider: Joy NietoP-C Chief Complaint: Abd pain History of Present Illness Rylee Martinez is a 77 year old female with history of atrial fibrillation, CHF, chronic pain disorder, COPD, abdominal aortic aneurysm with a stable dissection extending into iliacs, hypertension, opioid dependence presented to the hospital with complaint of epigastric left upper quadrant pain that she told the ER doctor about. She also had some associated nausea and vomiting. She says she had a cholecystectomy done recently and apparently had some sort of a stent placed. As per ER notes it seems it was placed in the pancreatic duct however patient is unable to tell me many details about it. Denies any vomiting at this time. But does report a little bit of diarrhea. She says the diarrhea is very nonspecific and has been going on for the last 2 months. When seen in the ER she says that she has been referred to tertiary care centers in the past for her multiple medical issues. She says that she had a lot of issues with atrial fibrillation recently but was finally optimized on medications. She spent quite a bit of time at [facility] and [place]. She says she had some procedures done as well. She is unable to give me more details than this. Patient is a very very poor historian. Her history is very vague. She does state however that she wants to be DNR/DNI and is very firm on that decision. She also says that in case of emergency we may contact her son if needed. Patient is on Suboxone chronically. She is also on Eliquis. She states she was placed on that recently. Denies any blood in stool, blood in urine. Unable to tell me why she is on nitrofurantoin. In the ED patient was noted to have a potassium of 2.3 on admission. She was given 80 oral potassium but it remained low and therefore IV was ordered. Patient was recommended admission for electrolyte correction and IV fluids. I did review her CT abdomen which shows improving lung bases, new biliary air with a biliary stent. Patient however unable to tell me much about this. There is also stable abdominal aortic aneurysm with aortic dissection extending into left side/iliac system. Questionable colitis of the cecum with 2 metal densities possibly ingested with inferior aspect of the cecum itself. CT scan reviewed from January 2022 as well which showed similar stable aortic dissection with aneurysm. Also discussed case with Dr. Zeng over the phone who reviewed her imaging. There is no acute intervention to be done at this time. Aneurysm seems to be stable. Patient will need referral to tertiary care center for further follow-up regarding this. Patient says she is able to get around on her own however does feel generally weak. Her oral intake has been okay and she her vomiting and nausea are not related to her eating or not eating. She says the nausea is very random. Medications/Allergies Home Medications Medication Instructions Recorded Confirmed Last Taken Type calcium 1 tab PO DAILY 03/02/20 09/16/22 09/16/22 History carbonate,citrate-magnesium oxide 200 mg calcium-50 mg tablet (CalMag Thins) fluticasone propionate 110 1 puff inhalation Q12H 03/02/20 09/16/22 09/16/22 History mcg/actuation HFA aerosol inhaler (Flovent HFA) sertraline 50 mg tablet 50 mg PO DAILY 03/02/20 09/16/22 09/16/22 History furosemide 20 mg tablet 20 mg PO DAILY 06/04/21 09/16/22 09/16/22 History potassium chloride 10 mEq 10 meq PO DAILY 06/04/21 09/16/22 09/16/22 History capsule,extended release apixaban 5 mg tablet (Eliquis) 5 mg PO BID 01/22/22 09/16/22 09/16/22 History cyanocobalamin (vitamin B-12) 50 50 mcg PO DAILY 01/22/22 09/16/22 09/16/22 History mcg lozenges (Vitamin B-12) albuterol sulfate 90 mcg/actuation 2 puff inhalation QID PRN 06/07/22 09/16/22 06/07/22 History aerosol inhaler Shortness Of Breath aspirin 81 mg tablet,delayed 81 mg PO DAILY 06/07/22 09/16/22 09/16/22 History release buprenorphine 2 mg-naloxone 0.5 mg 1 film buccal BID 06/07/22 09/16/22 09/16/22 History sublingual film (Suboxone) omeprazole 40 mg capsule,delayed 40 mg PO DAILY 06/07/22 09/16/22 09/16/22 History release dapagliflozin 10 mg tablet 10 mg PO DAILY 07/04/22 09/16/22 09/16/22 History (Farxiga) amiodarone 200 mg tablet 200 mg PO DAILY 09/11/22 09/16/22 09/16/22 History metoprolol succinate 50 mg 50 mg PO DAILY 09/11/22 09/16/22 09/16/22 History tablet,extended release 24 hr mirtazapine 7.5 mg tablet 15 mg PO DAILY 09/11/22 09/16/22 09/16/22 History atorvastatin 40 mg tablet 40 mg PO DAILY 09/16/22 09/16/22 09/16/22 History lisinopril 20 1 tab PO DAILY 09/16/22 09/16/22 09/16/22 History mg-hydrochlorothiazide 12.5 mg tablet nitrofurantoin 100 mg PO BID 09/16/22 09/16/22 09/16/22 History monohydrate/macrocrystals 100 mg capsule sertraline 25 mg tablet 25 mg PO DAILY 09/16/22 09/16/22 09/16/22 History Allergies Allergy/AdvReac Type Severity Reaction Status Date / Time No Known Allergies Allergy Verified 09/16/22 12:37 PFSH Acute PFSH: Medical History (Updated 09/17/22 @ 09:19 by Sury Martel MD) Acute exacerbation of chronic obstructive airways disease Acute respiratory failure with hypoxia Acute UTI Adjustment disorder with depressed mood Atrial fibrillation CHF (congestive heart failure) Chronic pain disorder COPD (chronic obstructive pulmonary disease) Dissection of aorta HTN (hypertension), benign Idiopathic osteoarthritis Idiopathic scoliosis Opioid dependence Surgical History H/O esophagogastroduodenoscopy History of aortic aneurysm repair History of back surgery History of eye surgery History of hysterectomy Status post colonoscopy Status post laparoscopic cholecystectomy (04/05/20) Family History Mother Hypertension Denies family history of Anesthesia complication Bleeding disorder Social History Smoking and tobacco status: former smoker Second hand smoke exposure: No Alcohol intake: never Adopted: No Caregiver/support person: Yes Lives independently: Yes Household members: none Housing: House Sexually active: No Current gender identity: Female Vitals/I&O/Wt Last Vital Signs Temp 97.8 F 09/16/22 11:23 Pulse 61 09/16/22 15:15 Resp 16 09/16/22 15:15 BP 145/79 09/16/22 15:59 Pulse Ox 94 09/16/22 11:23 09/16/22 09/16/22 09/16/22 06:59 14:59 22:59 Intake Total 1000 / 1000 Balance 1000 / 1000 Weight last 48 hrs Weight 54.431 kg Physical Exam Narrative: General: Alert oriented x3, patient seen sitting up in bed appearing comfortable HEENT: Normocephalic, atraumatic, EOMI, breathing normally Cardio: Regular rate rhythm, normal S1-S2, Respiratory: Good bilateral air entry, no wheezes no rhonchi appreciated GI: Abdomen soft, nontender, nondistended, bowel sounds + Behavior: Appropriate and cooperative Extremities: no edema, no cyanosis Data : 09/17/22 04:45 09/17/22 04:45 A&P Assessment and plan (1) Atrial fibrillation: (2) Common bile duct (CBD) stricture: (3) Status post laparoscopic cholecystectomy: (4) Hypokalemia: (5) Opioid dependence: (6) Chronic pain disorder: (7) Dissection of aorta: (8) HTN (hypertension), benign: Plan #Severe hypokalemia, K2.3 on admission #Nonspecific nausea/vomiting with epigastric pain #Possibly acute on chronic diarrhea? #Questionable colitis of cecum with possible ingestion of an unknown substance #Status postcholecystectomy with biliary stent and soup in the duodenum. #Thoracic aorta aneurysm with abdominal aortic dissection and abdominal aortic aneurysm stable #Atrial fibrillation #Chronically on Eliquis #Hiatal hernia #Chronic pain disorder, on Suboxone #DNR/DNI -We will start patient on GI soft diet/regular diet. She does not want to be on clear liquids as she says eating is not an issue. ? Zofran for nausea. Add scopolamine patch ? Check stool culture, stool studies, H. pylori ? Discussed with Dr. Zeng regarding her aneurysm and dissection. She is to follow-up in clinic with him as an outpatient at discharge ? Continue to monitor hemoglobin. Patient is on Eliquis. Hemoglobin 10.4 today on admission. Check FOBT ? Check iron studies, TIBC, ferritin ? Continue Suboxone ? We will continue to supplement potassium and recheck. Check magnesium, check phosphorus ? Check PT OT ? We will discuss with general surgery regarding metal densities seen in cecum ? Request records from [facility] - Check urine culture, check procalcitonin DVT prophylaxis: Eliquis should suffice. Diet: GI soft diet/regular diet. Advance as tolerated GI prophylaxis: Protonix 40 daily DNR/DNI Attestations Medical Necessity Statement*: Admit to observation for electrolyte correction and work-up of possible underlying colitis. Will reassess patient in AM. She may need to cross 2 midnight stay pending clinical course and as more data comes back. Coding Level of Care Code Acute Hadoop Java Developer for g Fwd Diagnoses Atrial fibrillation I48.91 Common bile duct (CBD) stricture K83.1 Status post laparoscopic cholecystectomy Z90.49 Hypokalemia E87.6 Opioid dependence F11.20 Chronic pain disorder G89.4 Dissection of aorta I71.00 HTN (hypertension), benign I10
[2022-09-16 18:20] LABS: Lactic Sepsis W/Reflex 1.5 mmol/L (0.5-2.2)
[2022-09-16 18:23] LABS: Anion Gap 10.3 (5-19); Blood Urea Nitrogen 8 mg/dL (8-23); Calcium 8.2 mg/dL (8.5-10.5); Carbon Dioxide 25 mmol/L (22-29); Chloride 105 mmol/L (98-107); Creatinine Clr Calc Pharmacy 56.3362; Glucose 94 mg/dL (65-115); Osmolality Calculated 282 mOsm/kg (285-295); Potassium 3.3 mmol/L (3.5-5.1); Sodium 137 mmol/L (136-145)
[2022-09-16 18:30] LABS: Procalcitonin 0.81 ng/mL (0-0.5)
[2022-09-16] MEDS: promethazine 25 mg/mL SDV 1 mL IM (18:44)
[2022-09-16] MEDS: pantoprazole 40 mg SDV IVP (18:44)
[2022-09-16] MEDS: scopolamine 1.5 Patch 1 PATCH TRANSDERMA (18:47)
[2022-09-16] MEDS: sodium chloride 0.9% 1,000 ML 75 ML IV (18:52)
[2022-09-16] MEDS: potassium chloride premix 100 ML 25 MEQ IV ×2 (18:57→23:19)
[2022-09-16] MEDS: magnesium sulfate premix 4 GM/100 ML PREMIX IV (18:58)
[2022-09-16 19:31] LABS: Glucose Point of Care 85 mg/dL (70-110)
[2022-09-16] MEDS: albuterol 2.5 mg/3 mL Neb INHALATION (20:31)
[2022-09-16] MEDS: budesonide 0.5 mg/2 mL Neb INHALATION (20:31)
--- NOTE | 2022-09-16 22:00 | PC.NURSE ---
Counted buprenorphine-naloxone in front of pt with Nevaeh PIEDRA as witness of 24 films, it has been locked up in the [facility] along with pt home amiodarone.
[2022-09-16] MEDS: apixaban 5 mg Tablet PO (22:36)
[2022-09-16] MEDS: nitrofurantoin SR (BID) 100 mg Capsule PO (22:36)
[2022-09-17] VITALS (9 sets, daily range): BP systolic 110–125; BP diastolic 60–74; PULSE 61–82; RESP 12–20; TEMP 36.6–37.1; O2SAT 90–94
[2022-09-17] MEDS: pantoprazole 40 mg SDV IVP ×2 (05:22→17:40)
[2022-09-17] MEDS: acetaminophen 325 mg Tablet 650 MG PO (05:32)
[2022-09-17 05:33] LABS: Basophils % 0.6 %; Eosinophils # 0.2 10^3/uL (0.0-0.8); Eosinophils % 2.6 %; Hematocrit 32.9 % (37.0-47.0); Hemoglobin 9.4 g/dL (11.5-15.3); Lymphocytes # 1.4 10^3/uL (0.8-4.8); Lymphocytes % 21.8 %; Mean Corpuscular HGB Conc 28.6 g/dL (30.0-36.0); Mean Corpuscular Hemoglobin 24.7 pg (28.0-34.0); Mean Corpuscular Volume 86.4 fl (81-99); Monocytes # 0.7 10^3/uL (0.2-0.9); Monocytes % 10.8 %; Neutrophils # 4.14 10^3/uL (1.8-7.7); Neutrophils % 63.9 %; Nucleated Red Blood Cells % 0 %; Platelet Count 240 10^3/cmm (130-400); Red Blood Count 3.81 10^6/uL (4.1-5.3); Red Cell Distribution Width 17.9 % (12.1-15.1); White Blood Count 6.5 10^3/uL (4.0-10.0)
[2022-09-17 05:52] LABS: Alanine Aminotransferase < 5 U/L (0-33); Albumin Level 2.5 g/dL (3.5-5.2); Alkaline Phosphatase 98 U/L (35-105); Anion Gap 10.7 (5-19); Aspartate Amino Transferase 13 U/L (0-32); Blood Urea Nitrogen 8 mg/dL (8-23); Calcium 8.3 mg/dL (8.5-10.5); Carbon Dioxide 24 mmol/L (22-29); Chloride 112 mmol/L (98-107); Globulin 2.3 g/dL (1.3-4.6); Glucose 97 mg/dL (65-115); Magnesium 2.6 mg/dL (1.7-2.3); Osmolality Calculated 294 mOsm/kg (285-295); Phosphorus 1.9 mg/dL (2.5-4.5); Potassium 3.7 mmol/L (3.5-5.1); Sodium 143 mmol/L (136-145); Total Bilirubin 0.2 mg/dL (0.15-1.2); Total Protein 4.8 g/dL (6.6-8.7)
[2022-09-17 06:44] LABS: Glucose Point of Care 92 mg/dL (70-110)
[2022-09-17] MEDS: albuterol 2.5 mg/3 mL Neb INHALATION (08:02)
[2022-09-17] MEDS: budesonide 0.5 mg/2 mL Neb INHALATION ×2 (08:02→20:32)
[2022-09-17] MEDS: sodium chloride 0.9% 1,000 ML 75 ML IV ×2 (08:57→21:39)
--- NOTE | 2022-09-17 09:20 | PM.PN ---
Subjective Subjective: seen today. she feels better overall but still has abdominal pain. has some guarding present as well. Vitals/I&O/Wt Last Vital Signs Temp 98.1 F 09/17/22 08:00 Pulse 67 09/17/22 08:00 Resp 18 09/17/22 08:00 BP 120/64 09/17/22 08:00 Pulse Ox 90 09/17/22 08:00 O2 Del Method 09/17/22 08:00 O2 Flow Rate 2.5 09/17/22 00:00 09/16/22 09/17/22 09/17/22 22:59 06:59 14:59 Intake Total 300 / 1300 1000 / 1000 Balance 300 / 1300 1000 / 1000 Weight last 48 hrs Weight 60.555 kg Weight 54.431 kg Physical Exam Narrative: General: Alert oriented x3, patient seen laying in bed HEENT: Normocephalic, atraumatic, EOMI, breathing normally Cardio: Regular rate rhythm, normal S1-S2, Respiratory: Good bilateral air entry, no wheezes no rhonchi appreciated GI: Abdomen soft, nontender, nondistended, slightly hyperactive bowel sounds, mild guarding present. Pain worse at right upper quadrant area. Behavior: Appropriate and cooperative Extremities: no edema, no cyanosis Data : 09/17/22 04:45 09/17/22 04:45 A&P Assessment and plan (1) Atrial fibrillation: (2) Common bile duct (CBD) stricture: (3) Status post laparoscopic cholecystectomy: (4) Hypokalemia: (5) Opioid dependence: (6) Chronic pain disorder: (7) Dissection of aorta: (8) HTN (hypertension), benign: Plan #Severe hypokalemia, K2.3 on admission?resolved #Nonspecific nausea/vomiting with epigastric pain #Possibly acute on chronic diarrhea? #Questionable colitis of cecum with possible ingestion of an unknown substance #Status postcholecystectomy with biliary stent and soup in the duodenum. #Thoracic aorta aneurysm with abdominal aortic dissection and abdominal aortic aneurysm stable #Atrial fibrillation #Chronically on Eliquis #Hiatal hernia #Chronic pain disorder, on Suboxone #DNR/DNI -Continue regular diet for now. ? Zofran for nausea. Add scopolamine patch. Continue the patch. ? Check stool culture, stool studies, H. pylori. Await studies ? Discussed with Dr. Zeng regarding her aneurysm and dissection. She is to follow-up in clinic with him as an outpatient at discharge ? Continue to monitor hemoglobin. Patient is on Eliquis. Hemoglobin 10.4 today on admission. Check FOBT ? Check iron studies, TIBC, ferritin ? Continue Suboxone ? We will continue to supplement potassium and recheck. Check magnesium, check phosphorus ? Check PT OT ? We will discuss with general surgery regarding metal densities seen in cecum. Consult general surgery. Repeat CT abdomen pelvis without contrast at this time. ? Request records from [facility] - Check urine culture, check procalcitonin ? Repeat KUB in AM. DVT prophylaxis: Eliquis should suffice. Diet: GI soft diet/regular diet. Advance as tolerated GI prophylaxis: Protonix 40 daily DNR/DNI Awaiting records from other hospitals. Attestations Medical Necessity Statement*: Patient will cross midline stay tonight due to her abdominal pain. She is being evaluated by general surgery. Continue to monitor in the hospital. We will repeat KUB in a.m. Coding Level of Care Code Acute Black And White Printer Operator for Chg Fwd Diagnoses Atrial fibrillation I48.91 Common bile duct (CBD) stricture K83.1 Status post laparoscopic cholecystectomy Z90.49 Hypokalemia E87.6 Opioid dependence F11.20 Chronic pain disorder G89.4 Dissection of aorta I71.00 HTN (hypertension), benign I10
[2022-09-17] MEDS: sertraline 50 mg Tablet 25 MG PO (09:34)
[2022-09-17] MEDS: phosphorus 250 mg Tablet PO ×2 (09:34→17:40)
[2022-09-17] MEDS: sertraline 50 mg Tablet PO (09:34)
[2022-09-17] MEDS: metoprolol succinate ER (24 HR) 50 mg Tablet PO (09:35)
[2022-09-17] MEDS: nitrofurantoin SR (BID) 100 mg Capsule PO ×2 (09:35→17:40)
[2022-09-17] MEDS: apixaban 5 mg Tablet PO ×2 (09:35→17:40)
[2022-09-17] MEDS: amiodarone 200 mg Tablet PO (09:35)
[2022-09-17] MEDS: atorvastatin 40 mg Tablet PO (09:35)
[2022-09-17] MEDS: mirtazapine 15 mg Tablet PO (09:35)
[2022-09-17] MEDS: buprenorphine-naloxone 4-1 mg Film 0.5 EACH SUBLINGUAL ×2 (09:35→17:40)
[2022-09-17] MEDS: lisinopril 20 mg Tablet PO (09:35)
[2022-09-17] MEDS: aspirin 81 mg EC Tablet PO (09:35)
[2022-09-17 12:32] LABS: Glucose Point of Care 100 mg/dL (70-110)
--- NOTE | 2022-09-17 12:38 | XRR_ITS ---
PROCEDURE INFORMATION: Exam: XR Abdomen Exam date and time: 09/17/2022 1:02 PM Age: 77 years old Clinical indication: Abdominal pain; Generalized TECHNIQUE: Imaging protocol: Radiologic exam of the abdomen. Views: Frontal supine view of the abdomen. 1 View. COMPARISON: CT abdomen pelvis wo con [id number] 09/17/2022 1:01 PM FINDINGS: Gastrointestinal tract: No dilated gas-filled loops of bowel. Intraperitoneal space: Multiple surgical clips in the upper abdomen. Organs: Prior cholecystectomy. There is pneumobilia related to the presence of an endoscopic stent. Vasculature: Partially visualized descending thoracic aortic endograft. Bones/joints: Curvature of the lumbar spine convex to the left associated with multilevel disc degeneration. XR/XR KUB portable [id number] IMPRESSION: No sign of bowel obstruction.
--- NOTE | 2022-09-17 12:42 | CTR_ITS ---
PROCEDURE INFORMATION: Exam: CT Abdomen And Pelvis Without Contrast Exam date and time: 09/17/2022 1:01 PM Age: 77 years old Clinical indication: Abdominal pain; Prior surgery; Surgery type: Pancreatic stent, hyster, gb, appy, thoracic aorta graft; Additional info: Some guarding present, abdominal pain, change in abdominal exam since admission TECHNIQUE: Imaging protocol: Computed tomography of the abdomen and pelvis without contrast. Radiation optimization: All CT scans at this facility use at least one of these dose optimization techniques: automated exposure control; mA and/or kV adjustment per patient size (includes targeted exams where dose is matched to clinical indication); or iterative reconstruction. COMPARISON: CT abdomen pelvis w con* [id number] 09/16/2022 1:31 PM RADIATION DOSE METRICS: Total DLP (mGy-cm): 384.54 FINDINGS: Tubes, catheters and devices: Partially visualized descending thoracic aortic endograft. Pleural spaces: Trace right pleural effusion. Diaphragm: Moderate to large size hiatal hernia. Liver: The liver is homogeneous and is not enlarged. Gallbladder and bile ducts: There is pneumobilia felt to be due to the presence of an endoscopic stent in the common bile duct. Prior cholecystectomy. Pancreas: No pancreatic enlargement or ductal dilatation. Spleen: The spleen is homogeneous and is not enlarged. Adrenal glands: No adrenal mass. Kidneys and ureters: Atrophic right kidney. No left hydronephrosis. Stomach and bowel: No bowel obstruction or diverticulitis. Appendix: Prior appendectomy. Intraperitoneal space: No ascites or pneumoperitoneum. Vasculature: Enlargement of the infrarenal abdominal aorta and left common iliac artery, similar to the prior comparison exam, with displaced intimal calcifications consistent with the previously demonstrated dissection. Lymph nodes: No pathologically enlarged lymph nodes. Urinary bladder: Excreted contrast within the urinary bladder. No intraluminal filling defects or bladder wall thickening. Reproductive: Prior hysterectomy. Bones/joints: No acute ossesous abnormality. Soft tissues: No acute soft tissue abnormality. CT/CT abdomen pelvis con [id number] IMPRESSION: No bowel obstruction or diverticulitis.
--- NOTE | 2022-09-17 15:52 | P.CONIM_ITS ---
Providers/Reason For Consult Consulting Physician/Specialty*: General Surgery Albaro Willis MD, FACS, RPVI Reason for Consult*: Abdominal pain Attending Physician: Sury Martel MD Primary Care Provider: Joy Nieto-Zina History of Present Illness History of Present Illness Rylee Martinez is a 77 year old female She presented to the emergency room with worsening abdominal pain. She has this pain on and off for a long time. She was recently evaluated and treated in [facility] for the same pain, it sounds that gastroenterology performed a placement of a biliary stent. She is supposed to see a systems support officer in [place] this week, however, instead she was admitted to the hospital in [place]. There is no systems support officer here. She also mentioned that cholecystectomy was performed for the same pain and it did not relieve the pain. She had a thoracic aneurysm repair with a stent graft. She also had what sounds to be possibly abdominal aneurysm repair, however, she cannot explain it very well. Possibly it was part of the thoracic aneurysm repair. She came to the hospital because her pain become intolerable. It is very similar to the pain that she experienced when she was admitted to [place]. It is 7/10, located in the upper abdomen. Denies any nausea or vomiting. She is able to eat without any problems. She stated that her pain is much better today than yesterday. For CT scan on admission showed hiatal hernia, foreign body in the cecum, small size. Presence of the biliary stent and intrahepatic biliary air. She admits loose stool for several months Review of Systems Narrative: 10 point review of systems is negative except as per HPI Medications/Allergies Home Medications Medication Instructions Recorded Confirmed Last Taken Type calcium 1 tab PO DAILY 03/02/20 09/16/22 09/16/22 History carbonate,citrate-magnesium oxide 200 mg calcium-50 mg tablet (CalMag Thins) fluticasone propionate 110 1 puff inhalation Q12H 03/02/20 09/16/22 09/16/22 History mcg/actuation HFA aerosol inhaler (Flovent HFA) sertraline 50 mg tablet 50 mg PO DAILY 03/02/20 09/16/22 09/16/22 History furosemide 20 mg tablet 20 mg PO DAILY 06/04/21 09/16/22 09/16/22 History potassium chloride 10 mEq 10 meq PO DAILY 06/04/21 09/16/22 09/16/22 History capsule,extended release apixaban 5 mg tablet (Eliquis) 5 mg PO BID 01/22/22 09/16/22 09/16/22 History cyanocobalamin (vitamin B-12) 50 50 mcg PO DAILY 01/22/22 09/16/22 09/16/22 History mcg lozenges (Vitamin B-12) albuterol sulfate 90 mcg/actuation 2 puff inhalation QID PRN 06/07/22 09/16/22 06/07/22 History aerosol inhaler Shortness Of Breath aspirin 81 mg tablet,delayed 81 mg PO DAILY 06/07/22 09/16/22 09/16/22 History release buprenorphine 2 mg-naloxone 0.5 mg 1 film buccal BID 06/07/22 09/16/22 09/16/22 History sublingual film (Suboxone) omeprazole 40 mg capsule,delayed 40 mg PO DAILY 06/07/22 09/16/22 09/16/22 History release dapagliflozin 10 mg tablet 10 mg PO DAILY 07/04/22 09/16/22 09/16/22 History (Farxiga) amiodarone 200 mg tablet 200 mg PO DAILY 09/11/22 09/16/22 09/16/22 History metoprolol succinate 50 mg 50 mg PO DAILY 09/11/22 09/16/22 09/16/22 History tablet,extended release 24 hr mirtazapine 7.5 mg tablet 15 mg PO DAILY 09/11/22 09/16/22 09/16/22 History atorvastatin 40 mg tablet 40 mg PO DAILY 09/16/22 09/16/22 09/16/22 History lisinopril 20 1 tab PO DAILY 09/16/22 09/16/22 09/16/22 History mg-hydrochlorothiazide 12.5 mg tablet nitrofurantoin 100 mg PO BID 09/16/22 09/16/22 09/16/22 History monohydrate/macrocrystals 100 mg capsule sertraline 25 mg tablet 25 mg PO DAILY 09/16/22 09/16/22 09/16/22 History Allergies Allergy/AdvReac Type Severity Reaction Status Date / Time No Known Allergies Allergy Verified 09/16/22 12:37 Current Medications Generic Name Dose Route Start Last Admin Trade Name Freq PRN Reason Stop Dose Admin Acetaminophen 650 mg 09/16/22 17:35 09/17/22 05:32 Acetaminophen 325 Mg Tablet PO 650 mg Q6H PRN Administration Mild/Mod Pain Or Temp >/= 101 Albuterol Sulfate 2.5 mg 09/16/22 18:34 09/17/22 08:02 Albuterol 2.5 Mg/3 Ml Neb INHALATION 2.5 mg QID.RESPIRATORY PRN Administration Shortness Of Breath Amiodarone HCl 200 mg 09/17/22 09:00 09/17/22 09:35 Amiodarone 200 Mg Tablet PO 200 mg DAILY SATNAM Administration Apixaban 5 mg 09/16/22 18:16 09/17/22 09:35 Apixaban 5 Mg Tablet PO 5 mg BID SATNAM Administration Aspirin 81 mg 09/17/22 09:00 09/17/22 09:35 Aspirin 81 Mg Ec Tablet PO 81 mg DAILY SATNAM Administration Atorvastatin Calcium 40 mg 09/17/22 09:00 09/17/22 09:35 Atorvastatin 40 Mg Tablet PO 40 mg DAILY SATNAM Administration Budesonide 0.5 mg 09/16/22 20:00 09/17/22 08:02 Budesonide 0.5 Mg/2 Ml Neb INHALATION 0.5 mg BID.RESPIRATORY SATNAM Administration Buprenorphine/Naloxone 0.5 each 09/17/22 09:00 09/17/22 09:35 Buprenorphine-Naloxone 4-1 Mg Film SUBLINGUAL 0.5 each BID SATNAM Administration Sodium Chloride 1,000 mls @ 75 mls/hr 09/16/22 17:45 09/17/22 08:57 Sodium Chloride 0.9% IV 75 mls/hr .[id number] SATNAM Administration Sodium Chloride 1,000 mls @ 100 mls/hr 09/16/22 18:16 09/17/22 03:26 Sodium Chloride 0.9% IV Not Given .Q10H SATNAM Insulin Human Lispro 0 unit 09/16/22 18:00 09/17/22 12:42 Insulin Lispro 100 Unit/1 Ml SUBCUT Not Given WM&BEDTIME SATNAM Protocol Lisinopril 20 mg 09/17/22 09:00 09/17/22 09:35 Lisinopril 20 Mg Tablet PO 20 mg DAILY SATNAM Administration Metoprolol Succinate 50 mg 09/17/22 09:00 09/17/22 09:35 Metoprolol Succinate Er (24 Hr) 50 Mg Tablet PO 50 mg DAILY SATNAM Administration Mirtazapine 15 mg 09/17/22 09:00 09/17/22 09:35 Mirtazapine 15 Mg Tablet PO 15 mg DAILY SATNAM Administration Nitrofurantoin Macrocrystals 100 mg 09/16/22 18:16 09/17/22 09:35 Nitrofurantoin Sr (Bid) 100 Mg Capsule PO 100 mg BID SATNAM Administration Non-Formulary Medication 1 tab 09/17/22 09:00 09/17/22 09:35 Calcium Carb And Citrat-Mag Ox [Calmag Thins] PO Not Given DAILY SATNAM Non-Formulary Medication 50 mcg 09/17/22 09:00 09/17/22 09:35 Cyanocobalamin (Vitamin B-12) [Vitamin B-12] PO Not Given DAILY SATNAM Pantoprazole Sodium 40 mg 09/16/22 17:45 09/17/22 05:22 Pantoprazole 40 Mg Sdv IVP 40 mg Q12H SATNAM Administration Potassium Phosphate 250 mg 09/17/22 09:00 09/17/22 09:34 Phosphorus 250 Mg Tablet PO 09/18/22 18:01 250 mg BID SATNAM Administration Sertraline HCl 25 mg 09/17/22 09:00 09/17/22 09:34 Sertraline 50 Mg Tablet PO 25 mg DAILY SATNAM Administration Sertraline HCl 50 mg 09/17/22 09:00 09/17/22 09:34 Sertraline 50 Mg Tablet PO 50 mg DAILY SATNAM Administration PFSH Acute PFSH: Medical History (Updated 09/17/22 @ 16:14 by Albaro Willis MD) Acute exacerbation of chronic obstructive airways disease Acute respiratory failure with hypoxia Acute UTI Adjustment disorder with depressed mood Atrial fibrillation CHF (congestive heart failure) Chronic pain disorder COPD (chronic obstructive pulmonary disease) Dissection of aorta HTN (hypertension), benign Idiopathic osteoarthritis Idiopathic scoliosis Opioid dependence Surgical History H/O esophagogastroduodenoscopy History of aortic aneurysm repair History of back surgery History of eye surgery History of hysterectomy Status post colonoscopy Status post laparoscopic cholecystectomy (04/05/20) Family History Mother Hypertension Denies family history of Anesthesia complication Bleeding disorder Social History Smoking and tobacco status: former smoker Second hand smoke exposure: No Alcohol intake: never Adopted: No Caregiver/support person: Yes Lives independently: Yes Household members: none Housing: House Sexually active: No Current gender identity: Female Vitals/I&O/Wt Last Vital Signs Temp 97.9 F 09/17/22 11:35 Pulse 67 09/17/22 14:00 Resp 18 09/17/22 11:35 BP 124/60 09/17/22 11:35 Pulse Ox 92 09/17/22 11:35 O2 Del Method 09/17/22 11:35 O2 Flow Rate 2.5 09/17/22 00:00 09/17/22 09/17/22 09/17/22 06:59 14:59 22:59 Intake Total 300 / 1300 1600 / 1600 Balance 300 / 1300 1600 / 1600 Weight last 48 hrs Weight 133 lb 8 oz Weight 120 lb Physical Exam Narrative: General: No acute distress Psych: [AAOx3] Eyes: [sclerae are white] Head/ENT: [normocephalic, symmetric] CV: [regular] pulse, [], no JVD Lungs: [symmetrical chest rise] Abdomen: [soft, ND, mild to moderate tenderness to palpation in the epigastrium] Ext: [no obvious traumatic deformities] Skin: warm Data : 09/17/22 04:45 09/17/22 04:45 A&P Assessment and plan (1) Abdominal pain: (2) Dissection of aorta: (3) HTN (hypertension), benign: (4) Atrial fibrillation: (5) Common bile duct (CBD) stricture: (6) Status post laparoscopic cholecystectomy: Plan The origin of her pain is not exactly clear. I do not think it has anything to do with a small foreign body in the cecum. It will be very useful to look at the medical records from [place]. She was doing better for some time after the stent placement was performed, however, it is not exactly clear what was done. Her CT scan did not show any obvious pathology. Repeat CT scan from today confirm that. Another possibility may be a hiatal hernia which is of a moderate size. Her vascular findings appears to be chronic, however, she does have a chronic dissection. I am not sure if her vascular surgeon is aware about it or not. Again, it sounds like a chronic finding, however, she should have an appointment scheduled and this findings discussed with her vascular surgeon. -Obtain records from [place] -No indications for a surgical intervention at this time -No indications for endoscopy to evaluate a small foreign body in the cecum. It is likely a accidentally ingested material or possibly a GI clip after the procedure on the bile duct was performed. -If she continues to do well, one of the options, will be to discharge her so she can have her appointment with a systems support officer. -Hiatal hernia may need to be repaired if there is no other good explanation for her pain. It can be done in an elective fashion, no indications for repair of hiatal hernia on this admission. -Consider to hold Eliquis for now until it is clear that she does not need any procedures. Coding Level of Care Code Acute Roll Weigher for Chg Fwd Diagnoses Abdominal pain R10.9 Dissection of aorta I71.00 HTN (hypertension), benign I10 Atrial fibrillation I48.91 Common bile duct (CBD) stricture K83.1 Status post laparoscopic cholecystectomy Z90.49
[2022-09-17 16:17] LABS: Glucose Point of Care 103 mg/dL (70-110)
[2022-09-17 20:59] LABS: Glucose Point of Care 107 mg/dL (70-110)
[2022-09-17 21:46] LABS: Add Urine Microscopic? YES; Bacteria Urine 2+ /hpf; Bilirubin Urine Neg (Negative); Blood Urine Neg (Negative); Glucose Urine UA Norm (Normal); Ketones Urine Negative (Negative); Leukocyte Esterase Urine 1+ (Negative); Nitrate Urine Positive (Negative); Protein Urine Trace (Negative); RBC Urine 0-4 /hpf (0-2); Specific Gravity, Urine 1.015 (1.005-1.030); Squamous Epithelial Cell Urine 0-4 /hpf (0-5); Urine Appearance SL Hazy (CLEAR); Urine Color Yellow (Yellow); Urobilinogen Urine Norm (Negative); pH Urine 6 (5-7)
[2022-09-17 21:47] LABS: Add Urine Culture? No
[2022-09-18] VITALS (9 sets, daily range): BP systolic 100–147; BP diastolic 63–78; PULSE 68–78; RESP 14–18; TEMP 36.8–36.9; O2SAT 90–95
[2022-09-18 05:43] LABS: Basophils # 0.1 10^3/uL (0.0-0.1); Basophils % 0.7 %; Eosinophils # 0.2 10^3/uL (0.0-0.8); Hematocrit 33.6 % (37.0-47.0); Hemoglobin 9.6 g/dL (11.5-15.3); Lymphocytes # 1.5 10^3/uL (0.8-4.8); Mean Corpuscular HGB Conc 28.6 g/dL (30.0-36.0); Mean Corpuscular Hemoglobin 24.7 pg (28.0-34.0); Mean Corpuscular Volume 86.6 fl (81-99); Mean Platelet Volume 9.7 fL (7.4-10.4); Monocytes # 0.9 10^3/uL (0.2-0.9); Monocytes % 12.6 %; Neutrophils # 4.15 10^3/uL (1.8-7.7); Neutrophils % 61.3 %; Nucleated Red Blood Cells % 0 %; Platelet Count 245 10^3/cmm (130-400); Red Blood Count 3.88 10^6/uL (4.1-5.3); Red Cell Distribution Width 18.3 % (12.1-15.1); White Blood Count 6.8 10^3/uL (4.0-10.0)
[2022-09-18 06:09] LABS: Anion Gap 12.8 (5-19); Blood Urea Nitrogen 8 mg/dL (8-23); Carbon Dioxide 24 mmol/L (22-29); Chloride 115 mmol/L (98-107); Glucose 88 mg/dL (65-115); Magnesium 1.9 mg/dL (1.7-2.3); Osmolality Calculated 304 mOsm/kg (285-295); Potassium 3.8 mmol/L (3.5-5.1); Sodium 148 mmol/L (136-145)
[2022-09-18] MEDS: pantoprazole 40 mg SDV IVP ×2 (06:12→17:53)
[2022-09-18 06:48] LABS: Glucose Point of Care 88 mg/dL (70-110)
--- NOTE | 2022-09-18 06:55 | PC.NURSE ---
Bedside Report given to Jeannette PIEDRA at this time
[2022-09-18] MEDS: budesonide 0.5 mg/2 mL Neb INHALATION ×2 (08:36→20:14)
[2022-09-18] MEDS: albuterol 2.5 mg/3 mL Neb INHALATION ×2 (08:36→20:14)
--- NOTE | 2022-09-18 08:38 | XR_ITS ---
WS: [id number] KUB, portable AP supine, 09/18/2022 Clinical Data: follow up Comparison: Portable KUB, 09/17/2022 Findings: No abnormal intraabdominal masses or calcifications are seen. There is no dilatated small bowel or ev idence of obstruction. There are multiple clips in the upper abdomen. There is air in the common bile duct. There is a bilia ry stent on the right side of the abdomen. There is a moderate amount of fecal material present. Ther e is an aortic stent graft in the lower thoracic aorta. Monitor leads are on the normal wall. There i s a levoscoliosis of the lumbar spine. XR/XR KUB portable [id number] Impression: 1. No change from previous KUB. 2. Negative for acute intra-abdominal abdominal or pelvic abnormalities.
[2022-09-18] MEDS: dextrose 5% 1,000 ML 45 ML IV (09:19)
[2022-09-18] MEDS: cefTRIAXone 1,000 MG in sodium chloride 0.9% (plus) 50 ML 100 MG IV (09:19)
[2022-09-18] MEDS: sertraline 50 mg Tablet 25 MG PO (09:25)
[2022-09-18] MEDS: metoprolol succinate ER (24 HR) 50 mg Tablet PO (09:26)
[2022-09-18] MEDS: amiodarone 200 mg Tablet PO (09:26)
[2022-09-18] MEDS: atorvastatin 40 mg Tablet PO (09:26)
[2022-09-18] MEDS: phosphorus 250 mg Tablet PO ×2 (09:26→17:53)
[2022-09-18] MEDS: mirtazapine 15 mg Tablet PO (09:26)
[2022-09-18] MEDS: aspirin 81 mg EC Tablet PO (09:26)
[2022-09-18] MEDS: buprenorphine-naloxone 4-1 mg Film 0.5 EACH SUBLINGUAL ×2 (09:27→17:52)
[2022-09-18] MEDS: lisinopril 20 mg Tablet PO (09:30)
[2022-09-18] MEDS: sertraline 50 mg Tablet PO (09:36)
--- NOTE | 2022-09-18 11:39 | PM.PN ---
Subjective Subjective: No acute events overnight. She is doing better overall. Continues to have pain in the epigastric area. Tolerated diet well. Vitals/I&O/Wt Last Vital Signs Temp 98.3 F 09/18/22 11:23 Pulse 78 09/18/22 11:23 Resp 16 09/18/22 11:23 BP 125/70 09/18/22 11:23 Pulse Ox 93 09/18/22 11:23 O2 Del Method 09/18/22 11:23 O2 Flow Rate 3 09/18/22 08:00 09/17/22 09/18/22 09/18/22 22:59 06:59 14:59 Intake Total 1432.5 / 3032.5 200 / 3232.5 480 / 480 Balance 1432.5 / 3032.5 200 / 3232.5 480 / 480 Weight last 48 hrs Weight 133 lb 8 oz Physical Exam Narrative: General: No acute distress Psych: AAOx3 Eyes: Sclerae are white Head/ENT: Normocephalic, symmetric CV: Regular pulse,, no JVD Lungs: Symmetrical chest rise Abdomen: Soft, ND, mild to moderate tenderness to palpation in the epigastrium Ext: No obvious traumatic deformities Skin: warm Data : 09/18/22 05:09 09/18/22 05:09 Micro: Microbiology 09/16/22 10:10 C.difficile Toxin B Gene (PCR) - Final Stool Routine Collection A&P Assessment and plan (1) Abdominal pain: (2) Dissection of aorta: (3) HTN (hypertension), benign: (4) Atrial fibrillation: (5) Common bile duct (CBD) stricture: (6) Status post laparoscopic cholecystectomy: Plan The origin of her pain is not exactly clear. I do not think it has anything to do with a small foreign body in the cecum. I am not very positive about symptoms related to stool accidental findings of colitis on CT scan. Her pain is clearly located in the epigastric area far away from the cecum. It will be very useful to look at the medical records from [place]. She was doing better for some time after the stent placement was performed, however, it is not exactly clear what was done. Her CT scan did not show any obvious pathology. Repeat CT scan from today confirm that. Another possibility may be a hiatal hernia which is of a moderate size. Her vascular findings appears to be chronic, however, she does have a chronic dissection. I am not sure if her vascular surgeon is aware about it or not. Again, it sounds like a chronic finding, however, she should have an appointment scheduled and this findings discussed with her vascular surgeon. I discussed the case with her primary care over the phone today. Her appointment with a international accounting manager scheduled for tomorrow, it is a new international accounting manager that she did not see before. Given this information, she will benefit from EGD tomorrow to evaluate the reason of her epigastric pain. Also, it appears that her stent may be migrated out of the bile duct and completely dislodged. Very restless during endoscopy. If stent is out of the papilla, I will remove the stent. Her LFTs were normal, no evidence of any biliary obstruction at this time. -Obtain records from [place] -No indications for a surgical intervention at this time -No indications for endoscopy to evaluate a small foreign body in the cecum. It is likely a accidentally ingested material or possibly a GI clip after the procedure on the bile duct was performed. -Hiatal hernia may need to be repaired if there is no other good explanation for her pain. It can be done in an elective fashion, no indications for repair of hiatal hernia on this admission. We will schedule an appointment with a local surgeon. -Consider to hold Genieis for now until it is clear that she does not need any procedures. Attestations Medical Necessity Statement*: EGD is scheduled for tomorrow. Coding Level of Care Code Acute Head Banquet Waitress for Chg Fwd Diagnoses Abdominal pain R10.9 Dissection of aorta I71.00 HTN (hypertension), benign I10 Atrial fibrillation I48.91 Common bile duct (CBD) stricture K83.1 Status post laparoscopic cholecystectomy Z90.49
[2022-09-18 11:43] LABS: Glucose Point of Care 89 mg/dL (70-110)
--- NOTE | 2022-09-18 12:39 | PC.NURSE ---
Notified Dr. Martel of non formulary medications. Non admin them.
[2022-09-18] MEDS: sodium chloride 0.9% 1,000 ML 30 ML IV (12:47)
--- NOTE | 2022-09-18 13:40 | PM.PN ---
Subjective Subjective: no acute events overnight continues to complain of epigastric pain Vitals/I&O/Wt Last Vital Signs Temp 98.3 F 09/18/22 11:23 Pulse 78 09/18/22 11:23 Resp 16 09/18/22 11:23 BP 125/70 09/18/22 11:23 Pulse Ox 93 09/18/22 11:23 O2 Del Method 09/18/22 11:23 O2 Flow Rate 3 09/18/22 08:00 09/17/22 09/18/22 09/18/22 22:59 06:59 14:59 Intake Total 1432.5 / 3032.5 200 / 3232.5 480 / 480 Balance 1432.5 / 3032.5 200 / 3232.5 480 / 480 Weight last 48 hrs Weight 60.555 kg Physical Exam Narrative: General: Alert oriented x3, patient seen laying in bed HEENT: Normocephalic, atraumatic, EOMI, breathing normally Cardio: Regular rate rhythm, normal S1-S2, Respiratory: Good bilateral air entry, no wheezes no rhonchi appreciated GI: Abdomen soft, nontender, nondistended, slightly hyperactive bowel sounds, mild guarding present. Pain worse at right upper quadrant area. Behavior: Appropriate and cooperative Extremities: no edema, no cyanosis Data : 09/18/22 05:09 09/18/22 05:09 Micro: Microbiology 09/16/22 10:10 Enteric Pathogens (PCR) - Final Stool Routine Collection Parasite Antigen Panel - Final C.difficile Toxin B Gene (PCR) - Final 09/18/22 Unknown Occult Blood (FIT) - Final Stool A&P Assessment and plan (1) Atrial fibrillation: (2) Common bile duct (CBD) stricture: (3) Status post laparoscopic cholecystectomy: (4) Hypokalemia: (5) Opioid dependence: (6) Chronic pain disorder: (7) Dissection of aorta: (8) HTN (hypertension), benign: Plan #C.Diff Diarrhea #Severe hypokalemia, K2.3 on admission?resolved #Nonspecific nausea/vomiting with epigastric pain #Possibly acute on chronic diarrhea? #Questionable colitis of cecum with possible ingestion of an unknown substance #Status postcholecystectomy with biliary stent and soup in the duodenum. #Thoracic aorta aneurysm with abdominal aortic dissection and abdominal aortic aneurysm stable #Atrial fibrillation #Chronically on Eliquis #Large Hiatal hernia #Chronic pain disorder, on Suboxone #DNR/DNI -Continue regular diet for now. ? Zofran for nausea. Add scopolamine patch. Continue the patch. ? C.Diff positive ? Discussed with Dr. Zeng regarding her aneurysm and dissection. She is to follow-up in clinic with him as an outpatient at discharge ? Continue to monitor hemoglobin. Patient is on Eliquis. Hemoglobin 10.4 today on admission. Check . Pt would like to opt not taking eliquis for few weeks. She understands risk of stroke due to her atrial fibrillation. Hb 9.4 today. FOBT pending. Pt may require procedure in future regarding her hernia. I had a long discussion with her regarding her hemoglobin being on lower side. She clearly stated that if she has a stroke, then so be it but she would like to stop blood thinner for time being. ? Check iron studies, TIBC, ferritin ? Continue Suboxone ? We will continue to supplement potassium and recheck. Check magnesium, check phosphorus ? Check PT OT ? We will discuss with general surgery regarding metal densities seen in cecum. Consult general surgery. Repeat CT abdomen pelvis without contrast done did not show any obstruction. ? Request records from [facility] - abnormal. UCx pending, - Repeat KUB reviewed. - Plan for EGD in AM. Patient would like to go for procedure here to decide next management. After EGD and depending on results, pt may be dc home with antibiotics to f/u as outpatient with GI, PCP and Dr. Maravilla. She is agreeable to above plan NPO at midnight DVT prophylaxis: SCDS for now. Diet: GI soft diet/regular diet. Advance as tolerated GI prophylaxis: Protonix 40 daily DNR/DNI Awaiting records from other hospitals. Attestations Medical Necessity Statement*: EGD in AM. Coding Level of Care Code Acute Narrow Gauge Operator for g Fwd Diagnoses Atrial fibrillation I48.91 Common bile duct (CBD) stricture K83.1 Status post laparoscopic cholecystectomy Z90.49 Hypokalemia E87.6 Opioid dependence F11.20 Chronic pain disorder G89.4 Dissection of aorta I71.00 HTN (hypertension), benign I10
[2022-09-18 16:53] LABS: Glucose Point of Care 117 mg/dL (70-110)
[2022-09-18 21:10] LABS: Glucose Point of Care 125 mg/dL (70-110)
[2022-09-19] VITALS (14 sets, daily range): BP systolic 115–156; BP diastolic 69–97; PULSE 67–97; RESP 14–18; TEMP 36.1–36.9; O2SAT 90–98
[2022-09-19 05:27] LABS: Basophils # 0.1 10^3/uL (0.0-0.1); Basophils % 0.8 %; Eosinophils # 0.3 10^3/uL (0.0-0.8); Eosinophils % 3.6 %; Hematocrit 33.2 % (37.0-47.0); Hemoglobin 9.1 g/dL (11.5-15.3); Lymphocytes # 1.6 10^3/uL (0.8-4.8); Lymphocytes % 21.7 %; Mean Corpuscular HGB Conc 27.4 g/dL (30.0-36.0); Mean Corpuscular Hemoglobin 25.1 pg (28.0-34.0); Mean Corpuscular Volume 91.7 fl (81-99); Mean Platelet Volume 9.8 fL (7.4-10.4); Monocytes # 0.7 10^3/uL (0.2-0.9); Neutrophils # 4.57 10^3/uL (1.8-7.7); Neutrophils % 63.3 %; Nucleated Red Blood Cells % 0 %; Platelet Count 241 10^3/cmm (130-400); Red Blood Count 3.62 10^6/uL (4.1-5.3); Red Cell Distribution Width 18.4 % (12.1-15.1); White Blood Count 7.2 10^3/uL (4.0-10.0)
[2022-09-19 05:44] LABS: Anion Gap 10.4 (5-19); Blood Urea Nitrogen 9 mg/dL (8-23); Carbon Dioxide 23 mmol/L (22-29); Chloride 113 mmol/L (98-107); Glucose 95 mg/dL (65-115); Osmolality Calculated 294 mOsm/kg (285-295); Potassium 3.4 mmol/L (3.5-5.1); Sodium 143 mmol/L (136-145)
[2022-09-19] MEDS: pantoprazole 40 mg SDV IVP ×2 (05:45→21:50)
[2022-09-19 06:26] LABS: Glucose Point of Care 97 mg/dL (70-110)
--- NOTE | 2022-09-19 06:58 | PC.NURSE ---
Bedside Report given to Lety PIEDRA at this time
[2022-09-19] MEDS: albuterol 2.5 mg/3 mL Neb INHALATION (08:20)
[2022-09-19] MEDS: budesonide 0.5 mg/2 mL Neb INHALATION (08:20)
[2022-09-19] MEDS: cefTRIAXone 1,000 MG in sodium chloride 0.9% (plus) 50 ML 100 MG IV (10:07)
--- NOTE | 2022-09-19 10:33 | PC.NURSE ---
Per Dr. Martel hold morning medications for EGD
[2022-09-19] MEDS: potassium chloride ER 20 mEq Tablet 40 MEQ PO (10:48)
[2022-09-19 11:12] LABS: Glucose Point of Care 92 mg/dL (70-110)
[2022-09-19] MEDS: amiodarone 200 mg Tablet PO (11:25)
[2022-09-19] MEDS: lisinopril 20 mg Tablet PO (11:25)
[2022-09-19] MEDS: metoprolol succinate ER (24 HR) 50 mg Tablet PO (11:25)
--- NOTE | 2022-09-19 13:00 | P.ANESASSM_ITS ---
Pre-Anesthetic Assessment Height/Weight: Height 1.7 m Weight 60.555 kg Temp Pulse Resp BP Pulse Ox O2 Del Method O2 Flow Rate 98.4 F 97 15 115/69 93 2 09/19/22 11:57 09/19/22 11:57 09/19/22 11:57 09/19/22 11:57 09/19/22 11:57 09/19/22 11:57 09/19/22 08:00 Preop Diagnosis: cholelithiasis, dilated CBD measuring 10 mm Operation Date: 09/19/22 12:30 Proposed Procedures p EGD(Not Applicable) - Albaro Willis MD Was Beta Roseanna taken within 24 hours: N/A Was Clonidine taken within 24 hours: N/A Social No alcohol and No tobacco Quit smoking 1 year ago Exam alert, oriented x 3 and clear to auscultation bilaterally Airway Submandibular: within normal limits Cervical ROM: within normal limits Mallampati: Class II Dentition: false History/ROS No significant history except as noted and No significant complaints Pulmonary Chronic Obstructive Pulmonary Disease, Exertional Dyspnea and Shortness of Breath CV/HEM Hypertension AAA stent post aneurysm rupture None reported Hepatic None reported GI None reported Metabolic None reported Musc/skel Osteoarthritis/DJD Neuropsych Anxiety Anesthetic Plan ASA status: 3 Anesthesia: Anesthesia Evaluation and MAC Risk of > 500 ml blood loss (7ml/kg in children): No Medications/Allergies Home Medications Medication Instructions Recorded Confirmed Last Taken Type calcium 1 tab PO DAILY 03/02/20 09/16/22 09/16/22 History carbonate,citrate-magnesium oxide 200 mg calcium-50 mg tablet (CalMag Thins) fluticasone propionate 110 1 puff inhalation Q12H 03/02/20 09/16/22 09/16/22 History mcg/actuation HFA aerosol inhaler (Flovent HFA) sertraline 50 mg tablet 50 mg PO DAILY 03/02/20 09/16/22 09/16/22 History furosemide 20 mg tablet 20 mg PO DAILY 06/04/21 09/16/22 09/16/22 History potassium chloride 10 mEq 10 meq PO DAILY 06/04/21 09/16/22 09/16/22 History capsule,extended release apixaban 5 mg tablet (Eliquis) 5 mg PO BID 01/22/22 09/16/22 09/16/22 History cyanocobalamin (vitamin B-12) 50 50 mcg PO DAILY 01/22/22 09/16/22 09/16/22 History mcg lozenges (Vitamin B-12) albuterol sulfate 90 mcg/actuation 2 puff inhalation QID PRN 06/07/22 09/16/22 06/07/22 History aerosol inhaler Shortness Of Breath aspirin 81 mg tablet,delayed 81 mg PO DAILY 06/07/22 09/16/22 09/16/22 History release buprenorphine 2 mg-naloxone 0.5 mg 1 film buccal BID 06/07/22 09/16/22 09/16/22 History sublingual film (Suboxone) omeprazole 40 mg capsule,delayed 40 mg PO DAILY 06/07/22 09/16/22 09/16/22 History release dapagliflozin 10 mg tablet 10 mg PO DAILY 07/04/22 09/16/22 09/16/22 History (Farxi) amiodarone 200 mg tablet 200 mg PO DAILY 09/11/22 09/16/22 09/16/22 History metoprolol succinate 50 mg 50 mg PO DAILY 09/11/22 09/16/22 09/16/22 History tablet,extended release 24 hr mirtazapine 7.5 mg tablet 15 mg PO DAILY 09/11/22 09/16/22 09/16/22 History atorvastatin 40 mg tablet 40 mg PO DAILY 09/16/22 09/16/22 09/16/22 History lisinopril 20 1 tab PO DAILY 09/16/22 09/16/22 09/16/22 History mg-hydrochlorothiazide 12.5 mg tablet nitrofurantoin 100 mg PO BID 09/16/22 09/16/22 09/16/22 History monohydrate/macrocrystals 100 mg capsule sertraline 25 mg tablet 25 mg PO DAILY 09/16/22 09/16/22 09/16/22 History Allergies Allergy/AdvReac Type Severity Reaction Status Date / Time No Known Allergies Allergy Verified 09/16/22 12:37 Current Medications Generic Name Dose Route Start Last Admin Trade Name Freq PRN Reason Stop Dose Admin Acetaminophen 650 mg 09/16/22 17:35 09/17/22 05:32 Acetaminophen 325 Mg Tablet PO 650 mg Q6H PRN Administration Mild/Mod Pain Or Temp >/= 101 Albuterol Sulfate 2.5 mg 09/16/22 18:34 09/19/22 08:20 Albuterol 2.5 Mg/3 Ml Neb INHALATION 2.5 mg QID.RESPIRATORY PRN Administration Shortness Of Breath Amiodarone HCl 200 mg 09/17/22 09:00 09/19/22 10:30 Amiodarone 200 Mg Tablet PO Not Given DAILY SATNAM Apixaban 5 mg 09/16/22 18:16 09/17/22 17:40 Apixaban 5 Mg Tablet PO 5 mg BID SATNAM Administration Aspirin 81 mg 09/17/22 09:00 09/19/22 10:31 Aspirin 81 Mg Ec Tablet PO Not Given DAILY SATNAM Atorvastatin Calcium 40 mg 09/17/22 09:00 09/19/22 10:31 Atorvastatin 40 Mg Tablet PO Not Given DAILY SATNAM Budesonide 0.5 mg 09/16/22 20:00 09/19/22 08:20 Budesonide 0.5 Mg/2 Ml Neb INHALATION 0.5 mg BID.RESPIRATORY SATNAM Administration Buprenorphine/Naloxone 0.5 each 09/17/22 09:00 09/19/22 10:31 Buprenorphine-Naloxone 4-1 Mg Film SUBLINGUAL Not Given BID [facility] Ceftriaxone Sodium 1,000 mg/ 50 mls @ 100 mls/hr 09/18/22 08:45 09/19/22 10:37 Sodium Chloride IV Infused Q24H [facility] Infusion Protocol Insulin Human Lispro 0 unit 09/16/22 18:00 09/19/22 11:28 Insulin Lispro 100 Unit/1 Ml SUBCUT Not Given WM&BEDTIME [facility] Protocol Lisinopril 20 mg 09/17/22 09:00 09/19/22 10:31 Lisinopril 20 Mg Tablet PO Not Given DAILY [facility] Metoprolol Succinate 50 mg 09/17/22 09:00 09/19/22 10:33 Metoprolol Succinate Er (24 Hr) 50 Mg Tablet PO Not Given DAILY [facility] Mirtazapine 15 mg 09/17/22 09:00 09/19/22 10:33 Mirtazapine 15 Mg Tablet PO Not Given DAILY [facility] Non-Formulary Medication 1 tab 09/17/22 09:00 09/19/22 10:31 Calcium Carb And Citrat-Mag Ox [Calmag Thins] PO Not Given DAILY [facility] Non-Formulary Medication 50 mcg 09/17/22 09:00 09/19/22 10:31 Cyanocobalamin (Vitamin B-12) [Vitamin B-12] PO Not Given DAILY [facility] Pantoprazole Sodium 40 mg 09/16/22 17:45 09/19/22 05:45 Pantoprazole 40 Mg Sdv IVP 40 mg Q12H [facility] Administration Sertraline HCl 25 mg 09/17/22 09:00 09/19/22 10:33 Sertraline 50 Mg Tablet PO Not Given DAILY [facility] Sertraline HCl 50 mg 09/17/22 09:00 09/19/22 10:33 Sertraline 50 Mg Tablet PO Not Given DAILY [facility] Vancomycin HCl 125 mg 09/17/22 21:00 09/19/22 10:48 Vancomycin 1,000 Mg Oral [place] (Btl) PO 125 mg QID SATNAM Administration PFSH Anesthesia Medical History (Updated 09/17/22 @ 16:14 by Albaro Willis MD) Acute exacerbation of chronic obstructive airways disease Acute respiratory failure with hypoxia Acute UTI Adjustment disorder with depressed mood Atrial fibrillation CHF (congestive heart failure) Chronic pain disorder COPD (chronic obstructive pulmonary disease) Dissection of aorta HTN (hypertension), benign Idiopathic osteoarthritis Idiopathic scoliosis Opioid dependence Surgical History H/O esophagogastroduodenoscopy History of aortic aneurysm repair History of back surgery History of eye surgery History of hysterectomy Status post colonoscopy Status post laparoscopic cholecystectomy (04/05/20) Family History Mother Hypertension Denies family history of Anesthesia complication Bleeding disorder Social History Smoking and tobacco status: former smoker Second hand smoke exposure: No Alcohol intake: never Adopted: No Caregiver/support person: Yes Lives independently: Yes Household members: none Housing: House Sexually active: No Current gender identity: Female Data Anesthesia : 09/19/22 04:30 09/19/22 04:30 Short CBC 09/18/22 09/19/22 Range/Units 05:09 04:30 WBC 6.8 7.2 (4.0-10.0) 10^3/uL Hgb 9.6 L 9.1 L (11.5-15.3) g/dL Hct 33.6 L 33.2 L (37.0-47.0) % MCV 86.6 91.7 D (81-99) fl Plt Count 245 241 (130-400) 10^3/cmm Neut % (Auto) 61.3 63.3 % Neut # (Auto) 4.15 4.57 (1.8-7.7) 10^3/uL BMP 09/18/22 09/19/22 05:09 04:30 Sodium 148 H 143 Potassium 3.8 3.4 L Chloride 115 H 113 H Carbon Dioxide 24 23 BUN 8 9 Creatinine 0.5 0.6 Glucose 88 95 Calcium 8.0 L 8.0 L Urine 09/17/22 Range/Units 20:29 Urine Color Yellow (Yellow) Urine Appearance Sl hazy A (CLEAR) Urine pH 6 (5-7) Ur Specific Kimberly 1.015 (1.005-1.030) Urine Protein Trace (Negative) Urine Glucose (UA) Norm (Normal) Urine Ketones Negative (Negative) Urine Nitrate Positive H (Negative) Urine Bilirubin Neg (Negative) Ur Leukocyte Esterase 1+ H (Negative) Urine RBC 0-4 H (0-2) /hpf Urine WBC 10-15 H (0-5) /hpf Microbiology 09/17/22 20:29 Urine Culture - Preliminary Urine,Voided Gram Negative Rods 09/16/22 10:10 Enteric Pathogens (PCR) - Final Stool Routine Collection Parasite Antigen Panel - Final C.difficile Toxin B Gene (PCR) - Final 09/18/22 Unknown Occult Blood (FIT) - Final Stool Cardiac Studies: Echocardiogram 06/07/22 Holter Monitor 07/04/22
--- NOTE | 2022-09-19 13:12 | PM.PN ---
Subjective Subjective: Seen this morning. Patient going for EGD today around noon. Urine culture positive for gram-negative rods. Vitals/I&O/Wt Last Vital Signs Temp 98.4 F 09/19/22 11:57 Pulse 97 09/19/22 11:57 Resp 15 09/19/22 11:57 BP 115/69 09/19/22 11:57 Pulse Ox 93 09/19/22 11:57 O2 Del Method 09/19/22 11:57 O2 Flow Rate 2 09/19/22 08:00 09/18/22 09/19/22 09/19/22 22:59 06:59 14:59 Intake Total 50 / 770 50 / 50 Balance 50 / 770 50 / 50 Physical Exam Narrative: General: Alert oriented x3, patient seen laying in bed HEENT: Normocephalic, atraumatic, EOMI, breathing normally Cardio: Regular rate rhythm, normal S1-S2, Respiratory: Good bilateral air entry, no wheezes no rhonchi appreciated GI: Abdomen soft, nontender, nondistended, bowel sounds positive. Behavior: Appropriate and cooperative Extremities: no edema, no cyanosis Data : 09/19/22 04:30 09/19/22 04:30 Micro: Microbiology 09/17/22 20:29 Urine Culture - Preliminary Urine,Voided Gram Negative Rods 09/16/22 10:10 Enteric Pathogens (PCR) - Final Stool Routine Collection Parasite Antigen Panel - Final C.difficile Toxin B Gene (PCR) - Final 09/18/22 Unknown Occult Blood (FIT) - Final Stool A&P Assessment and plan (1) Atrial fibrillation: (2) Common bile duct (CBD) stricture: (3) Status post laparoscopic cholecystectomy: (4) Hypokalemia: (5) Opioid dependence: (6) Chronic pain disorder: (7) Dissection of aorta: (8) HTN (hypertension), benign: Plan #C.Diff Diarrhea #Severe hypokalemia, K2.3 on admission?resolved #Nonspecific nausea/vomiting with epigastric pain #Possibly acute on chronic diarrhea? #Questionable colitis of cecum with possible ingestion of an unknown substance #Status postcholecystectomy with biliary stent and soup in the duodenum. #Thoracic aorta aneurysm with abdominal aortic dissection and abdominal aortic aneurysm stable #Atrial fibrillation #Chronically on Eliquis #Large Hiatal hernia #Chronic pain disorder, on Suboxone #DNR/DNI -Continue regular diet for now. ? Zofran for nausea. Add scopolamine patch. Continue the patch. ? C.Diff positive ? Discussed with Dr. Zeng regarding her aneurysm and dissection. She is to follow-up in clinic with him as an outpatient at discharge ? Continue to monitor hemoglobin. Patient is on Eliquis. Hemoglobin 10.4 today on admission. Check . Pt would like to opt not taking eliquis for few weeks. She understands risk of stroke due to her atrial fibrillation. Hb 9.1 today. FOBT positive. Pt may require procedure in future regarding her hernia. I had a long discussion with her regarding her hemoglobin being on lower side. She clearly stated that if she has a stroke, then so be it but she would like to stop blood thinner for time being. ? Continue Suboxone General surgery consulted. Patient going for EGD today. ? Request records from [facility]. Records are not here yet 09/19 -UA abnormal. Urine culture positive for gram-negative rods. Continue IV ceftriaxone. - Repeat KUB reviewed. - Plan for EGD in AM. Patient would like to go for procedure here to decide next management. After EGD and depending on results, pt may be dc home with antibiotics to f/u as outpatient with GI, PCP and Dr. Maravilla. She is agreeable to above plan. EGD today. NPO at midnight DVT prophylaxis: SCDS for now. Diet: GI soft diet/regular diet. Advance as tolerated GI prophylaxis: Protonix 40 daily DNR/DNI Awaiting records from other hospitals. Attestations Medical Necessity Statement*: Patient going for EGD today. Urine culture positive for gram-negative rods. Will await culture sensitivity. Coding Level of Care Code Acute Preschool Head Teacher for Chg Fwd Diagnoses Atrial fibrillation I48.91 Common bile duct (CBD) stricture K83.1 Status post laparoscopic cholecystectomy Z90.49 Hypokalemia E87.6 Opioid dependence F11.20 Chronic pain disorder G89.4 Dissection of aorta I71.00 HTN (hypertension), benign I10
--- NOTE | 2022-09-19 13:27 | PC.NURSE ---
1322 received patient from [facility] PIEDRA and Neil NGUYEN post EDG procedure. Pt responsive to verbal stimuli, oriented x3. denies pain. 1325 abd soft, nontender, bs active x4
[2022-09-19] MEDS: sodium chloride 0.9% 1,000 ML 30 ML IV (13:37)
--- NOTE | 2022-09-19 15:24 | ANE.PACU2 ---
Inpatient post-anesthesia follow up: Airway intact: Yes Vital signs: Temperature 97.0 F Pulse Rate 77 Respiratory Rate 18 Blood Pressure 156/97 Pulse Oximetry 92 Oxygen Delivery Me thod Room Air Oxygen Flow Rate 2 Fraction of Inspir ed Oxygen Hydration adequate: Yes Nausea and vomiting: No Pain level: 1 Mental status: Baseline
--- NOTE | 2022-09-19 17:02 | PC.NURSE ---
Per Dr. Martel discontinue Eliquis order.
[2022-09-19 17:07] LABS: Glucose Point of Care 107 mg/dL (70-110)
[2022-09-19 19:54] LABS: Glucose Point of Care 132 mg/dL (70-110)
[2022-09-19] MEDS: acetaminophen 325 mg Tablet 650 MG PO (21:49)
[2022-09-20] VITALS (8 sets, daily range): BP systolic 108–148; BP diastolic 68–97; PULSE 60–75; RESP 14–18; TEMP 36.6–36.9; O2SAT 91–93
[2022-09-20 06:01] LABS: Basophils # 0.1 10^3/uL (0.0-0.1); Basophils % 0.9 %; Eosinophils # 0.4 10^3/uL (0.0-0.8); Eosinophils % 5.6 %; Hematocrit 32.1 % (37.0-47.0); Hemoglobin 9.3 g/dL (11.5-15.3); Lymphocytes # 1.5 10^3/uL (0.8-4.8); Lymphocytes % 22.5 %; Mean Corpuscular Hemoglobin 24.6 pg (28.0-34.0); Mean Corpuscular Volume 84.9 fl (81-99); Mean Platelet Volume 9.8 fL (7.4-10.4); Monocytes # 0.6 10^3/uL (0.2-0.9); Monocytes % 9.5 %; Neutrophils # 4.12 10^3/uL (1.8-7.7); Neutrophils % 61.1 %; Nucleated Red Blood Cells % 0 %; Platelet Count 252 10^3/cmm (130-400); Red Blood Count 3.78 10^6/uL (4.1-5.3); White Blood Count 6.8 10^3/uL (4.0-10.0)
[2022-09-20 06:27] LABS: Anion Gap 10.7 (5-19); Blood Urea Nitrogen 6 mg/dL (8-23); Calcium 8.3 mg/dL (8.5-10.5); Carbon Dioxide 25 mmol/L (22-29); Chloride 110 mmol/L (98-107); Glucose 92 mg/dL (65-115); Osmolality Calculated 291 mOsm/kg (285-295); Potassium 3.7 mmol/L (3.5-5.1); Sodium 142 mmol/L (136-145)
[2022-09-20 06:32] LABS: Glucose Point of Care 97 mg/dL (70-110)
[2022-09-20] MEDS: budesonide 0.5 mg/2 mL Neb INHALATION (08:59)
[2022-09-20] MEDS: albuterol 2.5 mg/3 mL Neb INHALATION (08:59)
--- NOTE | 2022-09-20 10:14 | PM.PN ---
Subjective Subjective: The patient is doing better today. Abdominal pain continues to improve. She is ready to go home otherwise. Vitals/I&O/Wt Last Vital Signs Temp 97.8 F 09/20/22 07:52 Pulse 74 09/20/22 09:00 Resp 18 09/20/22 09:00 BP 148/97 09/20/22 07:52 Pulse Ox 92 09/20/22 09:00 O2 Del Method 09/20/22 09:00 O2 Flow Rate 2 09/19/22 20:31 09/19/22 09/20/22 09/20/22 22:59 06:59 14:59 Intake Total 340 / 490 360 / 360 Balance 340 / 490 360 / 360 Weight last 48 hrs Weight 141 lb 11.2 oz Physical Exam Narrative: General: No acute distress Psych: AAOx3 Eyes: Sclerae are white Head/ENT: Normocephalic, symmetric CV: Regular pulse,, no JVD Lungs: Symmetrical chest rise Abdomen: Soft, ND, nontender Ext: No obvious traumatic deformities Skin: warm Data : 09/20/22 05:25 09/20/22 05:25 Micro: Microbiology 09/17/22 20:29 Urine Culture - Preliminary Urine,Voided Gram Negative Rods A&P Assessment and plan (1) Abdominal pain: (2) Dissection of aorta: (3) HTN (hypertension), benign: (4) Atrial fibrillation: (5) Common bile duct (CBD) stricture: (6) Status post laparoscopic cholecystectomy: Plan Follow-up with general surgeon to discuss hiatal hernia repair; Follow-up on stomach biopsy results Follow-up with senior sas developer to follow-up on the biliary stent, common bile duct stenosis Follow-up with a vascular/cardiothoracic surgeon to rule out ischemic origin of her pain. Her CT scan showed normal SMA and celiac axis, however, duodenal and stomach mucosa very pale. It may be because of her anemia, however, I think she needs to see a vascular surgeon to rule out other problems before embarking on repair of hiatal hernia Okay to restart anticoagulation from surgery standpoint At this time general surgery will sign off. Please, call with questions/concerns. Attestations Medical Necessity Statement*: Okay to discharge home from surgery standpoint Coding Level of Care Code Acute Carton Counter Feeder for g Fwd Diagnoses Abdominal pain R10.9 Dissection of aorta I71.00 HTN (hypertension), benign I10 Atrial fibrillation I48.91 Common bile duct (CBD) stricture K83.1 Status post laparoscopic cholecystectomy Z90.49
[2022-09-20] MEDS: pantoprazole DR 40 mg Tablet PO ×2 (10:21→17:17)
[2022-09-20] MEDS: amiodarone 200 mg Tablet PO (10:21)
[2022-09-20] MEDS: sertraline 50 mg Tablet 25 MG PO (10:21)
[2022-09-20] MEDS: acetaminophen 325 mg Tablet 650 MG PO ×2 (10:21→18:17)
[2022-09-20] MEDS: aspirin 81 mg EC Tablet PO (10:21)
[2022-09-20] MEDS: atorvastatin 40 mg Tablet PO (10:22)
[2022-09-20] MEDS: lisinopril 20 mg Tablet PO (10:22)
[2022-09-20] MEDS: buprenorphine-naloxone 4-1 mg Film 0.5 EACH SUBLINGUAL ×2 (10:22→17:17)
[2022-09-20] MEDS: mirtazapine 15 mg Tablet PO (10:22)
[2022-09-20] MEDS: metoprolol succinate ER (24 HR) 50 mg Tablet PO (10:22)
[2022-09-20] MEDS: sertraline 50 mg Tablet PO (10:22)
[2022-09-20] MEDS: cefTRIAXone 1,000 MG in sodium chloride 0.9% (plus) 50 ML 100 MG IV (10:32)
--- NOTE | 2022-09-20 10:56 | P.DS_ITS ---
Discharge Providers Date of Admission: 09/16/22 16:36 Date of Discharge: September 19, 2022 Attending Provider at Admission: Sury Martel MD Attending Provider at Discharge: Sury Martel MD Primary Care Provider: Joy Nieto-Zina Diagnoses at Discharge Discharge Diagnosis (1) Atrial fibrillation: Status: Acute (2) Common bile duct (CBD) stricture: Status: Acute (3) Status post laparoscopic cholecystectomy: Status: Acute (4) Hypokalemia: Status: Acute (5) Opioid dependence: Status: Acute (6) Chronic pain disorder: Status: Acute (7) Dissection of aorta: Status: Acute (8) HTN (hypertension), benign: Status: Acute Reason for Visit Reason for Visit: Abd pain Brief History: Rylee Martinez is a 77 year old female with history of atrial fibrillation, CHF, chronic pain disorder, COPD, abdominal aortic aneurysm with a stable dissection extending into iliacs, hypertension, opioid dependence presented to the hospital with complaint of epigastric left upper quadrant pain that she told the ER doctor about.? She also had some associated nausea and vomiting.? She says she had a cholecystectomy done recently and apparently had some sort of a stent placed.? As per ER notes it seems it was placed in the pancreatic duct however patient is unable to tell me many details about it.? Denies any vomiting at this time.? But does report a little bit of diarrhea.? She says the diarrhea is very nonspecific and has been going on for the last 2 months.? When seen in the ER she says that she has been referred to tertiary care centers in the past for her multiple medical issues.? She says that she had a lot of issues with atrial fibrillation recently but was finally optimized on medications.? She spent quite a bit of time at [facility] and [facility].? She says she had some procedures done as well.? She is unable to give me more details than this.? Patient is a very very poor historian.? Her history is very vague.? She does state however that she wants to be DNR/DNI and is very firm on that decision.? She also says that in case of emergency we may contact her son if needed.? Patient is on Suboxone chronically.? She is also on Eliquis.? She states she was placed on that recently.? Denies any blood in stool, blood in urine.? Unable to tell me why she is on nitrofurantoin. In the ED patient was noted to have a potassium of 2.3 on admission.? She was given 80 oral potassium but it remained low and therefore IV was ordered.? Patient was recommended admission for electrolyte correction and IV fluids.? I did review her CT abdomen which shows improving lung bases, new biliary air with a biliary stent.? Patient however unable to tell me much about this.? There is also stable abdominal aortic aneurysm with aortic dissection extending into left side/iliac system.? Questionable colitis of the cecum with 2 metal densities possibly ingested with inferior aspect of the cecum itself.? CT scan reviewed from January 2022 as well which showed similar stable aortic dissection with aneurysm.? Also discussed case with Dr. Zeng over the phone who reviewed her imaging.? There is no acute intervention to be done at this time.? Aneurysm seems to be stable.? Patient will need referral to tertiary care center for further follow-up regarding this. Patient says she is able to get around on her own however does feel generally weak.? Her oral intake has been okay and she her vomiting and nausea are not related to her eating or not eating.? She says the nausea is very random. Hospital Course Hospital Course Patient admitted for severe hypokalemia. During hospital stay electrolytes were corrected and she was diagnosed with C. difficile diarrhea. Placed on oral vancomycin. Urine culture also positive for gram-negative rods. She was on IV ceftriaxone during hospital stay. It was transition to oral medication at discharge. Patient reportedly feels better. She does have a large hiatal hernia and has been complaining of epigastric pain. Patient went for EGD. EGD showed mucosa of duodenum and stomach pale. pt may be dc home with antibiotics to f/u as outpatient with GI, PCP and Dr. Maravilla. She is agreeable to above plan. Patient's FOBT is positive. She was on Eliquis for atrial fibrillation. Patient stated that she does not want to take blood thinner anymore knowing the risk of bleed and having FOBT positive. She does understand that there is a risk of stroke with her stopping Eliquis and she is okay with it at this time. Patient does have a stable abdominal aortic aneurysm with stable dissection. Discussed with Dr. Zeng during hospital stay and reviewed images with him. Patient to follow-up with him as an outpatient for further management and tertiary care referral if needed. Patient to follow-up with GI as an outpatient after discharge. She is to complete 10 days of oral vancomycin and antibiotics for her UTI. Urine grew Klebsiella sensitive to ceftriaxone. Resistant to nitrofurantoin. Physical Exam Narrative: General: Alert oriented x3, patient seen laying in bed HEENT: Normocephalic, atraumatic, EOMI, breathing normally Cardio: Regular rate rhythm, normal S1-S2, Respiratory: Good bilateral air entry, no wheezes no rhonchi appreciated GI: Abdomen soft, nontender, nondistended, bowel sounds positive. Behavior: Appropriate and cooperative Extremities: no edema, no cyanosis Discharge Data Studies Completed and Pending Completed Studies During Hospitalization Category Date Time Status CT abdomen pelvis w con* [id number] Stat Cat Scan 09/16/22 12:[address] abdomen pelvis wo con [id number] Stat Cat Scan 09/17/22 12:42 Completed XR KUB portable [id number] Stat Exams 09/17/22 12:38 Completed XR KUB portable [id number] Urgent Exams 09/18/22 08:38 Completed Pending at discharge Category Date Time Status Helicobacter Pylori AG Stool Stat Lab 09/16/22 10:10 Received Urine Culture Stat Lab 09/17/22 20:29 Received Radiology Impressions Abdomen/Pelvis CT 09/17/22 12:42 IMPRESSION: No bowel obstruction or diverticulitis. KUB X-Ray 09/18/22 08:38 Impression: 1. No change from previous KUB. 2. Negative for acute intra-abdominal abdominal or pelvic abnormalities. Laboratory Results WBC 7.2 10^3/uL (4.0-10.0) 09/19/22 04:30 RBC 3.62 10^6/uL (4.1-5.3) L 09/19/22 04:30 Hgb 9.1 g/dL (11.5-15.3) L 09/19/22 04:30 Hct 33.2 % (37.0-47.0) L 09/19/22 04:30 MCV 91.7 fl (81-99) D 09/19/22 04:30 MCH 25.1 pg (28.0-34.0) L 09/19/22 04:30 MCHC 27.4 g/dL (30.0-36.0) L 09/19/22 04:30 RDW 18.4 % (12.1-15.1) H 09/19/22 04:30 Plt Count 241 10^3/cmm (130-400) 09/19/22 04:30 MPV 9.8 fL (7.4-10.4) 09/19/22 04:30 Neut % (Auto) 63.3 % 09/19/22 04:30 Lymph % (Auto) 21.7 % 09/19/22 04:30 [place] % (Auto) 10.0 % 09/19/22 04:30 Eos % (Auto) 3.6 % 09/19/22 04:30 Baso % (Auto) 0.8 % 09/19/22 04:30 Neut # (Auto) 4.57 10^3/uL (1.8-7.7) 09/19/22 04:30 Lymph # (Auto) 1.6 10^3/uL (0.8-4.8) 09/19/22 04:30 [place] # (Auto) 0.7 10^3/uL (0.2-0.9) 09/19/22 04:30 Eos # (Auto) 0.3 10^3/uL (0.0-0.8) 09/19/22 04:30 Baso # (Auto) 0.1 10^3/uL (0.0-0.1) 09/19/22 04:30 Nucleated RBC % (auto) 0 % 09/19/22 04:30 Nucleated RBCs # 0.0 /100WBC 09/19/22 04:30 Sodium 143 mmol/L (136-145) 09/19/22 04:30 Potassium 3.4 mmol/L (3.5-5.1) L 09/19/22 04:30 Chloride 113 mmol/L (98-107) H 09/19/22 04:30 Carbon Dioxide 23 mmol/L (22-29) 09/19/22 04:30 Anion Gap 10.4 (5-19) 09/19/22 04:30 BUN 9 mg/dL (8-23) 09/19/22 04:30 Creatinine 0.6 mg/dL (0.5-0.9) 09/19/22 04:30 GFR Calculation Not Reportable 09/19/22 04:30 Glucose 95 mg/dL (65-115) 09/19/22 04:30 POC Glucose 97 mg/dL (70-110) 09/19/22 06:21 Calculated Osmolality 294 mOsm/kg (285-295) 09/19/22 04:30 Lactic Acid 1.5 mmol/L (0.5-2.2) 09/16/22 17:51 Calcium 8.0 mg/dL (8.5-10.5) L 09/19/22 04:30 Phosphorus 1.9 mg/dL (2.5-4.5) L 09/17/22 04:45 Magnesium 1.9 mg/dL (1.7-2.3) 09/18/22 05:09 Total Bilirubin 0.2 mg/dL (0.15-1.2) 09/17/22 04:45 AST 13 U/L (0-32) 09/17/22 04:45 ALT < 5 U/L (0-33) 09/17/22 04:45 Alkaline Phosphatase 98 U/L (35-105) 09/17/22 04:45 Total Protein 4.8 g/dL (6.6-8.7) L 09/17/22 04:45 Albumin 2.5 g/dL (3.5-5.2) L 09/17/22 04:45 Globulin 2.3 g/dL (1.3-4.6) 09/17/22 04:45 Lipase 29 U/L (13-60) 09/16/22 11:54 Procalcitonin 0.81 ng/mL (0-0.5) H 09/16/22 17:51 Urine Color Yellow (Yellow) 09/17/22 20:29 Urine Appearance Sl hazy (CLEAR) A 09/17/22 20:29 Urine pH 6 (5-7) 09/17/22 20:29 Ur Specific [place] 1.015 (1.005-1.030) 09/17/22 20:29 Urine Protein Trace (Negative) 09/17/22 20:29 Urine Glucose (UA) Norm (Normal) 09/17/22 20:29 Urine Ketones Negative (Negative) 09/17/22 20:29 Urine Blood Neg (Negative) 09/17/22 20:29 Urine Nitrate Positive (Negative) H 09/17/22 20:29 Urine Bilirubin Neg (Negative) 09/17/22 20:29 Urine Urobilinogen Norm mg/dL (Negative) 09/17/22 20:29 Ur Leukocyte Esterase 1+ (Negative) H 09/17/22 20:29 Urine RBC 0-4 /hpf (0-2) H 09/17/22 20:29 Urine WBC 10-15 /hpf (0-5) H 09/17/22 20:29 Ur Squamous Epith Cells 0-4 /hpf (0-5) H 09/17/22 20:29 Amorphous Sediment Not Reportable 09/17/22 20:29 Urine Bacteria 2+ /hpf (NONE) H 09/17/22 20:29 Vitals Last Vital Signs Temp 98.2 F 09/19/22 08:00 Pulse 80 09/19/22 08:25 Resp 16 09/19/22 08:00 BP 153/96 09/19/22 08:00 Pulse Ox 96 09/19/22 08:00 O2 Del Method 09/19/22 08:00 O2 Flow Rate 2 09/19/22 08:00 Discharge Plan Discharge Patient Disposition: Home Condition: Stable Prescriptions: New vancomycin 1,000 mg Recon Soln 125 mg PO QID 8 Days Qty: 32 0RF cefpodoxime 200 mg tablet 200 mg PO BID 4 Days Qty: 8 0RF Rx Instructions: must administer with a meal/food Continued CalMag Thins 200 mg calcium- 50 mg tablet 1 tab PO DAILY Flovent HFA 110 mcg/actuation HFA aerosol inhaler 1 puff INHALATION Q12H sertraline 50 mg tablet 50 mg PO DAILY Rx Instructions: TAKE WITH 25MG TAB TO EQUAL 75MG DAILY furosemide 20 mg tablet 20 mg PO DAILY Hold Instructions: Home Medication placed on hold at Doctor's office potassium chloride 10 mEq capsule, extended release 10 meq PO DAILY Hold Instructions: Home Medication placed on hold at Doctor's office Farxiga 10 mg tablet 10 mg PO DAILY buprenorphine-naloxone [Suboxone] 2-0.5 mg film 1 film buccal BID Rx Instructions: place 1 strip/tab under (each) side of tongue amiodarone 200 mg tablet 200 mg PO DAILY metoprolol succinate 50 mg tablet extended release 24 hr 50 mg PO DAILY mirtazapine 7.5 mg tablet 15 mg PO DAILY Vitamin B-12 50 mcg Lozenge 50 mcg PO DAILY sertraline 25 mg tablet 25 mg PO DAILY Rx Instructions: take with 50 mg daily to equal 75 mg daily atorvastatin 40 mg tablet 40 mg PO DAILY lisinopril-hydrochlorothiazide 20-12.5 mg tablet 1 tab PO DAILY omeprazole 40 mg capsule,delayed release(DR/EC) 40 mg PO DAILY albuterol sulfate 90 mcg/actuation Hfa Aerosol Inhaler 2 puff INHALATION QID PRN (Reason: Shortness Of Breath) aspirin 81 mg Tablet,Delayed Release (Dr/Ec) 81 mg PO DAILY Discontinued Eliquis 5 mg tablet 5 mg PO BID nitrofurantoin monohyd/m-cryst 100 mg capsule 100 mg PO BID Discharge Orders: Discharge Order (Routine); Ordered 09/20/22 Ordered By: Sury Martel Other Ambulatory Orders: Complete Blood Count w/Auto (Routine) Timeframe: 1 Week Location: Determined by Patient Ordered By: Sury Martel Referrals: Omer Zeng MD [Physician] - 2 weeks ([facility] Joy Nieto FNP-C [Primary Care Provider] - 09/26/22 9:15 am Festus Martinez DO [Physician] - 2 weeks Discharge Diet: GI Soft Discharge Activity: Resume usual activity Patient Instructions: Cefpodoxime Proxetil (By mouth) (Vantin), Vancomycin (By mouth), GI Discharge Instructions, Opioid Safety Activity Restrictions/Additional Instructions: Please follow up with GI as previously scheduled. Ensure completion of your antibiotics. Please follow up with your PCP who will setup your referral to GI. Please follow up with Dr. Zeng within 2 weeks to follow up for your abdominal aortic aneurysm. Recheck labs within a week. Discharge Attestations Time Spent in Discharge Care*: greater than 30 min Quality Metrics Clinical Quality Measures [ No reported AMI, CVA or VTE this stay] Coding Level of Care Code Acute Chg FW DC note Diagnoses Atrial fibrillation I48.91 Common bile duct (CBD) stricture K83.1 Status post laparoscopic cholecystectomy Z90.49 Hypokalemia E87.6 Opioid dependence F11.20 Chronic pain disorder G89.4 Dissection of aorta I71.00 HTN (hypertension), benign I10
[2022-09-20 11:10] LABS: Glucose Point of Care 129 mg/dL (70-110)
[2022-09-20 17:23] LABS: Glucose Point of Care 97 mg/dL (70-110)
--- NOTE | 2022-09-20 18:23 | PC.NURSE ---
patient verbalized understanding of discharge instructions, home medications, and follow up appointments. Patient was delivered new prescriptions, and recieved her home medications out of the pyxis. home suboxone was counted in front of patient.
== END 2022-09-20 19:30 | disposition home or self-care (01) ==
LOC: ER 17:41 → MEDSURG 18:32
PROVIDERS: Emergency Medicine; Surgery; Admitting Provider Internal Medicine; Emergency Provider Family Medicine; PCP Nurse Practitioner Family; Visit Provider Internal Medicine
PROC: 0DJ08ZZ Inspection of Upper Intestinal Tract, Via Natural or Artificial Opening Endoscopic (ICD-10-PCS; CPT 43235; principal; 2022-09-19 12:30)
DX: K83.1 Obstruction of bile duct (principal); I48.91 Unspecified atrial fibrillation; Z90.49 Acquired absence of other specified parts of digestive tract; R19.7 Diarrhea, unspecified; E87.6 Hypokalemia; F11.20 Opioid dependence, uncomplicated; G89.4 Chronic pain syndrome; I71.00 Dissection of unspecified site of aorta; I11.0 Hypertensive heart disease with heart failure; I50.9 Heart failure, unspecified; Z79.899 Other long term (current) drug therapy; A04.72 Enterocolitis due to Clostridium difficile, not specified as recurrent; Z79.01 Long term (current) use of anticoagulants; Z66 Do not resuscitate; Z87.891 Personal history of nicotine dependence; D64.9 Anemia, unspecified
CPT/HCPCS: 12345; 36415; 36416; 43239; 74018; 74176; 74177; 80048; 80053; 81001; 81003; 82274; 82962; 83605; 83690; 83735; 84100; 84132; 84145; 85025; 87077; 87086; 87186; 87338; 87493; 87506; 88305; 94640; 94664; 96361; 96365; 96366; 96367; 96372; 96375; 97116; 97161; 97165; 97530; 99285; C9113; G0378; J0573; J0696; J2550; J2704; J3370; J3475; J3480; J7030; J7070; J7613; J7626; Q9967

== ENCOUNTER 2022-10-09 18:12 | Emergency (ER) | payer MEDICARE, MEDICAID, SELFPAY ==
--- NOTE | 2022-10-09 18:17 | ECG_ITS ---
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 Measurements Intervals [place] Rate: 63 P: 45 NM: 191 QRS: 0 QRSD: 91 T: 1 QT: 404 QTc: 414 Interpretive Statements SINUS RHYTHM SEPTAL MYOCARDIAL INFARCTION , PROBABLY OLD [40+ ms Q WAVE IN V1/V2] Compared to ECG 06/07/2022 16:31:53 Myocardial infarct finding now present Atrial fibrillation no longer present T-wave abnormality no longer present Electronically Signed On 10-10-2022 19:04:35 [employer] IN[employer] by Marian Lemus M.D. [id number]
--- NOTE | 2022-10-09 18:17 | XRR_ITS ---
PROCEDURE INFORMATION: Exam: XR Chest Exam date and time: 10/09/2022 6:33 PM Age: 77 years old Clinical indication: Shortness of breath; Prior surgery; Surgery date: 6+ months; Surgery type: Aortic stint; Patient HX: Abd. Pain; Additional info: SOB TECHNIQUE: Imaging protocol: Radiologic exam of the chest. Views: 1 view. COMPARISON: CR XR chest 1V portable [id number] 06/07/2022 10:49 AM FINDINGS: Tubes, catheters and devices: Thoracic aortic endograft. Lungs: Emphysema. Chronic interstitial changes in both lungs. Consolidation in the left lung base is mildly increased. The right lung is otherwise clear. Pleural spaces: Increased left pleural effusion. No pneumothorax. Heart/Mediastinum: Large hiatal hernia. Bones/joints: Unremarkable. Intraperitoneal space: Multiple clips in the upper abdomen. XR/XR chest 1V portable [id number] IMPRESSION: 1. Increased consolidation in the left lung base. This could represent atelectasis, fibrosis, or pneumonia. 2. New left pleural effusion.
--- NOTE | 2022-10-09 18:19 | W.ED.GENADLT ---
HPI - General Adult General: Chief complaint: Abdominal Pain Stated complaint: abdominal pain Time Seen by Provider: 10/09/22 18:14 Source: patient and EMS Mode of arrival: EMS Limitations: no limitations History of Present Illness: 77-year-old female states that she has been having nausea abdominal pain and fatigue for the last 3 to 4 weeks she was admitted here 3 weeks ago for the same she states that ever since she is discharged she is to continue to have epigastric abdominal pain she denies any fevers had a mild cough denies any worsening proving factors she is well-appearing here with normal vital signs. Associated symptoms: Reports malaise, nausea and vomiting; Deny chest pain, dyspnea, headache(s) or rash Review of Systems Const: Reports: fatigue and malaise Eyes: Denies: blurry vision or eye discomfort ENMT: Denies: throat pain or dental pain Card: Denies: chest pain Resp: Denies: dyspnea GI: Reports: abdominal pain, nausea and vomiting : Denies: dysuria Musc: Denies: neck pain or back pain Skin/Breast: Denies: rash Neuro: Denies: headache(s) Psych: Denies: depression Chris/Lymph: Denies: easy bruising All/Imm: Denies: urticaria PFSH ED PFSH: Medical History Acute exacerbation of chronic obstructive airways disease Acute respiratory failure with hypoxia Acute UTI Adjustment disorder with depressed mood Atrial fibrillation CHF (congestive heart failure) Chronic pain disorder COPD (chronic obstructive pulmonary disease) Dissection of aorta HTN (hypertension), benign Idiopathic osteoarthritis Idiopathic scoliosis Opioid dependence Surgical History H/O esophagogastroduodenoscopy History of aortic aneurysm repair History of back surgery History of eye surgery History of hysterectomy Status post colonoscopy Status post laparoscopic cholecystectomy (04/05/20) Family History Mother Hypertension Denies family history of Anesthesia complication Bleeding disorder Social History Smoking and tobacco status: former smoker Second hand smoke exposure: No Alcohol intake: never Adopted: No Caregiver/support person: Yes Lives independently: Yes Household members: none Housing: House Sexually active: No Current gender identity: Female Physical Exam Const: COMMON NORMALS: no acute distress, patient oriented x3 and healthy appearing HENMT: COMMON NORMALS: normocephalic and atraumatic HEAD & SCALP: normocephalic and atraumatic Eye: COMMON NORMALS: Equal, round and reactive pupils present and EOMs intact bilaterally PUPIL: Yes Equal, round and reactive pupils present Neck/C-Spine: COMMON NORMALS: full ROM and supple Chest: COMMONS NORMALS: normal inspection of the chest and normal palpation of entire chest wall Resp: COMMON NORMALS: normal respiratory effort, No retractions, No use of accessory muscles and clear to auscultation bilaterally AUSCULTATION: clear to auscultation bilaterally Cardio: COMMON NORMALS: regular rate, regular rhythm and No murmurs present (Cardio) RATE: regular rate RHYTHM: regular rhythm GI: COMMON NORMALS: Normal to inspection, nondistended, normoactive bowel sounds present, Soft to palpation, non-tender and no masses PALPATION: Yes Soft to palpation Extremity: COMMON NORMALS: normal to inspection and full ROM Neuro: COMMON NORMALS: patient oriented x3, moves all extremities and no focal motor deficits Psych: COMMON NORMALS: mental status grossly normal, Normal thought process present and cooperative THOUGHT PROCESS: Normal thought process present Skin: COMMON NORMALS: no rashes or lesions noted and no wounds GENERAL SKIN EXAM: no rashes or lesions noted Course Vital Signs: Vital signs: Vital Signs Temperature 97.9 F 10/09/22 18:21 Pulse Rate 84 10/09/22 21:26 Respiratory Rate 16 10/09/22 21:26 Blood Pressure 127/85 10/09/22 21:26 Pulse Oximetry 92 10/09/22 21:26 Oxygen Delivery Me thod 10/09/22 18:21 Oxygen Flow Rate 4 10/09/22 18:21 MDM - General Adult Medical Decision Making 77-year-old female who states she has been having general illness over the last 3 weeks states she been having abdominal pain with nausea along with some shortness of breath patient is on 4 L at baseline her pulse ox here is 94% on her 4 L she was admitted here 3 weeks ago for similar symptoms with anemia and hypokalemia she states she discontinued just feel weak she denies any worsening proving factors denies any fevers. Lab Data 10/09/22 17:10 10/09/22 17:10 Radiology Impressions Chest X-Ray 10/09/22 18:17 IMPRESSION: 1. Increased consolidation in the left lung base. This could represent atelectasis, fibrosis, or pneumonia. 2. New left pleural effusion. Laboratory Results WBC 8.1 10^3/uL (4.0-10.0) 10/09/22 17:10 RBC 4.63 10^6/uL (4.1-5.3) 10/09/22 17:10 Hgb 11.0 g/dL (11.5-15.3) L 10/09/22 17:10 Hct 38.3 % (37.0-47.0) 10/09/22 17:10 MCV 82.7 fl (81-99) 10/09/22 17:10 MCH 23.8 pg (28.0-34.0) L 10/09/22 17:10 MCHC 28.7 g/dL (30.0-36.0) L 10/09/22 17:10 RDW 16.7 % (12.1-15.1) H 10/09/22 17:10 Plt Count 323 10^3/cmm (130-400) 10/09/22 17:10 MPV 10.0 fL (7.4-10.4) 10/09/22 17:10 Neut % (Auto) 72.5 % 10/09/22 17:10 Lymph % (Auto) 16.9 % 10/09/22 17:10 [place] % (Auto) 7.8 % 10/09/22 17:10 Eos % (Auto) 1.6 % 10/09/22 17:10 Baso % (Auto) 0.7 % 10/09/22 17:10 Neut # (Auto) 5.87 10^3/uL (1.8-7.7) 10/09/22 17:10 Lymph # (Auto) 1.4 10^3/uL (0.8-4.8) 10/09/22 17:10 [place] # (Auto) 0.6 10^3/uL (0.2-0.9) 10/09/22 17:10 Eos # (Auto) 0.1 10^3/uL (0.0-0.8) 10/09/22 17:10 Baso # (Auto) 0.1 10^3/uL (0.0-0.1) 10/09/22 17:10 Nucleated RBC % (auto) 0 % 10/09/22 17:10 Nucleated RBCs # 0.0 /100WBC 10/09/22 17:10 Sodium 141 mmol/L (136-145) 10/09/22 17:10 Potassium 3.7 mmol/L (3.5-5.1) 10/09/22 17:10 Chloride 104 mmol/L (98-107) 10/09/22 17:10 Carbon Dioxide 24 mmol/L (22-29) 10/09/22 17:10 Anion Gap 16.7 (5-19) 10/09/22 17:10 BUN 5 mg/dL (8-23) L 10/09/22 17:10 Creatinine 0.5 mg/dL (0.5-0.9) 10/09/22 17:10 GFR Calculation Not Reportable 10/09/22 17:10 Glucose 104 mg/dL (65-115) 10/09/22 17:10 Calculated Osmolality 290 mOsm/kg (285-295) 10/09/22 17:10 Calcium 9.0 mg/dL (8.5-10.5) 10/09/22 17:10 Total Bilirubin 0.4 mg/dL (0.15-1.2) 10/09/22 17:10 AST 12 U/L (0-32) 10/09/22 17:10 ALT < 5 U/L (0-33) 10/09/22 17:10 Alkaline Phosphatase 124 U/L (35-105) H 10/09/22 17:10 Troponin T Baseline 12 ng/L (0-10) H 10/09/22 17:10 Total Protein 6.6 g/dL (6.6-8.7) 10/09/22 17:10 Albumin 3.6 g/dL (3.5-5.2) 10/09/22 17:10 Globulin 3.0 g/dL (1.3-4.6) 10/09/22 17:10 Lipase 24 U/L (13-60) 10/09/22 17:10 Urine Color Yellow (Yellow) 10/09/22 18:38 Urine Appearance Hazy (CLEAR) A 10/09/22 18:38 Urine pH 7 (5-7) 10/09/22 18:38 Ur Specific [place] 1.015 (1.005-1.030) 10/09/22 18:38 Urine Protein Neg (Negative) 10/09/22 18:38 Urine Glucose (UA) Norm (Normal) 10/09/22 18:38 Urine Ketones 1+ (Negative) H 10/09/22 18:38 Urine Blood Neg (Negative) 10/09/22 18:38 Urine Nitrate Negative (Negative) 10/09/22 18:38 Urine Bilirubin Neg (Negative) 10/09/22 18:38 Urine Urobilinogen Neg mg/dL (Negative) 10/09/22 18:38 Ur Leukocyte Esterase Negative (Negative) 10/09/22 18:38 Urine RBC 10-15 /hpf (0-2) H 10/09/22 18:38 Urine WBC None /hpf (0-5) 10/09/22 18:38 Ur Squamous Epith Cells 0-4 /hpf (0-5) H 10/09/22 18:38 Amorphous Sediment Not Reportable 10/09/22 18:38 Urine Bacteria Trace /hpf (NONE) 10/09/22 18:38 Influenza Type A Ag negative (Negative) 10/09/22 18:38 Influenza Type B Ag negative (Negative) 10/09/22 18:38 EKG Data EKG 1: I personally reviewed and interpreted this EKG as follows: EKG interpretation date: 10/09/22 EKG interpretation time: 18:55 Interpretation: nsr hr [address] or t wave abnormalities qrs 91 qtc 411 Computer generated interpretation: Chest X-Ray 10/09/22 18:17 IMPRESSION: 1. Increased consolidation in the left lung base. This could represent atelectasis, fibrosis, or pneumonia. 2. New left pleural effusion. Discharge Plan Discharge Patient Disposition: Home Clinical Impression: Abdominal pain Condition: Stable Prescriptions: New ondansetron 4 mg tablet,disintegrating 4 mg PO Q6H PRN (Reason: nausea and vomiting) Qty: 14 0RF No Action CalMag Thins 200 mg calcium- 50 mg tablet 1 tab PO DAILY Flovent HFA 110 mcg/actuation HFA aerosol inhaler 1 puff INHALATION Q12H sertraline 50 mg tablet 50 mg PO DAILY Rx Instructions: TAKE WITH 25MG TAB TO EQUAL 75MG DAILY furosemide 20 mg tablet 20 mg PO DAILY Hold Instructions: Home Medication placed on hold at Doctor's office potassium chloride 10 mEq capsule, extended release 10 meq PO DAILY Hold Instructions: Home Medication placed on hold at Doctor's office Farxiga 10 mg tablet 10 mg PO DAILY buprenorphine-naloxone [Suboxone] 2-0.5 mg film 1 film buccal BID Rx Instructions: place 1 strip/tab under (each) side of tongue amiodarone 200 mg tablet 200 mg PO DAILY metoprolol succinate 50 mg tablet extended release 24 hr 50 mg PO DAILY mirtazapine 7.5 mg tablet 15 mg PO DAILY Vitamin B-12 50 mcg Lozenge 50 mcg PO DAILY sertraline 25 mg tablet 25 mg PO DAILY Rx Instructions: take with 50 mg daily to equal 75 mg daily atorvastatin 40 mg tablet 40 mg PO DAILY lisinopril-hydrochlorothiazide 20-12.5 mg tablet 1 tab PO DAILY omeprazole 40 mg capsule,delayed release(DR/EC) 40 mg PO DAILY albuterol sulfate 90 mcg/actuation Hfa Aerosol Inhaler 2 puff INHALATION QID PRN (Reason: Shortness Of Breath) aspirin 81 mg Tablet,Delayed Release (Dr/Ec) 81 mg PO DAILY Discharge Orders: Discharge ED (Routine); Ordered 10/09/22 Ordered By: Lizzie Giang Referrals: Joy Nieto [facility] [Primary Care Provider] - 1-3 days Discharge Diet: Advance as tolerated Discharge Activity: Resume usual activity Coding Level of Care Code ED Mobile Manager for Lara Fwd Exam Comprehensive
[2022-10-09 18:21] VITALS: BP 155/90; PULSE 66; RESP 20; TEMP 36.6; O2SAT 92; BMI 19.8
[2022-10-09 18:25] VITALS: BP 155/90; O2SAT 94
[2022-10-09 18:34] LABS: Basophils # 0.1 10^3/uL (0.0-0.1); Basophils % 0.7 %; Eosinophils # 0.1 10^3/uL (0.0-0.8); Eosinophils % 1.6 %; Hematocrit 38.3 % (37.0-47.0); Lymphocytes # 1.4 10^3/uL (0.8-4.8); Lymphocytes % 16.9 %; Mean Corpuscular HGB Conc 28.7 g/dL (30.0-36.0); Mean Corpuscular Hemoglobin 23.8 pg (28.0-34.0); Mean Corpuscular Volume 82.7 fl (81-99); Monocytes # 0.6 10^3/uL (0.2-0.9); Monocytes % 7.8 %; Neutrophils # 5.87 10^3/uL (1.8-7.7); Neutrophils % 72.5 %; Nucleated Red Blood Cells % 0 %; Platelet Count 323 10^3/cmm (130-400); Red Blood Count 4.63 10^6/uL (4.1-5.3); Red Cell Distribution Width 16.7 % (12.1-15.1); White Blood Count 8.1 10^3/uL (4.0-10.0)
[2022-10-09 18:46] LABS: Bilirubin Urine Neg (Negative); Blood Urine Neg (Negative); Glucose Urine UA Norm (Normal); Ketones Urine 1+ (Negative); Leukocyte Esterase Urine Negative (Negative); Nitrate Urine Negative (Negative); Protein Urine Neg (Negative); Specific Gravity, Urine 1.015 (1.005-1.030); Urine Appearance Hazy (CLEAR); Urine Color Yellow (Yellow); Urobilinogen Urine Neg (Negative); pH Urine 7 (5-7)
[2022-10-09 18:49] LABS: Add Urine Microscopic? YES
[2022-10-09] MEDS: sodium chloride 0.9% 1,000 ML 999 ML IV (18:49)
[2022-10-09 18:52] LABS: Add Urine Culture? No; Bacteria Urine TRACE /hpf; Squamous Epithelial Cell Urine 0-4 /hpf (0-5)
[2022-10-09 18:56] LABS: Troponin(5th) Baseline 12 ng/L (0-10)
[2022-10-09 18:58] LABS: Alanine Aminotransferase < 5 U/L (0-33); Albumin Level 3.6 g/dL (3.5-5.2); Alkaline Phosphatase 124 U/L (35-105); Anion Gap 16.7 (5-19); Aspartate Amino Transferase 12 U/L (0-32); Blood Urea Nitrogen 5 mg/dL (8-23); Carbon Dioxide 24 mmol/L (22-29); Chloride 104 mmol/L (98-107); Creatinine Clr Calc Pharmacy 57.5544; Glucose 104 mg/dL (65-115); Lipase 24 U/L (13-60); Osmolality Calculated 290 mOsm/kg (285-295); Potassium 3.7 mmol/L (3.5-5.1); Sodium 141 mmol/L (136-145); Total Bilirubin 0.4 mg/dL (0.15-1.2); Total Protein 6.6 g/dL (6.6-8.7)
[2022-10-09 19:04] LABS: Influenza A by IFA negative (Negative); Influenza B by IFA negative (Negative)
--- NOTE | 2022-10-09 19:40 | PC.NURSE ---
Contacted pt halima Glover, will arrive in 1-hour.
[2022-10-09 21:26] VITALS: BP 127/85; PULSE 84; RESP 16; O2SAT 92
== END 2022-10-09 21:15 | disposition home or self-care (01) ==
PROVIDERS: Emergency Provider Emergency Medicine; PCP Nurse Practitioner Family
DX: R10.13 Epigastric pain (principal); Z79.82 Long term (current) use of aspirin; J44.9 Chronic obstructive pulmonary disease, unspecified; I11.0 Hypertensive heart disease with heart failure; I50.9 Heart failure, unspecified; Z87.891 Personal history of nicotine dependence
CPT/HCPCS: 71045; 80053; 81001; 83690; 84484; 85025; 87804; 93005; 96360; 99285; J7030

== ENCOUNTER → 2022-10-21 10:55 | Outpatient (BNVA) | payer MEDICARE, MEDICAID, SELFPAY | PROVIDERS: PCP Nurse Practitioner Family; Visit Provider Internal Medicine Cardiovascular Disease | DX: R11.2 Nausea with vomiting, unspecified (principal); D64.9 Anemia, unspecified; I71.00 Dissection of unspecified site of aorta; G89.4 Chronic pain syndrome; F11.20 Opioid dependence, uncomplicated; I48.91 Unspecified atrial fibrillation; K83.1 Obstruction of bile duct; Z90.49 Acquired absence of other specified parts of digestive tract; Z87.891 Personal history of nicotine dependence; I11.0 Hypertensive heart disease with heart failure; I50.9 Heart failure, unspecified | CPT/HCPCS: 99215 ==

== ENCOUNTER → 2022-11-29 11:22 | Outpatient (BNVA) | payer MEDICARE, MEDICAID, SELFPAY | PROVIDERS: PCP Nurse Practitioner Family; Visit Provider Internal Medicine | DX: I48.91 Unspecified atrial fibrillation (principal); I11.0 Hypertensive heart disease with heart failure; I50.9 Heart failure, unspecified; Z87.891 Personal history of nicotine dependence | CPT/HCPCS: 99214 ==

== ENCOUNTER → 2023-05-22 14:07 | Outpatient (BNVA) | payer MEDICARE, MEDICAID, SELFPAY | PROVIDERS: PCP Nurse Practitioner Family; Visit Provider Nurse Practitioner Family | DX: I48.91 Unspecified atrial fibrillation (principal); Z79.01 Long term (current) use of anticoagulants; Z87.891 Personal history of nicotine dependence; I11.0 Hypertensive heart disease with heart failure; I50.9 Heart failure, unspecified | CPT/HCPCS: 99214 ==

== ENCOUNTER 2024-02-11 08:57 | Outpatient (CLI) | payer MEDICARE, MEDICAID, SELFPAY ==
--- NOTE | 2024-02-11 09:00 | MM_ITS ---
WS: [id number] BILATERAL SCREENING DIGITAL TOMOSYNTHESIS MAMMOGRAM WITH CAD HISTORY: SCREENING COMPARISON: None available. Bilateral CC and MLO views with tomosynthesis and synthetic mammography submitted. Computer aided det ection analyzed. Breast composition: There are scattered areas of fibroglandular density. No suspicious masses, microc alcifications or architectural distortion. IMPRESSION: MM/[place] [id number] BI-RADS: 1-Negative FOLLOW UP: 1 Year Follow-up
== END 2024-02-11 08:58 | disposition home or self-care (01) ==
LOC: MOBLMAM 09:00
PROVIDERS: PCP Nurse Practitioner Family; Visit Provider Nurse Practitioner Family
DX: Z12.31 Encounter for screening mammogram for malignant neoplasm of breast (principal)
CPT/HCPCS: 77063; 77067

== ENCOUNTER 2024-02-24 11:13 | Outpatient (CLI) | payer MEDICARE, MEDICAID, SELFPAY ==
--- NOTE | 2024-02-24 11:17 | CTR_ITS ---
PROCEDURE INFORMATION: Exam: CT Chest Without Contrast; Diagnostic Exam date and time: 02/24/2024 11:48 AM Age: 79 years old Clinical indication: Condition or disease; Lung condition and disease; Pulmonary nodule, solitary; Prior surgery; Surgery date: 6+ months; Surgery type: Aorta; Additional info: Solitary nodule of lung TECHNIQUE: Imaging protocol: Diagnostic computed tomography of the chest without contrast. Radiation optimization: All CT scans at this facility use at least one of these dose optimization techniques: automated exposure control; mA and/or kV adjustment per patient size (includes targeted exams where dose is matched to clinical indication); or iterative reconstruction. COMPARISON: CT angio chest w abd pel w con 06/07/2022 12:19 PM RADIATION DOSE METRICS: Total DLP (mGy-cm): 218.33 FINDINGS: Lungs: Minor bibasilar scarring. Pleural spaces: Unremarkable. No pneumothorax. No pleural effusion. Heart: Unremarkable. No cardiomegaly. No pericardial effusion. Lymph nodes: Unremarkable. No enlarged lymph nodes. Vasculature: Aortic stent graft beginning in the distal aortic arch and continuing to distal descending thoracic aorta. Lumen not assessed on this noncontrast study. Diaphragm: Moderate hiatal hernia. Gallbladder and bile ducts: Previous cholecystectomy. Bones/joints: Unremarkable. No acute fracture. Soft tissues: Unremarkable. Other findings: Emphysema. CT/CT chest con [id number] IMPRESSION: 1. No acute findings. 2. Provided clinical history states pulmonary nodule, solitary. The current study does not show a nodule. If there are known prior studies available showing a nodule that requires follow-up, comparison would be helpful. 3. Aortic stent graft, not fully assessed on this noncontrast study.
== END 2024-02-24 11:14 | disposition home or self-care (01) ==
LOC: RAD 11:14
PROVIDERS: PCP Nurse Practitioner Family; Visit Provider Nurse Practitioner Family
DX: I10 Essential (primary) hypertension (principal); R07.9 Chest pain, unspecified; I48.0 Paroxysmal atrial fibrillation; Z87.891 Personal history of nicotine dependence; R94.31 Abnormal electrocardiogram [ECG] [EKG]
CPT/HCPCS: 71250; 93005; 99214

== ENCOUNTER 2024-03-03 13:39 | Outpatient (CLI) | payer MEDICARE, MEDICAID, SELFPAY ==
--- NOTE | 2024-03-03 14:30 | USCV_ITS ---
Rylee Martinez Age: 79 Gender: F : 1945 Exam Date: 03/03/2024 13:46 Ordering Phys: Oma Abdalla Technologist: CT Exam Location: [facility] [place] Indication: cp BP: 176 / 107 HR: 56 Rhythm: Sinus Technical Quality: Adequate MEASUREMENTS (Male / Female) Normal Values 2D ECHO LVOT Diameter 2.2 cm LV Ejection Fraction MOD 2C 61.1 % LV Ejection Fraction 2C AL 59.9 % LA Diameter 4.2 cm RA Systolic Volume 4C AL 40.1 ml RA Systolic Volume 4C MOD 39.5 ml LA Sys Volume AL 61.5 cm cubed LA Sys Volume Index AL 34.2 cm cubed/m squared Aorta at Sinotubular Diameter 2.5 cm IVC Diameter 1.6 cm M-MODE LA Ao Ratio MM 1.4 AV Cusp Separation MM 2.2 cm DOPPLER AV Peak Velocity 135.0 cm/s AV Area Cont Eq vti 2.4 cm squared AV Area Cont Eq pk 2.5 cm squared MV Peak Velocity 93.0 cm/s MV Area PHT 4.3 cm squared Mitral E to A Ratio 1.0 TV Peak Velocity 297.3 cm/s TR Peak Velocity 341.0 cm/s TR Peak Gradient 46.5 mmHg TV Peak E Velocity 90.0 cm/s Right Atrial Pressure 3.0 mmHg Pulmonary Artery Systolic Pressu 49.5 mmHg PV Peak Velocity 104.0 cm/s FINDINGS Left Ventricle Left ventricle is normal size. LV systolic function is normal with EF of 55-60%. No regional wall abnormalities. Right Ventricle Normal in size and function Right Atrium Normal in size Left Atrium Dilated Mitral Valve Structurally normal mitral valve. Mild mitral regurgitation. Aortic Valve Structurally normal aortic valve. No significant stenosis. Mild aortic regurgitation. Tricuspid Valve Mild tricuspid regurgitation. RVSP is 45 to 50 mmHg. Moderate pulmonary hypertension. Pulmonic Valve Mild pulmonic regurgitation Pericardium Normal Aorta Normal in size IVC Appears to be normal CONCLUSIONS LV systolic function is normal with EF of 60 to 65%. Left atrial dilation Mild mitral regurgitation. Mild aortic regurgitation Mild tricuspid regurgitation. Moderate pulmonary hypertension Mild pulmonic regurgitation Compared to prior echocardiogram from 2021, mild aortic regurgitation, moderate pulmonary hypertension now. Scooter Galeas MD (Electronically Signed) Final Date: 13 Mar 2024 21:37 S
== END 2024-03-03 13:40 | disposition home or self-care (01) ==
LOC: RAD 13:39
PROVIDERS: PCP Nurse Practitioner Family; Visit Provider Nurse Practitioner Family
DX: I10 Essential (primary) hypertension (principal); R07.9 Chest pain, unspecified; I08.1 Rheumatic disorders of both mitral and tricuspid valves; I27.20 Pulmonary hypertension, unspecified
CPT/HCPCS: 93306

== ENCOUNTER 2024-03-08 07:25 | Outpatient (CLI) | payer MEDICARE, MEDICAID, SELFPAY ==
--- NOTE | 2024-03-08 | ECG_ITS ---
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 Interpretive Statements NAME OF STUDY: LEXISCAN SESTAMIBI STRESS TEST INDICATION: [WORSENING DYSPNEA/CP] Procedure: At the baseline, the blood pressure was 181/99 mmHg with a heart rate of 66 bpm. The electrocardiogram showed normal sinus rhythm, normal axis with normal ST and T's. The Lexiscan was infused over a period of 20 seconds. A total of 0.4 mg of Lexiscan was infused. The stress phase was continued for a total of 5 minutes. Heart rate was at the end of stress phase was 93 bpm and a blood pressure of 172/94 mmHg. The EKG at the peak infusion revealed normal sinus rhythm with no significant ST-T wave changes. Sestamibi was injected 20 seconds after the Lexiscan infusion. Blood pressure at the end of recovery phase was 171/88 mmHg with a heart rate of 90 bpm. Conclusion: 1. Normal EKG response to Lexiscan infusion 2. No Lexiscan induced chest pain or cardiac arrhythmia. 3. Normal blood pressure and heart rate response. 4. Sestamibi/sestamibi perfusion scan pending; see separate report. Electronically Signed On 03-29-2024 18:29:34 CDT by Scooter Galeas M.D. [email or web address]
--- NOTE | 2024-03-08 07:51 | NMCV_ITS ---
NM rony perf SPECT r/s* [id number] Rylee Martinez Age: 79 Gender: F : 1945 Exam Date: 03/08/2024 08:48 Ordering Phys: Oma Abdalla Technologist: PHYLICIA Delgado Exam Location: [facility] Indications: HYPERTENSION, AFIB STRESS TEST [facility] IMAGE PROTOCOL Rest/Stress 1 Lexiscan Day Radiopharmaceutical Dose (mCi) Administration Site Administered by Rest: Tc-99m 10.8 IV PHYLICIA Delgado Sestamibi Stress:Tc-99m 32.7 IV PHYLICIA Delgado Sestamibi Rest: 08-Mar-2024 60 Discovery 630 Stress: 08-Mar-2024 30 Discovery 630 0.4mg Lexiscan. Supine position only as patient was unable to lay prone. SPECT RESULTS Technical Quality: Excellent Raw Data Analysis: Normal Image Corrections: No attenuation or motion correction applied Summed Stress Score: 1 Summed Rest Score: 2 Summed Difference Score: 0 PERFUSION FINDINGS There is a small sized, fixed perfusion defect noted in apical lateral wall. 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 FUNCTIONAL RESULTS (calculated via Gated SPECT) Stress Image LV EF (%): 64 Stress EDV (mL):91 TID: 1.05 Stress ESV (mL):33 FUNCTIONAL FINDINGS: There is normal left ventricular systolic function. IMPRESSIONS 1. 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 No evidence of ischemia. 2. LV systolic function is normal. Scooter Galeas MD (Electronically Signed) Final Date: 11 Mar 2024 08:13 S
[2024-03-08 08:03] VITALS: BMI 22.8
[2024-03-08] MEDS: regadenoson 0.4 Mg/5 ml Syringe 0.400000000000000022 MG IVP (09:48)
[2024-03-08 09:59] VITALS: BP 171/88; PULSE 96
== END 2024-03-08 07:26 | disposition home or self-care (01) ==
LOC: CDL 07:26
PROVIDERS: PCP Nurse Practitioner Family; Visit Provider Nurse Practitioner Family
DX: R06.00 Dyspnea, unspecified (principal); R07.9 Chest pain, unspecified; I10 Essential (primary) hypertension; I48.91 Unspecified atrial fibrillation
CPT/HCPCS: 36415; 78452; 93017; 96374; A9500; J2785

== ENCOUNTER → 2024-10-13 15:24 | Outpatient (BNVA) | payer MEDICARE, MEDICAID, SELFPAY | PROVIDERS: PCP Nurse Practitioner Family; Visit Provider Internal Medicine | DX: I20.0 Unstable angina (principal); I48.0 Paroxysmal atrial fibrillation; R07.9 Chest pain, unspecified; Z87.891 Personal history of nicotine dependence; I11.0 Hypertensive heart disease with heart failure; I50.9 Heart failure, unspecified | CPT/HCPCS: 99215 ==

== ENCOUNTER 2024-10-17 21:06 | Emergency (ER) | payer MEDICARE, MEDICAID, SELFPAY ==
--- NOTE | 2024-10-17 21:09 | XRR_ITS ---
PROCEDURE INFORMATION: Exam: XR Left Ankle Exam date and time: 10/17/2024 9:16 PM Age: 79 years old Clinical indication: Ankle; Left; Patient HX: Lt lower ext pain/swelling/abrasions after twisting injury x 2 days ago TECHNIQUE: Imaging protocol: Radiologic exam of the left ankle. Views: 3 or more views. COMPARISON: CR XR foot LT min 3V* [id number] 10/17/2024 9:16 PM FINDINGS: Bones/joints: Left distal fibular metaphyseal oblique mildly displaced fracture. Distal Achilles tendon degenerative calcification. Soft tissues: Soft tissue swelling about the ankle. XR/XR ankle LT min 3V* [id number] IMPRESSION: 1. Left distal fibular metaphyseal oblique mildly displaced fracture. 2. Soft tissue swelling about the ankle. 3. Distal Achilles tendon degenerative calcification.
--- NOTE | 2024-10-17 21:09 | XRR_ITS ---
PROCEDURE INFORMATION: Exam: XR Left Tibia and Fibula Exam date and time: 10/17/2024 9:16 PM Age: 79 years old Clinical indication: Lower leg; Left; Patient HX: Lt lower ext pain/swelling/abrasions after twisting injury x 2 days ago TECHNIQUE: Imaging protocol: Radiologic exam of the left tibia and fibula. Views: 2 views. COMPARISON: CR XR ankle LT min 3V* [id number] 10/17/2024 9:16 PM FINDINGS: Bones/joints: Distal fibular metaphyseal mildly displaced fracture. Soft tissues: Soft tissue swelling about the ankle. XR/XR tibia fibula LT 2V [id number] IMPRESSION: 1. Distal fibular metaphyseal mildly displaced fracture. 2. Soft tissue swelling about the ankle.
--- NOTE | 2024-10-17 21:09 | XRR_ITS ---
PROCEDURE INFORMATION: Exam: XR Left Foot Exam date and time: 10/17/2024 9:16 PM Age: 79 years old Clinical indication: Foot; Left; Patient HX: Lt lower ext pain/swelling/abrasions after twisting injury x 2 days ago TECHNIQUE: Imaging protocol: Radiologic exam of the left foot. Views: 3 or more views. COMPARISON: CR XR ankle LT min 3V* [id number] 10/17/2024 9:16 PM FINDINGS: Bones/joints: 12 mm sclerotic nonaggressive bony lesion in the 2nd metatarsal distal metaphysis likely reflecting a benign bone island. Moderate 1st metatarsophalangeal joint osteoarthritis. Distal fibular metaphyseal mildly displaced fracture. Soft tissues: Normal. XR/XR foot LT min 3V* [id number] IMPRESSION: 1. 12 mm sclerotic nonaggressive bony lesion in the 2nd metatarsal distal metaphysis likely reflecting a benign bone island. 2. Moderate 1st metatarsophalangeal joint osteoarthritis. 3. Distal fibular metaphyseal mildly displaced fracture.
--- NOTE | 2024-10-17 21:09 | XRR_ITS ---
PROCEDURE INFORMATION: Exam: XR Left Knee Exam date and time: 10/17/2024 9:16 PM Age: 79 years old Clinical indication: Knee; Left; Patient HX: Lt lower ext pain/swelling/abrasions after twisting injury x 2 days ago TECHNIQUE: Imaging protocol: Radiologic exam of the left knee. Views: 3 views. COMPARISON: CR XR ankle LT min 3V* [id number] 10/17/2024 9:16 PM FINDINGS: Bones/joints: Lateral view demonstrates subtle cortical irregularity to the posterior aspect of the distal femoral metaphysis, finding may reflect a subtle fracture, CT scan should be considered for further evaluation. Moderate to severe tricompartmental osteoarthritis of the knee. Soft tissues: Normal. XR/XR knee LT 3V* [id number] IMPRESSION: 1. Lateral view demonstrates subtle cortical irregularity to the posterior aspect of the distal femoral metaphysis, finding may reflect a subtle fracture, CT scan should be considered for further evaluation. 2. Moderate to severe tricompartmental osteoarthritis of the knee.
[2024-10-17 21:11] VITALS: BP 126/74; PULSE 63; RESP 16; TEMP 36.4; O2SAT 92
--- NOTE | 2024-10-17 21:22 | W.ED.EXTPRO ---
HPI - Extremity Problem General: Chief complaint: Extremity Injury, Lower Stated complaint: fall Time Seen by Provider: 10/17/24 21:06 Source: patient and EMS Mode of arrival: EMS Limitations: no limitations History of Present Illness: 79-year-old female who states that she was walking 2 days ago got her foot caught in a recliner and fell. She states she twisted her left foot she been having pain in that foot and ankle along with bruising since then. She is on Eliquis. States its painful to try to ambulate she has pain that goes up into her knee as well. She denies any her head denies any loss of consciousness rates pain a 5 out of 10 currently Associated symptoms: Deny chest pain, fever(s) or rash Related Data Home Medications Medication Instructions Recorded Confirmed calcium 200 mg (carbonate, 1 tab PO DAILY 03/02/20 10/13/24 citrate)-magnesium 50 mg (as oxide) tablet (CalMag Thins) fluticasone propionate 110 1 puff inhalation Q12H 03/02/20 10/13/24 mcg/actuation HFA aerosol inhaler (Flovent HFA) sertraline 50 mg tablet 50 mg PO DAILY 03/02/20 10/13/24 potassium chloride 10 mEq 10 meq PO DAILY 06/04/21 10/13/24 capsule,extended release cyanocobalamin (vitamin B-12) 50 50 mcg PO DAILY 01/22/22 10/13/24 mcg lozenges (Vitamin B-12) albuterol sulfate 90 mcg/actuation 2 puff inhalation QID PRN 06/07/22 10/13/24 aerosol inhaler Shortness Of Breath aspirin 81 mg tablet,delayed 81 mg PO DAILY 06/07/22 10/13/24 release buprenorphine 2 mg-naloxone 0.5 mg 1 film buccal BID 06/07/22 10/13/24 sublingual film (Suboxone) omeprazole 40 mg capsule,delayed 40 mg PO DAILY 06/07/22 10/13/24 release dapagliflozin propanediol 10 mg 10 mg PO DAILY 07/04/22 10/13/24 tablet (Farxiga) mirtazapine 7.5 mg tablet 15 mg PO DAILY 09/11/22 10/13/24 atorvastatin 40 mg tablet 40 mg PO DAILY 09/16/22 10/13/24 lisinopril 20 1 tab PO DAILY 09/16/22 10/13/24 mg-hydrochlorothiazide 12.5 mg tablet sertraline 25 mg tablet 25 mg PO DAILY 09/16/22 10/13/24 furosemide 20 mg tablet 20 mg PO BID 10/13/24 10/13/24 Previous Rx's Medication Instructions Recorded ondansetron 4 mg disintegrating 4 mg PO Q6H PRN nausea and 10/09/22 tablet vomiting #14 tabs apixaban 5 mg tablet (Eliquis) 5 mg PO BID #180 tabs 01/07/23 metoprolol succinate 50 mg 50 mg PO DAILY #90 tabs 10/27/23 tablet,extended release 24 hr amiodarone 200 mg tablet See Rx Instructions .Route 02/25/24 .COMPLEX #90 tabs amlodipine 2.5 mg tablet 2.5 mg PO DAILY PRN BP above 07/06/24 150/90 #30 tabs nitroglycerin 0.4 mg sublingual 0.4 mg sublingual Q5M PRN chest 10/13/24 tablet pain #25 tabs hydrocodone 5 mg-acetaminophen 325 1 tab PO Q6H PRN pain #14 tabs 10/17/24 mg tablet Allergies Allergy/AdvReac Type Severity Reaction Status Date / Time No Known Allergies Allergy Verified 10/17/24 21:17 Review of Systems Const: Denies: fever(s), chills, body aches or change in appetite ENMT: Denies: throat pain or dental pain Card: Denies: chest pain Resp: Denies: dyspnea GI: Denies: abdominal pain, nausea, vomiting or diarrhea Musc: Reports: extremity pain; Denies: neck pain or back pain Skin/Breast: Denies: rash Neuro: Denies: headache(s) PFS ED PFSH: Medical History Acute UTI Acute respiratory failure with hypoxia Acute exacerbation of chronic obstructive airways disease Atrial fibrillation COPD (chronic obstructive pulmonary disease) Idiopathic osteoarthritis Idiopathic scoliosis CHF (congestive heart failure) HTN (hypertension), benign Chronic pain disorder Adjustment disorder with depressed mood Opioid dependence Dissection of aorta Surgical History Status post laparoscopic cholecystectomy (04/05/20) Status post colonoscopy H/O esophagogastroduodenoscopy History of eye surgery History of hysterectomy History of aortic aneurysm repair History of back surgery Family History Mother Hypertension Denies family history of Anesthesia complication Bleeding disorder Social History Smoking and tobacco/nicotine status: former use of tobacco/nicotine Second hand smoke exposure: No Alcohol intake: never Substance/Drug Use: never Adopted: No Caregiver/support person: Yes Lives independently: Yes Household members: none Housing: House Sexually active: No Do you think of yourself as: Straight/Heterosexual Current gender identity: Female Physical Exam Const: COMMON NORMALS: no acute distress, patient oriented x3 and healthy appearing HENMT: COMMON NORMALS: normocephalic and atraumatic HEAD & SCALP: normocephalic and atraumatic Eye: COMMON NORMALS: conjunctivae normal CONJUNCTIVA: Yes conjunctivae normal Neck/C-Spine: COMMON NORMALS: full ROM and supple Chest: COMMONS NORMALS: normal inspection of the chest Resp: COMMON NORMALS: normal respiratory effort Cardio: COMMON NORMALS: regular rate RATE: regular rate Extremity: OTHER: Tenderness noted to left lower leg along with ankle and foot does have bruising noted distal pulses intact Neuro: COMMON NORMALS: patient oriented x3, moves all extremities and no focal motor deficits Psych: COMMON NORMALS: mental status grossly normal, Normal thought process present and cooperative THOUGHT PROCESS: Normal thought process present Skin: COMMON NORMALS: no rashes or lesions noted and no wounds GENERAL SKIN EXAM: no rashes or lesions noted Course Vital Signs: Vital signs: Vital Signs Temperature 97.5 F L 10/17/24 21:11 Pulse Rate 63 10/17/24 21:11 Respiratory Rate 16 10/17/24 21:11 Blood Pressure 126/74 10/17/24 21:11 Pulse Oximetry 92 10/17/24 21:11 Oxygen Delivery Me thod Room Air 10/17/24 21:11 MDM - Extremity (Nontraumatic) Medical Decision Making Patient presents with ankle pain after a fall x-ray of ankle shows a distal fibula fracture I do not see any other fractures on other x-rays will place in a posterior splint with stirrup she uses a walker at home she is to follow-up with podiatry she understands agrees to plan. She does not have any head injury or any other injuries from her fall Medical Records I reviewed the patient's medical records. XR interpretation done by ED provider, pending radiology final review ED provider radiology interpretation(s): xr Lankle: distal fibula fx Discharge Plan Discharge Patient Disposition: Home Clinical Impression: Closed fracture of distal end of left fibula Qualifiers: Encounter type: initial encounter Condition: Stable Prescriptions: New hydrocodone-acetaminophen 5-325 mg tablet 1 tab PO Q6H PRN (Reason: pain) Qty: 14 0RF No Action CalMag Thins 200 mg calcium- 50 mg tablet 1 tab PO DAILY Flovent HFA 110 mcg/actuation HFA aerosol inhaler 1 puff INHALATION Q12H sertraline 50 mg tablet 50 mg PO DAILY Rx Instructions: TAKE WITH 25MG TAB TO EQUAL 75MG DAILY potassium chloride 10 mEq capsule, extended release 10 meq PO DAILY Hold Instructions: Home Medication placed on hold at Doctor's office Farxiga 10 mg tablet 10 mg PO DAILY buprenorphine-naloxone [Suboxone] 2-0.5 mg film 1 film buccal BID Rx Instructions: place 1 strip/tab under (each) side of tongue mirtazapine 7.5 mg tablet 15 mg PO DAILY furosemide 20 mg tablet 20 mg PO BID Hold Instructions: Home Medication placed on hold at Doctor's office nitroglycerin 0.4 mg tablet, sublingual 0.4 mg sublingual Q5M PRN (Reason: chest pain) Qty: 25 2RF Rx Instructions: do not exceed 3 doses per episode Eliquis 5 mg tablet 5 mg PO BID Qty: 180 3RF metoprolol succinate 50 mg tablet extended release 24 hr 50 mg PO DAILY Qty: 90 3RF amiodarone 200 mg tablet See Rx Instructions .ROUTE .COMPLEX Qty: 90 3RF Dose Instruction: TAKE 1 TABLET BY MOUTH EVERY DAY Rx Instructions: TAKE 1 TABLET BY MOUTH EVERY DAY amlodipine 2.5 mg tablet 2.5 mg PO DAILY PRN (Reason: BP above 150/90) Qty: 30 1RF Vitamin B-12 50 mcg Lozenge 50 mcg PO DAILY sertraline 25 mg tablet 25 mg PO DAILY Rx Instructions: take with 50 mg daily to equal 75 mg daily atorvastatin 40 mg tablet 40 mg PO DAILY lisinopril-hydrochlorothiazide 20-12.5 mg tablet 1 tab PO DAILY omeprazole 40 mg capsule,delayed release(DR/EC) 40 mg PO DAILY albuterol sulfate 90 mcg/actuation Hfa Aerosol Inhaler 2 puff INHALATION QID PRN (Reason: Shortness Of Breath) aspirin 81 mg Tablet,Delayed Release (Dr/Ec) 81 mg PO DAILY ondansetron 4 mg tablet,disintegrating 4 mg PO Q6H PRN (Reason: nausea and vomiting) Qty: 14 0RF Discharge Orders: Discharge ED (Routine); Ordered 10/17/24 Ordered By: Lizzie Giang Referrals: Al Bay DPM [Physician] - 4-7 days Joy Nieto FNP-C [Primary Care Provider] - Discharge Diet: Advance as tolerated Discharge Activity: Increase activity as tolerated Patient Instructions: Ankle Fracture (ED) Coding Level of Care Code 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
[2024-10-17] MEDS: HYDROcodone-acetaminophen 5-325 mg Tablet 1 TAB PO (22:07)
[2024-10-17 23:11] VITALS: BP 127/68; PULSE 69; RESP 18; O2SAT 91
--- NOTE | 2024-10-18 10:44 | DCPLANNER ---
messaged podiatry for er f/u
== END 2024-10-17 23:30 | disposition home or self-care (01) ==
PROVIDERS: Emergency Provider Emergency Medicine; PCP Nurse Practitioner Family
DX: S82.832A Other fracture of upper and lower end of left fibula, initial encounter for closed fracture (principal); W19.XXXA Unspecified fall, initial encounter; Z79.01 Long term (current) use of anticoagulants; Z79.82 Long term (current) use of aspirin; Z87.891 Personal history of nicotine dependence; I11.0 Hypertensive heart disease with heart failure; I50.9 Heart failure, unspecified; J44.9 Chronic obstructive pulmonary disease, unspecified
CPT/HCPCS: 29515; 73562; 73590; 73610; 73630; 99284

== ENCOUNTER → 2024-10-20 09:52 | Outpatient (BNVA) | payer MEDICARE, MEDICAID, SELFPAY | PROVIDERS: PCP Nurse Practitioner Family; Visit Provider Podiatrist Foot & Ankle Surgery | DX: S82.832A Other fracture of upper and lower end of left fibula, initial encounter for closed fracture; W19.XXXA Unspecified fall, initial encounter | CPT/HCPCS: 99204 ==

== ENCOUNTER 2024-10-22 18:40 | Observation (INO) | payer MEDICARE, MEDICAID, SELFPAY ==
--- NOTE | 2024-10-21 09:22 | PC.NURSE ---
Have attempted to make contact with patient multiple times to give pre heart cath instructions and check on status of eliquis. Phone number on chart is not in service. Called person to notify and was given another number to contact patient. Called 3 times with no answer.
[2024-10-22] VITALS (20 sets, daily range): BP systolic 101–138; BP diastolic 59–88; PULSE 65–96; RESP 11–20; TEMP 36.6–36.9; O2SAT 86–96; BMI 24.7
--- NOTE | 2024-10-22 07:30 | XACV_ITS ---
Exam Room: 2 Ht: 170 cm Wt: 72 kg BSA: 1.85 m2 Gender: Female : 1945 Any Known Allergies: No known allergies Exam Priority: Routine Procedure(s): Procedure Description: Diagnostic procedure Procedure Description: Coronary Angiography Procedure Description: Pressure Wire Diagnostic Cath Status: Elective Diagnostic Findings * INDICATION: Worsening angina. * Mid Left Anterior Descending: Moderate 40% stenosis, BOOKER: 3 flow. * Left Main has no significant disease. * Circumflex has no mild to moderate luminal irregularities. * Right Coronary Artery has mild luminal irregularities. * Coronary angiography shows co-dominance. Interventional Findings * Procedure detail: Due to radial artery tortuosity, wire could not be advanced from radial access. We switched access to right femoral artery. She has significant tortuosity iliac/aorta. Also has endograft ain the descending aorta. We had to place a long sheath to manipulate catheters. Moderate disease of mid LAD was seen. We decided to proceed with IFR. XB 3.5 guide catheter was used to engage the left main artery. IV heparin was administered to maintain anticoagulation. After normalization, IFR wire was advanced into the distal vessel. Nonischemic value of 0.90 was obtained. At this time IFR wire was removed and final angiogram was performed. 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 Conclusions 1. Moderate mid LAD stenosis s/p iFR that showed non-ischemic value of 0.90. Recommendations * Aggressive risk factor control. * Outpatient cardiology follow up in 2 weeks. Interventional RX Recommendation: medical therapy and/or counseling Diagnostic RX Recommendation: medical therapy and/or counseling Anticoagulation: Heparin Pressures Phase:Rest AO : 156 / 77 ( 115 ) @ 10:14:00 AM Clinical Evaluation EBL: 5mL-10mL Procedural Details Procedure Consent Obtained. Pre-Procedure Time Out. Identified patient by full name and date of as verbalized by the patient/guarantor. Does the consent match the physician's order: Yes. Accurate & Complete Informed Consent: Yes. Inpatient/Outpatient History & Physical on Chart: Yes. If H&P is completed, is and addenduem needed: No. Visualize and Verify Site with Patient/Guarantor: N/A. Relevant Radiology Images available: Yes. The risks, benefits, and alternatives of sedation and/or procedure were discussed by physician. The patient agrees to continue. Procedure started. [facility] Clinical Fraility Score: 5: Mildly Frail. Envelope Sealing Machine Operator Indications: Worsening Angina. Chest Pain Symptom Assessment: Typical Angina Symptoms. Cardiovascular Instability: No. Correct patient, site and procedure confirmed by cath team. PERRLA. Strong, equal hand yardmaster bilaterally. Lungs clear x 5 lobes. IV Site on Arrival: 20 gauge in the left anticubital. IV Fluids: 0.9% NaCl at KVO. 0 mL infused prior to veterinary laboratory technician. Pre Procedural Pulses: bilateral radial was 3+. Pre Procedural Pulses: right dorsalis pedis was 1+. Pre Procedural Pulses: left dorsalis pedis was Absent. Pre Procedural Pulses: right posterior tibial was 2+. Pre Procedural Pulses: left posterior tibial was Absent. Oxygen started at 2liters/min via nasal canula. right groin was prepped with chloroprep then draped in the usual sterile fashion. right radial was prepped with chloroprep then draped in the usual sterile fashion. Physician notified. Patient's family in cath lab technologist waiting room. Dr. Galeas will update at the completion of the procedure. Equipment: 6F - Radial. Cardiac Cath Pack. ACIST Manifold Kit Model BT 2000. Heparinized Saline (2 units/mL), 1000 mL bag. Physician arrived. Baseline sample Acquired. HR: 86 BPM. Physician scrubbed in. Immediate Pre-Procedure Time Out. Correct Patient: Yes; Correct Procedure: Yes; Correct Site: Yes; Correct Patient Position: Yes; Correct Supplies: Yes; Dried Flammable Prep: Yes; Blood Products Available: N/A. Lidocaine 1% infiltrated to the right radial. Arterial access obtained. Wire unable to thread. Wire and needle out. Manual pressure held by Dr. Galeas. TR band placed. Hemostasis obtained. Lidocaine 1% infiltrated to the right groin. A 5 mauritian JL4 catheter in over the exchange J wire. Baseline sample Acquired. HR: 63 BPM. A 5 mauritian JR4 catheter in over the exchange J wire. Exchange J wire out, 260cm stiff angled glidewire in. Glidewire out. Exchange J wire in. Catheter removed over the exchange J wire. A 5 mauritian JL4 catheter in over the exchange J wire. Multiple views taken of left coronary artery. Catheter removed over the exchange J wire. A 5 mauritian JR4 catheter in over the exchange J wire. Catheter removed over the exchange J wire. A 5 mauritian AL1 catheter in over the exchange J wire. Catheter removed over the exchange J wire. Sheath upsized to a 6 Fr. A 5 mauritian JR4 catheter in over the exchange J wire. Multiple views taken of right coronary artery. Catheter removed over the exchange J wire. 6 mauritian XB 3.5 guide catheter was inserted over the exchange J wire. iFR guidewire was advanced through the guide catheter to lesion in the prox LAD. iFR of the Proximal LAD 0.90 with a pullback of 0.90. iFR wire out. Guide catheter out over the exchange J wire. A 5 mauritian JR4 catheter in over the exchange J wire. Catheter removed over the exchange J wire. Sheath upsized to a 6 Fr. A Right femoral angiogram was performed to determine safe placement of closure device. ACT drawn. Results 243 seconds. Therapeutic limits - pre-heparin administration 90-150 seconds and monitoring heparin during a vascular procedure >250 seconds. Physician scrubbed out. A Suture was successful obtaining hemostatsis at the Right Femoral artery insertion site. Sheath(s) sutured into position with 2-0 silk and sterile 4x4's and Op-site applied over the site. No oozing or signs and symptoms of hematoma noted. Arterial sheath flushed and connected to tranducer and pressure bag with heparinized saline. Post Procedure: Pulses reassessed and unchanged. PERRLA. Strong, equal hand yardmaster bilaterally. No VTE prophylaxis required. Post-op diagnosis: non obstructive CAD. Complications: none. Estimated blood loss: 5mL-10mL. Total IV fluids: mL. Medication's Wasted: Lidocaine 1% = 10 mL. Medication's Wasted: Nitro = 50 mg. Medication's Wasted: Heparin = 4000 units. Medication's Wasted: Other = Fentanyl 50 mcg. Responsiveness - Normal response to verbal stimuli; alert and oriented, PERRLA. Airway - Unaffected, no intervention required; spontaneous ventilation. Circulation: W/N/L, pulses unchanged. Nausea/Vomiting: No. Procedure completed. Patient transferred by bed to CPRU. Vital chart was stopped. Access Site Site: Right Femoral artery Sheath Size: 6 Fr Hemostasis Method: Suture Hemostasis Success: Successful Procedure Medications Start: 9:38 AM Stop: 9:38 AM Medication: Versed Amount: 1 mg Route: I.V. Start: 9:39 AM Stop: 9:39 AM Medication: Fentanyl Amount: 25 mcg Route: I.V. Start: 9:46 AM Stop: 9:46 AM Medication: Fentanyl Amount: 25 mcg Route: I.V. Start: 10:04 AM Stop: 10:04 AM Medication: Heparin Amount: 2000 units Route: I.V. Start: 10:09 AM Stop: 10:09 AM Medication: Versed Amount: 1 mg Route: I.V. Start: 10:14 AM Stop: 10:14 AM Medication: Heparin Amount: 3000 units Route: I.V. I, the attending physician, have reviewed and verified all procedure medications. Yes, all medications given per verbal order History/Risk Factors Hypertension: Yes Dyslipidemia: No Peripheral Arterial Disease (PAD): No Myocardial Infarction (AL): No Obesity: No Renal Disease: No Tobacco Use: Former Prior Interventions PCI: No CABG: No Valve Surgery: No Report Signatures Finalized by Scooter Galeas MD on 10/27/2024 08:33 AM
[2024-10-22 08:08] LABS: Basophils % 0.5 %; Eosinophils # 0.2 10^3/uL (0.0-0.8); Eosinophils % 2.7 %; Hematocrit 36.8 % (36-47); Lymphocytes # 0.8 10^3/uL (0.8-4.8); Lymphocytes % 13.2 %; Mean Corpuscular HGB Conc 29.3 g/dL (30-55); Mean Corpuscular Hemoglobin 25.6 pg (27-33); Mean Corpuscular Volume 87.2 fl (85-98); Mean Platelet Volume 8.7 fL (7.4-10.4); Monocytes # 0.6 10^3/uL (0.2-0.9); Monocytes % 9.8 %; Neutrophils # 4.57 10^3/uL (1.8-7.7); Neutrophils % 73.5 %; Nucleated Red Blood Cells % 0 %; Platelet Count 183 10^3/cmm (157-399); Red Blood Count 4.22 10^6/uL (3.85-5.65); Red Cell Distribution Width 19.8 % (12.1-15.1); White Blood Count 6.22 10^3/uL (3.29-11.43)
[2024-10-22 08:25] LABS: Anion Gap 14.2 (5-19); Blood Urea Nitrogen 12 mg/dL (8-23); Calcium 9.3 mg/dL (8.5-10.5); Carbon Dioxide 21 mmol/L (22-29); Chloride 109 mmol/L (98-107); Glucose 101 mg/dL (65-115); Osmolality Calculated 292 mOsm/kg (285-295); Potassium 3.2 mmol/L (3.5-5.1); Sodium 141 mmol/L (136-145)
[2024-10-22] MEDS: diphenhydrAMINE 50 mg Capsule PO (08:29)
[2024-10-22] MEDS: aspirin 325 mg Tablet PO (08:29)
--- NOTE | 2024-10-22 08:59 | SUR.PREOP ---
k+ 3.2. Reported to DR Galeas. 40 MEQ K rider to be given IV. Noted.
[2024-10-22] MEDS: lidocaine 1% 5 ML in potassium chloride premix 100 ML 25 ML IV (09:10)
--- NOTE | 2024-10-22 09:23 | W.PM.OPSUD ---
Surgery/Procedure H&P Update DATE OF PROCEDURE: October 22, 2024 DATE H&P PERFORMED: 10/13/24 H&P UPDATE INFORMATION: I have reviewed H&P completed within last 30 days, I have examined patient prior to procedure and No changes to prior documentation PREOP DIAGNOSIS: Worsening angina PRIMARY INDICATION FOR PROCEDURE: Worsening angina PLANNED PROCEDURE: Operation Date: 10/22/24 10:00 Proposed Procedures p Cardiac Catheterization - [facility] w/wo LV & Coros(Left) - Scooter Galeas M.D Possible percutaneous coronary intervention PATIENT REASSESSED PRIOR TO SEDATION, WITH NO CHANGE NOTED: Yes PHYSICAL EXAM: alert, oriented x 3, clear to auscultation bilaterally and regular rate & rhythm AIRWAY EVAL/ANESTHESIA PLAN: normal airway, ASA III, Local Anesthesia, Risks, benefits & alternatives of sedation and/or procedure discussed and Patient agrees to continue as planned ADDITIONAL INFORMATION: Moderate sedation
--- NOTE | 2024-10-22 10:45 | SUR.PHASEI ---
POST CATH NOTE Received patient from foundry laborer coreroom. Status post cardiac catheterization via the femoral approach. Site is hemostatic with femoral line in place to a pressure bag. Radial access attempted but unsuccessful. Site is with TR band for needle access. No issues of bleeding noted. Family updated by MD post procedure. Vitals and assessments per flowsheet. Call light within reach. Holding pending bed availablitiy. Vitals and assessments per flowsheet.
--- NOTE | 2024-10-22 10:45 | SUR.PHASEI ---
post cath fluids Discussed with post op fluids. Set at 75 cc/hr post cath as per verbal orders. K+ coninued at 10 meq/hr from label maker. IV fluids and K+ infusing without difficulty.
--- NOTE | 2024-10-22 10:46 | PM.PROC ---
Procedure Note: Date of procedure: 10/22/24 Pre-procedure diagnosis: Worsening angina Post-procedure diagnosis: other (Non-obstructive coronary artery disease) Procedure: Left heart cath: Proximal to Mid LAD has 40% stenosis. iFR was performed that was nonischemic. Plan for medical therapy. Op report anesthesia: Local (Moderate sedation) Performing Provider: Scooter Galeas Estimated blood loss (mL): 10 Complications: None Condition: stable Disposition: same day (Same day discharge) Coding Level of Care Code Acute Code for Flor Veronica
--- NOTE | 2024-10-22 12:15 | SUR.PHASEI ---
Dr Chand notified of hematoma formation. Bruising noted aroung lower aspect of inner thigh below the suture site. Bandage removed to reaveal tract ooze. Hematoma expressed with manual manipulation. Plan to Mynx closure at 1245 which is 2 hours post cath. Vitals and assessments per flowsheet.
--- NOTE | 2024-10-22 12:17 | SUR.PHASEI ---
TR BAND REMOVED FROM NEEDLE ACCESS. NO HEMATOMA FORMATION NOTED.
--- NOTE | 2024-10-22 13:50 | PC.NURSE ---
Pain After mynx closure device failure. Hematoma formed and primary nurse holding manual compression . Verbal orders received by Dr. Chand to administer 50mcg IV fentanyl and was given at 1350 after review of vital signs.
--- NOTE | 2024-10-22 14:00 | PC.NURSE ---
Received additional verbal orders by Dr. Chand for administration of 25mcg IV fentanyl while holding manual pressure. Received verbal orders to place mims catheter . Fentanyl pulled from lab analyst pys.
--- NOTE | 2024-10-22 14:15 | SUR.PHASEI ---
MYNX CLOSURE/ GROIN ASSESSMENT Dr Chand arrived. Assessed the Femoral Access site. Decided on Mynx Closure at bedside. Set up per usual sterile fashion; the patient was draped and prepped for Mynx deployment. Deployment was unsuccessful as patient developed hematoma 4 minute post deployment. Krys RN, Rachael RN in to help with managment of patient. Dr Chand left bedside while patient was under hemostatic control. Bleed developed after he completed the deployment. He was notified to come reassess the patient. Vitals monitored during manual expression and compression of the femoral artery. Patient was stable. Manual pressure held for 20 minutes post deployment with successful hemostasis being achieved. Esquivel placed and IV pain medications given per verbal orders from Dr Chand once he arrived. Implemented by Indra while I held pressure. Site was released and monitored continuously for 5 minutes post hold with no growth to existing hematoma or s/s of an active bleed. Site dressed per usual sterile fashion and patient was taken to CSU for extended recovery. Condition guarded but stable.
--- NOTE | 2024-10-22 18:42 | PM.HP ---
Providers/Chief Complaint Primary Care Provider: Joy Nieto ACTIVITIES VOLUNTEER-C Chief Complaint: I20.0 History of Present Illness Rylee Martinez is a 79 year old female who is very fragile with past medical history significant for hypertension coronary artery disease atrial fibrillation for worsening of chest pain suggestive of unstable angina underwent left heart cath yesterday she was noted to have moderate LAD lesion, IFR was performed which did not reveal it to be in ischemic range therefore medical management was advised. During bedrest patient was noted to have small to moderate hematoma and bruising of the right groin, she complained of some pain. Patient lives 1 [place] and driving distance and she does not think that anybody can take care of him at home. She walks with a walker because of broken foot. She takes Eliquis for atrial fibrillation. She is not comfortable in going home given right groin hematoma we also think that she may need to be observed overnight for monitoring for groin bleed and worsening of hematoma. We will therefore admit her as an observation on CSU. Review of Systems Eyes: Denies: photophobia ENMT: Denies: enlarged tonsils All/Imm: Denies: acute wheezing Medications/Allergies Home Medications Medication Instructions Recorded Confirmed Last Taken Type calcium 200 mg (carbonate, 1 tab PO DAILY 03/02/20 10/22/24 10/21/24 21:00 History citrate)-magnesium 50 mg (as oxide) tablet (CalMag Thins) fluticasone propionate 110 1 puff inhalation Q12H 03/02/20 10/22/24 09/16/22 History mcg/actuation HFA aerosol inhaler (Flovent HFA) sertraline 50 mg tablet 50 mg PO DAILY 03/02/20 10/22/24 10/21/24 21:00 History potassium chloride 10 mEq 10 meq PO DAILY 06/04/21 10/22/24 10/21/24 09:00 History capsule,extended release cyanocobalamin (vitamin B-12) 50 50 mcg PO DAILY 01/22/22 10/22/24 10/21/24 09:00 History mcg lozenges (Vitamin B-12) albuterol sulfate 90 mcg/actuation 2 puff inhalation QID PRN 06/07/22 10/22/24 06/07/22 History aerosol inhaler Shortness Of Breath aspirin 81 mg tablet,delayed 81 mg PO DAILY 06/07/22 10/22/24 10/21/24 09:00 History release omeprazole 40 mg capsule,delayed 40 mg PO DAILY 06/07/22 10/22/24 10/21/24 09:00 History release dapagliflozin propanediol 10 mg 10 mg PO DAILY 07/04/22 10/22/24 10/18/24 09:00 History tablet (Farxiga) mirtazapine 7.5 mg tablet 15 mg PO DAILY 09/11/22 10/22/24 10/21/24 21:00 History atorvastatin 40 mg tablet 40 mg PO DAILY 09/16/22 10/22/24 10/21/24 09:00 History lisinopril 20 1 tab PO DAILY 09/16/22 10/22/24 10/21/24 09:00 History mg-hydrochlorothiazide 12.5 mg tablet sertraline 25 mg tablet 25 mg PO DAILY 09/16/22 10/22/24 10/21/24 21:00 History ondansetron 4 mg disintegrating 4 mg PO Q6H PRN nausea and 10/09/22 10/22/24 Unknown Rx tablet vomiting #14 tabs apixaban 5 mg tablet (Eliquis) 5 mg PO BID #180 tabs 01/07/23 10/22/24 10/16/24 09:00 Rx metoprolol succinate 50 mg 50 mg PO DAILY #90 tabs 10/27/23 10/22/24 10/21/24 09:00 Rx tablet,extended release 24 hr amiodarone 200 mg tablet See Rx Instructions .Route 02/25/24 10/22/24 10/21/24 09:00 Rx .COMPLEX #90 tabs amlodipine 2.5 mg tablet 2.5 mg PO DAILY PRN BP above 07/06/24 10/22/24 10/21/24 21:00 Rx 150/90 #30 tabs furosemide 20 mg tablet 20 mg PO BID 10/13/24 10/22/24 10/21/24 21:00 History nitroglycerin 0.4 mg sublingual 0.4 mg sublingual Q5M PRN chest 10/13/24 10/22/24 Unknown Rx tablet pain #25 tabs hydrocodone 5 mg-acetaminophen 325 1 tab PO Q6H PRN pain #14 tabs 10/17/24 10/22/24 Unknown Rx mg tablet Allergies Allergy/AdvReac Type Severity Reaction Status Date / Time No Known Allergies Allergy Verified 10/22/24 08:36 PFSH Acute PFSH: Medical History Acute UTI Acute respiratory failure with hypoxia Acute exacerbation of chronic obstructive airways disease Atrial fibrillation COPD (chronic obstructive pulmonary disease) Idiopathic osteoarthritis Idiopathic scoliosis CHF (congestive heart failure) HTN (hypertension), benign Chronic pain disorder Adjustment disorder with depressed mood Opioid dependence Dissection of aorta Surgical History Status post laparoscopic cholecystectomy (04/05/20) Status post colonoscopy H/O esophagogastroduodenoscopy History of eye surgery History of hysterectomy History of aortic aneurysm repair History of back surgery Family History Mother Hypertension Denies family history of Anesthesia complication Bleeding disorder Social History Smoking and tobacco/nicotine status: former use of tobacco/nicotine Second hand smoke exposure: No Alcohol intake: never Substance/Drug Use: never Adopted: No Caregiver/support person: Yes Lives independently: Yes Household members: none Housing: House Sexually active: No Do you think of yourself as: Straight/Heterosexual Current gender identity: Female Vitals/I&O/Wt Last Vital Signs Temp 97.8 F 10/22/24 15:43 Pulse 77 10/22/24 15:43 Resp 14 10/22/24 15:43 BP 138/74 10/22/24 15:43 Pulse Ox 95 10/22/24 15:43 O2 Del Method Nasal Cannula 10/22/24 15:43 O2 Flow Rate 2 10/22/24 12:46 10/22/24 10/22/24 10/22/24 06:59 14:59 22:59 Intake Total 240 / 240 Balance 240 / 240 Weight last 48 hrs Weight 158 lb Physical Exam Const: OTHER: GENERAL: Patient is alert, awake and oriented x3. HEART: Regular S1 and S2. No murmur, rub or gallop. LUNGS: Clear to auscultate bilaterally. CENTRAL NERVOUS SYSTEM: Grossly nonfocal. EXTREMITIES: Lower extremities with out edema bilaterally. Right groin moderate size hematoma and bruising. Slightly tender no bruit noted Urinary Catheter Management: Esquivel: Cath Placed During This Visit: yes Urinary Catheter Date of Insertion: 10/22/24 Urinary Catheter Time of Insertion: 13:50 Data 10/22/24 08:00 10/22/24 08:00 A&P Assessment and plan (1) Chronic pain disorder: (2) HTN (hypertension), benign: Plan Status post coronary angiogram through right common femoral artery Atrial fibrillation chronic Hypertension History of closed fracture of the left tibia fibula 79-year-old fragile female who do not have support at home lives [address] cannot drive by herself, by the time she will end her bedrest it will be already night and nobody can pick her up at the same time patient developed moderate hematoma with bruising, it is not safe to send her home like this we will observe her overnight and perhaps discharge her tomorrow morning. Will continue her home medication for A-fib except apixaban to avoid further extension of the hematoma. Will assess her in the morning for possible discharge. Attestations Medical Necessity Statement*: Due to above defined problem will observe patient overnight Coding Level of Care Code Acute Code for Chg Fwd Diagnoses Chronic pain disorder G89.4 HTN (hypertension), benign I10
[2024-10-22] MEDS: amiodarone 200 mg Tablet PO (21:04)
[2024-10-22] MEDS: mirtazapine 15 mg Tablet PO (21:04)
[2024-10-22] MEDS: lisinopril 20 mg Tablet PO (21:04)
[2024-10-22] MEDS: atorvastatin 40 mg Tablet PO (21:05)
[2024-10-22] MEDS: FUROsemide 20 mg Tablet PO (21:05)
[2024-10-22] MEDS: hydroCHLOROthiazide 25 mg Tablet 12.5 MG PO (21:05)
[2024-10-23] VITALS (12 sets, daily range): BP systolic 89–105; BP diastolic 41–58; PULSE 76–140; RESP 14–24; TEMP 36.5–36.9; O2SAT 90–94
[2024-10-23] MEDS: sodium chloride 0.9% 1,000 ML 75 ML IV (01:34)
[2024-10-23] MEDS: metoprolol succinate ER (24 HR) 50 mg Tablet PO (05:46)
[2024-10-23] MEDS: digoxin 250 mcg/ml INJ 2 mL IVP (05:47)
--- NOTE | 2024-10-23 07:05 | PC.NURSE ---
notified Dr Thurston of HR 130s-140s, bp 98/49, po metoprolol given early, IVP digoxin ordered and given, continue to monitor
[2024-10-23] MEDS: pantoprazole DR 40 mg Tablet PO (08:49)
[2024-10-23] MEDS: sertraline 50 mg Tablet 75 MG PO (08:49)
[2024-10-23] MEDS: atorvastatin 40 mg Tablet PO (08:49)
[2024-10-23] MEDS: aspirin 81 mg EC Tablet PO (08:49)
[2024-10-23] MEDS: amiodarone 200 mg Tablet PO (08:49)
[2024-10-23] MEDS: apixaban 5 mg Tablet PO (08:49)
[2024-10-23] MEDS: FUROsemide 20 mg Tablet PO (08:50)
[2024-10-23] MEDS: HYDROcodone-acetaminophen 5-325 mg Tablet 1 TAB PO (08:50)
[2024-10-23] MEDS: mirtazapine 15 mg Tablet PO (08:50)
[2024-10-23] MEDS: potassium chloride ER 10 mEq Tablet PO (08:50)
--- NOTE | 2024-10-23 16:15 | PM.DCS ---
Discharge Providers Date of Admission: 10/22/24 18:40 Date of Discharge: October 23, 2024 Attending Provider at Admission: Roger Chand MD Attending Provider at Discharge: Scooter Galeas M.D Primary Care Provider: Joy Nieto Diagnoses at Discharge Discharge Diagnosis (1) Chronic pain disorder: Status: Acute (2) HTN (hypertension), benign: Details from hospital stay: Right groin moderate hematoma Right groin bruising Chronic atrial fibrillation Coronary artery disease Inability to take care of herself since patient lives alone Status: Acute Reason for Visit Reason for Visit: I20.0 Hospital Course Hospital Course 79-year-old female past medical history significant for coronary artery disease hypertension atrial fibrillation underwent left heart cath noted to have moderate disease not significant by IFR. .Postop patient was observed overnight for left heart cath postop care because of mild hematoma of the right groin which requires close observation and bedrest for 5 to 6 hours since she is on anticoagulation. This morning patient has mild bruising, hematoma has resolved she is slightly tender but no residual hematoma or pseudoaneurysm noted. Blood pressure is on the lower side therefore we will discontinue amlodipine. Will advise patient to restart apixaban Eliquis after 24 hours. Advise not to lift anything heavier than a gallon of milk for next 3 days. She walks with a walker at home because of the broken foot. She has arthritis as well. Overall she is stable to discharge. Physical Exam Const: OTHER: Hematoma hematoma GENERAL: Patient is alert, awake and oriented x3. HEART: Regular S1 and S2. No murmur, rub or gallop. LUNGS: Clear to auscultate bilaterally. CENTRAL NERVOUS SYSTEM: Grossly nonfocal. EXTREMITIES: Lower extremities with out edema bilaterally. 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 service Routine Exams 10/22/24 07:30 Taken Laboratory Results WBC 6.22 10^3/uL (3.29-11.43) 10/22/24 08:00 RBC 4.22 10^6/uL (3.85-5.65) 10/22/24 08:00 Hgb 10.80 g/dL (11.27-16.99) L 10/22/24 08:00 Hct 36.8 % (36-47) 10/22/24 08:00 MCV 87.2 fl (85-98) 10/22/24 08:00 MCH 25.6 pg (27-33) L 10/22/24 08:00 MCHC 29.3 g/dL (30-55) L 10/22/24 08:00 RDW 19.8 % (12.1-15.1) H 10/22/24 08:00 Plt Count 183 10^3/cmm (157-399) 10/22/24 08:00 MPV 8.7 fL (7.4-10.4) 10/22/24 08:00 Neut % (Auto) 73.5 % 10/22/24 08:00 Lymph % (Auto) 13.2 % 10/22/24 08:00 [place] % (Auto) 9.8 % 10/22/24 08:00 Eos % (Auto) 2.7 % 10/22/24 08:00 Baso % (Auto) 0.5 % 10/22/24 08:00 Neut # (Auto) 4.57 10^3/uL (1.8-7.7) 10/22/24 08:00 Lymph # (Auto) 0.8 10^3/uL (0.8-4.8) 10/22/24 08:00 [place] # (Auto) 0.6 10^3/uL (0.2-0.9) 10/22/24 08:00 Eos # (Auto) 0.2 10^3/uL (0.0-0.8) 10/22/24 08:00 Baso # (Auto) 0.0 10^3/uL (0.0-0.1) 10/22/24 08:00 Nucleated RBC % (auto) 0 % 10/22/24 08:00 Nucleated RBCs # 0.0 /100WBC 10/22/24 08:00 Sodium 141 mmol/L (136-145) 10/22/24 08:00 Potassium 3.2 mmol/L (3.5-5.1) L 10/22/24 08:00 Chloride 109 mmol/L (98-107) H 10/22/24 08:00 Carbon Dioxide 21 mmol/L (22-29) L 10/22/24 08:00 Anion Gap 14.2 (5-19) 10/22/24 08:00 BUN 12 mg/dL (8-23) 10/22/24 08:00 Creatinine 0.9 mg/dL (0.5-0.9) 10/22/24 08:00 GFR Calculation Not Reportable 10/22/24 08:00 Glucose 101 mg/dL (65-115) 10/22/24 08:00 Calculated Osmolality 292 mOsm/kg (285-295) 10/22/24 08:00 Calcium 9.3 mg/dL (8.5-10.5) 10/22/24 08:00 Vitals Last Vital Signs Temp 97.8 F 10/23/24 12:00 Pulse 78 10/23/24 14:00 Resp 14 10/23/24 12:00 BP 92/43 10/23/24 12:00 Pulse Ox 91 10/23/24 12:00 O2 Del Method Nasal Cannula 10/23/24 12:00 O2 Flow Rate 4 10/23/24 07:41 Discharge Plan Discharge Patient Disposition: Home Prescriptions: Continued CalMag Thins 200 mg calcium- 50 mg tablet 1 tab PO DAILY Flovent HFA 110 mcg/actuation HFA aerosol inhaler 1 puff INHALATION Q12H sertraline 50 mg tablet 50 mg PO DAILY Rx Instructions: TAKE WITH 25MG TAB TO EQUAL 75MG DAILY Farxiga 10 mg tablet 10 mg PO DAILY mirtazapine 7.5 mg tablet 15 mg PO DAILY nitroglycerin 0.4 mg tablet, sublingual 0.4 mg sublingual Q5M PRN (Reason: chest pain) Qty: 25 2RF Rx Instructions: do not exceed 3 doses per episode metoprolol succinate 50 mg tablet extended release 24 hr 50 mg PO DAILY Qty: 90 3RF amiodarone 200 mg tablet See Rx Instructions .ROUTE .COMPLEX Qty: 90 3RF Dose Instruction: TAKE 1 TABLET BY MOUTH EVERY DAY Rx Instructions: TAKE 1 TABLET BY MOUTH EVERY DAY Vitamin B-12 50 mcg Lozenge 50 mcg PO DAILY sertraline 25 mg tablet 25 mg PO DAILY Rx Instructions: take with 50 mg daily to equal 75 mg daily atorvastatin 40 mg tablet 40 mg PO DAILY lisinopril-hydrochlorothiazide 20-12.5 mg tablet 1 tab PO DAILY omeprazole 40 mg capsule,delayed release(DR/EC) 40 mg PO DAILY albuterol sulfate 90 mcg/actuation Hfa Aerosol Inhaler 2 puff INHALATION QID PRN (Reason: Shortness Of Breath) aspirin 81 mg Tablet,Delayed Release (Dr/Ec) 81 mg PO DAILY ondansetron 4 mg tablet,disintegrating 4 mg PO Q6H PRN (Reason: nausea and vomiting) Qty: 14 0RF hydrocodone-acetaminophen 5-325 mg tablet 1 tab PO Q6H PRN (Reason: pain) Qty: 14 0RF Held Eliquis 5 mg tablet 5 mg PO BID Qty: 180 3RF Hold Instructions: Resume on 10/25/24. amlodipine 2.5 mg tablet 2.5 mg PO DAILY PRN (Reason: BP above 150/90) Qty: 30 1RF Hold Instructions: Resume on 10/25/24. Discontinued potassium chloride 10 mEq capsule, extended release 10 meq PO DAILY Hold Instructions: Home Medication placed on hold at Doctor's office furosemide 20 mg tablet 20 mg PO BID Hold Instructions: Home Medication placed on hold at Doctor's office Discharge Orders: Discharge Order (Routine); Ordered 10/23/24 Ordered By: Roger Chand Referrals: Yary Nuñez, BENEFITS CLERK [Nurse Practitioner] - (Yary Nuñez's Office has your information and will be calling you to schedule a follow up appointment. You can call them if you do not hear from them or if you have any questions or concerns. Thank you.) Joy Nieto FNP-C [Primary Care Provider] - (Please call Joy Nieto's Office on Friday at [phone] to schedule a follow up appointment. Thank you.) Discharge Diet: Cardiac Discharge Activity: Increase activity as tolerated Patient Instructions: Coronary Angioplasty (DC), Post Angiogram Home Care Instructions Patient's Health Concerns: Post cath care Follow-up with cardiology as scheduled regularly Follow-up with primary care physician as scheduled regularly In case of worsening of swelling of the right groin pain not getting better or getting worse call cardiology office or come to ER. Discharge Attestations Time Spent in Discharge Care*: greater than 30 min Quality Metrics Clinical Quality Measures [ No reported AMI, CVA or VTE this stay] Coding Level of Care Code Acute Code for Chg Fwd Diagnoses Chronic pain disorder G89.4 HTN (hypertension), benign I10 Shortness of Breath F/U (pulm) Pulmonary Results: No Data to Display
== END 2024-10-23 17:03 | disposition home or self-care (01) ==
PROVIDERS: Admitting Provider Internal Medicine Cardiovascular Disease; PCP Nurse Practitioner Family; Visit Provider Internal Medicine
DX: I25.110 Atherosclerotic heart disease of native coronary artery with unstable angina pectoris (principal); G89.4 Chronic pain syndrome; I48.20 Chronic atrial fibrillation, unspecified; Z74.1 Need for assistance with personal care; Z98.890 Other specified postprocedural states; Z79.01 Long term (current) use of anticoagulants; I11.0 Hypertensive heart disease with heart failure; I50.9 Heart failure, unspecified; Z79.82 Long term (current) use of aspirin; Z87.891 Personal history of nicotine dependence
CPT/HCPCS: 36415; 51702; 80048; 85025; 85347; 93454; 93571; 96365; 96374; 99152; 99153; C1760; C1769; C1887; C1894; G0269; G0378; J1160; J1644; J2250; J3010; J3480; J3490; J7030; Q0163; Q9967

== ENCOUNTER → 2024-11-29 13:17 | Outpatient (BNVA) | payer MEDICARE, MEDICAID, SELFPAY | PROVIDERS: PCP Nurse Practitioner Family; Visit Provider Podiatrist Foot & Ankle Surgery | DX: S82.832A Other fracture of upper and lower end of left fibula, initial encounter for closed fracture (principal); X58.XXXA Exposure to other specified factors, initial encounter | CPT/HCPCS: 73610 ==

== ENCOUNTER 2024-11-29 14:00 | Outpatient (CLI) | payer MEDICARE, MEDICAID, SELFPAY | END 2024-11-29 14:01 | disposition home or self-care (01) | LOC: SPT 14:01 | PROVIDERS: PCP Nurse Practitioner Family; Visit Provider Orthopaedic Surgery | DX: Z46.89 Encounter for fitting and adjustment of other specified devices (principal); S82.832D Other fracture of upper and lower end of left fibula, subsequent encounter for closed fracture with routine healing; X58.XXXD Exposure to other specified factors, subsequent encounter | CPT/HCPCS: 97760; L4361 ==

== ENCOUNTER → 2025-02-01 13:13 | Outpatient (BNVA) | payer MEDICARE, MEDICAID, SELFPAY | PROVIDERS: PCP Nurse Practitioner Family; Visit Provider Podiatrist Foot & Ankle Surgery | DX: S82.832A Other fracture of upper and lower end of left fibula, initial encounter for closed fracture (principal); W19.XXXA Unspecified fall, initial encounter; M79.672 Pain in left foot | CPT/HCPCS: 73610; 99213 ==

== ENCOUNTER 2025-06-20 11:00 | Outpatient (CLI) | payer OTHER, MEDICAID, SELFPAY | END 2025-06-20 11:01 | disposition home or self-care (01) | LOC: RAD 06-25 10:22 | PROVIDERS: PCP Nurse Practitioner Family; Visit Provider Nurse Practitioner Family | DX: I20.89 Other forms of angina pectoris (principal); I10 Essential (primary) hypertension; I48.91 Unspecified atrial fibrillation; Z79.01 Long term (current) use of anticoagulants; Z79.82 Long term (current) use of aspirin; Z98.890 Other specified postprocedural states; Z87.891 Personal history of nicotine dependence; R06.02 Shortness of breath; D64.9 Anemia, unspecified | CPT/HCPCS: 99214 ==

== ENCOUNTER 2025-08-20 03:16 | Outpatient (CLI) | payer OTHER, MEDICAID, SELFPAY ==
[2025-08-20 04:44] LABS: Hematocrit 39.8 % (36-47); Hemoglobin 11.50 g/dL (11.27-16.99); Mean Corpuscular HGB Conc 28.9 g/dL (30-55); Mean Corpuscular Hemoglobin 25.6 pg (27-33); Mean Corpuscular Volume 88.6 fl (85-98); Platelet Count 174 10^3/cmm (157-399); Red Blood Count 4.49 10^6/uL (3.85-5.65); White Blood Count 5.89 10^3/uL (3.29-11.43)
[2025-08-20 05:13] LABS: Alanine Aminotransferase 8 U/L (0-33); Albumin Level 3.8 g/dL (3.5-5.2); Alkaline Phosphatase 137 U/L (35-105); Anion Gap 17.1 (5-19); Aspartate Amino Transferase 15 U/L (0-32); Blood Urea Nitrogen 15 mg/dL (8-23); Calcium 8.7 mg/dL (8.5-10.5); Carbon Dioxide 23 mmol/L (22-29); Chloride 106 mmol/L (98-107); Globulin 2.0 g/dL (1.3-4.6); Glucose 58 mg/dL (65-115); Osmolality Calculated 291 mOsm/kg (285-295); Potassium 5.1 mmol/L (3.5-5.1); Sodium 141 mmol/L (136-145); Total Protein 5.8 g/dL (6.6-8.7)
[2025-08-20 06:34] LABS: Total Cells Counted 100 (0-100)
[2025-08-20 06:35] LABS: Absolute Segmented Neutrophil 3.9 10/cmm (1.6-7.1); Atypical Lymphs 6.0 % (0-5); Band Neutrophils Absolute 0.1 10^3/cmm (0.0-1.2)
[2025-08-20 06:36] LABS: Giant Platelets Trace
[2025-08-20 06:38] LABS: Anisocytosis 1+; Crenated RBC 2+; Smudge Cells 1+
[2025-08-20 06:39] LABS: Microcytosis Trace
[2025-08-20 06:40] LABS: Ovalocytes 1+
== END 2025-08-20 03:17 | disposition home or self-care (01) ==
LOC: ER 04:37 → LAB 06:47
PROVIDERS: PCP Nurse Practitioner Family; Visit Provider Nurse Practitioner Family
DX: R42 Dizziness and giddiness (principal); I50.32 Chronic diastolic (congestive) heart failure; I13.0 Hypertensive heart and chronic kidney disease with heart failure and stage 1 through stage 4 chronic kidney disease, or unspecified chronic kidney disease
CPT/HCPCS: 80053; 85007; 85027

== ENCOUNTER 2025-08-31 17:53 | Inpatient (IN) | payer OTHER, MEDICAID, SELFPAY ==
[2025-08-31] VITALS (8 sets, daily range): BP systolic 143–202; BP diastolic 78–125; PULSE 78–108; RESP 16–88; TEMP 36.7–36.9; O2SAT 88–96; BMI 21.9
--- NOTE | 2025-08-31 17:57 | CTR_ITS ---
PROCEDURE INFORMATION: Exam: CT Head Without Contrast Exam date and time: 08/31/2025 6:01 PM Age: 80 years old Clinical indication: Weakness, extremity; Patient presents with PACE. Patient states fell 7-10 days ago. Patient states since she has been having a PACE, tingly in all extremities. TECHNIQUE: Imaging protocol: Computed tomography of the head without contrast. Radiation optimization: All CT scans at this facility use at least one of these dose optimization techniques: automated exposure control; mA and/or kV adjustment per patient size (includes targeted exams where dose is matched to clinical indication); or iterative reconstruction. COMPARISON: No relevant prior studies available. RADIATION DOSE METRICS: Total DLP (mGy-cm): 1053.54 FINDINGS: Brain: There are moderate periventricular and subcortical lucencies consistent with chronic microvascular ischemic changes.The caro-white differentiation is maintained. No hemorrhage. No edema. Cerebral ventricles: No ventriculomegaly. Paranasal sinuses: Visualized sinuses are unremarkable. No fluid levels. Mastoid air cells: Visualized mastoid air cells are well aerated. Bones: Unremarkable. No acute fracture. Soft tissues: Unremarkable. CT/CT head wo con* [id number] IMPRESSION: No acute intracranial abnormality.
--- NOTE | 2025-08-31 17:57 | XRR_ITS ---
PROCEDURE INFORMATION: Exam: XR Chest Exam date and time: 08/31/2025 6:05 PM Age: 80 years old Clinical indication: Other: Weakness TECHNIQUE: Imaging protocol: Radiologic exam of the chest. Views: 1 view. COMPARISON: CT chest [facility] [id number] 02/24/2024 11:48 AM FINDINGS: Lungs: Unremarkable. No consolidation. Pleural spaces: Unremarkable. No pleural effusion. No pneumothorax. Heart/Mediastinum: Endovascular stent in the aortic arch and descending thoracic aorta. Bones/joints: Unremarkable. XR/XR chest 1V portable [id number] IMPRESSION: No acute findings.
--- NOTE | 2025-08-31 18:04 | W.ED.HEATRA ---
HPI - Head Injury General: Chief complaint: Head Injury Stated complaint: PACE Time Seen by Provider: 08/31/25 17:53 Source: patient and EMS Mode of arrival: EMS Limitations: no limitations History of Present Illness: 80-year-old female states that she had had a fall a little over a week ago and did hit her head is on blood thinners she states that since then she has just had generalized weakness states that today roughly 2 hours ago's had a sudden onset of headache she rates a 9 out of 10. She denies any vomiting or diarrhea denies any chest pain. Related Data Home Medications ?Medication ?Instructions ?Recorded ?Confirmed calcium 200 mg (carbonate, 1 tab PO DAILY 03/02/20 06/20/25 citrate)-magnesium 50 mg (as oxide) tablet (CalMag Thins) fluticasone propionate 110 1 puff inhalation Q12H 03/02/20 06/20/25 mcg/actuation HFA aerosol inhaler (Flovent HFA) sertraline 50 mg tablet 50 mg PO DAILY 03/02/20 06/20/25 cyanocobalamin (vitamin B-12) 50 50 mcg PO DAILY 01/22/22 02/01/25 mcg lozenges (Vitamin B-12) albuterol sulfate 90 mcg/actuation 2 puff inhalation QID PRN 06/07/22 06/20/25 aerosol inhaler Shortness Of Breath aspirin 81 mg tablet,delayed 81 mg PO DAILY 06/07/22 02/01/25 release omeprazole 40 mg capsule,delayed 40 mg PO DAILY 06/07/22 06/20/25 release dapagliflozin propanediol 10 mg 10 mg PO DAILY 07/04/22 06/20/25 tablet (Farxiga) mirtazapine 7.5 mg tablet 15 mg PO DAILY 09/11/22 06/20/25 atorvastatin 40 mg tablet 40 mg PO DAILY 09/16/22 06/20/25 sertraline 25 mg tablet 25 mg PO DAILY 09/16/22 06/20/25 Previous Rx's ?Medication ?Instructions ?Recorded ondansetron 4 mg disintegrating 4 mg PO Q6H PRN nausea and 10/09/22 tablet vomiting #14 tabs apixaban 5 mg tablet (Eliquis) 5 mg PO BID #180 tabs 01/07/23 Held on 10/23/24. Instructions: Resume on 10/25/24. amiodarone 200 mg tablet See Rx Instructions .Route 02/25/24 .COMPLEX #90 tabs nitroglycerin 0.4 mg sublingual 0.4 mg sublingual Q5M PRN chest 10/13/24 tablet pain #25 tabs hydrocodone 5 mg-acetaminophen 325 1 tab PO Q6H PRN pain #14 tabs 10/17/24 mg tablet amlodipine 2.5 mg tablet 2.5 mg PO DAILY PRN BP above 11/01/24 150/90 #30 tabs CAM walker #1 ea 11/29/24 ASO to left #1 ea 02/01/25 hydrochlorothiazide 25 mg tablet 25 mg PO DAILY #90 tabs 02/09/25 metoprolol succinate 50 mg 25 mg (1/2 x 50 mg) PO DAILY #90 05/27/25 tablet,extended release 24 hr tabs Allergies Allergy/AdvReac Type Severity Reaction Status Date / Time No Known Allergies Allergy Verified 06/20/25 09:57 Review of Systems Neuro: Reports: headache(s) PFSH ED PFSH: Medical History (Updated 08/31/25 @ 20:08 by Lizzie Giang MD) Acute UTI Acute respiratory failure with hypoxia Acute exacerbation of chronic obstructive airways disease Atrial fibrillation COPD (chronic obstructive pulmonary disease) Idiopathic osteoarthritis Idiopathic scoliosis CHF (congestive heart failure) HTN (hypertension), benign Chronic pain disorder Adjustment disorder with depressed mood Opioid dependence Dissection of aorta Surgical History Status post laparoscopic cholecystectomy (04/05/20) Status post colonoscopy H/O esophagogastroduodenoscopy History of eye surgery History of hysterectomy History of aortic aneurysm repair History of back surgery Family History Mother Hypertension Denies family history of Anesthesia complication Bleeding disorder Social History Smoking and tobacco/nicotine status: former use of tobacco/nicotine Second hand smoke exposure: No Alcohol intake: never Substance/Drug Use: never Adopted: No Caregiver/support person: Yes Lives independently: Yes Household members: none Housing: House Sexually active: No Do you think of yourself as: Straight/Heterosexual Current gender identity: Female Physical Exam Const: COMMON NORMALS: no acute distress, patient oriented x3 and healthy appearing HENMT: COMMON NORMALS: normocephalic HEAD & SCALP: normocephalic OTHER: bruising to right forehead Eye: COMMON NORMALS: Equal, round and reactive pupils present and EOMs intact bilaterally PUPIL: Yes Equal, round and reactive pupils present Neck/C-Spine: COMMON NORMALS: full ROM and supple Chest: COMMONS NORMALS: normal inspection of the chest and normal palpation of entire chest wall Resp: COMMON NORMALS: normal respiratory effort, No retractions, No use of accessory muscles and clear to auscultation bilaterally AUSCULTATION: clear to auscultation bilaterally Cardio: COMMON NORMALS: regular rate, regular rhythm and No murmurs present (Cardio) RATE: regular rate RHYTHM: regular rhythm GI: COMMON NORMALS: Normal to inspection, nondistended, normoactive bowel sounds present, Soft to palpation, non-tender and no masses PALPATION: Yes Soft to palpation Extremity: COMMON NORMALS: normal to inspection and full ROM Neuro: COMMON NORMALS: patient oriented x3, moves all extremities and no focal motor deficits Psych: COMMON NORMALS: mental status grossly normal, Normal thought process present and cooperative THOUGHT PROCESS: Normal thought process present Skin: COMMON NORMALS: no rashes or lesions noted and no wounds GENERAL SKIN EXAM: no rashes or lesions noted Course Vital Signs: Vital signs: Vital Signs Temperature 98.4 F 08/31/25 17:55 Pulse Rate 91 08/31/25 17:55 Respiratory Rate 88 H 08/31/25 17:55 Blood Pressure 151/88 08/31/25 19:30 Pulse Oximetry 95 08/31/25 19:30 Oxygen Delivery Me thod Room Air 08/31/25 19:30 MDM - Head Injury Medcial Decision Making Patient presents here with generalized weakness along with headache and frequent falls. Differential includes infection, epidural hemorrhage, meningitis. Patient's head CT here showed no acute abnormalities no signs of brain bleed. Patient's blood work including white count here are normal she does have a UTI it could be causing her weakness. She has no signs of sepsis. I did speak to her and she states she still feels very weak and does not feel like she is able to ambulate on her own and is scared of falling. Will admit at this time for her UTI along with generalized weakness for observation. Medical Records I reviewed the patient's medical records. Lab Data I reviewed the patient's lab results. 08/31/25 17:05 08/31/25 17:05 Radiology Impressions Chest X-Ray 08/31/25:57 IMPRESSION: No acute findings. Head CT 08/31/25:57 IMPRESSION: No acute intracranial abnormality. Laboratory Results WBC 3.84 10^3/uL (3.29-11.43) 08/31/25 17:05 RBC 4.64 10^6/uL (3.85-5.65) 08/31/25 17:05 Hgb 12.00 g/dL (11.27-16.99) 08/31/25 17:05 Hct 40.8 % (36-47) 08/31/25 17:05 MCV 87.9 fl (85-98) 08/31/25 17:05 MCH 25.9 pg (27-33) L 08/31/25 17:05 MCHC 29.4 g/dL (30-55) L 08/31/25 17:05 RDW 17.0 % (12.1-15.1) H 08/31/25 17:05 Plt Count 196 10^3/cmm (157-399) 08/31/25 17:05 MPV 10.1 fL (7.4-10.4) 08/31/25 17:05 Neut % (Auto) 54.1 % 08/31/25 17:05 Lymph % (Auto) 32.3 % 08/31/25 17:05 Gove % (Auto) 9.4 % 08/31/25 17:05 Eos % (Auto) 2.6 % 08/31/25 17:05 Baso % (Auto) 1.3 % 08/31/25 17:05 Neut # (Auto) 2.08 10^3/uL (1.8-7.7) 08/31/25 17:05 Lymph # (Auto) 1.2 10^3/uL (0.8-4.8) 08/31/25 17:05 Gove # (Auto) 0.4 10^3/uL (0.2-0.9) 08/31/25 17:05 Eos # (Auto) 0.1 10^3/uL (0.0-0.8) 08/31/25 17:05 Baso # (Auto) 0.1 10^3/uL (0.0-0.1) 08/31/25 17:05 Nucleated RBC % (auto) 0 % 08/31/25 17:05 Nucleated RBCs # 0.0 /100WBC 08/31/25 17:05 PT 12.50 SECONDS (12.1-14.9) 08/31/25 18:32 INR 0.88 (0.8-1.2) 08/31/25 18:32 Sodium 141 mmol/L (136-145) 08/31/25 17:05 Potassium 4.6 mmol/L (3.5-5.1) 08/31/25 17:05 Chloride 108 mmol/L (98-107) H 08/31/25 17:05 Carbon Dioxide 23 mmol/L (22-29) 08/31/25 17:05 Anion Gap 14.6 (5-19) 08/31/25 17:05 BUN 10 mg/dL (8-23) 08/31/25 17:05 Creatinine 0.6 mg/dL (0.5-0.9) 08/31/25 17:05 GFR Calculation Not Reportable 08/31/25 17:05 Glucose 101 mg/dL (65-115) 08/31/25 17:05 Calculated Osmolality 291 mOsm/kg (285-295) 08/31/25 17:05 Calcium 8.8 mg/dL (8.5-10.5) 08/31/25 17:05 Total Bilirubin 0.3 mg/dL (0.15-1.2) 08/31/25 17:05 AST 17 U/L (0-32) 08/31/25 17:05 ALT 10 U/L (0-33) 08/31/25 17:05 Alkaline Phosphatase 181 U/L (35-105) H 08/31/25 17:05 Total Protein 6.3 g/dL (6.6-8.7) L 08/31/25 17:05 Albumin 3.7 g/dL (3.5-5.2) 08/31/25 17:05 Globulin 2.6 g/dL (1.3-4.6) 08/31/25 17:05 TSH 2.05 uIU/mL (0.27-4.20) 08/31/25 17:05 Urine Color Yellow (Yellow) 08/31/25 19:02 Urine Appearance Clear (CLEAR) 08/31/25 19: Urine pH 5.5 (5-7) 08/31/25 19:02 Ur Specific Adrian 1.025 (1.005-1.030) 08/31/25 19:02 Urine Protein Negative (Negative) 08/31/25 19:02 Urine Glucose (UA) Negative (Normal) 08/31/25 19: Urine Ketones Negative (Negative) 08/31/25 19: Urine Blood Negative (Negative) 08/31/25 19:02 Urine Nitrate Positive (Negative) A 08/31/25: Urine Bilirubin Negative (Negative) 08/31/25 19: Urine Urobilinogen 1.0 mg/dL (Negative) 08/31/25 19:02 Ur Leukocyte Esterase 1+ (Negative) A 08/31/25 19:02 Urine RBC 0-2 /hpf (0-2) 08/31/25 19:02 Urine WBC 11-20 /hpf (0-5) H 08/31/25 19:02 Ur Squamous Epith Cells 6-10 /hpf (0-5) 08/31/25 19:02 Amorphous Sediment Not Reportable 08/31/25 19:02 Urine Bacteria 4+ /hpf (NONE) H 08/31/25 19:02 Hyaline Casts 1.65 /lpf 08/31/25 19:02 All radiology interpretation(s) finalized by discharge EKG Data EKG 1: I personally reviewed and interpreted this EKG as follows: EKG interpretation date: 08/31/25 EKG interpretation time: 18:34 Interpretation: nsr hr [address] elevation qrs 110 qtc 402 Discharge Plan Discharge Patient Disposition: Admitted As Inpatient Clinical Impression: Generalized weakness, Headache, Closed head injury Acute cystitis Qualifiers: Hematuria presence: without hematuria Qualified Code(s): N30.00 - Acute cystitis without hematuria Condition: Stable Coding Level of Care Code ED Network Support Manager for Lara Martin
[2025-08-31 18:11] LABS: Hematocrit 40.8 % (36-47); Hemoglobin 12.00 g/dL (11.27-16.99); Mean Corpuscular HGB Conc 29.4 g/dL (30-55); Mean Corpuscular Hemoglobin 25.9 pg (27-33); Mean Corpuscular Volume 87.9 fl (85-98); Nucleated Red Blood Cells % 0 %; Platelet Count 196 10^3/cmm (157-399); Red Blood Count 4.64 10^6/uL (3.85-5.65); White Blood Count 3.84 10^3/uL (3.29-11.43)
[2025-08-31] MEDS: ondansetron 2 mg/ML SDV 2 mL 4 MG IVP ×2 (18:33→22:00)
[2025-08-31] MEDS: morphine 4 mg/mL SDV 1 mL IVP (18:33)
[2025-08-31] MEDS: hyDRALAzine 20 mg/mL INJ 1 mL 10 MG IVP (18:33)
--- NOTE | 2025-08-31 18:34 | ECG_ITS ---
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 Measurements Intervals [place] Rate: 94 P: 63 CT: 211 QRS: -42 QRSD: 110 T: 75 QT: 350 QTc: 439 Interpretive Statements SINUS RHYTHM WITH FIRST DEGREE AV BLOCK LEFT AXIS DEVIATION [QRS AXIS < -30] LEFT VENTRICULAR HYPERTROPHY AND ST-T CHANGE [VOLTAGE CRITERIA PLUS ST/T ABNORMALITY] POSSIBLE ANTERIOR MYOCARDIAL INFARCTION , PROBABLY OLD [30 ms Q WAVE IN V3/V4, OR R < 0.2 mV IN V4] Compared to ECG 02/24/2024 10:39:20 First degree AV block now present Left-axis deviation now present Left ventricular hypertrophy now present ST (T wave) deviation now present. Myocardial infarct finding now present Sinus bradycardia no longer present. T-wave abnormality no longer present Electronically Signed On 08-31-2025 22:50:58 CDT by Be Thurston M.D. [id number] [id number]
[2025-08-31 18:48] LABS: Alanine Aminotransferase 10 U/L (0-33); Albumin Level 3.7 g/dL (3.5-5.2); Alkaline Phosphatase 181 U/L (35-105); Aspartate Amino Transferase 17 U/L (0-32); Blood Urea Nitrogen 10 mg/dL (8-23); Calcium 8.8 mg/dL (8.5-10.5); Carbon Dioxide 23 mmol/L (22-29); Chloride 108 mmol/L (98-107); Creatinine Clr Calc Pharmacy 57.0562; Globulin 2.6 g/dL (1.3-4.6); Glucose 101 mg/dL (65-115); Osmolality Calculated 291 mOsm/kg (285-295); Sodium 141 mmol/L (136-145); Thyroid Stimulating Hormone 2.05 uIU/mL (0.27-4.20); Total Protein 6.3 g/dL (6.6-8.7)
--- OUTSIDE RECORDS SUMMARY | 2025-08-31 18:49 | XMS_ITS | Encounter Summary ---
Author Organization [facility] Address [address] [place] [address] Care Team Providers Care Medication Tech Name Role Phone Kimberley Dumont RAVEN Primary Care Provider [phone] Encounter Details Date Type Department Care Team (Late st Contact Info) Description 02/15/2013 Orders Only [facility] Radiology [address] [place] [address] System, Provider Not In, MD [address] [place] [address] Social History Tobacco Use Types Packs/Day Years Used Date Smoking Tobacco: Never Assessed Comments Unknown Sex and Gender Information Value Date Recorded Sex Assigned at Not on file Legal Sex Female 10:51 AM CDT Gender Identity Not on file Sexual Orientation Not on file documented as of this encounter Plan of Treatment Not on file documented as of this encounter Procedures Procedure Name Priority Date/Time Associated Diagnosis Comments OUTSIDE IMAGES 02/15/2013 12:24 PM CDT documented in this encounter Results * Outside Images (02/15/2013 12:24 PM CDT) Anatomical Region Laterality Modality N/A Radiographic Patience ging 02/15/2013 12:2 4 PM CDT Narrative 02/15/2013 12:24 PM CDT Historic images from [facility] exist and can be viewed by using the hyperlink to access [employer] pacs: MRI LUMBAR SPINE NO CONTRAST Procedure Note System, Provider Not In - 12/01/2020 Historic images from [facility] exist and can be viewed byusing the hyperlink to access [employer] p[employer]: MRI LUMBAR SPINE NOCONTRAST us Provider Not In System MD REA GENERAL IMAGING OR DERABLES Final Result documented in this encounter Visit Diagnoses Not on filedocumented in this encounter Care Teams Medication Tech Relationship Specialty Start Date End Date Kimberley Dumont FNP PCP - General 12/16/14 documented as of this encounter
--- OUTSIDE RECORDS SUMMARY | 2025-08-31 18:49 | XMS_ITS | Encounter Summary ---
Author Organization [facility] Address [address] [place] [address] Care Team Providers Care Purchasing Assistant Name Role Phone Unavailable Primary Care Provider Unavailabl e Encounter Details Date Type Department Care Team (Late st Contact Info) Description 11/21/2024 Lab Requisition [facility] Laboratory Services [address] [place] [address] Christina Gillespie, INTERIOR PAINTER NO ADDRESS ON FILE Social History Tobacco Use Types Packs/Day Years Used Date Smoking Tobacco: Former Cigarettes Smokeless Tobacco: Never Alcohol Use Standard Drinks/Week Comments No 0 (1 standard drink = 0.6 oz pur e alcohol) Feeling Safe Answer Date Recorded Are you in a relationship wi th someone who hurts you emotionally and/or physically? Patient unable to answer 10/26/2024 Food Insecurity Answer Date Recorded Social/Environmental Concerns No concerns Transportation Needs Answer Date Record ed Social/Environmental Concerns No concerns Housing Stability Answer Date Recorded Social/Environmental Concerns No concerns Utility Needs Answer Date Recorded Social/Environmental Concerns No concerns Comments No Sex and Gender Information Value Date Recorded Sex Assigned at Not on file Legal Sex Female 5:32 AM NIGHT SUPERVISOR Gender Identity Not on file Sexual Orientation Not on file documented as of this encounter Plan of Treatment Not on file documented as of this encounter Procedures Procedure Name Priority Date/Time Associated Diagnosis Comments VITAMIN B12 LEVEL Routine 11/21/2024 3:1 0 AM NIGHT SUPERVISOR documented in this encounter Results * VITAMIN B12 LEVEL (11/21/2024 3:10 AM NIGHT SUPERVISOR) VITAMIN B12 737 211 - 946 pg/mL 11/21/2024 6:26 AM NIGHT SUPERVISOR [facility] LABORATORY [facility] Blood Collection / Unknown 11/21/2024 3:10 AM NIGHT SUPERVISOR 11/21/2024 5:35 AM NIGHT SUPERVISOR us Christina Gillespie NP CHEMISTRY ORDERABLES Final Result [facility] CLIA # [id number] [address] [place] [id number] documented in this encounter Visit Diagnoses Not on filedocumented in this encounter
--- OUTSIDE RECORDS SUMMARY | 2025-08-31 18:49 | XMS_ITS | Encounter Summary ---
Author Organization [facility] Address [address] [place] [address] Care Team Providers Care Hydrate Thickener Operator Name Role Phone Unavailable Primary Care Provider Unavailabl e Encounter Details Date Type Department Care Team (Late st Contact Info) Description 11/25/2024 Lab Requisition [facility] Laboratory Services [address] [place] [address] Patti Cole PA-C [address] [place] [address] Social History Tobacco Use Types Packs/Day Years [...] on file Legal Sex Female 5:32 AM INTRAOPERATIVE NEURO TECH Gender Identity Not on file Sexual Orientation Not on file documented as of this encounter Plan of Treatment Not on file documented as of this encounter Procedures Procedure Name Priority Date/Time Associated Diagnosis Comments CBC WITH DIFFERENTIAL Routine 11/25/2024 2:58 AM INTRAOPERATIVE NEURO TECH COMPREHENSIVE METABOLIC PANEL Routine 11/25/2024 2:58 AM INTRAOPERATIVE NEURO TECH documented in this encounter Results * (ABNORMAL) CBC WITH DIFFERENTIAL (11/25/2024 2:58 AM INTRAOPERATIVE NEURO TECH) [facility] Signature WBC 6.5 4.8 - 10.8 K/uL 11/25/2024 6:25 AM [facility] RBC 3.34(L) 4.20 - 5.40 M/uL 11/25/2024 6:25 AM [facility] HEMOGLOBIN 9.0(L) 12.0 - 16.0 g/dL 11/25/2024 6:25 AM [facility] HEMATOCRIT 30.7(L) 36.0 - 46.0 % 11/25/2024 6:25 AM [facility] MCV 91.9 84.0 - 103.0 fL 11/25/2024 6:25 AM [facility] MCH 26.9(L) 27.0 - 34.0 pg 11/25/2024 6:25 AM [facility] MCHC 29.3(L) 30.0 - 35.0 g/dL 11/25/2024 6:25 AM [facility] RDW 19.0(H) 11.0 - 14.5 % 11/25/2024 6:25 AM [facility] RDW-STDEV 63.1(H) 37.0 - 54.0 fL 11/25/2024 6:25 AM [facility] PLATELETS 98(L) 140 - 440 K/uL 11/25/2024 6:25 AM [facility] MPV 9.9 8.9 - 12.8 fL 11/25/2024 6:25 AM [facility] NEUTROPHILS 71 42 - 75 % 11/25/2024 6:25 AM [facility] LYMPHOCYTES 20(L) 24 - 44 % 11/25/2024 6:25 AM [facility] MONOCYTES 8 2 - 10 % 11/25/2024 6:25 AM [facility] EOSINOPHILS 1 0 - 7 % 11/25/2024:25 AM [facility] BASOPHILS 0 0 - 1 % 11/25/2024 6:25 AM [facility] IMMATURE GRANULOCYTES 1 0 - 2 % 11/25/2024 6:25 AM [facility] NEUTROPHIL ABSOLUTE 4.62 2.00 - 8.00 K/uL 11/25/2024 6:25 AM [facility] LYMPHOCYTE ABSOLUTE 1.27 1.20 - 4.00 K/uL 11/25/2024 6:25 AM [facility] MONOCYTE ABSOLUTE 0.50 0.10 - 0.60 K/uL 11/25/2024 6:25 AM [facility] EOSINOPHIL ABSOLUTE 0.03 0.00 - 0.70 K/uL 11/25/2024 6:25 AM [facility] BASOPHILS ABSOLUTE 0.01 0.00 - 0.20 K/uL 11/25/2024 6:25 AM [facility] IMMATURE GRANULOCYTES ABSOLUTE 0.04 0.00 - 0.10 K/uL 11/25/2024 6:25 AM [facility] Blood Collection / Unknown 11/25/2024 2:58 AM INTRAOPERATIVE NEURO TECH 11/25/2024 6:11 AM INTRAOPERATIVE NEURO TECH us Patti Cole PA-C HEMATOLOGY ORDERABLES Final Re sult [facility] CLIA # [id number] [address] [place] [id number] * (ABNORMAL) COMPREHENSIVE METABOLIC PANEL (11/25/2024 2:58 AM INTRAOPERATIVE NEURO TECH) [facility] Signature SODIUM 142 136 - 145 mmol/L 11/25/2024 6:44 AM [facility] POTASSIUM 3.8 3.5 - 5.1 mmol/L 11/25/2024 6:44 AM [facility] CHLORIDE 109(H) 98 - 107 mmol/L 11/25/2024 6:44 AM [facility] CO2 24 22 - 29 mmol/L 11/25/2024 6:44 AM [facility] CALCIUM 8.3(L) 8.8 - 10.2 mg/dL 11/25/2024 6:44 AM [facility] BUN 8 8 - 23 mg/dL 11/25/2024 6:44 AM [facility] CREATININE 0.59 0.51 - 0.95 mg/dL 11/25/2024 6:44 AM [facility] Comment:The GFR result is no t clinically significant on patients <18 or >70 years of age. GLUCOSE 83 74 - 99 mg/dL 11/25/2024 6:44 AM [facility] TOTAL PROTEIN 4.7(L) 6.4 - 8.3 g/dL 11/25/2024 6:44 AM [facility] ALBUMIN 3.0(L) 3.5 - 5.2 g/dL 11/25/2024 6:44 AM [facility] BILIRUBIN TOTAL 0.4 0.2 - 1.0 mg/dL 11/25/2024 6:44 AM [facility] ALKALINE PHOSPHATASE 79 35 - 104 U/L 11/25/2024 6:44 AM [facility] AST 20 10 - 35 U/L 11/25/2024 6:44 AM [facility] ALT 36(H) <=35 U/L 11/25/2024 6:44 AM [facility] GFR >60 mL/min/1.7 3 sq meter 11/25/2024 6:44 AM [facility] Comment:eGFR calculated with 2020 CKD-EPI equation. Vegetarian diet, extremely high or low muscle mass, and may affect results. Cystatin C with Glomerular Filtration Rate is a suitable alternative for these patients. ANION GAP 9 9 - 20 mmol/L 11/25/2024 6:44 AM [facility] Blood Collection / Unknown 11/25/2024 2:58 AM INTRAOPERATIVE NEURO TECH 11/25/2024 6:11 AM INTRAOPERATIVE NEURO TECH us Patti Cole PA-C CHEMISTRY ORDERABLES Final Res ult [facility] LABORATORY SERVICES [facility] # [id number] [address] [place] [address] documented in this encounter Visit Diagnoses Not on filedocumented in this encounter
--- OUTSIDE RECORDS SUMMARY | 2025-08-31 18:49 | XMS_ITS | Clinical Summary ---
Author Organization [facility] Address [address] [place] [address] Care Team Providers Care Chronic Disease Epidemiologist Name Role Phone Kimberley Dumont Jessica CARBAJAL Primary Care Provider [phone] [phone] Allergies No known active allergies Medications amLODIPine (NORVASC) 10 MG tablet Take 10 mg by mouth daily. Active cyanocobalamin, vitamin B12, 1000 MCG tablet Take 1,000 mcg by mouth daily. Active gabapentin (NEURONTIN) 600 mg tablet Take 600 mg by mouth 3 (three) times a day. Active lidocaine (XYLOCAINE) 5% ointment Apply topically as needed for mild pain. Active oxyCODONE (ROXICODONE) 15 MG immediate release (IR) tablet Take 15 mg by mouth every 6 (six) hours as needed for moderate pain. Active ranitidine (ZANTAC) 150 MG tablet Take 150 mg by mouth 2 (two) times a day. Active sertraline (ZOLOFT) 50 MG tablet Take 50 mg by mouth daily. Active albuterol 90 mcg/puff inhl inhaler Inhale 2 puffs every 4 hours by inhalation route as needed. 2 Active Eliquis 5 mg tablet TAKE 1 TABLET BY MOUTH TWICE DAILY TO HELP PREVENT CLOTS 2 Active aspirin 325 MG tablet Take 325 mg by mouth in the morning. Active buprenorphine-n aloxone (SUBOXONE) 8-[address] 1 FILM TWICE DAILY BY SUBLINGUAL ROUTE FOR 28 DAYS 0 Active Farxiga 10 mg tablet Take 1 tablet by mouth daily. 2 Active ergocalciferol (ERGOCALCIFEROL ) 50,000 unit capsule Take 1 capsule by mouth in the morning. 1 Active fluticasone propionate (FLOVENT HFA) 110 mcg/actuation inhaler Inhale 1 puff. Activ e HYDROcodone-ashley taminophen (NORCO) 10-325 mg per tablet Take 1 tablet by mouth every 8 (eight) hours as needed. Active LORazepam (ATIVAN) 1 mg tablet Take 1 mg by mouth every 12 (twelve) hours as needed. 1 Active meclizine (ANTIVERT) 25 mg tablet Take 25 mg by mouth every 8 (eight) hours as needed. 4 Active multivitamin capsule Take 1 capsule by mouth in the morning. Active Narcan 4 mg/actuation nasal spray EMERGENCY USE ONLY CALL 911. ADMINISTER 1 SPRAY INTO 1 NOSTRIL. MAY REPEAT IN ALTERNATING NOSTRILS EVERY 2 TO 3 MINUTES NEEDED FOR OPIOID OVERDOSE UNTIL PATIENT IS RESPONSIVE OR EMS ARRIVES 2 Active omeprazole (PriLOSEC) 40 MG capsule TAKE ONE CAPSULE BY MOUTH ONCE A DAY FOR STOMACH 2 Active mirtazapine (REMERON) 15 MG tablet Take 15 mg by mouth. 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 Assuming that the diagnosis is correct, with a chads Vasc score of four (age, gender, hypertension, vascular disease) she is at a 4.8% stroke risk per year. However, she says she has no history of any bleeding issues, and her has bled score is only two (age and hypertension). While her malnourished state could make INR regulation difficult, it would not impact NOAC dosing, and she indicates that she is able to swallow pills without difficulty. Based on the information available at this time, I do not believe she meets current criteria for a Watchman device. Discussed with Dr. King. Last Assessment & Plan: This patient relates a history of paroxysmal atrial fibrillation for which we have no supporting documentation. Assuming that the diagnosis is correct, with a chads Vasc score of four (age, gender, hypertension, vascular disease) she is at a 4.8% stroke risk per year. However, she says she has no history of any bleeding issues, and her has bled score is only two (age and hypertension). While her malnourished state could make INR regulation difficult, it would not impact NOAC dosing, and she indicates that she is able to swallow pills without difficulty. Based on the information available at this time, I do not believe she meets current criteria for a Watchman device. Discussed with Dr. King. Severe protein-calorie malnutrition 11/30/2020 Immunizations Immunization Administration Dates Next Due influenza, high-dose, quadrivalent (FLUZONE HIGH -DOSE) 08/21/2022 influenza, high-dose, trivalent (FLUZONE HIGH-DO SE) 08/21/2017 influenza, injectable, quadr ivalent (AFLURIA/FLUZONE MDV) 08/09/2020 influenza, injectable, quadr ivalent, preservative free (AFLURIA/FLUARIX/FLULAVAL/FLUZONE) 09/01/2020 influenza, trivalent, adjuvanted (FLUAD) 019 pneumococcal conjugate PCV 13 (PREVNAR 13) 08/21 zoster live (ZOSTAVAX) 10/09/2017 Social History Tobacco Use Types Packs/Day Years Used Date Smoking Tobacco: Former Cigarettes Smokeless Tobacco: Current Comments:e cigs on the indoo rs out doors reg cigs Alcohol Use Standard Drinks/Week Comments Never 0 (1 standard drink = 0.6 oz pur e alcohol) AUDIT-C Answer Date Recorded Frequency of Alcohol Consumption Never 01/02/2020 Average Number of Drinks Not on file 020 Frequency of Binge Drinking Not on file 12/12 PHQ-2 Answer Date Recorded PHQ-2 Score 0 08/21/2022 Comments Unknown Sex and Gender Information Value Date Recorded Sex Assigned at Not on file Legal Sex Female 10:51 AM CDT Gender Identity Not on file Sexual Orientation Not on file Last Filed Vital Signs Vital Sign Reading Time Taken Comments Blood Pressure 130/86 08/25/2022 3:16 PM CDT Pulse 87 08/25/2022 3:16 PM CDT Temperature 36.8 C (98.3 F) 08/25/2022 3:16 PM CDT Respiratory Rate 17 08/25/2022 3:16 PM CDT Oxygen Saturation 96% 08/25/2022 3:16 PM CDT Inhaled Oxygen Concentration - - Weight 57.7 kg (127 lb 4 oz) 08/25/2022 2:43 AM CDT Height 170.2 cm (5' 7 ) 08/21/2022 6:37 PM CDT Body Mass Index 19.93 08/21/2022 6:37 PM CDT Plan of Treatment Health Maintenance Due Date Last Done Comments Foot Exam 1947 Hemoglobin A1C 1947 Medicare Annual Wellness 1947 Ophthalmology Exam 1957 Urine Microalbumin 1957 Td, Tdap Vaccines Adult 1966 Mammogram 1987 Colonoscopy 02/22/1992 Shingrix (ZOSTER RECOMBINANT) (1 of 2) 1997 10/09/2017 Bone Density Scan (DXA Scan) 02/22/2012 Pneumococcal Vaccine: 50+ Years (2 of 2 - PPSV23, PCV20, or PCV21) 10/16/2017 08/21/2017 RSV 60+ (1 - 1-dose 75+ series) 2022 Influenza Vaccination (#1) 06/10/202508/21, 09/01/2020, 08/09/2020, Additional history exists HIB Vaccines Aged Out No longer eligi ble based on patient's age to complete this topic HPV Vaccines Aged Out No longer eligi ble based on patient's age to complete this topic Hepatitis A Vaccines Aged Out No long er eligible based on patient's age to complete this topic Hepatitis B Vaccines Aged Out No long er eligible based on patient's age to complete this topic IPV Vaccines Aged Out No longer eligi ble based on patient's age to complete this topic Meningococcal Vaccines Aged Out No lo nger eligible based on patient's age to complete this topic RSV Mab Nirsevimab (Beyfortus) <20 months Aged Out No longer eligibl e based on patient's age to complete this topic Rotavirus Vaccines Aged Out No longer eligible based on patient's age to complete this topic Insurance [facility] Advance Directives * Code Blue and Intubation (Latest Code Status on File) Date Activated Date Inactivated Comments 08/21/2022 2:15 PM 08/25/2022 6:31 PM Care Teams Chronic Disease Epidemiologist Relationship Specialty Start Date End Date Kimberley Dumont FNP PCP - General 12/16/14
--- OUTSIDE RECORDS SUMMARY | 2025-08-31 18:49 | XMS_ITS | Encounter Summary ---
Author Organization [facility] Address [address] [place] [place] [address] Care Team Providers Care Professional Builder Name Role Phone Kimberley Dumont RAVEN Primary Care Provider [phone] Encounter Details Date Type Department Care Team (Late st Contact Info) Description 10/17/2011 Orders Only [facility] Radiology [address] [place] [address] System, Provider Not In, MD [address] [place] [address] Social History Tobacco Use Types Packs/Day Years [...] Priority Date/Time Associated Diagnosis Comments OUTSIDE IMAGES 10/17/2011 12:54 PM MISSILE FACILITIES REPAIRER documented in this encounter Results * Outside Images (10/17/2011 12:54 PM MISSILE FACILITIES REPAIRER) Anatomical Region Laterality Modality N/A Radiographic Patience ging 10/17/2011 12:5 4 PM MISSILE FACILITIES REPAIRER Narrative 10/17/2011 12:54 PM MISSILE FACILITIES REPAIRER Historic images from [facility] exist and can be viewed by using the hyperlink to access [facility] pacs: SHERLY SCREENING DIGITAL W/ CAD Procedure Note System, Provider Not In - 12/03/2020 Historic images from [facility] exist and can be viewed byusing the hyperlink to access [facility] pacs: SHERLY SCREENING DIGITAL W/CAD us Provider Not In System MD REA GENERAL IMAGING OR DERABLES Final Result documented in this encounter Visit Diagnoses Not on filedocumented in this encounter Care Teams Professional Builder Relationship Specialty Start Date End Date Kimberley Dumont FNP PCP - General 12/16/14 documented as of this encounter
--- OUTSIDE RECORDS SUMMARY | 2025-08-31 18:49 | XMS_ITS | Patient Health Record ---
Author Organization [facility] Address [address] [place] [address] Care Team Providers Care Senior Court Office Assistant Name Role Phone Tim MORALES, Kimberley Primary Care Provider Cate GUTIÉRREZ MD, JANELLE Unavailable [phone] Edin Daly MD Unavailable Unavailable Reason For Referral No Information Plan Of Treatment Pending Test Test Name Order Date Endoscopic Retrograde Cholangiopancreato graphy (ERCP) 03/02/2021 Insurance Providers Payer Name Payer Address Payer Phone Subscriber Number Group Number Insured Name Patient Relationship to Insured Coverage Start Date Coverage End Date [employer] [address] [address] [place], [place] [id number] Rylee Martinez Self - patient is the insured Medicaid- [place] Medicaid [address] [place], [place] [id number] Rylee Martinez Self - patient is the insured
--- OUTSIDE RECORDS SUMMARY | 2025-08-31 18:49 | XMS_ITS | Encounter Summary ---
Author Organization [facility] Address [address] [place] [address] Care Team Providers Care Parlor Maid Name Role Phone Unavailable Primary Care Provider Unavailabl e Encounter Details Date Type Department Care Team (Late st Contact Info) Description 11/17/2024 Lab Requisition [facility] Laboratory Services [address] [place] [address] Anat Conway, CARMEN [address] [place] [address] Social History Tobacco Use Types Packs/Day Years [...] on file Legal Sex Female 5:32 AM RELIEF MANAGER Gender Identity Not on file Sexual Orientation Not on file documented as of this encounter Plan of Treatment Not on file documented as of this encounter Procedures Procedure Name Priority Date/Time Associated Diagnosis Comments CBC WITH DIFFERENTIAL Routine 11/17/2024 3:00 AM RELIEF MANAGER BASIC METABOLIC PANEL Routine 11/17/2024 3:00 AM RELIEF MANAGER documented in this encounter Results * (ABNORMAL) CBC WITH DIFFERENTIAL (11/17/2024 3:00 AM RELIEF MANAGER) [facility] WBC 12.1(H) 4.8 - 10.8 K/uL 11/17/2024 7:21 AM [facility] RBC 3.54(L) 4.20 - 5.40 M/uL 11/17/2024 7:21 AM [facility] HEMOGLOBIN 9.5(L) 12.0 - 16.0 g/dL 11/17/2024 7:21 AM [facility] HEMATOCRIT 32.8(L) 36.0 - 46.0 % 11/17/2024 7:21 AM [facility] MCV 92.7 84.0 - 103.0 fL 11/17/2024 7:21 AM [facility] MCH 26.8(L) 27.0 - 34.0 pg 11/17/2024 7:21 AM [facility] MCHC 29.0(L) 30.0 - 35.0 g/dL 11/17/2024 7:21 AM [facility] RDW 17.8(H) 11.0 - 14.5 % 11/17/2024 7:21 AM [facility] RDW-STDEV 60.4(H) 37.0 - 54.0 fL 11/17/2024 7:21 AM [facility] PLATELETS 153 140 - 440 K/uL 11/17/2024 7:21 AM [facility] MPV 10.4 8.9 - 12.8 fL 11/17/2024 7:21 AM [facility] NEUTROPHILS 80(H) 42 - 75 % 11/17/2024 7:21 AM [facility] LYMPHOCYTES 11(L) 24 - 44 % 11/17/2024 7:21 AM [facility] MONOCYTES 7 2 - 10 % 11/17/2024 7:21 AM [facility] EOSINOPHILS 0 0 - 7 % 11/17/2024 7:21 AM [facility] BASOPHILS 0 0 - 1 % 11/17/2024 7:21 AM [facility] IMMATURE GRANULOCYTES 2 0 - 2 % 11/17/2024 7:21 AM [facility] NEUTROPHIL ABSOLUTE 9.63(H) 2.00 - 8.00 K/uL 11/17/2024 7:21 AM [facility] LYMPHOCYTE ABSOLUTE 1.34 1.20 - 4.00 K/uL 11/17/2024 7:21 AM [facility] MONOCYTE ABSOLUTE 0.84(H) 0.10 - 0.60 K/uL 11/17/2024 7:21 AM [facility] EOSINOPHIL ABSOLUTE 0.04 0.00 - 0.70 K/uL 11/17/2024 7:21 AM [facility] BASOPHILS ABSOLUTE 0.01 0.00 - 0.20 K/uL 11/17/2024 7:21 AM [facility] IMMATURE GRANULOCYTES ABSOLUTE 0.24(H) 0.00 - 0.10 K/uL 11/17/2024 7:21 AM [facility] Blood Collection / Unknown 11/17/2024 3:00 AM RELIEF MANAGER 11/17/2024 7:15 AM [facility] us Anat Conway NP HEMATOLOGY ORDERABLES Final Resu lt [facility] CLIA # [id number] [facility] [address] [place] [address] * (ABNORMAL) BASIC METABOLIC PANEL (11/17/2024 3:00 AM [facility]) SODIUM 142 136 - 145 mmol/L 11/17/2024 8:04 AM [facility] POTASSIUM 3.6 3.5 - 5.1 mmol/L 11/17/2024 8:04 AM [facility] CHLORIDE 99 98 - 107 mmol/L 11/17/2024 8:04 AM [facility] CO2 35(H) 22 - 29 mmol/L 11/17/2024 8:04 AM [facility] CALCIUM 9.1 8.8 - 10.2 mg/dL 11/17/2024 8:04 AM [facility] BUN 34(H) 8 - 23 mg/dL 11/17/2024 8:04 AM [facility] CREATININE 0.73 0.51 - 0.95 mg/dL 11/17/2024 8:04 AM [facility] Comment:The GFR result is no t clinically significant on patients <18 or >70 years of age. GLUCOSE 90 74 - 99 mg/dL 11/17/2024 8:04 AM [facility] GFR >60 mL/min/1.7 3 sq meter 11/17/2024 8:04 AM [facility] Comment:eGFR calculated with 2020 CKD-EPI equation. Vegetarian diet, extremely high or low muscle mass, and may affect results. Cystatin C with Glomerular Filtration Rate is a suitable alternative for these patients. ANION GAP 8(L) 9 - 20 mmol/L 11/17/2024 8:04 AM [facility] Blood Collection / Unknown 11/17/2024 3:00 AM RELIEF MANAGER 11/17/2024 7:15 AM RELIEF MANAGER us Anat Conway NP CHEMISTRY ORDERABLES Final Resul t [facility] CLIA # [id number] [facility] [address] [place], [place] [id number] documented in this encounter Visit Diagnoses Not on filedocumented in this encounter
--- OUTSIDE RECORDS SUMMARY | 2025-08-31 18:49 | XMS_ITS | Encounter Summary ---
Author Organization [facility] Address [address] [place] [address] Care Team Providers Care Art Gilder Name Role Phone Unavailable Primary Care Provider Unavailabl e Encounter Details Date Type Department Care Team (Late st Contact Info) Description 11/18/2024 Lab Requisition [facility] Laboratory Services [address] [place] [address] Patti Cole PA-C [address] [place] [address] Social History Tobacco Use Types [...] on file Legal Sex Female 5:32 AM TIMBER INCISOR OPERATOR Gender Identity Not on file Sexual Orientation Not on file documented as of this encounter Plan of Treatment Not on file documented as of this encounter Procedures Procedure Name Priority Date/Time Associated Diagnosis Comments CBC WITH DIFFERENTIAL Routine 11/18/2024 4:00 AM TIMBER INCISOR OPERATOR COMPREHENSIVE METABOLIC PANEL Routine 11/18/2024 4:00 AM TIMBER INCISOR OPERATOR documented in this encounter Results * (ABNORMAL) CBC WITH DIFFERENTIAL (11/18/2024 4:00 AM TIMBER INCISOR OPERATOR) WBC 11.8(H) 4.8 - 10.8 K/uL 11/18/2024 8:18 AM [facility] RBC 3.47(L) 4.20 - 5.40 M/uL 11/18/2024 8:18 AM [facility] HEMOGLOBIN 9.3(L) 12.0 - 16.0 g/dL 11/18/2024 8:18 AM [facility] HEMATOCRIT 31.2(L) 36.0 - 46.0 % 11/18/2024 8:18 AM [facility] MCV 89.9 84.0 - 103.0 fL 11/18/2024 8:18 AM [facility] MCH 26.8(L) 27.0 - 34.0 pg 11/18/2024 8:18 AM [facility] MCHC 29.8(L) 30.0 - 35.0 g/dL 11/18/2024 8:18 AM [facility] RDW 18.2(H) 11.0 - 14.5 % 11/18/2024 8:18 AM [facility] RDW-STDEV 59.7(H) 37.0 - 54.0 fL 11/18/2024 8:18 AM [facility] PLATELETS 142 140 - 440 K/uL 11/18/2024 8:18 AM [facility] MPV 10.5 8.9 - 12.8 fL 11/18/2024 8:18 AM [facility] NEUTROPHILS 80(H) 42 - 75 % 11/18/2024 8:18 AM [facility] LYMPHOCYTES 11(L) 24 - 44 % 11/18/2024 8:18 AM [facility] MONOCYTES 7 2 - 10 % 11/18/2024 8:18 AM [facility] EOSINOPHILS 0 0 - 7 % 11/18/2024 8:18 AM [facility] BASOPHILS 0 0 - 1 % 11/18/2024 8:18 AM [facility] IMMATURE GRANULOCYTES 1 0 - 2 % 11/18/2024 8:18 AM [facility] NEUTROPHIL ABSOLUTE 9.43(H) 2.00 - 8.00 K/uL 11/18/2024 8:18 AM [facility] LYMPHOCYTE ABSOLUTE 1.31 1.20 - 4.00 K/uL 11/18/2024 8:18 AM [facility] MONOCYTE ABSOLUTE 0.81(H) 0.10 - 0.60 K/uL 11/18/2024 8:18 AM [facility] EOSINOPHIL ABSOLUTE 0.04 0.00 - 0.70 K/uL 11/18/2024 8:18 AM [facility] BASOPHILS ABSOLUTE 0.01 0.00 - 0.20 K/uL 11/18/2024 8:18 AM [facility] IMMATURE GRANULOCYTES ABSOLUTE 0.16(H) 0.00 - 0.10 K/uL 11/18/2024 8:18 AM [facility] Blood Collection / Unknown 11/18/2024 4:00 AM TIMBER INCISOR OPERATOR 11/18/2024 8:03 AM [facility] Patti Cole PA-C HEMATOLOGY ORDERABLES Final Re sult [facility] CLIA # [id number] [address] [place] [id number] * (ABNORMAL) COMPREHENSIVE METABOLIC PANEL (11/18/2024 4:00 AM [facility]) [facility] SODIUM 140 136 - 145 mmol/L 11/18/2024 9:07 AM [facility] POTASSIUM 3.5 3.5 - 5.1 mmol/L 11/18/2024 9:07 AM [facility] CHLORIDE 102 98 - 107 mmol/L 11/18/2024 9:07 AM [facility] CO2 31(H) 22 - 29 mmol/L 11/18/2024 9:07 AM [facility] CALCIUM 8.5(L) 8.8 - 10.2 mg/dL 11/18/2024 9:07 AM [facility] BUN 23 8 - 23 mg/dL 11/18/2024 9:07 AM [facility] CREATININE 0.63 0.51 - 0.95 mg/dL 11/18/2024 9:07 AM [facility] Comment:The GFR result is no t clinically significant on patients <18 or >70 years of age. GLUCOSE 84 74 - 99 mg/dL 11/18/2024 9:07 AM [facility] TOTAL PROTEIN 4.7(L) 6.4 - 8.3 g/dL 11/18/2024 9:07 AM [facility] ALBUMIN 2.9(L) 3.5 - 5.2 g/dL 11/18/2024 9:07 AM [facility] BILIRUBIN TOTAL 0.5 0.2 - 1.0 mg/dL 11/18/2024 9:07 AM [facility] ALKALINE PHOSPHATASE 83 35 - 104 U/L 11/18/2024 9:07 AM [facility] AST 22 10 - 35 U/L 11/18/2024 9:07 AM [facility] ALT 27 <=35 U/L 11/18/2024 9:07 AM [facility] GFR >60 mL/min/1.7 3 sq meter 11/18/2024 9:07 AM [facility] Comment:eGFR calculated with 2020 CKD-EPI equation. Vegetarian diet, extremely high or low muscle mass, and may affect results. Cystatin C with Glomerular Filtration Rate is a suitable alternative for these patients. ANION GAP 7(L) 9 - 20 mmol/L 11/18/2024 9:07 AM [facility] Blood Collection / Unknown 11/18/2024 4:00 AM TIMBER INCISOR OPERATOR 11/18/2024 8:04 AM TIMBER INCISOR OPERATOR us Patti Cole PA-C CHEMISTRY ORDERABLES Final Res ult [facility] # [id number] [facility] [address] documented in this encounter Visit Diagnoses Not on filedocumented in this encounter
--- OUTSIDE RECORDS SUMMARY | 2025-08-31 18:49 | XMS_ITS | Encounter Summary ---
Author Organization [facility] Address [address] [address] Care Team Providers Care Financial Market Dealer Name Role Phone Kimberley Dumont RAVEN Primary Care Provider [phone] Encounter Details Date Type Department Care Team (Late st Contact Info) Description 05/24/[address] [facility] Radiology [address] [place] [address] System, Provider Not In, MD [address] [place] [address] Social History Tobacco Use Types Packs/Day Years [...] Priority Date/Time Associated Diagnosis Comments OUTSIDE IMAGES 05/24/2010 10:23 AM CDT documented in this encounter Results * Outside Images (05/24/2010 10:23 AM CDT) Anatomical Region Laterality Modality N/A Radiographic Patience ging 05/24/2010 10:2 3 AM CDT Narrative 05/24/2010 10:23 AM CDT Historic images from [facility] exist and can be viewed by using the hyperlink to access [employer] pacs: MRI THORACIC SPINE NO CONTRAST Procedure Note System, Provider Not In - 12/05/2020 Historic images from [facility] exist and can be viewed byusing the hyperlink to access [facility] pacs: MRI THORACIC SPINE NOCONTRAST us Provider Not In System MD REA GENERAL IMAGING OR DERABLES Final Result documented in this encounter Visit Diagnoses Not on filedocumented in this encounter Care Teams Financial Market Dealer Relationship Specialty Start Date End Date Kimberley Dumont FNP PCP - General 12/16/14 documented as of this encounter
--- OUTSIDE RECORDS SUMMARY | 2025-08-31 18:49 | XMS_ITS | Encounter Summary ---
Author Organization [facility] Address [address] [place] [address] Care Team Providers Care Sales And Marketing Representative Name Role Phone Kimberley Dumont RAVEN Primary Care Provider [phone] Encounter Details Date Type Department Care Team (Late st Contact Info) Description 09/29/2015 Orders Only [facility] Radiology [address] [place] [address] System, Provider Not In, MD [address] [place] [address] Social History Tobacco Use Types Packs/Day Years [...] Priority Date/Time Associated Diagnosis Comments OUTSIDE IMAGES 09/29/2015 12:50 PM LABORER HEADING documented in this encounter Results * Outside Images (09/29/2015 12:50 PM LABORER HEADING) Anatomical Region Laterality Modality N/A Radiographic Patience ging 09/29/2015 12:5 0 PM LABORER HEADING Narrative 09/29/2015 12:50 PM LABORER HEADING Historic images from [facility] [place] exist and can be viewed by using the hyperlink to access [employer] pacs: SHERLY SCREENING w/CAD Procedure Note System, Provider Not In - 12/07/2020 Historic images from [facility] exist and can be viewed byusing the hyperlink to access [employer] pacs: SHERLY SCREENING w/CAD us Provider Not In System MD REA GENERAL IMAGING OR DERABLES Final Result documented in this encounter Visit Diagnoses Not on filedocumented in this encounter Care Teams Sales And Marketing Representative Relationship Specialty Start Date End Date Kimberley Dumont FNP PCP - General 12/16/14 documented as of this encounter
--- OUTSIDE RECORDS SUMMARY | 2025-08-31 18:49 | XMS_ITS | Encounter Summary ---
Author Organization [facility] Address [address] [place] [address] Care Team Providers Care Ruby Software Developer Name Role Phone Unavailable Primary Care Provider Unavailabl e Encounter Details Date Type Department Care Team (Late st Contact Info) Description 11/10/2024 Lab Requisition [facility] Laboratory Services [address] [place] [address] [place] [address] Patti Cole PA-C [address] [place] [address] Social History Tobacco Use Types [...] on file Legal Sex Female 5:32 AM PRODUCT ENGINEER Gender Identity Not on file Sexual Orientation Not on file documented as of this encounter Plan of Treatment Not on file documented as of this encounter Procedures Procedure Name Priority Date/Time Associated Diagnosis Comments CBC WITH DIFFERENTIAL Routine 11/10/2024 4:00 AM PRODUCT ENGINEER COMPREHENSIVE METABOLIC PANEL Routine 11/10/2024 4:00 AM PRODUCT ENGINEER documented in this encounter Results * (ABNORMAL) CBC WITH DIFFERENTIAL (11/10/2024 4:00 AM PRODUCT ENGINEER) WBC 13.0(H) 4.8 - 10.8 K/uL 11/10/2024 8:09 AM [facility] RBC 3.90(L) 4.20 - 5.40 M/uL 11/10/2024 8:09 AM [facility] HEMOGLOBIN 10.0(L) 12.0 - 16.0 g/dL 11/10/2024 8:09 AM [facility] HEMATOCRIT 34.0(L) 36.0 - 46.0 % 11/10/2024 8:09 AM [facility] MCV 87.2 84.0 - 103.0 fL 11/10/2024 8:09 AM [facility] MCH 25.6(L) 27.0 - 34.0 pg 11/10/2024 8:09 AM [facility] MCHC 29.4(L) 30.0 - 35.0 g/dL 11/10/2024 8:09 AM [facility] RDW 17.8(H) 11.0 - 14.5 % 11/10/2024 8:09 AM [facility] RDW-STDEV 56.7(H) 37.0 - 54.0 fL 11/10/2024 8:09 AM [facility] PLATELETS 281 140 - 440 K/uL 11/10/2024 8:09 AM [facility] MPV 10.5 8.9 - 12.8 fL 11/10/2024 8:09 AM [facility] NEUTROPHILS 88(H) 42 - 75 % 11/10/2024 8:09 AM [facility] LYMPHOCYTES 4(L) 24 - 44 % 11/10/2024 8:09 AM [facility] MONOCYTES 5 2 - 10 % 11/10/2024 8:09 AM [facility] [employer] [facility] EOSINOPHILS 0 0 - 7 % 11/10/2024 8:09 AM [facility] BASOPHILS 0 0 - 1 % 11/10/2024 8:09 AM [facility] IMMATURE GRANULOCYTES 3(H) 0 - 2 % 11/10/2024 8:09 AM [facility] NEUTROPHIL ABSOLUTE 11.45(H) 2.00 - 8.00 K/uL 11/10/2024 8:09 AM [facility] LYMPHOCYTE ABSOLUTE 0.55(L) 1.20 - 4.00 K/uL 11/10/2024 8:09 AM [facility] MONOCYTE ABSOLUTE 0.69(H) 0.10 - 0.60 K/uL 11/10/2024 8:09 AM [facility] EOSINOPHIL ABSOLUTE 0.00 0.00 - 0.70 K/uL 11/10/2024 8:09 AM [facility] BASOPHILS ABSOLUTE 0.01 0.00 - 0.20 K/uL 11/10/2024 8:09 AM [facility] IMMATURE GRANULOCYTES ABSOLUTE 0.33(H) 0.00 - 0.10 K/uL 11/10/2024 8:09 AM [facility] Blood Collection / Unknown 11/10/2024 4:00 AM PRODUCT ENGINEER 11/10/2024 7:59 AM [facility] Patti Cole PA-C HEMATOLOGY ORDERABLES Final Re sult [facility] CLIA # [id number] [address] [place] [address] [place] [address] * (ABNORMAL) COMPREHENSIVE METABOLIC PANEL (11/10/2024 4:00 AM PRODUCT ENGINEER) SODIUM 136 136 - 145 mmol/L 11/10/2024 8:49 AM [facility] POTASSIUM 4.4 3.5 - 5.1 mmol/L 11/10/2024 8:49 AM [facility] CHLORIDE 90(L) 98 - 107 mmol/L 11/10/2024 8:49 AM [facility] CO2 30(H) 22 - 29 mmol/L 11/10/2024 8:49 AM [facility] CALCIUM 9.8 8.8 - 10.2 mg/dL 11/10/2024 8:49 AM [facility] BUN 73(H) 8 - 23 mg/dL 11/10/2024 8:49 AM [facility] CREATININE 1.07(H) 0.51 - 0.95 mg/dL 11/10/2024 8:49 AM [facility] Comment:The GFR result is no t clinically significant on patients <18 or >70 years of age. GLUCOSE 166(H) 74 - 99 mg/dL 11/10/2024 8:49 AM [facility] TOTAL PROTEIN 6.7 6.4 - 8.3 g/dL 11/10/2024 8:49 AM [facility] ALBUMIN 3.8 3.5 - 5.2 g/dL 11/10/2024 8:49 AM [facility] BILIRUBIN TOTAL 0.5 0.2 - 1.0 mg/dL 11/10/2024 8:49 AM [facility] ALKALINE PHOSPHATASE 127(H) 35 - 104 U/L 11/10/2024 8:49 AM [facility] AST 20 10 - 35 U/L 11/10/2024 8:49 AM [facility] ALT 26 <=35 U/L 11/10/2024 8:49 AM [facility] GFR 53 mL/min/1. 73 sq meter 11/10/2024 8:49 AM [facility] Comment:eGFR calculated with 2020 CKD-EPI equation. Vegetarian diet, extremely high or low muscle mass, and may affect results. Cystatin C with Glomerular Filtration Rate is a suitable alternative for these patients. ANION GAP 16 9 - 20 mmol/L 11/10/2024 8:49 AM [facility] Blood Collection / Unknown 11/10/2024 4:00 AM PRODUCT ENGINEER 11/10/2024 7:59 AM PRODUCT ENGINEER us Patti Cole PA-C CHEMISTRY ORDERABLES Final Res ult [facility] LABORATORY SERVICES [facility] # [id number] [facility] [address] [place], [place] [address] documented in this encounter Visit Diagnoses Not on filedocumented in this encounter
--- OUTSIDE RECORDS SUMMARY | 2025-08-31 18:49 | XMS_ITS | Clinical Summary ---
Author Organization [facility] Address [address] [facility] Attn: Epic Prelude ADT [place] [address] Care Team Providers Care Field Geologist Name Role Phone Unavailable Primary Care Provider Unavailabl e Allergies No known active allergies Medications omeprazole (PriLOSEC) 40 mg Capsule, Delayed Release(E.C.) Take 40 mg by mouth daily. Active Multivitamin Capsule Take 1 Capsule by mouth daily. Active fluticasone propionate (FLOVENT HFA) 110 mcg/actuation HFA Aerosol Inhaler Take 1 Puff by inhalation 2 times daily. Active Farxiga 10 mg Tablet Take 10 mg by mouth daily. 2 Active cyanocobalamin 1,000 mcg Tablet Take 1,000 mcg by mouth daily. Active atorvastatin (LIPITOR) 20 mg tablet Take 20 mg by mouth daily. 2 Active Eliquis 5 mg tablet Take 5 mg by mouth 2 times daily. 2 Active albuterol sulfate 90 mcg/Actuation inhaler Take 2 Puffs by inhalation every 6 hours as needed. 2 Active Anoro Ellipta 62.5-25 mcg/actuation Disk with Device Take 1 Puff by inhalation daily. 4 Active metoprolol succinate (TOPROL XL) 50 mg Extended Release 24 hour tablet Take 1 Tablet by mouth daily. 4 Active sertraline (ZOLOFT) 50 mg tablet Take 50 mg by mouth daily. Active Brixadi solution, extended rel syringe Inject 96 mg by subcutaneous injection every 28 days. 4 Active furosemide (LASIX) 40 mg tablet Take 1 Tablet (40 mg) by mouth two times daily, 7 hours apart. 5 Active flecainide (TAMBOCOR) 100 mg tablet Take 1 Tablet (100 mg) by mouth every 12 hours. 4 Active midodrine (PROAMATINE) 10 mg Tablet Take 1 Tablet (10 mg) by mouth 2 times daily. Active Active Problems Problem Noted Date Diagnosed Date Chronic renal failure, stage 3b 11/03/2024 Leukopenia 11/03/2024 Sepsis with acute hypoxic re spiratory failure without septic shock 11/03/2024 Respiratory failure 10/27/2024 Normocytic anemia 10/27/2024 Acute on chronic hypoxic respiratory failure Metabolic acidosis 10/26/2024 JULIA (acute kidney injury) 10/26/2024 Panlobular emphysema 10/26/2024 Community acquired pneumonia 10/26/2024 Severe sepsis without septic shock 10/26/2024 Hyperlipidemia 08/21/2022 Primary hypertension 08/21/2022 Dilated intrahepatic bile duct 08/05/2022 S/P ERCP 08/05/2022 Abdominal aortic aneurysm dissection 08/04/2022 Acute pancreatitis 08/02/2022 Hypokalemia 08/02/2022 Abnormal weight loss 03/05/2021 Overview (08/03/2022): Added automatically from request for surgery [id number] Paroxysmal atrial fibrillati on with rapid ventricular response 12/08/2020 Overview (08/03/2022): Last Assessment & Plan: This patient relates [...] a Watchman device. Discussed with Dr. King. Epigastric pain 11/30/2020 Moderate protein-energy malnutrition 11/30/2020 Thoracic aortic aneurysm without rupture 016 Overview (08/03/2022): Thoracic aortic aneurysm without rupture Resolved Problems Problem Noted Date Diagnosed Date Resolved Date Acute cystitis with hematuria 08/02/2022 08/05/2022 Encounters Date Type Department Care Team Description 08/02/2025 Orders Only [facility] Admitting [address] [place] [address] Joy Nieto, RAVEN Repeated falls (Primary Dx) 07/13/2025 Orders Only [facility] [address] [facility] [address] [place] [address] Anita Joe, ENGRAVER TIRE MOLD-BELT CUTTER Paroxysmal atrial fibrillation with rapid ventricular response (CMS/HCC) (Primary Dx) 06/14/2025 External Device Data STL ABSTRACTION Provider, Abstract 06/06/2025 Orders Only [facility] HIM [address] [place] [address] Provider, Abstract from Last 3 Months Immunizations Immunization Administration Dates Next Due (PREVNAR 13)(6 WKS UP) PNEUM OCOCCAL CONJUGATE (PCV13) 0.5 ML, IM 08/21/2017 INFLUENZA VACCINE HIGH DOSE QUADRIVALENT 65 YR U P PF IM 08/21/2022 INFLUENZA VACCINE QUADRIVALENT 6 MOS UP IM 08/09 INFLUENZA VACCINE QUADRIVALENT 6 MOS UP PF IM Influenza Vaccine High Dose 65+ Yrs IM 7 Influenza Vaccine Tri Adjuvanted 65+ PF IM 07/30 Zoster Vaccine Live SQ 10/09/2017 Family History Medical History Relation Name Comments No Known Problems Father No Known Problems Mother Relation Name Status Comments Father Mother Social History Tobacco Use Types Packs/Day Years Used Date Smoking Tobacco: Former Cigarettes Smokeless Tobacco: Never Tobacco Cessation:Counseling Given: Not Answered Alcohol Use Standard Drinks/Week Comments No 0 (1 standard drink = 0.6 oz pur e alcohol) Feeling Safe Answer Date Recorded Are you in a relationship wi th someone who hurts you emotionally and/or physically? Patient unable to answer 10/26/2024 Food Insecurity Answer Date Recorded Patient needs follow up regardin 03/02/2025 Transportation Needs Answer Date Record ed Patient needs follow up regardin 03/02/2025 Housing Stability Answer Date Recorded Social/Environmental Concerns No concerns Utility Needs Answer Date Recorded Patient needs follow up regardin 03/02/2025 Comments No Sex and Gender Information Value Date Recorded Sex Assigned at Not on file Legal Sex Female 5:[address] Gender Identity Not on file Sexual Orientation Not on file Last Filed Vital Signs Vital Sign Reading Time Taken Comments Blood Pressure 116/69 11/09/2024 7:[address]ER Pulse 73 11/09/2024 7:[address] Temperature 36.2 C (97.2 F) 11/09/2024 7:[address] Respiratory Rate 24 11/09/2024 7:[address] Oxygen Saturation 96% 11/09/2024 7:[address]ER Inhaled Oxygen Concentration - - Weight 77.1 kg (170 lb) 11/09/2024 5:[address] Height 170.2 cm (5' 7 ) 10/26/2024 7:[address]ER Body Mass Index 26.63 10/26/2024 7:[address] Plan of Treatment Health Maintenance Due Date Last Done Comments DIABETES ANNUAL FOOT EXAM 1965 DIABETES ANNUAL RETINAL EXAM 1965 DIABETES HBA1C Q 6 MONTHS 1965 DIABETES MICROALBUMIN ANNUAL SCREEN 1965 DTAP/TDAP/TD VACCINES (1 - Tdap) 1966 PNEUMOCOCCAL VACCINE 50+ YEA RS (2 of 2 - PPSV23, PCV20, or PCV21) 10/16/2017 08/21/2017 ZOSTER VACCINE (2 of 3) 12/04/2017 10/09/2017 RSV VACCINE (60+ or ) (1 - 1-dose 75+ series) 2022 LDL CHOLESTEROL ANNUAL 08/02/2023 08/02/2022 INFLUENZA VACCINE (#1) 2025 2, 09/01/2020, 08/09/2020, Additional history exists OSTEOPOROSIS SCREENING 05/25/2030 05/25/2025 Medical Devices Implanted Type Area Director Of Audiology Device Identifier Shelf Expiration Date Model / Serial / Lot Stent Bili Plastic Duodenal Bend 10fr 7cm [id number] - [id number] Implanted:Qty: 1 on 08/04/2022 by Vasile Zhang MD at [facility] Stent Bile Duct [facility] MICHEL 05/22/2025 [id number] / / [id number] Procedures Procedure Name Priority Date/Time Associated Diagnosis Comments XR DEXA BONE DENSITY AXIAL 1 OR MORE SITES Routine 05/25/2025 11:53 AM CDT Encounter for screening for osteoporosis Asymptomatic menopausal state LIPID PANEL Stat 08/02/2022 2:40 PM CDT Acute pancreatitis, unspecified complication status, unspecified pancreatitis type Hypokalemia Acute cystitis with hematuria from Last 3 Months or Most Recently Relevant to Health Maintenance Results * (ABNORMAL) XR DEXA BONE DENSITY AXIAL 1 OR MORE SITES (05/25/2025 11:53 AM CDT) T-SCORE HIP (LEFT) -2.50(A) -1.0 - 1.0 INTERFACE SYSTEM T-SCORE SPINE -1.30(A) -1.0 - 1.0 INTER FACE SYSTEM Anatomical Region Laterality Modality Digital Radiogra phy, Mammography 05/25/2025 11:5 4 AM CDT Impressions 05/25/2025 12:00 PM CDT IMPRESSION: Osteoporosis (T-score at or below -2.5). NOF guidelines recommend consideration of FDA-approved medical therapies in patients with FRAX determined 10-year probabilities of hip/major osteoporosis-related fractures equal or greater than 3%/20% respectively. Consider assessing fracture risk using the FRAX analysis tool for guidance of clinical management available online at www.shef.ac.uk/FRAX/. Enter [employer] for Select DXA and the Femoral Neck BMD value. Narrative 05/25/2025 12:00 PM CDT DEXA Evaluation of the Lumbar Spine and Left Proximal Femur DATE/TIME OF EXAM: 05/25/2025 11:53 AM REASON FOR EXAM: See Diagnosis DIAGNOSIS: Encounter for screening for osteoporosis; Asymptomatic menopausal state The following absorptiometry data were obtained. The quality of this examination is acceptable with regards to count density, processed images, data display and lack of important artifacts (including but not limited to motion and attenuation artifacts). RESULTS: LUMBAR SPINE: Levels: L1-L4 BMD (g/cm2): 0.905 T-score: -1.3 Z-score: 1.3 FEMORAL NECK: BMD (g/cm2): 0.486 T-score: -3.3 Z-score: -1.0 TOTAL HIP: BMD (g/cm2): 0.632 T-score: -2.5 Z-score: -0.6 (Please note: If bilateral femur evaluation was performed, only the side with lowest T-score is reported) Procedure Note Fazal Guallpa MD - 05/25/2025 DEXA Evaluation of the Lumbar Spine and Left Proximal Femur DATE/TIME OF EXAM: 05/25/2025 11:53 AM REASON FOR EXAM: See Diagnosis DIAGNOSIS: Encounter for screening for osteoporosis; Asymptomatic menopausal state The following absorptiometry data were obtained. The quality of this examination is acceptable with regards to count density, processed images, data display and lack of important artifacts (including but not limited to motion and attenuation artifacts). RESULTS: LUMBAR SPINE: Levels: L1-L4 BMD (g/cm2): 0.905 T-score: -1.3 Z-score: 1.3 FEMORAL NECK: BMD (g/cm2): 0.486 T-score: -3.3 Z-score: -1.0 TOTAL HIP: BMD (g/cm2): 0.632 T-score: -2.5 Z-score: -0.6 (Please note: If bilateral femur evaluation was performed, only the side with lowest T-score is reported) IMPRESSION: Osteoporosis (T-score at or below -2.5). NOF guidelines recommend consideration of FDA-approved medical therapies in patients with FRAX determined 10-year probabilities of hip/major osteoporosis-related fractures equal or greater than 3%/20% respectively. Consider assessing fracture risk using the FRAX analysis tool for guidance of clinical management available online at www.shef.ac.uk/FRAX/. Enter [employer] for Select DXA and the Femoral Neck BMD value. Joy MCCAINP DIAGNOSTIC IMAGING ORDERABLES Final Result * (ABNORMAL) LIPID PANEL (08/02/2022 2:40 PM CDT) CHOLESTEROL 112 <200 mg/dL 08/02/2022 8:32 PM CDT [facility] TRIGLYCERIDE 183(H) <150 mg/dL 08/02/2022 8:32 PM CDT [facility] HDL 31(L) 40 - 59 mg/dL 08/02/2022 8:32 PM CDT [facility] LDL CALCULATED 44 <100 mg/dL 08/02/2022 8:32 PM CDT [facility] NON-HDL CHOLESTEROL 81 <130 mg/dL 08/02/2022 8:32 PM CDT [facility] Blood 08/02/2022 2:40 PM CDT 08/02/2022 2:54 PM CDT Narrative [facility] - 08/02/2022 8:32 PM CDT TOTAL CHOLESTEROL mg/dL Desirable <200 Borderline high 200-239 High >=240 TRIGLYCERIDES mg/dL Normal <150 Borderline high 150-199 High 200-499 Very high >=500 HDL CHOLESTEROL mg/dL Low <40 Normal 40-59 Desirable >=60 NON HDL CHOLESTEROL mg/dL Optimal <130 Near Optimal 130-159 Borderline High 160-189 Very High >=190 CALCULATED LDL mg/dL LDL <70, OPTIMAL if have Atherosclerotic cardiovascular disease (ASCVD) or intermediate or higher (>7.5%) 10 year risk of ASCVD including most adults with diabetes. LDL <100, Optimal in adult patients with low (<7.5%) 10 year ASCVD risk LDL 100-160, Suboptimal LDL >160, High LDL >190, Very high ATPIII Guidelines Reference Ranges for Lipid Panels (NCEP/AMA) . Christopher Westfall MD CHEMISTRY ORDERABLES Final Resu lt [facility] [id number] [address] [place] [address] [place], [place] [address] from Last 3 Months or Most Recently Relevant to Health Maintenance Insurance [place] [address] [place] [address] [facility]UAL COMPLETE [facility] [id number] Advance Directives For more information, please contact: [phone] * Full Code (Latest Code Status on File) Date Activated Date Inactivated Comments 10/26/2024 5:12 AM 11/09/2024 10:37 PM * Full Code Date Activated Date Inactivated Comments 08/03/2022 3:10 AM 08/05/2022 5:07 PM
--- OUTSIDE RECORDS SUMMARY | 2025-08-31 18:49 | XMS_ITS | Encounter Summary ---
Author Organization [facility] Address [address] [place] [address] Care Team Providers Care Manometer Technician Name Role Phone Unavailable Primary Care Provider Unavailabl e Encounter Details Date Type Department Care Team (Late st Contact Info) Description 11/15/2024 Lab Requisition [facility] Laboratory Services [address] [place] [address] Patti Cole PA-C [address] [place] [address] Social History Tobacco Use Types [...] on file Legal Sex Female 5:32 AM RIGGING SLINGER Gender Identity Not on file Sexual Orientation Not on file documented as of this encounter Plan of Treatment Not on file documented as of this encounter Procedures Procedure Name Priority Date/Time Associated Diagnosis Comments CBC WITH DIFFERENTIAL Routine 11/15/2024 3:10 AM RIGGING SLINGER COMPREHENSIVE METABOLIC PANEL Routine 11/15/2024 3:10 AM RIGGING SLINGER documented in this encounter Results * (ABNORMAL) CBC WITH DIFFERENTIAL (11/15/2024 3:10 AM RIGGING SLINGER) WBC 11.8(H) 4.8 - 10.8 K/uL 11/15/2024 6:11 AM [facility] RBC 3.86(L) 4.20 - 5.40 M/uL 11/15/2024 6:11 AM [facility] HEMOGLOBIN 10.1(L) 12.0 - 16.0 g/dL 11/15/2024 6:11 AM [facility] HEMATOCRIT 34.1(L) 36.0 - 46.0 % 11/15/2024 6:11 AM [facility] MCV 88.3 84.0 - 103.0 fL 11/15/2024 6:11 AM [facility] MCH 26.2(L) 27.0 - 34.0 pg 11/15/2024 6:11 AM [facility] MCHC 29.6(L) 30.0 - 35.0 g/dL 11/15/2024 6:11 AM [facility] RDW 17.8(H) 11.0 - 14.5 % 11/15/2024 6:11 AM [facility] RDW-STDEV 56.4(H) 37.0 - 54.0 fL 11/15/2024 6:11 AM [facility] PLATELETS 198 140 - 440 K/uL 11/15/2024 6:11 AM [facility] MPV 10.8 8.9 - 12.8 fL 11/15/2024 6:11 AM [facility] NEUTROPHILS 84(H) 42 - 75 % 11/15/2024 6:11 AM [facility] LYMPHOCYTES 6(L) 24 - 44 % 11/15/2024 6:11 AM [facility] MONOCYTES 6 2 - 10 % 11/15/2024 6:11 AM [facility] EOSINOPHILS 0 0 - 7 % 11/15/2024 6:11 AM [facility] BASOPHILS 0 0 - 1 % 11/15/2024 6:11 AM [facility] IMMATURE GRANULOCYTES 4(H) 0 - 2 % 11/15/2024 6:11 AM [facility] NEUTROPHIL ABSOLUTE 9.84(H) 2.00 - 8.00 K/uL 11/15/2024 6:11 AM [facility] LYMPHOCYTE ABSOLUTE 0.74(L) 1.20 - 4.00 K/uL 11/15/2024 6:11 AM [facility] MONOCYTE ABSOLUTE 0.70(H) 0.10 - 0.60 K/uL 11/15/2024 6:11 AM [facility] EOSINOPHIL ABSOLUTE 0.00 0.00 - 0.70 K/uL 11/15/2024 6:11 AM [facility] BASOPHILS ABSOLUTE 0.01 0.00 - 0.20 K/uL 11/15/2024 6:11 AM [facility] IMMATURE GRANULOCYTES ABSOLUTE 0.47(H) 0.00 - 0.10 K/uL 11/15/2024 6:11 AM [facility] Blood Collection / Unknown 11/15/2024 3:10 AM RIGGING SLINGER 11/15/2024 6:03 AM [facility] Patti Cole PA-C HEMATOLOGY ORDERABLES Final Re sult [facility] CLIA # [id number] [facility] [address] [place] [address] * (ABNORMAL) COMPREHENSIVE METABOLIC PANEL (11/15/2024 3:10 AM RIGGING SLINGER) Pathologist [facility] SODIUM 139 136 - 145 mmol/L 11/15/2024 6:37 AM [facility] POTASSIUM 3.8 3.5 - 5.1 mmol/L 11/15/2024 6:37 AM [facility] CHLORIDE 95(L) 98 - 107 mmol/L 11/15/2024 6:37 AM [facility] CO2 35(H) 22 - 29 mmol/L 11/15/2024 6:37 AM [facility] CALCIUM 9.3 8.8 - 10.2 mg/dL 11/15/2024 6:37 AM [facility] BUN 46(H) 8 - 23 mg/dL 11/15/2024 6:37 AM [facility] CREATININE 0.81 0.51 - 0.95 mg/dL 11/15/2024 6:37 AM [facility] Comment:The GFR result is no t clinically significant on patients <18 or >70 years of age. GLUCOSE 121(H) 74 - 99 mg/dL 11/15/2024 6:37 AM [facility] TOTAL PROTEIN 5.7(L) 6.4 - 8.3 g/dL 11/15/2024 6:37 AM [facility] ALBUMIN 3.4(L) 3.5 - 5.2 g/dL 11/15/2024 6:37 AM [facility] BILIRUBIN TOTAL 0.5 0.2 - 1.0 mg/dL 11/15/2024 6:37 AM [facility] ALKALINE PHOSPHATASE 105(H) 35 - 104 U/L 11/15/2024 6:37 AM [facility] AST 23 10 - 35 U/L 11/15/2024 6:37 AM [facility] ALT 30 <=35 U/L 11/15/2024 6:37 AM [facility] GFR >60 mL/min/1.7 3 sq meter 11/15/2024 6:37 AM [facility] Comment:eGFR calculated with 2020 CKD-EPI equation. Vegetarian diet, extremely high or low muscle mass, and may affect results. Cystatin C with Glomerular Filtration Rate is a suitable alternative for these patients. ANION GAP 9 9 - 20 mmol/L 11/15/2024 6:37 AM [facility] Blood Collection / Unknown 11/15/2024 3:10 AM RIGGING SLINGER 11/15/2024 6:03 AM RIGGING SLINGER us Patti Cole PA-C CHEMISTRY ORDERABLES Final Res ult Performing Organization Address City/State/[facility] Co de Phone Number [facility] LABORATORY SERVICES [facility] # [id number] [address] [place] [address] documented in this encounter Visit Diagnoses Not on filedocumented in this encounter
--- OUTSIDE RECORDS SUMMARY | 2025-08-31 18:49 | XMS_ITS | Encounter Summary ---
Author Organization [facility] Address [address] [place] [facility] [place] [address] Care Team Providers Care Hr Advisor Name Role Phone Kimberley Dumont Jessica CARBAJAL Primary Care Provider [phone] Encounter Details Date Type Department Care Team (Late st Contact Info) Description 08/23/2022 Orders Only [facility] - [facility] [address] [facility] [place] [address] Kita Hernández RN Social History Tobacco Use Types Packs/Day Years [...] on file Sexual Orientation Not on file COVID-19 Exposure Response Date Recorded In the last 10 days, have yo u been in contact with someone who was confirmed or suspected to have Coronavirus/COVID-19? No / Unsure 08/21/2022 9:06 AM CDT documented as of this encounter Plan of Treatment Not on file documented as of this encounter Visit Diagnoses Not on filedocumented in this encounter Additional Health Concerns Assessment Noted Time A fall risk assessment has been complete d for the patient 08/21/2022 9:31 AM CDT documented as of this encounter Care Teams Hr Advisor Relationship Specialty Start Date End Date Kimberley Dumont FNP PCP - General 12/16/14 documented as of this encounter
--- OUTSIDE RECORDS SUMMARY | 2025-08-31 18:49 | XMS_ITS | Encounter Summary ---
Author Organization [facility] Address [address] [place] [address] Care Team Providers Care Commercial Accountant Name Role Phone Kimberley Dumont RAVEN Primary Care Provider [phone] Encounter Details Date Type Department Care Team (Late st Contact Info) Description 05/24/2010 Orders Only [facility] Radiology [address] [place] [address] System, Provider Not In, MD [address] [place] [address] Social History Tobacco Use Types Packs/Day Years [...] Date/Time Associated Diagnosis Comments OUTSIDE IMAGES 05/24/2010 10:48 AM CDT documented in this encounter Results * Outside Images (05/24/2010 10:48 AM CDT) Anatomical Region Laterality Modality N/A Radiographic Patience ging 05/24/2010 10:4 8 AM CDT Narrative 05/24/2010 10:48 AM CDT Historic images from [facility] exist and can be viewed by using the hyperlink to access [employer] pacs: MRI LUMBAR SPINE NO CONTRAST Procedure Note System, Provider Not In - 12/05/2020 Historic images from [facility] exist and can be viewed byusing the hyperlink to access [employer] pacs: MRI LUMBAR SPINE NOCONTRAST us Provider Not In System MD REA GENERAL IMAGING OR DERABLES Final Result documented in this encounter Visit Diagnoses Not on filedocumented in this encounter Care Teams Commercial Accountant Relationship Specialty Start Date End Date Kimberley Dumont FNP PCP - General 12/16/14 documented as of this encounter
--- OUTSIDE RECORDS SUMMARY | 2025-08-31 18:49 | XMS_ITS | Encounter Summary ---
Author Organization [facility] Address [address] [place] [address] Care Team Providers Care Security Rep Name Role Phone Unavailable Primary Care Provider Unavailabl e Encounter Details Date Type Department Care Team (Late st Contact Info) Description 11/11/2024 Lab Requisition [facility] Laboratory Services [address] [place] [address] Patti Cole PA-C [address] [place] [address] Social History Tobacco Use Types [...] on file Legal Sex Female 5:32 AM DETONATOR MAKER Gender Identity Not on file Sexual Orientation Not on file documented as of this encounter Plan of Treatment Not on file documented as of this encounter Procedures Procedure Name Priority Date/Time Associated Diagnosis Comments CBC WITH DIFFERENTIAL Routine 11/11/2024 3:30 AM DETONATOR MAKER COMPREHENSIVE METABOLIC PANEL Routine 11/11/2024 3:30 AM DETONATOR MAKER documented in this encounter Results * (ABNORMAL) CBC WITH DIFFERENTIAL (11/11/2024 3:30 AM DETONATOR MAKER) [facility] WBC 10.4 4.8 - 10.8 K/uL 11/11/2024 7:42 [facility] RBC 3.88(L) 4.20 - 5.40 M/uL 11/11/2024 7:42 AM [facility] HEMOGLOBIN 9.9(L) 12.0 - 16.0 g/dL 11/11/2024 7:42 AM [facility] HEMATOCRIT 34.3(L) 36.0 - 46.0 % 11/11/2024 7:42 AM [facility] MCV 88.4 84.0 - 103.0 fL 11/11/2024 7:42 AM [facility] MCH 25.5(L) 27.0 - 34.0 pg 11/11/2024 7:42 AM [facility] MCHC 28.9(L) 30.0 - 35.0 g/dL 11/11/2024 7:42 AM [facility] RDW 17.7(H) 11.0 - 14.5 % 11/11/2024 7:42 AM [facility] RDW-STDEV 57.2(H) 37.0 - 54.0 fL 11/11/2024 7:42 AM [facility] PLATELETS 259 140 - 440 K/uL 11/11/2024 7:42 AM [facility] MPV 10.7 8.9 - 12.8 fL 11/11/2024 7:42 AM [facility] NEUTROPHILS 86(H) 42 - 75 % 11/11/2024 7:42 AM [facility] LYMPHOCYTES 4(L) 24 - 44 % 11/11/2024 7:42 AM [facility] MONOCYTES 6 2 - 10 % 11/11/2024 7:42 AM [facility] EOSINOPHILS 0 0 - 7 % 11/11/2024 7:42 AM [facility] BASOPHILS 0 0 - 1 % 11/11/2024 7:42 AM [facility] IMMATURE GRANULOCYTES 3(H) 0 - 2 % 11/11/2024 7:42 AM [facility] NEUTROPHIL ABSOLUTE 8.94(H) 2.00 - 8.00 K/uL 11/11/2024 7:42 AM [facility] LYMPHOCYTE ABSOLUTE 0.46(L) 1.20 - 4.00 K/uL 11/11/2024 7:42 AM [facility] MONOCYTE ABSOLUTE 0.65(H) 0.10 - 0.60 K/uL 11/11/2024 7:42 AM [facility] EOSINOPHIL ABSOLUTE 0.00 0.00 - 0.70 K/uL 11/11/2024 7:42 AM [facility] BASOPHILS ABSOLUTE 0.01 0.00 - 0.20 K/uL 11/11/2024 7:42 AM [facility] IMMATURE GRANULOCYTES ABSOLUTE 0.31(H) 0.00 - 0.10 K/uL 11/11/2024 7:42 AM [facility] Blood Collection / Unknown 11/11/2024 3:30 AM DETONATOR MAKER 11/11/2024 7:29 AM [facility] Patti Cole PA-C HEMATOLOGY ORDERABLES Final Re sult [facility] CLIA # [id number] [facility] [address] [place] [address] * (ABNORMAL) COMPREHENSIVE METABOLIC PANEL (11/11/2024 3:30 AM DETONATOR MAKER) SODIUM 138 136 - 145 mmol/L 11/11/2024 8:09 AM [facility] POTASSIUM 4.0 3.5 - 5.1 mmol/L 11/11/2024 8:09 AM [facility] CHLORIDE 93(L) 98 - 107 mmol/L 11/11/2024 8:09 AM [facility] CO2 31(H) 22 - 29 mmol/L 11/11/2024 8:09 AM [facility] CALCIUM 10.0 8.8 - 10.2 mg/dL 11/11/2024 8:09 AM [facility] BUN 60(H) 8 - 23 mg/dL 11/11/2024 8:09 AM [facility] CREATININE 1.10(H) 0.51 - 0.95 mg/dL 11/11/2024 8:09 AM [facility] Comment:The GFR result is no t clinically significant on patients <18 or >70 years of age. GLUCOSE 154(H) 74 - 99 mg/dL 11/11/2024 8:09 AM [facility] TOTAL PROTEIN 6.4 6.4 - 8.3 g/dL 11/11/2024 8:09 AM [facility] ALBUMIN 3.8 3.5 - 5.2 g/dL 11/11/2024 8:09 AM [facility] BILIRUBIN TOTAL 0.5 0.2 - 1.0 mg/dL 11/11/2024 8:09 AM [facility] ALKALINE PHOSPHATASE 111(H) 35 - 104 U/L 11/11/2024 8:09 AM [facility] AST 22 10 - 35 U/L 11/11/2024 8:09 AM [facility] ALT 25 <=35 U/L 11/11/2024 8:09 AM [facility] GFR 52 mL/min/1. 73 sq meter 11/11/2024 8:09 AM [facility] Comment:eGFR calculated with 2020 CKD-EPI equation. Vegetarian diet, extremely high or low muscle mass, and may affect results. Cystatin C with Glomerular Filtration Rate is a suitable alternative for these patients. ANION GAP 14 9 - 20 mmol/L 11/11/2024 8:09 AM [facility] Blood Collection / Unknown 11/11/2024 3:30 AM DETONATOR MAKER 11/11/2024 7:29 AM DETONATOR MAKER us Patti Cole PA-C CHEMISTRY ORDERABLES Final Res ult [facility] # [id number] [id number] [place] [address] documented in this encounter Visit Diagnoses Not on filedocumented in this encounter
--- OUTSIDE RECORDS SUMMARY | 2025-08-31 18:49 | XMS_ITS | Encounter Summary ---
Author Organization [facility] Address [address] [place] [address] Care Team Providers Care Clinical Nurse Specialist Name Role Phone Kimberley Dumont Jessica CARBAJAL Primary Care Provider [phone] Encounter Details Date Type Department Care Team (Late st Contact Info) Description 02/29/2020 Orders Only [facility] Radiology [address] [place] [address] System, Provider Not In, MD [address] [place] [address] Social History Tobacco Use Types Packs/Day Years Used Date Smoking Tobacco: Every Day Cigarettes Smokeless Tobacco: Current Comments:e cigs on the indoo rs out doors reg cigs Alcohol Use Standard Drinks/Week Comments Never 0 (1 standard drink = 0.6 oz pur e alcohol) AUDIT-C Answer Date Recorded Frequency of Alcohol Consumption Never 01/02/2020 Average Number of Drinks Not on file 020 Frequency of Binge Drinking Not on file 12/12 Comments Unknown Sex and Gender Information Value Date Recorded Sex Assigned at Not on file Legal Sex Female 10:51 AM CDT Gender Identity Not on file Sexual Orientation Not on file documented as of this encounter Plan of Treatment Not on file documented as of this encounter Procedures Procedure Name Priority Date/Time Associated Diagnosis Comments OUTSIDE IMAGES 02/29/2020 8:11 AM CDT documented in this encounter Results * Outside Images (02/29/2020 8:11 AM CDT) Anatomical Region Laterality Modality N/A Radiographic Patience ging 02/29/2020 8:11 AM CDT Narrative 02/29/2020 8:11 AM CDT Image aquired from external facility for exam: US abdomen complete* [id number] Procedure Note System, Provider Not In, MD - 04/05/2020 Image aquired from external facility for exam: US abdomen complete*[id number] us Provider Not In System MD [facility] GENERAL IMAGING OR DERABLES Final Result documented in this encounter Visit Diagnoses Not on filedocumented in this encounter Care Teams Clinical Nurse Specialist Relationship Specialty Start Date End Date Kimberley Dumont FNP PCP - General 12/16/14 documented as of this encounter
--- OUTSIDE RECORDS SUMMARY | 2025-08-31 18:50 | XMS_ITS | Encounter Summary ---
Author Organization [facility] Address [address] [place] [address] Care Team Providers Care Perioperative Manager Name Role Phone Unavailable Primary Care Provider Unavailabl e Encounter Details Date Type Department Care Team (Late st Contact Info) Description 11/22/2024 Lab Requisition [facility] Laboratory Services [address] [place] [address] Christina Gillespie, OFFICE COORDINATOR NO ADDRESS ON FILE Social History Tobacco [...] on file Legal Sex Female 5:32 AM INSTRUMENT MAKER Gender Identity Not on file Sexual Orientation Not on file documented as of this encounter Plan of Treatment Not on file documented as of this encounter Procedures Procedure Name Priority Date/Time Associated Diagnosis Comments CBC WITH DIFFERENTIAL Routine 11/22/2024 3:10 AM INSTRUMENT MAKER COMPREHENSIVE METABOLIC PANEL Routine 11/22/2024 3:10 AM INSTRUMENT MAKER documented in this encounter Results * (ABNORMAL) CBC WITH DIFFERENTIAL (11/22/2024 3:10 AM [facility]) [facility] WBC 8.3 4.8 - 10.8 K/uL 11/22/2024 5:47 AM [facility] RBC 3.13(L) 4.20 - 5.40 M/uL 11/22/2024 5:47 AM [facility] HEMOGLOBIN 8.3(L) 12.0 - 16.0 g/dL 11/22/2024 5:47 AM [facility] HEMATOCRIT 29.2(L) 36.0 - 46.0 % 11/22/2024 5:47 AM [facility] MCV 93.3 84.0 - 103.0 fL 11/22/2024 5:47 AM [facility] MCH 26.5(L) 27.0 - 34.0 pg 11/22/2024 5:47 AM [facility] MCHC 28.4(L) 30.0 - 35.0 g/dL 11/22/2024 5:47 AM [facility] RDW 18.9(H) 11.0 - 14.5 % 11/22/2024 5:47 AM [facility] RDW-STDEV 64.6(H) 37.0 - 54.0 fL 11/22/2024 5:47 AM [facility] PLATELETS 101(L) 140 - 440 K/uL 11/22/2024 5:47 AM [facility] MPV 9.7 8.9 - 12.8 fL 11/22/2024 5:47 AM [facility] NEUTROPHILS 79(H) 42 - 75 % 11/22/2024 5:47 AM [facility] LYMPHOCYTES 13(L) 24 - 44 % 11/22/2024 5:47 AM [facility] MONOCYTES 6 2 - 10 % 11/22/2024 5:47 AM [facility] EOSINOPHILS 1 0 - 7 % 11/22/2024 5:47 AM [facility] BASOPHILS 0 0 - 1 % 11/22/2024 5:47 AM [facility] IMMATURE GRANULOCYTES 1 0 - 2 % 11/22/2024 5:47 AM [facility] NEUTROPHIL ABSOLUTE 6.57 2.00 - 8.00 K/uL 11/22/2024 5:47 AM [facility] LYMPHOCYTE ABSOLUTE 1.07(L) 1.20 - 4.00 K/uL 11/22/2024 5:47 AM [facility] MONOCYTE ABSOLUTE 0.53 0.10 - 0.60 K/uL 11/22/2024 5:47 AM [facility] EOSINOPHIL ABSOLUTE 0.04 0.00 - 0.70 K/uL 11/22/2024 5:47 AM [facility] BASOPHILS ABSOLUTE 0.00 0.00 - 0.20 K/uL 11/22/2024 5:47 AM [facility] IMMATURE GRANULOCYTES ABSOLUTE 0.07 0.00 - 0.10 K/uL 11/22/2024 5:47 AM [facility] Blood Collection / Unknown 11/22/2024 3:10 AM INSTRUMENT MAKER 11/22/2024 5:39 AM INSTRUMENT MAKER Christina Gillespie NP HEMATOLOGY ORDERABLES Final Result [facility] CLIA # [id number] [address] [place] [address] * (ABNORMAL) COMPREHENSIVE METABOLIC PANEL (11/22/2024 3:10 AM INSTRUMENT MAKER) SODIUM 142 136 - 145 mmol/L 11/22/2024 6:09 AM [facility] POTASSIUM 4.1 3.5 - 5.1 mmol/L 11/22/2024 6:09 AM [facility] CHLORIDE 108(H) 98 - 107 mmol/L 11/22/2024 6:09 AM [facility] CO2 27 22 - 29 mmol/L 11/22/2024 6:09 AM [facility] CALCIUM 8.4(L) 8.8 - 10.2 mg/dL 11/22/2024 6:09 AM [facility] BUN 20 8 - 23 mg/dL 11/22/2024 6:09 AM [facility] CREATININE 0.81 0.51 - 0.95 mg/dL 11/22/2024 6:09 AM [facility] Comment:The GFR result is no t clinically significant on patients <18 or >70 years of age. GLUCOSE 90 74 - 99 mg/dL 11/22/2024 6:09 AM [facility] TOTAL PROTEIN 4.5(L) 6.4 - 8.3 g/dL 11/22/2024 6:09 AM [facility] ALBUMIN 2.7(L) 3.5 - 5.2 g/dL 11/22/2024 6:09 AM [facility] BILIRUBIN TOTAL 0.4 0.2 - 1.0 mg/dL 11/22/2024 6:09 AM [facility] ALKALINE PHOSPHATASE 71 35 - 104 U/L 11/22/2024 6:09 AM [facility] AST 16 10 - 35 U/L 11/22/2024 6:09 AM [facility] ALT 24 <=35 U/L 11/22/2024 6:09 AM [facility] GFR >60 mL/min/1.7 3 sq meter 11/22/2024 6:09 AM [facility] Comment:eGFR calculated with 2020 CKD-EPI equation. Vegetarian diet, extremely high or low muscle mass, and may affect results. Cystatin C with Glomerular Filtration Rate is a suitable alternative for these patients. ANION GAP 7(L) 9 - 20 mmol/L 11/22/2024 6:09 AM [facility] Blood Collection / Unknown 11/22/2024 3:10 AM INSTRUMENT MAKER 11/22/2024 5:33 AM INSTRUMENT MAKER us Christina Gillespie NP CHEMISTRY ORDERABLES Final Result [facility] # [id number] [facility] [address] [place] [address] documented in this encounter Visit Diagnoses Not on filedocumented in this encounter
[2025-08-31 18:54] LABS: INR 0.88 (0.8-1.2); Prothrombin Time 12.50 SECONDS (12.1-14.9)
[2025-08-31 18:57] LABS: Anion Gap 14.6 (5-19); Potassium 4.6 mmol/L (3.5-5.1)
[2025-08-31 19:39] LABS: Glucose Urine UA Negative (Normal); Nitrate Urine Positive (Negative); Specific Gravity, Urine 1.025 (1.005-1.030)
[2025-08-31 19:44] LABS: Add Urine Microscopic? YES
[2025-08-31] MEDS: cefTRIAXone 1,000 mg SDV 1000 MG IVP (20:16)
--- NOTE | 2025-08-31 20:35 | PM.HP ---
Providers/Chief Complaint Admitting Physician: ADARSH PEÑA --DO--- admitted before 12 midnight Primary Care Provider: Joy NietoP-C Chief Complaint: PACE post fall/closed head injury/weakness/UTI History of Present Illness Rylee Martinez is a 80 year old female who lives at home with the son and uses walker for ambulatory support but recently had not been able to even use the walker because of profound and worsening weakness. Patient due to weakness have had frequent falls. Patient is with a history of atrial fibrillation on amiodarone and Eliquis and had actually fallen today hitting the head and developed headaches. Because of the weakness and frequent falls and not feeling well patient presented to the emergency room for further evaluation and care Workup at the emergency room were significant for urinary tract infection and evaluation was noted for profound weakness and close head injury with CT negative for bleed but patient is continuing to have headaches. Patient is not able to get up and walk on on and has been off baseline and did not feel like going back home as weak as she is like to be optimized prior to going home. Patient does have urinary tract infection as well The emergency room attending had consulted me at this time to see this patient and evaluate for admission. Patient does meet inpatient criteria because of generalized weakness that can lead to more complicated course at home or even inpatient posing risk for bodily injury and fractures. Patient is anticoagulated and having much headaches since falls with a close head injury patient ought to be monitored for a repeat CT without contrast after 24 hours to make sure that patient is not bleeding. Review of Systems Narrative: System review upon 10 organ system review it was significant for profound musculoskeletal disorder with severe generalized weakness Medications/Allergies Home Medications ?Medication ?Instructions ?Recorded ?Confirmed ?Last Taken ?Type calcium 200 mg (carbonate, 1 tab PO DAILY 03/02/20 06/20/25 10/21/24 21:00 History citrate)-magnesium 50 mg (as oxide) tablet (CalMag Thins) fluticasone propionate 110 1 puff inhalation Q12H 03/02/20 06/20/25 09/16/22 History mcg/actuation HFA aerosol inhaler (Flovent HFA) sertraline 50 mg tablet 50 mg PO DAILY 03/02/20 06/20/25 10/21/24 21:00 History cyanocobalamin (vitamin B-12) 50 50 mcg PO DAILY 01/22/22 02/01/25 10/21/24 09:00 History mcg lozenges (Vitamin B-12) albuterol sulfate 90 mcg/actuation 2 puff inhalation QID PRN 06/07/22 06/20/25 06/07/22 History aerosol inhaler Shortness Of Breath aspirin 81 mg tablet,delayed 81 mg PO DAILY 06/07/22 02/01/25 10/21/24 09:00 History release omeprazole 40 mg capsule,delayed 40 mg PO DAILY 06/07/22 06/20/25 10/21/24 09:00 History release dapagliflozin propanediol 10 mg 10 mg PO DAILY 07/04/22 06/20/25 10/18/24 09:00 History tablet (Farxiga) mirtazapine 7.5 mg tablet 15 mg PO DAILY 09/11/22 06/20/25 10/21/24 21:00 History atorvastatin 40 mg tablet 40 mg PO DAILY 09/16/22 06/20/25 10/21/24 09:00 History sertraline 25 mg tablet 25 mg PO DAILY 09/16/22 06/20/25 10/21/24 21:00 History ondansetron 4 mg disintegrating 4 mg PO Q6H PRN nausea and 10/09/22 06/20/25 Unknown Rx tablet vomiting #14 tabs apixaban 5 mg tablet (Eliquis) 5 mg PO BID #180 tabs 01/07/23 06/20/25 10/16/24 09:00 Rx Held on 10/23/24. Instructions: Resume on 10/25/24. amiodarone 200 mg tablet See Rx Instructions .Route 02/25/24 06/20/25 10/21/24 09:00 Rx .COMPLEX #90 tabs nitroglycerin 0.4 mg sublingual 0.4 mg sublingual Q5M PRN chest 10/13/24 06/20/25 Unknown Rx tablet pain #25 tabs hydrocodone 5 mg-acetaminophen 325 1 tab PO Q6H PRN pain #14 tabs 10/17/24 02/01/25 Unknown Rx mg tablet amlodipine 2.5 mg tablet 2.5 mg PO DAILY PRN BP above 11/01/24 06/20/25 Unknown Rx 150/90 #30 tabs CAM walker #1 ea 11/29/24 06/20/25 Unknown Rx ASO to left #1 ea 02/01/25 06/20/25 Unknown Rx hydrochlorothiazide 25 mg tablet 25 mg PO DAILY #90 tabs 02/09/25 06/20/25 Unknown Rx metoprolol succinate 50 mg 25 mg (1/2 x 50 mg) PO DAILY #90 05/27/25 06/20/25 Unknown Rx tablet,extended release 24 hr tabs Allergies Allergy/AdvReac Type Severity Reaction Status Date / Time No Known Allergies Allergy Verified 06/20/25 09:57 PFSH Acute PFSH: Medical History Acute UTI Acute respiratory failure with hypoxia Acute exacerbation of chronic obstructive airways disease Atrial fibrillation COPD (chronic obstructive pulmonary disease) Idiopathic osteoarthritis Idiopathic scoliosis CHF (congestive heart failure) HTN (hypertension), benign Chronic pain disorder Adjustment disorder with depressed mood Opioid dependence Dissection of aorta Surgical History Status post laparoscopic cholecystectomy (04/05/20) Status post colonoscopy H/O esophagogastroduodenoscopy History of eye surgery History of hysterectomy History of aortic aneurysm repair History of back surgery Family History Mother Hypertension Denies family history of Anesthesia complication Bleeding disorder Social History Smoking and tobacco/nicotine status: former use of tobacco/nicotine Second hand smoke exposure: No Alcohol intake: never Substance/Drug Use: never Adopted: No Caregiver/support person: Yes Lives independently: Yes Household members: none Housing: House Sexually active: No Do you think of yourself as: Straight/Heterosexual Current gender identity: Female Vitals/I&O/Wt Last Vital Signs Temp 98.4 F 08/31/25 17:55 Pulse 91 08/31/25 17:55 Resp 88 H 08/31/25 17:55 BP 151/88 08/31/25 19:30 Pulse Ox 95 08/31/25 19:30 O2 Del Method Room Air 08/31/25 19:30 Weight last 48 hrs Weight 63.503 kg Physical Exam Narrative: General the patient is very weak appearing and had multiple skin bruises all over the face bilateral arms and leg from frequent falls at home HEENT normocephalic atraumatic neck neck is supple cardiovascular heart rate is regular lungs are clear abdomen soft nontender nondistended unremarkable extremities are intact no edema has good pulses. Neurology has no focality patient is not confused pretty much alert awake oriented but holding up to the head because of headache and verbalizing being tired beyond words Lab studies noted as per below Imaging at presentation head CT were unremarkable for bleeds Data 08/31/25 17:05 08/31/25 17:05 A&P Assessment and plan 1. Closed head injury: 2. Headache: 3. Generalized weakness: 4. Acute cystitis: 5. Frequent falls: 6. UTI (urinary tract infection): Plan: Generalized progressive weakness with frequent falls - Admit to general medical floor for optimizing care - Consulted PT OT to assess and treat and eventually patient most likely at discharge will go to skilled care For a continued PT OT. - Case management consulted for discharge planning Closed head injury with intractable headache since after the fall at home, status post hitting the head to the ground - Patient is on Eliquis anticoagulant with this falls - Patient with multiple bruises all over the skin and face from prior recent falls - Status post closed head injury with headaches - If this level of headache continues must obtain interval CT of the head without contrast in the morning To further evaluate any interval head bleed Acute cystitis - Trial of ceftriaxone IV initiated - Continue to treat and follow-up culture and sensitivity and optimize accordingly GI and DVT prophylaxis in place PDMP PDMP Reviewed: Last Reviewed 08/31/25 21:52 by Sultana Peña MD Attestations Medical Necessity Statement*: Patient with progressive weakness and frequent falls with close head injury on anticoagulant with persistent headache, with UTI will need at least 2 midnights to optimize care Coding Level of Care Code 55499 Diagnoses Closed head injury S09.90XA Headache R51.9 Generalized weakness R53.1 Acute cystitis N30.00 Frequent falls R29.6 UTI (urinary tract infection) N39.0 Time Spent (min) 60
[2025-08-31] MEDS: morphine 4 mg/mL SDV 1 mL 2 MG IVP (21:59)
[2025-09-01] VITALS (15 sets, daily range): BP systolic 104–186; BP diastolic 56–112; PULSE 81–159; RESP 12–20; TEMP 36.3–37.3; O2SAT 90–97
[2025-09-01] MEDS: ondansetron 2 mg/ML SDV 2 mL 4 MG IVP ×3 (01:58→14:08)
[2025-09-01] MEDS: efferdent effervescent 1 EACH DENTAL (01:59)
[2025-09-01] MEDS: morphine 4 mg/mL SDV 1 mL 2 MG IVP (02:34)
[2025-09-01 05:01] LABS: Hematocrit 41.9 % (36-47); Hemoglobin 12.50 g/dL (11.27-16.99); Mean Corpuscular HGB Conc 29.8 g/dL (30-55); Mean Corpuscular Hemoglobin 26.0 pg (27-33); Mean Corpuscular Volume 87.1 fl (85-98); Nucleated Red Blood Cells % 0 %; Platelet Count 208 10^3/cmm (157-399); Red Blood Count 4.81 10^6/uL (3.85-5.65); White Blood Count 7.36 10^3/uL (3.29-11.43)
--- NOTE | 2025-09-01 05:11 | CTR_ITS ---
PROCEDURE INFORMATION: Exam: CT Head Without Contrast Exam date and time: 09/01/2025 5:29 AM Age: 80 years old Clinical indication: Injury or trauma; Fall; Blunt trauma (contusions or hematomas); Additional info: Fall at home on eliquis with continued n/v and headache TECHNIQUE: Imaging protocol: Computed tomography of the head without contrast. Radiation optimization: All CT scans at this facility use at least one of these dose optimization techniques: automated exposure control; mA and/or kV adjustment per patient size (includes targeted exams where dose is matched to clinical indication); or iterative reconstruction. COMPARISON: CT head wo con* [id number] 08/31/2025 6:01 PM RADIATION DOSE METRICS: Total DLP (mGy-cm): 1126.8 FINDINGS: Brain: There is mild to moderate small vessel disease. There is no evidence of acute parenchymal hemorrhage, extra-axial collection, or acute infarction. There is no mass effect, midline shift, or downward herniation. Cerebral ventricles: No ventriculomegaly. Paranasal sinuses: Visualized sinuses are unremarkable. No fluid levels. Mastoid air cells: Visualized mastoid air cells are well aerated. Bones: Unremarkable. No acute fracture. Soft tissues: Unremarkable. CT/CT head wo con* [id number] IMPRESSION: Small-vessel disease. No evidence of acute intracranial process.
[2025-09-01 05:39] LABS: Alanine Aminotransferase 10 U/L (0-33); Albumin Level 4.0 g/dL (3.5-5.2); Alkaline Phosphatase 185 U/L (35-105); Anion Gap 18.6 (5-19); Aspartate Amino Transferase 16 U/L (0-32); Blood Urea Nitrogen 7 mg/dL (8-23); Calcium 8.5 mg/dL (8.5-10.5); Carbon Dioxide 22 mmol/L (22-29); Chloride 100 mmol/L (98-107); Creatinine Clr Calc Pharmacy 57.0562; Globulin 2.5 g/dL (1.3-4.6); Glucose 162 mg/dL (65-115); Magnesium 1.6 mg/dL (1.7-2.3); Osmolality Calculated 286 mOsm/kg (285-295); Potassium 3.6 mmol/L (3.5-5.1); Sodium 137 mmol/L (136-145); Total Protein 6.5 g/dL (6.6-8.7)
[2025-09-01] MEDS: HYDROmorphone 0.5 MG/0.5 ML INJ IVP ×4 (05:57→22:46)
--- NOTE | 2025-09-01 08:23 | ECG_ITS ---
[employer] [facility] Test Date: 2025-09-01 Pat Name: Rylee Martinez Department: Room: 279 Gender: Female Budget Assistant: : 1945 Requested By: Cabrera Weldon Order Number: [id number] Allen MD: Be Thurston M.D. Measurements Intervals [place] Rate: 148 P: 0 PA: 0 QRS: -40 QRSD: 105 T: 111 QT: 223 QTc: 350 Interpretive Statements ATRIAL FIBRILLATION WITH RAPID VENTRICULAR RESPONSE LEFT AXIS DEVIATION [QRS AXIS < -30] MODERATE VOLTAGE CRITERIA FOR LVH, CONSIDER NORMAL VARIANT [MEETS CRITERIA IN ONE OF: R(aVL), S(V1), R(V5), R(V5/V6)+S(V1)] MARKED ST DEPRESSION, CONSIDER SUBENDOCARDIAL INJURY [0.2+ mV ST DEPRESSION] ACUTE PA Compared to ECG 08/31/2025 18:34:21 Sinus rhythm no longer present First degree AV block no longer present Myocardial infarct finding no longer present ST (T wave) deviation still present Electronically Signed On 09-02-2025 15:25:30 CDT by Be Thurston M.D. [email or web address]
[2025-09-01] MEDS: amiodarone 150 MG/100 ML PREMIX 400 MG IV ×2 (08:41→10:08)
--- NOTE | 2025-09-01 09:36 | PC.NURSE ---
[facility] transfer Report called to Angel[facility] patient taken down in bed to room 107.
[2025-09-01] MEDS: AMIODARONE HCL/D5W 900 MG/500 ML BAG 16.67 MG IV (09:40)
--- NOTE | 2025-09-01 09:40 | PC.NURSE ---
called family I called pt nephew Edin who on her list to talk with and told him of C[facility] transfer and what room.
--- NOTE | 2025-09-01 09:48 | PC.NURSE ---
Spoke with Dr Weldon regarding elevated heart rate 140-160s. Received verbal order to give 2nd amiodarone bolus of 150mg. now. RBVO
--- NOTE | 2025-09-01 09:59 | PC.PHAR ---
Pt's med list from [facility] shows 10 new prescriptions including Flecanide 100mg which replaces Amiodarone 200mg.
--- NOTE | 2025-09-01 10:31 | CT_ITS ---
WS: [id number] CT CERVICAL TRAUMA TECHNIQUE: Noncontrast CT of the cervical spine with coronal and sagittal reformatted images. CLINICAL INFORMATION: neck pain COMPARISON: None. DLP: 750.[address] scans at [facility] use at least one of these dose optimization techniques: automated exposure control; mA and/or kV adjustment per patient size (includes targeted exams where dose is matched to clinical indication); or iterative reconstruction. FINDINGS: Advanced medullary changes. Cervical curve. Grade 1 anterolisthesis C4 on C5 and C5 on C6. Disc narrowing throughout the cervical spine. Dens is normal in appearance. Normal occipital condyles. Normal C1 ring. No evidence of acute fracture or dislocation. Mild central canal stenosis throughout the cervical spine worse at C4-5. Multilevel bony foraminal narrowing. Normal prevertebral soft tissues. Mastoids air cells are well aerated. CT/CT cervical spin wo con* [id number] IMPRESSION: No evidence of acute fracture or dislocation
--- NOTE | 2025-09-01 10:31 | CT_ITS ---
WS: [id number] CT FACIAL BONES TECHNIQUE: Noncontrast facial bones with coronal and sagittal reformatted images. CLINICAL INFORMATION: right maxillary pain COMPARISON: None. DLP: 750.[address] scans at [facility] use at least one of these dose optimization techniques: automated exposure control; mA and/or kV adjustment per patient size (includes targeted exams where dose is matched to clinical indication); or iterative reconstruction. FINDINGS: Mild mucosal thickening in the ethmoid air cells. Paranasal sinuses are well aerated. Mastoid air cells are well aerated. Normal posterior nasopharynx. No acute fractures. RIGHT mary bullosa. Inferior orbits appear intact. Lamina papyracea appears intact. Nasal bones appear unchanged since 2017. Advanced spondylitic changes partially visualized cervical spine. CT/CT facial bones wo con* [id number] IMPRESSION: No acute facial bone fractures visualized
--- NOTE | 2025-09-01 12:40 | PC.OT ---
HOLD OT EVALUATION TODAY PATIENT HAS TRANSFERRED TO [facility] DUE TO AFIB WITH RVR
[2025-09-01] MEDS: metoclopramide 5 mg/mL SDV 2 mL IVP (14:42)
[2025-09-01] MEDS: diphenhydrAMINE 50 mg/mL SDV 1mL 25 MG IVP (14:42)
--- NOTE | 2025-09-01 14:49 | PC.NURSE ---
Informed Dr Weldon about patient's persistent headache she says is causing her nausea. Received telephone order for IV benadryl 25mg, reglan 5mg and toradol 30mg all to be given IVP. Explained to patient all medications and potential effects. Patient verbalized understanding and said just make my head stop hurting.
--- NOTE | 2025-09-01 18:08 | P.PN_ITS ---
Subjective 2 Subjective: Patient was seen this morning, patient developed atrial fibrillation with rapid ventricular response, placed on cardiac stepdown unit, placed on amiodarone drip with amiodarone bolus, currently heart rates in the 110s, atrial fibrillation she is alert, oriented x 2, following commands complaining of headache, no facial droop, slurring words, no focal weakness, denies any chest pain, palpitations, she denies any lightheadedness, no dizziness, Vitals/I&O/Wt Last Vital Signs Temp 98.0 F 09/01/25 16:00 Pulse 85 09/01/25 16:00 Resp 12 09/01/25 16:00 BP 121/81 09/01/25 16:00 Pulse Ox 95 09/01/25 16:00 O2 Del Method Nasal Cannula 09/01/25 07:38 09/01/25 09/01/25 09/01/25 06:59 14:59 22:59 Intake Total 1712.278 / 1712.278 386.25 / 2098.528 Output Total 1820 / 1820 Balance -1820 / -820 1712.278 / 1712.278 386.25 / 2098.528 Weight last 48 hrs Weight 65.317 kg Weight 63.503 kg Weight 63.503 kg Physical Exam 2 Const: COMMON NORMALS: no acute distress ORIENTATION/CONSCIOUSNESS: Yes awake, Yes oriented to person and Yes oriented to place; not oriented to time HENMT: OTHER: Superficial bruising, Right orbit Right temporal region Right forehead Eye: COMMON NORMALS: Equal, round and reactive pupils present PUPIL: Yes Equal, round and reactive pupils present Resp: COMMON NORMALS: normal respiratory effort, No retractions, No use of accessory muscles and clear to auscultation bilaterally AUSCULTATION: clear to auscultation bilaterally Cardio: COMMON NORMALS: S1 normal heart sound present and S2 normal heart sound present RATE: tachycardic RHYTHM: abnormal rhythm irregularly irregular HEART SOUNDS: S1 normal heart sound present and S2 normal heart sound present GI: COMMON NORMALS: Normal to inspection, nondistended, normoactive bowel sounds present and non-tender Extremity: COMMON NORMALS: no pedal edema Neuro: SENSORIUM/ORIENTATION: Yes oriented to person, Yes oriented to place and No oriented to time Data 09/01/25 04:54 09/01/25 04:54 A&P Assessment and plan 1. Closed head injury: 2. Headache: 3. Generalized weakness: 4. Acute cystitis: 5. Frequent falls: 6. UTI (urinary tract infection): Plan: Generalized progressive weakness with frequent falls - PT OT Atrial fibrillation with rapid ventricular response - Amiodarone drip, amiodarone bolus - Patient's fall, multiple bruises, discussed risk and benefits of holding anticoagulation until tomorrow, risk of CVA versus risk of bleeding, she voiced understanding, all question answered, shared decision making, agreed to proceed Multiple bruising associated with fall - Eliquis currently on hold Fall, reported head trauma - Repeat head CT no acute bleed - CT cervical spine, CT facial bone - Monitor for symptoms of concussion Acute cystitis - IV Rocephin - Continue to treat and follow-up culture and sensitivity and optimize accordingly GI and DVT prophylaxis in place PDMP PDMP Reviewed: Not Reviewed Attestations 2 Medical Necessity Statement*: Patient requires hospitalization for A-fib with RVR, fall Diagnoses Closed head injury S09.90XA Headache R51.9 Generalized weakness R53.1 Acute cystitis N30.00 Frequent falls R29.6 UTI (urinary tract infection) N39.0
--- NOTE | 2025-09-01 18:36 | PC.NURSE ---
Patient refusing to take oral medications due to persistent nausea and severe headache. Informed Dr Weldon.
[2025-09-01] MEDS: cefTRIAXone 2,000 mg SDV 2000 MG IVP (20:22)
[2025-09-01] MEDS: ATORVASTATIN 20 MG TABLET PO (20:22)
[2025-09-01 22:08] LABS: Estmated Average Glucose 97; Hemoglobin A1C 5.0 % (4.0-6.0)
[2025-09-02 03:23] VITALS: BP 165/97; PULSE 89; RESP 19; TEMP 37.2; O2SAT 90
[2025-09-02] MEDS: metoprolol succinate ER (24 HR) 25 mg Tablet PO (05:05)
[2025-09-02] MEDS: HYDROmorphone 0.5 MG/0.5 ML INJ IVP ×4 (05:07→20:56)
[2025-09-02 05:10] VITALS: BMI 22.8
[2025-09-02 05:10] LABS: Hematocrit 35.9 % (36-47); Hemoglobin 10.70 g/dL (11.27-16.99); Mean Corpuscular HGB Conc 29.8 g/dL (30-55); Mean Corpuscular Hemoglobin 25.5 pg (27-33); Mean Corpuscular Volume 85.7 fl (85-98); Nucleated Red Blood Cells % 0 %; Platelet Count 190 10^3/cmm (157-399); Red Blood Count 4.19 10^6/uL (3.85-5.65); White Blood Count 5.54 10^3/uL (3.29-11.43)
[2025-09-02 05:39] LABS: Alanine Aminotransferase 7 U/L (0-33); Albumin Level 3.3 g/dL (3.5-5.2); Alkaline Phosphatase 140 U/L (35-105); Anion Gap 14.0 (5-19); Aspartate Amino Transferase 16 U/L (0-32); Blood Urea Nitrogen 6 mg/dL (8-23); Calcium 8.2 mg/dL (8.5-10.5); Carbon Dioxide 24 mmol/L (22-29); Chloride 106 mmol/L (98-107); Creatinine Clr Calc Pharmacy 58.0432; Globulin 1.8 g/dL (1.3-4.6); Glucose 97 mg/dL (65-115); Magnesium 1.7 mg/dL (1.7-2.3); Osmolality Calculated 290 mOsm/kg (285-295); Potassium 3.0 mmol/L (3.5-5.1); Sodium 141 mmol/L (136-145); Total Protein 5.1 g/dL (6.6-8.7)
[2025-09-02 07:45] VITALS: BP 178/111; PULSE 90; RESP 18; TEMP 36.7; O2SAT 94
--- NOTE | 2025-09-02 09:01 | PC.SOCIAL ---
IMM update pg 2 of IMM Updated and reviewed w/ patient. Copy provided and copy dated, initialed and placed in chart.
[2025-09-02] MEDS: potassium phosphate (mEq K) 40 MEQ in sodium chloride 0.9% (100 ml) 100 ML 25 MEQ IV (10:14)
--- NOTE | 2025-09-02 10:21 | PC.NURSE ---
Patient not given eliquis this morning per Dr Weldon. Received instruction to d/c eliquis order.
[2025-09-02 12:00] VITALS: BP 145/98; PULSE 87; RESP 20; TEMP 36.5
--- NOTE | 2025-09-02 15:42 | PC.NURSE ---
Received telephone order from Dr Weldon to stop IV fluids.
[2025-09-02 16:00] VITALS: BP 171/117; PULSE 82; RESP 15; TEMP 36.6; O2SAT 96
--- NOTE | 2025-09-02 16:53 | P.PN_ITS ---
Subjective 2 Subjective: patient was seen this morning she is alert and oriented x 3, follows commands, do reports generalized weakness, fatigue, malaise, nausea, vomiting, headache, blurry vision, no facial droop no slurring of words, no focal weakness, she tells me that she wants to come off the Eliquis, discussed risks and benefits of stopping Eliquis, morbidity or mortality associated with CVA, cardiovascular events, she voiced understanding, questions answered, declined to be put back on Eliquis Vitals/I&O/Wt Last Vital Signs Temp 98 F 09/02/25 16:00 Pulse 82 09/02/25 16:00 Resp 15 09/02/25 16:00 BP 171/117 09/02/25 16:00 Pulse Ox 96 09/02/25 16:00 O2 Del Method Nasal Cannula 09/02/25 16:00 O2 Flow Rate 2 09/02/25 16:00 09/02/25 09/02/25 09/02/25 06:59 14:59 22:59 Intake Total 0 / 2561.702 1005.3409 / 1005.3409 Balance 0 / 2561.702 1005.3409 / 1005.3409 Weight last 48 hrs Weight 66.2 kg Weight 65.317 kg Weight 63.503 kg Weight 63.503 kg Physical Exam 2 Const: COMMON NORMALS: no acute distress and patient oriented x3 Resp: COMMON NORMALS: normal respiratory effort, No retractions, No use of accessory muscles and clear to auscultation bilaterally AUSCULTATION: clear to auscultation bilaterally Cardio: COMMON NORMALS: regular rate, regular rhythm, S1 normal heart sound present and S2 normal heart sound present RATE: regular rate RHYTHM: r egular rhythm HEART SOUNDS: S1 normal heart sound present and S2 normal heart sound present GI: COMMON NORMALS: Normal to inspection, nondistended, normoactive bowel sounds present and non-tender Extremity: COMMON NORMALS: no pedal edema Neuro: COMMON NORMALS: patient oriented x3 Psych: COMMON NORMALS: mental status grossly normal Data 09/02/25 04:53 09/02/25 04:53 Micro: Microbiology 08/31/25 19:02 Urine Culture - Preliminary Urine,Clean Catch Gram Negative Rods A&P Assessment and plan 1. Closed head injury: 2. Headache: 3. Generalized weakness: 4. Acute cystitis: 5. Frequent falls: 6. UTI (urinary tract infection): Plan: Generalized progressive weakness with frequent falls - PT OT Atrial fibrillation with rapid ventricular response - Amiodarone drip, amiodarone bolus, converted to normal sinus rhythm, on p.o. amiodarone - Patient's fall, multiple bruises, discussed risk and benefits of stopping anticoagulation until tomorrow, risk of CVA versus risk of bleeding, she voiced understanding, all question answered, shared decision making, agreed to stop anticoagulant therapy Multiple bruising associated with fall Fall, reported head trauma - Repeat head CT no acute bleed - CT cervical spine, CT facial bone - Monitor for symptoms of concussion Acute cystitis - IV Rocephin - Continue to treat and follow-up culture and sensitivity and optimize accordingly GI and DVT prophylaxis in place, start Lovenox for DVT prophylaxis PDMP PDMP Reviewed: Not Reviewed Attestations 2 Medical Necessity Statement*: Patient requires hospitalization for atrial fibrillation, fall, deconditioning, UTI Diagnoses Closed head injury S09.90XA Headache R51.9 Generalized weakness R53.1 Acute cystitis N30.00 Frequent falls R29.6 UTI (urinary tract infection) N39.0
[2025-09-02 19:54] VITALS: BP 162/80; PULSE 74; RESP 17; TEMP 36.1; O2SAT 97
[2025-09-02] MEDS: cefTRIAXone 2,000 mg SDV 2000 MG IVP (20:52)
[2025-09-02] MEDS: ATORVASTATIN 20 MG TABLET PO (20:56)
[2025-09-02] MEDS: dilTIAZem 5 mg/mL SDV 5 mL 10 MG IVP (22:48)
[2025-09-02 23:43] VITALS: BP 87/69; PULSE 94; RESP 16; TEMP 36.2; O2SAT 97
[2025-09-03] VITALS (12 sets, daily range): BP systolic 105–140; BP diastolic 59–97; PULSE 78–135; RESP 18–29; TEMP 36.6–37.5; O2SAT 93–97; BMI 22.4
[2025-09-03] MEDS: HYDROmorphone 0.5 MG/0.5 ML INJ IVP ×4 (01:15→20:40)
--- NOTE | 2025-09-03 02:10 | PC.NURSE ---
Addendum entered by Griselda Nuñez RN 09/03/25 03:49: patient's HR back in 120-130s steadily, contacted MD DELIA ordered 10 mg IVP cardizem once now, 60mg PO cardizem once now, and 120mg of cardizem ER daily. all three orders entered, and the two orders given see MAR Original Note: Patient went back into afib with rvr tonight patient HR was reaching the 130-140s, called MD DELIA ordered one time dose of cardizem 10mg IVP. orders entered and given see MAR. since giving the IVP of cardiem patients HR stays in higher 90s to low 110s.
[2025-09-03] MEDS: dilTIAZem 5 mg/mL SDV 5 mL 10 MG IVP (03:44)
[2025-09-03 03:55] LABS: Hematocrit 40.9 % (36-47); Hemoglobin 12.30 g/dL (11.27-16.99); Mean Corpuscular HGB Conc 30.1 g/dL (30-55); Mean Corpuscular Hemoglobin 26.1 pg (27-33); Mean Corpuscular Volume 86.7 fl (85-98); Nucleated Red Blood Cells % 0 %; Platelet Count 199 10^3/cmm (157-399); Red Blood Count 4.72 10^6/uL (3.85-5.65); White Blood Count 7.49 10^3/uL (3.29-11.43)
[2025-09-03 04:07] LABS: Alanine Aminotransferase 9 U/L (0-33); Albumin Level 3.4 g/dL (3.5-5.2); Alkaline Phosphatase 149 U/L (35-105); Blood Urea Nitrogen 7 mg/dL (8-23); Calcium 8.3 mg/dL (8.5-10.5); Carbon Dioxide 26 mmol/L (22-29); Chloride 99 mmol/L (98-107); Creatinine Clr Calc Pharmacy 58.0432; Globulin 2.2 g/dL (1.3-4.6); Glucose 93 mg/dL (65-115); Magnesium 1.8 mg/dL (1.7-2.3); Osmolality Calculated 282 mOsm/kg (285-295); Sodium 137 mmol/L (136-145); Total Protein 5.6 g/dL (6.6-8.7)
[2025-09-03 04:11] LABS: Anion Gap 15.1 (5-19); Aspartate Amino Transferase 21 U/L (0-32); Potassium 3.1 mmol/L (3.5-5.1)
[2025-09-03] MEDS: metoprolol succinate ER (24 HR) 25 mg Tablet PO (05:41)
[2025-09-03] MEDS: dilTIAZem ER (24HR) 120 mg Capsule PO (07:50)
--- NOTE | 2025-09-03 14:10 | P.PN_ITS ---
Subjective 2 Subjective: Patient was seen this morning, she currently denies any headache, no nausea, no vomiting, no blurry vision, Vitals/I&O/Wt Last Vital Signs Temp 98.0 F 09/03/25 12:00 Pulse 89 09/03/25 12:00 Resp 19 H 09/03/25 12:00 BP 105/68 09/03/25 12:00 Pulse Ox 97 09/03/25 12:00 O2 Del Method Room Air 09/03/25 07:30 O2 Flow Rate 2 09/02/25 16:00 09/02/25 09/03/25 09/03/25 22:59 06:59 14:59 Intake Total 1005.3409 / 1005.3409 240 / 240 Balance 1005.3409 / 1005.3409 240 / 240 Weight last 48 hrs Weight 65.1 kg Weight 66.2 kg Physical Exam 2 Const: COMMON NORMALS: no acute distress and patient oriented x3 O RIENTATION/CONSCIOUSNESS: Yes awake, Yes oriented to person, Yes oriented to place and Yes oriented to time Eye: COMMON NORMALS: Equal, round and reactive pupils present and EOMs intact bilaterally PUPIL: Yes Equal, round and reactive pupils present Resp: COMMON NORMALS: normal respiratory effort, No retractions, No use of accessory muscles and clear to auscultation bilaterally AUSCULTATION: clear to auscultation bilaterally Cardio: COMMON NORMALS: regular rate, regular rhythm, S1 normal heart sound present and S2 normal heart sound present RATE: regular rate RHYTHM: r egular rhythm HEART SOUNDS: S1 normal heart sound present and S2 normal heart sound present GI: COMMON NORMALS: Normal to inspection, nondistended, normoactive bowel sounds present and non-tender Extremity: COMMON NORMALS: no pedal edema Neuro: COMMON NORMALS: patient oriented x3, CN's II-XII intact bilaterally and moves all extremities SENSORIUM/ORIENTATION: Yes oriented to person, Yes oriented to place and Yes oriented to time Psych: COMMON NORMALS: mental status grossly normal Data 09/03/25 03:08 09/03/25 03:08 Micro: Microbiology 08/31/25 19:02 Urine Culture - Final Urine,Clean Catch Escherichia coli A&P Assessment and plan 1. Closed head injury: 2. Headache: 3. Generalized weakness: 4. Acute cystitis: 5. Frequent falls: 6. UTI (urinary tract infection): Plan: Generalized progressive weakness with frequent falls - PT OT Atrial fibrillation with rapid ventricular response - Amiodarone drip, amiodarone bolus, converted to normal sinus rhythm, on p.o. amiodarone - Patient's fall, multiple bruises, discussed risk and benefits of stopping anticoagulation until tomorrow, risk of CVA versus risk of bleeding, she voiced understanding, all question answered, shared decision making, agreed to stop anticoagulant therapy Multiple bruising associated with fall Fall, reported head trauma - Repeat head CT no acute bleed - CT cervical spine, CT facial bone - Monitor for symptoms of concussion Concussion - Complaints of headache - Currently on Lyrica which I will resume Acute cystitis - IV Rocephin - Continue to treat and follow-up culture and sensitivity and optimize accordingly GI and DVT prophylaxis in place, start Lovenox for DVT prophylaxis PDMP PDMP Reviewed: Not Reviewed Attestations 2 Medical Necessity Statement*: Patient requires hospitalization for atrial fibrillation, fall, deconditioning Diagnoses Closed head injury S09.90XA Headache R51.9 Generalized weakness R53.1 Acute cystitis N30.00 Frequent falls R29.6 UTI (urinary tract infection) N39.0
[2025-09-03] MEDS: cefTRIAXone 2,000 mg SDV 2000 MG IVP (20:41)
[2025-09-03] MEDS: ATORVASTATIN 20 MG TABLET PO (20:41)
[2025-09-04] VITALS (10 sets, daily range): BP systolic 112–132; BP diastolic 64–79; PULSE 68–110; RESP 10–18; TEMP 36.6–36.9; O2SAT 90–97
[2025-09-04] MEDS: HYDROmorphone 0.5 MG/0.5 ML INJ IVP (03:21)
[2025-09-04 03:29] LABS: Hematocrit 43.2 % (36-47); Hemoglobin 12.70 g/dL (11.27-16.99); Mean Corpuscular HGB Conc 29.4 g/dL (30-55); Mean Corpuscular Hemoglobin 25.7 pg (27-33); Mean Corpuscular Volume 87.4 fl (85-98); Nucleated Red Blood Cells % 0 %; Platelet Count 201 10^3/cmm (157-399); Red Blood Count 4.94 10^6/uL (3.85-5.65); White Blood Count 6.93 10^3/uL (3.29-11.43)
[2025-09-04 03:53] LABS: Anion Gap 14.5 (5-19); Blood Urea Nitrogen 13 mg/dL (8-23); Calcium 8.7 mg/dL (8.5-10.5); Carbon Dioxide 25 mmol/L (22-29); Chloride 104 mmol/L (98-107); Creatinine Clr Calc Pharmacy 57.6406; Glucose 107 mg/dL (65-115); Osmolality Calculated 291 mOsm/kg (285-295); Potassium 3.5 mmol/L (3.5-5.1); Sodium 140 mmol/L (136-145)
[2025-09-04] MEDS: metoprolol succinate ER (24 HR) 25 mg Tablet PO (04:34)
[2025-09-04] MEDS: dilTIAZem ER (24HR) 120 mg Capsule PO (08:44)
[2025-09-04] MEDS: oxyCODONE 5 mg IR Tab/Cap PO ×3 (08:47→21:59)
[2025-09-04] MEDS: methylPREDNISolone sod succ 125 mg/2 mL INJ IVP (09:44)
--- NOTE | 2025-09-04 15:02 | P.PN_ITS ---
Subjective 2 Subjective: Patient was seen this morning, currently alert oriented x 3, follows all commands, does complain of bilateral shoulder pain, neck pain, Vitals/I&O/Wt Last Vital Signs Temp 98.1 F 09/04/25 08:00 Pulse 89 09/04/25 12:00 Resp 10 L 09/04/25 12:00 BP 132/64 09/04/25 12:00 Pulse Ox 97 09/04/25 12:00 O2 Del Method Room Air 09/03/25 20:00 O2 Flow Rate 2 09/02/25 16:00 09/04/25 09/04/25 09/04/25 06:59 14:59 22:59 Intake Total 200 / 1120 720 / 720 Balance 200 / 1120 720 / 720 Weight last 48 hrs Weight 64.212 kg Weight 65.1 kg Physical Exam 2 Const: COMMON NORMALS: no acute distress and patient oriented x3 Neck/C-Spine: GENERAL: Yes normal visual inspection CERVICAL SPINE: Yes cervical ROM normal, No Cervical spine tenderness, Yes Paracervical muscle tenderness, Yes Paracervical spasm and Yes Trapezius muscle tenderness Resp: COMMON NORMALS: normal respiratory effort, No retractions, No use of accessory muscles and clear to auscultation bilaterally AUSCULTATION: clear to auscultation bilaterally Cardio: COMMON NORMALS: regular rate, regular rhythm, S1 normal heart sound present and S2 normal heart sound present RATE: regular rate RHYTHM: r egular rhythm HEART SOUNDS: S1 normal heart sound present and S2 normal heart sound present GI: COMMON NORMALS: Normal to inspection, nondistended, normoactive bowel sounds present and non-tender Extremity: COMMON NORMALS: no pedal edema Neuro: COMMON NORMALS: patient oriented x3 Psych: COMMON NORMALS: mental status grossly normal Data 09/04/25 03:18 09/04/25 03:18 Micro: Microbiology 08/31/25 19:02 Urine Culture - Final Urine,Clean Catch Escherichia coli A&P Assessment and plan 1. Closed head injury: 2. Headache: 3. Generalized weakness: 4. Acute cystitis: 5. Frequent falls: 6. UTI (urinary tract infection): Plan: Generalized progressive weakness with frequent falls - PT OT Atrial fibrillation with rapid ventricular response - Amiodarone drip, amiodarone bolus, converted to normal sinus rhythm, on p.o. amiodarone - Patient's fall, multiple bruises, discussed risk and benefits of stopping anticoagulation until tomorrow, risk of CVA versus risk of bleeding, she voiced understanding, all question answered, shared decision making, agreed to stop anticoagulant therapy Multiple bruising associated with fall Fall, reported head trauma - Neck pain, shoulder pain - Repeat head CT no acute bleed - CT cervical spine, CT facial bone - Monitor for symptoms of concussion Concussion - Complaints of headache - Currently on Lyrica which I will resume Acute cystitis - IV Rocephin - Continue to treat and follow-up culture and sensitivity and optimize accordingly GI and DVT prophylaxis in place, Lovenox for DVT prophylaxis PDMP PDMP Reviewed: Not Reviewed Attestations 2 Medical Necessity Statement*: Patient requires hospitalization for acute cystitis, neck/shoulder pain Diagnoses Closed head injury S09.90XA Headache R51.9 Generalized weakness R53.1 Acute cystitis N30.00 Frequent falls R29.6 UTI (urinary tract infection) N39.0
[2025-09-04] MEDS: cefTRIAXone 2,000 mg SDV 2000 MG IVP (20:49)
[2025-09-04] MEDS: ATORVASTATIN 20 MG TABLET PO (20:49)
[2025-09-05] VITALS (7 sets, daily range): BP systolic 109–133; BP diastolic 63–82; PULSE 69–93; RESP 12–27; TEMP 36.4–36.6; O2SAT 90–95
[2025-09-05 02:32] LABS: Hematocrit 38.4 % (36-47); Hemoglobin 11.50 g/dL (11.27-16.99); Mean Corpuscular HGB Conc 29.9 g/dL (30-55); Mean Corpuscular Hemoglobin 25.7 pg (27-33); Mean Corpuscular Volume 85.7 fl (85-98); Nucleated Red Blood Cells % 0 %; Platelet Count 190 10^3/cmm (157-399); Red Blood Count 4.48 10^6/uL (3.85-5.65); White Blood Count 6.39 10^3/uL (3.29-11.43)
[2025-09-05 02:56] LABS: Anion Gap 13.0 (5-19); Blood Urea Nitrogen 15 mg/dL (8-23); Calcium 9.1 mg/dL (8.5-10.5); Carbon Dioxide 26 mmol/L (22-29); Chloride 103 mmol/L (98-107); Creatinine Clr Calc Pharmacy 57.3156; Glucose 147 mg/dL (65-115); Osmolality Calculated 290 mOsm/kg (285-295); Potassium 4.0 mmol/L (3.5-5.1); Sodium 138 mmol/L (136-145)
[2025-09-05] MEDS: oxyCODONE 5 mg IR Tab/Cap PO ×2 (04:46→08:44)
[2025-09-05] MEDS: metoprolol succinate ER (24 HR) 25 mg Tablet PO (04:48)
[2025-09-05] MEDS: dilTIAZem ER (24HR) 120 mg Capsule PO (08:35)
--- NOTE | 2025-09-05 11:48 | PC.OT ---
OT TREATMENT HELD TODAY DUE TO SCHEDULED PATIENT D/C
--- NOTE | 2025-09-05 12:40 | PC.NURSE ---
transportation-nephew Edin called back and he said, he will be here to sampler pickup pt in about an hour and a half due to his job. Pt stated, she would like to stay in her room and lay back down while waiting for his ride.
--- NOTE | 2025-09-05 15:03 | PC.SOCIAL ---
*IMM Update* Patient received IMM, Copy gave to patient, initial and dated in chart.
--- NOTE | 2025-09-05 17:42 | PM.DCS ---
Discharge Providers Date of Admission: 08/31/25 20:25 Date of Discharge: September 05, 2025 Attending Provider at Admission: Sultana Peña MD Attending Provider at Discharge: Cabrera Weldon MD Primary Care Provider: Joy Nieto-C Diagnoses at Discharge Discharge Diagnosis 1. Closed head injury: 2. Headache: 3. Generalized weakness: 4. Acute cystitis: 5. Frequent falls: 6. UTI (urinary tract infection): Reason for Visit Reason for Visit: PACE post fall/closed head injury/weakness/UTI Hospital Course Hospital Course This is a 80-year-old female who presents [facility] for a fall Hospitalization she was found to have atrial fibrillation with rapid ventricular response -Was managed on, amiodarone drip -Transition to p.o. amiodarone -Given patient's fall, multiple bruises, discussed risk and benefits of anticoagulation therapy on discharge, risk of CVA versus risk of bleeding, she voiced understanding, all question answered, shared decision making, she tells me she does not want to be on Eliquis anymore due to her falls, her bruising, or for concerns for risk of bleeding - Will discontinue Eliquis on discharge as per patient's request - Will discharge on aspirin 81 mg daily - Discussed that aspirin 81 mg a day is not considered a substitute for Eliquis, she will still have a increase risk of stroke and bleeding even with aspirin, but I understand her concerns for her bruising, after discussing the risk and benefits, she voiced understanding, all question answered, agreed to proceed Patient had multiple bruising associate with falls, continue to monitor Fall with reported diffuse musculoskeletal pain, reported hitting her head - Head CT, cervical spine CT, facial bone CT no acute findings - Patient had persistence symptoms of headache, no blurry vision, no nausea, no vomiting - Repeat head CT within normal limits - Likely concussion syndrome - Follow-up with primary care provider - Continue home Lyrica - Discussed screen time avoidance, monitoring for worsening symptoms of concussion Acute cystitis, managed on IV antibiotics, discharged on p.o. cefdinir In terms of patient's complaints of multiple joint pain, back pain, neck pain, associated with her fall - I have discharged her on a short supply of oxycodone - She does use Suboxone at home with brixadi monthly - So far during her hospitalization she has tolerated oxycodone well, no side effects reported, no respiratory depression - Discussed with her to use oxycodone sparingly for acute pain related to her fall, trauma - Discussed the risk of narcotic overdose, morbidity and mortality associated, risk of opioid dependence, she voiced understanding, all questions answered - Will discharge on a short supply of oxycodone - You are on brixadi and Suboxone, thus please use oxycodone sparingly - Use oxycodone sparingly for pain, do not drive or operate heavy machinery or drink while taking medication and do not use with Suboxone -Please monitor for respiratory depression, altered mental status, if so go to the emergency room -Please let your pain management doctor know that you have been discharged on oxycodone for acute pain - You have an increased risk of opiate dependence, please use oxycodone sparingly for pain -Please use muscle relaxer sparingly, please use sparingly, do not use with oxycodone or other sedating medications do not drive or operate heavy machinery or drink while taking medication - Please use prednisone sparingly - please follow-up with primary care provider - If you have a fall please come back to the emergency room - Follow-up with cardiology Physical Exam Const: COMMON NORMALS: no acute distress and patient oriented x3 Eye: OTHER: Bruising around periorbital region, right maxilla Resp: COMMON NORMALS: normal respiratory effort, No retractions, No use of accessory muscles and clear to auscultation bilaterally AUSCULTATION: clear to auscultation bilaterally Cardio: COMMON NORMALS: regular rate, regular rhythm, S1 normal heart sound present and S2 normal heart sound present RATE: regular rate RHYTHM: regular rhythm HEART SOUNDS: S1 normal heart sound present and S2 normal heart sound present GI: COMMON NORMALS: Normal to inspection, nondistended, normoactive bowel sounds present and non-tender Extremity: COMMON NORMALS: no pedal edema Neuro: COMMON NORMALS: patient oriented x3, CN's II-XII intact bilaterally and moves all extremities Psych: COMMON NORMALS: mental status grossly normal Discharge Data Studies Completed and Pending Completed Studies During Hospitalization Category Date Time Status CT cervical spin wo con* [id number] Routine Cat Scan 09/01/25 10:[address] facial bones wo con* [id number] Routine Cat Scan 09/01/25 10:[address] head wo con* [id number] Stat Cat Scan 08/31/25 17:[address] head wo con* [id number] Stat Cat Scan 09/01/25 05:11 Completed XR chest 1V portable [id number] Stat Exams 08/31/25 17:57 Completed Radiology Impressions Chest X-Ray 08/31/25 17:57 IMPRESSION: No acute findings. Head CT 09/01/25 05:11 IMPRESSION: Small-vessel disease. No evidence of acute intracranial process. Cervical Spine CT 09/01/25 10:31 IMPRESSION: No evidence of acute fracture or dislocation Face CT 09/01/25 10:31 IMPRESSION: No acute facial bone fractures visualized Laboratory Results WBC 6.39 10^3/uL (3.29-11.43) 09/05/25 01:56 RBC 4.48 10^6/uL (3.85-5.65) 09/05/25 01:56 Hgb 11.50 g/dL (11.27-16.99) 09/05/25 01:56 Hct 38.4 % (36-47) 09/05/25 01:56 MCV 85.7 fl (85-98) 09/05/25 01:56 MCH 25.7 pg (27-33) L 09/05/25 01:56 MCHC 29.9 g/dL (30-55) L 09/05/25 01:56 RDW 15.8 % (12.1-15.1) H 09/05/25 01:56 Plt Count 190 10^3/cmm (157-399) 09/05/25 01:56 MPV 10.1 fL (7.4-10.4) 09/05/25 01:56 Neut % (Auto) 83.0 % 09/05/25 01:56 Lymph % (Auto) 9.7 % 09/05/25 01:56 Brewster % (Auto) 6.6 % 09/05/25 01:56 Eos % (Auto) 0.0 % 09/05/25 01:56 Baso % (Auto) 0.2 % 09/05/25 01:56 Neut # (Auto) 5.31 10^3/uL (1.8-7.7) 09/05/25 01:56 Lymph # (Auto) 0.6 10^3/uL (0.8-4.8) L 09/05/25 01:56 Brewster # (Auto) 0.4 10^3/uL (0.2-0.9) 09/05/25 01:56 Eos # (Auto) 0.0 10^3/uL (0.0-0.8) 09/05/25 01:56 Baso # (Auto) 0.0 10^3/uL (0.0-0.1) 09/05/25 01:56 Nucleated RBC % (auto) 0 % 09/05/25 01:56 Nucleated RBCs # 0.0 /100WBC 09/05/25 01:56 PT 12.50 SECONDS (12.1-14.9) 08/31/25 18:32 INR 0.88 (0.8-1.2) 08/31/25 18:32 Sodium 138 mmol/L (136-145) 09/05/25 01:56 Potassium 4.0 mmol/L (3.5-5.1) 09/05/25 01:56 Chloride 103 mmol/L (98-107) 09/05/25 01:56 Carbon Dioxide 26 mmol/L (22-29) 09/05/25 01:56 Anion Gap 13.0 (5-19) 09/05/25 01:56 BUN 15 mg/dL (8-23) 09/05/25 01:56 Creatinine 0.5 mg/dL (0.5-0.9) 09/05/25 01:56 GFR Calculation Not Reportable 09/05/25 01:56 Glucose 147 mg/dL (65-115) H 09/05/25 01:56 Estimat Average Glucose 97 09/01/25 04:54 Hemoglobin A1c 5.0 % (4.0-6.0) 09/01/25 04:54 Calculated Osmolality 290 mOsm/kg (285-295) 09/05/25 01:56 Calcium 9.1 mg/dL (8.5-10.5) 09/05/25 01:56 Phosphorus 2.6 mg/dL (2.5-4.5) 09/03/25 03:08 Magnesium 1.8 mg/dL (1.7-2.3) 09/03/25 03:08 Total Bilirubin 0.3 mg/dL (0.15-1.2) 09/03/25 03:08 AST 21 U/L (0-32) 09/03/25 03:08 ALT 9 U/L (0-33) 09/03/25 03:08 Alkaline Phosphatase 149 U/L (35-105) H 09/03/25 03:08 Total Protein 5.6 g/dL (6.6-8.7) L 09/03/25 03:08 Albumin 3.4 g/dL (3.5-5.2) L 09/03/25 03:08 Globulin 2.2 g/dL (1.3-4.6) 09/03/25 03:08 TSH 2.05 uIU/mL (0.27-4.20) 08/31/25 17:05 Urine Color Yellow (Yellow) 08/31/25 19:02 Urine Appearance Clear (CLEAR) 08/31/25 19:02 Urine pH 5.5 (5-7) 08/31/25 19:02 Ur Specific Harper 1.025 (1.005-1.030) 08/31/25 19:02 Urine Protein Negative (Negative) 08/31/25 19:02 Urine Glucose (UA) Negative (Normal) 08/31/25 19:02 Urine Ketones Negative (Negative) 08/31/25 19: Urine Blood Negative (Negative) 08/31/25 19:02 Urine Nitrate Positive (Negative) A 08/31/25 19: Urine Bilirubin Negative (Negative) 08/31/25 19:02 Urine Urobilinogen 1.0 mg/dL (Negative) 08/31/25 19:02 Ur Leukocyte Esterase 1+ (Negative) A 08/31/25 19:02 Urine RBC 0-2 /hpf (0-2) 08/31/25 19:02 Urine WBC 11-20 /hpf (0-5) H 08/31/25 19:02 Ur Squamous Epith Cells 6-10 /hpf (0-5) 08/31/25 19:02 Amorphous Sediment Not Reportable 08/31/25 19:02 Urine Bacteria 4+ /hpf (NONE) H 08/31/25 19:02 Hyaline Casts 1.65 /lpf 08/31/25 19:02 Vitals Last Vital Signs Temp 97.6 F 09/05/25 11:56 Pulse 87 09/05/25 11:56 Resp 15 09/05/25 11:56 BP 133/82 09/05/25 11:56 Pulse Ox 90 09/05/25 11:56 O2 Del Method Room Air 09/05/25 11:56 O2 Flow Rate 2 09/02/25 16:00 Discharge Plan Discharge Patient Disposition: Home Health Service Condition: Stable Prescriptions: New amiodarone [Pacerone] 200 mg Tablet See Rx Instructions .ROUTE .COMPLEX Qty: 60 0RF Rx Instructions: 2tab bid for 5 days, 1 tab bid for 5 days, then 1 tab daily cyclobenzaprine 10 mg Tablet 5 mg PO Q8H PRN (Reason: Muscle Spasms) 5 Days Qty: 15 0RF docusate sodium 100 mg Capsule 100 mg PO BID 30 Days Qty: 60 0RF diltiazem HCl 120 mg Capsule,Extended Release 24hr 120 mg PO DAILY@0900 30 Days Qty: 30 0RF oxycodone 5 mg Tablet 5 mg PO Q8H PRN (Reason: Moderate Pain) 5 Days Qty: 15 0RF Rx Instructions: please us sparingly, donot drive or operate heavy machinery or drink while taking medication or with bupropion prednisone 5 mg tablet 5 mg PO BID 5 Days Qty: 10 0RF naloxone [Narcan] 4 mg/actuation spray,non-aerosol 4 mg intranasal Q2M PRN (Reason: opioid overdose) Qty: 2 0RF Rx Instructions: spray 1 dose into ONE nostril; alternate nostrils w each dose until help arrives cefdinir 300 mg capsule 300 mg PO BID 5 Days Qty: 10 0RF Continued CalMag Thins 200 mg calcium- 50 mg tablet 1 tab PO DAILY sertraline 50 mg tablet 50 mg PO DAILY Rx Instructions: along with 25 mg daily to= 75 mg total Farxiga 10 mg tablet 10 mg PO DAILY nitroglycerin 0.4 mg tablet, sublingual 0.4 mg sublingual Q5M PRN (Reason: chest pain) Qty: 25 2RF Rx Instructions: do not exceed 3 doses per episode Vitamin B-12 50 mcg Lozenge 50 mcg PO DAILY sertraline 25 mg tablet 25 mg PO DAILY Rx Instructions: along with 50 mg daily to= 75 mg total atorvastatin 20 mg tablet 20 mg PO DAILY ondansetron 8 mg tablet,disintegrating 8 mg PO Q8H PRN (Reason: Nausea And Vomiting) metoprolol succinate 25 mg tablet extended release 24 hr 25 mg PO DAILY alendronate 70 mg tablet 70 mg PO Q7D Rx Instructions: potassium chloride 20 mEq tablet,ER particles/crystals 20 meq PO DAILY buprenorphine-naloxone 8-2 mg tablet, sublingual 2 tab SUBLINGUAL DAILY PRN (Reason: x7d) pregabalin 50 mg capsule 50 mg PO TID ramelteon 8 mg tablet 8 mg PO BEDTIME Breztri Aerosphere 160-9-4.8 mcg/actuation HFA aerosol inhaler 2 inh INHALATION BID Brixadi 96 mg/0.27 mL solution, extended rel syringe 96 mg SUBCUT Q30D omeprazole 40 mg capsule,delayed release(DR/EC) 40 mg PO DAILY aspirin 81 mg Tablet,Delayed Release (Dr/Ec) 81 mg PO DAILY Discontinued Eliquis 5 mg tablet 5 mg PO BID Qty: 180 3RF meclizine 25 mg tablet 25 mg PO TID PRN (Reason: Dizziness) flecainide 100 mg tablet 100 mg PO Q12H losartan 100 mg tablet 100 mg PO DAILY No Action (DME) CAM walker See Rx Instructions .Route .MEDSUPPLY Qty: 1 0RF Rx Instructions: As directed (DME) ASO to left See Rx Instructions .Route .MEDSUPPLY Qty: 1 0RF Rx Instructions: As directed by HOME Length of need is [id number] days Discharge Order = DC NOW: Discharge Order (Routine); Ordered 09/05/25 Ordered By: Cabrera Weldon Referrals: [facility] [Outside] Scooter Galeas M.D [Physician, Cardiology] - 09/19/25 1:45 pm Joy Nieto FNP-C [Primary Care Provider, Nurse Practitioner] - 09/08/25 11:15 am Referral Note: Discharge Diet: Cardiac Discharge Activity: Resume usual activity Patient Instructions: Diltiazem (By mouth) (Cardizem, Cardizem CD, Cardizem LA, Cardizem SR), Prednisone (By mouth), Cyclobenzaprine (By mouth) (Flexeril, Amrix, Fexmid, FusePaq..., Amiodarone (By mouth) (Cordarone, Pacerone), Oxycodone, Slow Release (By mouth) (Oxycontin, Xtampza ER, Oksikodon), Docusate Sodium (By mouth), Weakness (DC), Fall Prevention (DC), Opioid Safety, Patient Portal & Abhi Instructions Activity Restrictions/Additional Instructions: - You are on brixadi and Suboxone, thus please use oxycodone sparingly - Use oxycodone sparingly for pain, do not drive or operate heavy machinery or drink while taking medication and do not use with Suboxone -Please monitor for respiratory depression, altered mental status, if so go to the emergency room -Please let your pain management doctor know that you have been discharged on oxycodone for acute pain - You have an increased risk of opiate dependence, please use oxycodone sparingly for pain -Please use muscle relaxer sparingly, please use sparingly, do not use with oxycodone or other sedating medications do not drive or operate heavy machinery or drink while taking medication - Please use prednisone sparingly - please follow-up with primary care provider - If you have a fall please come back to the emergency room - Follow-up with cardiology Discharge Attestations Time Spent in Discharge Care*: greater than 30 min Quality Metrics Clinical Quality Measures [ No reported AMI, CVA or VTE this stay] Coding Level of Care Code 90560 Total time (in minutes) for Discharge: 45 Diagnoses Closed head injury S09.90XA Headache R51.9 Generalized weakness R53.1 Acute cystitis N30.00 Hematuria presence: without hematuria Frequent falls R29.6 UTI (urinary tract infection) N39.0
== END 2025-09-05 14:19 | disposition home health service (06) | DRG 914 ==
LOC: ER 20:37 → MEDSURG 20:56 → CSU 09-01 09:24
PROVIDERS: Admitting Provider Internal Medicine; Emergency Provider Emergency Medicine; PCP Nurse Practitioner Family; Visit Provider Family Medicine
DX: S09.90XA Unspecified injury of head, initial encounter (principal); N30.00 Acute cystitis without hematuria; W19.XXXA Unspecified fall, initial encounter; Z91.81 History of falling; Y92.009 Unspecified place in unspecified non-institutional (private) residence as the place of occurrence of the external cause; Z90.710 Acquired absence of both cervix and uterus; Z90.49 Acquired absence of other specified parts of digestive tract; J44.9 Chronic obstructive pulmonary disease, unspecified; Z79.51 Long term (current) use of inhaled steroids; Z79.01 Long term (current) use of anticoagulants; I10 Essential (primary) hypertension; Z79.82 Long term (current) use of aspirin; M19.90 Unspecified osteoarthritis, unspecified site; M41.20 Other idiopathic scoliosis, site unspecified; I48.91 Unspecified atrial fibrillation; M54.2 Cervicalgia; M25.512 Pain in left shoulder; M25.511 Pain in right shoulder; F07.81 Postconcussional syndrome; Z87.891 Personal history of nicotine dependence
CPT/HCPCS: 36415; 70450; 70486; 71045; 72125; 80048; 80053; 81001; 83036; 83735; 84100; 84443; 85025; 85610; 87077; 87086; 87186; 93005; 96372; 96374; 96375; 96376; 97116; 97161; 97167; 97530; 99285; J0282; J0283; J0360; J0696; J0780; J1171; J1200; J1650; J1885; J2270; J2405; J2765; J2919; J3490; J7030; J9999